=== PATIENT | female | born 1965 | race Caucasian/White ===

== ENCOUNTER → 2016-02-26 | Outpatient (CLI) | payer MEDICARE, BC ==
[2016-02-26 16:19] LABS: Blood Urea Nitrogen 7 mg/dL (7-17); Non-African American GFR(MDRD) >60 (>60 ml/min/1.73 sqM)
== END | disposition home or self-care (01) ==
LOC: LABWHC1 15:20
PROVIDERS: ATTEND Physical Medicine & Rehabilitation
DX: Z01.812 Encounter for preprocedural laboratory examination (principal); N28.9 Disorder of kidney and ureter, unspecified
CPT/HCPCS: 36415; 82565; 84520

== ENCOUNTER → 2017-06-30 | Outpatient (CLI) | payer MEDICARE ==
[2017-06-30 07:49] LABS: Basophils % (A) 0 %; Eosinophils # (A) 0.2 k/uL (0-0.7); Eosinophils % (A) 4 %; HCT 45.7 % (34.0-46.0); HGB 14.4 gm/dL (11.4-16.0); Lymphocytes # (A) 1.8 k/uL (1.0-4.8); Lymphocytes % (A) 39 %; MCH 32.2 pg (25.0-35.0); MCHC 31.6 g/dL (31.0-37.0); MCV 102.1 fL (80.0-100.0); Mean Platelet Volume 7.9; Monocytes # (A) 0.3 k/uL (0-1.0); Monocytes % (A) 6 %; Neutrophils # (A) 2.2 k/uL (1.3-7.7); Neutrophils % (A) 49 %; Platelet Count 249 k/uL (150-450); RBC 4.48 m/uL (3.80-5.40); RDW 12.6 % (11.5-15.5); WBC 4.6 k/uL (3.8-10.6)
[2017-06-30 07:50] LABS: Appearance,Urine Clear (Clear); Bilirubin,Urine Negative (Negative); Blood,Urine Negative (Negative); Color,Urine Light Yellow; Glucose,Urine (UA) Negative (Negative); Ketones,Urine Negative (Negative); Leukocyte Esterase,Urine Negative (Negative); Nitrite,Urine Negative (Negative); Protein,Urine Negative (Negative); Specific Gravity,Urine 1.003 (1.001-1.035); Urobilinogen,Urine <2.0 mg/dL (<2.0)
[2017-06-30 09:13] LABS: ALT 33 U/L (9-52); AST 28 U/L (14-36); Albumin 3.6 g/dL (3.5-5.0); Alkaline Phosphatase 70 U/L (38-126); Anion Gap 10 mmol/L; Blood Urea Nitrogen 7 mg/dL (7-17); C Reactive Protein <5.0 mg/L (<10.0); Calcium 9.5 mg/dL (8.4-10.2); Carbon Dioxide 31 mmol/L (22-30); Chloride 104 mmol/L (98-107); Creatine Kinase 48 U/L (30-135); Glucose 90 mg/dL (74-99); LDH 418 U/L (313-618); Phosphorus 4.3 mg/dL (2.5-4.5); Potassium 4.2 mmol/L (3.5-5.1); Sodium 145 mmol/L (137-145); Total Bilirubin 0.2 mg/dL (0.2-1.3); Uric Acid 4.1 mg/dL (3.7-7.4)
[2017-06-30 10:11] LABS: Erythrocyte Sedimentation Rate 2 mm/hr (0-20)
[2017-06-30 12:07] LABS: Vitamin D 25 Hydroxy 28.5 ng/mL (30.0-100.0)
[2017-06-30 12:15] LABS: Parathyroid Hormone Intact 21.7 pg/mL (14.0-72.0)
[2017-06-30 12:37] LABS: Cyclic Citrullinated Pep IgG NEGATIVE (NEGATIVE)
[2017-06-30 13:13] LABS: Protein, Total 6.1 g/dL (6.2-8.2); Rheumatoid Factor 4 IU/mL (0-15); Streptolysin O Ab(ASO) 638 IU/mL (0-200)
[2017-07-01 04:40] LABS: Angiotensin-1 Converting Enz. 28 U/L (8-52)
[2017-07-01 11:21] LABS: HLA B27 NEGATIVE
[2017-07-01 15:12] LABS: Hepatits C Virus RNA Not detected (Not detected); Hepatits C Virus RNA, Quant <12 IU/mL (<12); LOG HCV IU/mL <1.08 (<1.08)
[2017-07-01 17:50] LABS: Vitamin D, 1, 25-Dihydroxy 29 pg/mL (20 - 79)
[2017-07-01 23:19] LABS: Hemoglobin A1C 5.5 % (4.0-6.0)
[2017-07-02 11:06] LABS: Albumin 3.92 g/dL (3.80-4.90)
[2017-07-03 10:11] LABS: Vitamin B1 42 ug/L (38-122)
== END | disposition home or self-care (01) ==
LOC: LABWHC1 06:33
PROVIDERS: ATTEND Physical Medicine & Rehabilitation
DX: M54.5 Low back pain (principal); G89.4 Chronic pain syndrome; M54.2 Cervicalgia; G57.70 Causalgia of unspecified lower limb; M51.17 Intervertebral disc disorders with radiculopathy, lumbosacral region; G89.29 Other chronic pain; G89.3 Neoplasm related pain (acute) (chronic); M79.7 Fibromyalgia; M79.1 Myalgia; F06.4 Anxiety disorder due to known physiological condition; K59.03 Drug induced constipation; F45.42 Pain disorder with related psychological factors; M70.22 Olecranon bursitis, left elbow; G56.40 Causalgia of unspecified upper limb; M19.042 Primary osteoarthritis, left hand; M50.122 Cervical disc disorder at C5-C6 level with radiculopathy; M47.812 Spondylosis without myelopathy or radiculopathy, cervical region; R07.81 Pleurodynia; M70.62 Trochanteric bursitis, left hip; M70.61 Trochanteric bursitis, right hip; M77.12 Lateral epicondylitis, left elbow; M18.0 Bilateral primary osteoarthritis of first carpometacarpal joints
CPT/HCPCS: 36415; 80053; 81003; 82164; 82306; 82310; 82550; 82553; 82607; 82652; 83036; 83516; 83520; 83615; 83970; 84100; 84165; 84207; 84425; 84439; 84443; 84550; 85025; 85652; 86038; 86060; 86140; 86200; 86235; 86431; 86618; 86812; 87522

== ENCOUNTER → 2018-01-02 | Outpatient (CLI) | payer MEDICARE | END | disposition home or self-care (01) | LOC: LABWHC1 14:00 | PROVIDERS: ATTEND Orthopaedic Surgery Orthopaedic Surgery of the Spine | DX: Z01.812 Encounter for preprocedural laboratory examination (principal); M48.02 Spinal stenosis, cervical region | CPT/HCPCS: 36415; 86850; 86900; 86901 ==

== ENCOUNTER 2018-01-06 07:30 | Inpatient (IN) | payer MEDICARE ==
[~2018-01-06 07:30] MED LIST: BACITRACIN 50,000 UNIT, POLYMYXIN B 500,000 UNIT in SODIUM CHLORIDE 0.9% IRRIGATIO 1,00... IRRIGATION ONE; DEXAMETHASONE SOD PHOSPHATE 10 MG/ML 1 ML VIAL IV ONE; LIDOCAINE 1% 20 ML VIAL (10MG/ML) FOR IV START INTRADERMA PRN; MIDAZOLAM 2 MG/2 ML VIAL IV PRN; ONDANSETRON 4 MG/2 ML VIAL IVP ONE; SCOPOLAMINE 1.5MG/72HR PATCH TRANSDERM ONE; ceFAZolin IN SWFI 2 GM/20 ML SYRINGE IVP ONE
[2018-01-06] MEDS: LACTATED RINGERS 1,000 ML IV SCH (09:27)
[2018-01-06] MEDS ORDERED: PHENYLEPHRINE-0.9% NACL SYG 1 MG/10 ML SYRINGE ONE (10:43)
[2018-01-06] MEDS ORDERED: ePHEDrine SULFATE/0.9% NACL/PF 50 MG/5 ML SYRINGE IV ONE (10:43)
[2018-01-06] MEDS ORDERED: MIDAZOLAM 2 MG/2 ML VIAL ONE (10:43)
[2018-01-06] MEDS ORDERED: KETAMINE 10 MG/ML 20 ML VIAL ONE (10:43)
[2018-01-06] MEDS ORDERED: PROPOFOL 10 MG/ML 20 ML VIAL IV ONE (10:43)
[2018-01-06] MEDS ORDERED: ROCURONIUM BROMIDE 10 MG/ML 10 ML VIAL IV ONE (10:43)
[2018-01-06] MEDS ORDERED: LIDOCAINE 1% INJ 10MG/ML (20 ML MDV) ONE (10:43)
[2018-01-06] MEDS ORDERED: SUCCINYLCHOLINE CHLORIDE 100 MG/5 ML SYR IV ONE (10:43)
[2018-01-06] MEDS ORDERED: fentaNYL (PF) 50 MCG/ML 2 ML AMP ONE (10:43)
[2018-01-06] MEDS ORDERED: THROMBIN (BOVINE) 5,000 UNIT VIAL TOPICAL ONE (10:45)
[2018-01-06] MEDS ORDERED: LIDOCAINE 0.5%-EPI 1:200,000 50 ML VIAL SQ ONE (10:45)
[2018-01-06] MEDS ORDERED: GELATIN SPONGE,ABSORB (LARGE) 1 EACH SPONGE TOPICAL ONE (10:45)
--- NOTE | 2018-01-06 11:42 | XR ---
EXAMINATION TYPE: XR cervical spine 1V DATE OF EXAM: 01/06/2018 COMPARISON: NONE HISTORY: Neck pain, surgical planning. TECHNIQUE: Single crosstable lateral view of cervical spine is obtained intraoperatively. FINDINGS: Exam is for surgical planning and upper diagnostic purposes. There is reversal of cervical curvature centered at C5 level with moderate to severe spurring and disc space narrowing C5-C6 and C6 -C7 levels. Metallic pointer for surgical planning is noted at anterior C6-C7 disc space. IMPRESSION: As above.
[2018-01-06] MEDS ORDERED: HYDROcodone/APAP 5-325MG 1 EACH TAB PO PRN ×2 (12:26)
[2018-01-06] MEDS ORDERED: ONDANSETRON 4 MG/2 ML VIAL IVP ONE (12:26)
[2018-01-06] MEDS ORDERED: HYDROmorphone 1 MG/ML 1 ML SYRINGE IVP PRN ×2 (12:26)
[2018-01-06] MEDS ORDERED: BENZOCAINE/MENTHOL LOZENG 1 EACH LOZENGE MUCOUS MEM PRN (12:26)
--- NOTE | 2018-01-06 12:26 | P.OP ---
Date of Procedure: 01/06/18 Preoperative Diagnosis: Cervical myelopathy, Severe cervical stenosis, cervical kyphosis, degenerative disc disease, upper extremity radiculopathy, neck pain Postoperative Diagnosis: Cervical myelopathy, Severe cervical stenosis, cervical kyphosis, degenerative disc disease, upper extremity radiculopathy, neck pain Anesthesia: GETA Pathology: none sent Condition: stable Disposition: PACU Description of Procedure: BRIEF OPERATIVE NOTE Preoperative Diagnosis:Cervical myelopathy, Severe cervical stenosis, cervical kyphosis, degenerative disc disease, upper extremity radiculopathy, neck pain Postoperative Diagnosis: Same Procedure: Anterior cervical decompression and fusion C56 C6 7 with removal anterior cervical osteophytes Placement of interbody graft C5 6 C6 7 Application of anterior cervical plate C5 6 7 Surgeon: Dr. Murcia Systems Designer: Kamaljit Moreno is present throughout the entire the case persistence during positioning, dissection, exposure, visualization, and all crucial elements of the case as well as closure. Anesthesia: General anesthesia Estimated blood loss: Approximately 50 mL Complications: None apparent Components implanted: K2M Fluker anterior cervical plate system Disposition: To recovery room in good stable condition. OPERATIVE INDICATIONS The patient has had long-standing issues in their neck and upper extremities. She is not has severe stenosis and was demonstrating evidence of early cervical myelopathy. He should cervical kyphosis with severe disc degeneration and disc protrusion with herniation at C5 6 and C6 7 which correlated well with her neck and upper extremity symptoms. At C6 The patient has been through conservative treatment. We discussed various treatment options including surgery, and the patient wishes to proceed with surgery We discussed the risk, patient's alternatives and benefits of surgery including but not limited to, risk of bleeding risk of infection, risk of need for further surgery, risk of decreased , loss of motion, muscle function, malunion nonunion, hardware failure, nerve damage, paralysis, heart attack, and . OPERATIVE SUMMARY After discussing all the risks, patient alternatives and benefits at length, the patient elected to proceed with surgical intervention, signed informed consent, and presented for their procedure. The patient was seen and examined in the preoperative holding area and the surgical site was marked. The patient was given antibiotics and brought to the operating room. The patient was positioned on the operating room table in a supine position being careful to pad any bony prominences and pressure points. The patient was sedated and intubated by anesthesia in standard fashion. Once the airway and C- spine were stabilized the patient's arms were padded and tucked at her side, with her shoulders gently taped. The head was placed in a donut pad with the neck in good neutral alignment and position. We were careful to maintain the patient's cervical spine and good neutral alignment and position throughout. The patient was prepped and draped in a normal standard fashion. An appropriate timeout and keystone protocol performed. We were able to proceed with the surgery. The local wound area was infiltrated with local anesthetic. An incision was made transversely approximately 2-1/2 cm over the appropriate levels. Dissection was taken down subcutaneously to the level of the platysma which was split in line with its fibers. Dissection was taken with a carotid approach, with the trachea and esophagus medial and the carotid sheath laterally. We dissected down to the anterior surface of the vertebral bodies. Intraoperative x-ray was taken which showed a marker at the appropriate level. With the appropriate level positively confirmed, we were able to proceed with discectomy at the appropriate levels first at C67 and then C5 6. All of the operative levels were exposed appropriately. The patient had all their twitches back, and there was no evidence of recurrent laryngeal issue. The wound was copiously irrigated and suctioned dry as had been done periodically throughout the case. At the appropriate level/levels, I established an annulotomy with an 11 blade scalpel. A discectomy was performed with a combination of pituitary rongeurs, curettes, a high-speed bur, and Kerrison rongeurs. The posterior longitudinal ligament was taken down as were any posterior osteophytes. This gave good central and bilateral foraminal decompression. There is no evidence of any dural tear or leak. The endplates were prepared with a high-speed bur. Note was made of severe disc degeneration as well as large osteophytes anteriorly posteriorly which were removed. This gave excellent decompression with removal of posterior osteophytes. With the endplates in good parallel position, I was able to size for the appropriate size interbody graft. The wound was irrigated and suctioned dry the graft was prepared and malleted into position. It had good alignment and position with the anterior surface flush with the anterior surface of the vertebral bodies. This was done similarly the appropriate levels first at C6 7 than at C5 6. With the grafts intact, I was able to measure and contour and appropriate sized plate at C5 6 and 7. The plate was positioned at the midline over the appropriate levels. Screw holes were established with a hand drill and drill guide. Screws were placed in good alignment and position with excellent bony purchase. They were seated under the locking device. The construct was checked and found to be stable. Intraoperative x-ray was taken which showed good alignment and position of the implants at the appropriate levels. There was no evidence of any dural tear or leak. Good hemostasis was maintained. The wound was copiously irrigated and suctioned dry as had been done periodically throughout the case. The platysma was closed with absorbable suture. The subcutaneous tissue was closed. The subcuticular tissue was closed with absorbable suture. The wound was cleaned and dried and dressed appropriately. A soft cervical collar was placed appropriately. The patient was woken up by anesthesia, extubated, transferred back gently to their hospital bed and brought to the recovery room in good stable condition. The patient will be admitted to the hospital for appropriate postoperative care , medical management and monitoring. We will continue to follow them closely about the postoperative course.
[2018-01-06] MEDS ORDERED: ACETAMINOPHEN TAB 500 MG TAB PO PRN (12:28)
[2018-01-06] MEDS ORDERED: ASPIRIN-ACET-CAFF 250-250-65MG 1 EACH TAB PO PRN (12:28)
[2018-01-06] MEDS ORDERED: MEPERIDINE 50 MG/ML SYRINGE IVP ONE ×2 (12:46→12:53)
--- NOTE | 2018-01-06 13:00 | XR ---
EXAMINATION TYPE: XR cervical spine 1V DATE OF EXAM: 01/06/2018 COMPARISON: Cervical spine x-ray earlier today. HISTORY: Cervical fusion surgery. TECHNIQUE: Crosstable lateral view of cervical spine is obtained intraoperatively. FINDINGS: There is interval placement of anterior fusion plate and rectangular dense disc spacer C5-C 7 level. Satisfactory alignment is seen at surgical site. Reversal of curvature centered at C4-C5 lev el is stable. Partial visualization of endotracheal tube is noted. IMPRESSION: As above
[2018-01-06] MEDS: HYDROmorphone 0.5 MG/0.5 ML SYRINGE IVP PRN ×2 (13:02→13:15)
[2018-01-06 13:46] VITALS: BMI 19.8
[2018-01-06] MEDS: SODIUM CHLORIDE 0.9% 1,000 ML IV SCH (14:48)
[2018-01-06] MEDS: clonazePAM 0.5 MG TAB PO SCH ×2 (16:03→21:13)
[2018-01-06] MEDS: METHADONE 5 MG TAB PO SCH ×2 (16:03→23:13)
[2018-01-06] MEDS: cloNIDine HCL 0.1 MG TAB PO SCH ×2 (16:05→21:08)
[2018-01-06] MEDS: tiZANidine 4 MG TAB PO SCH ×2 (17:04→23:13)
[2018-01-06] MEDS: ceFAZolin IN SWFI 2 GM/20 ML SYRINGE IVP SCH ×2 (18:14→23:14)
[2018-01-06] MEDS ORDERED: traZODone HCL 50 MG TAB PO SCH (21:00)
[2018-01-07] MEDS: SODIUM CHLORIDE 0.9% 1,000 ML IV SCH (04:19)
[2018-01-07] MEDS: LACTATED RINGERS 1,000 ML IV SCH (05:59)
[2018-01-07 07:47] VITALS: BP 102/52; PULSE 74; RESP 22; TEMP 98.3
[2018-01-07] MEDS: METHADONE 5 MG TAB PO SCH (08:46)
[2018-01-07] MEDS: tiZANidine 4 MG TAB PO SCH (08:47)
[2018-01-07] MEDS: clonazePAM 0.5 MG TAB PO SCH (08:47)
--- NOTE | 2018-01-07 08:48 | CONS ---
CONSULTATION DATE OF CONSULTATION: 01/06/2018 REASON FOR CONSULTATION: Medical management requested by Dr. Hopkins. CONSULTATION: This is a pleasant 52-year-old patient of Dr. Jalloh. Chronic stable medical conditions include complex regional pain syndrome, carpal tunnel in both the hands, anxiety, depression. Patient has had longstanding cervical spine stenosis and associated arthritis with radiculopathy, especially of both the arms with some wasting of the muscles and tremors. Patient underwent surgical repair of the same. Patient has got a cervical collar right now, was having some dysphagia earlier liquids, but now started tolerating some liquids. Pain is reasonably controlled. No nausea, vomiting. Lying in bed. REVIEW OF SYSTEMS: CONSTITUTIONAL: None. HEENT None. NECK: Pain at the operative site. RESPIRATORY: None. CARDIOVASCULAR: None. GASTROINTESTINAL: Denies. GENITOURINARY: None. MUSCULOSKELETAL: Chronic pain in multiple joints, especially the neck. DERMATOLOGICAL: None. HEMATOLOGICAL: None. LYMPHATIC: None. PSYCHIATRY: Anxiety, depression, controlled. NEUROLOGICAL: Some weakness and tremors in the hands from prior surgery. PAST MEDICAL HISTORY: Osteoarthritis, TIA, complex regional pain syndrome, non-Hodgkin's lymphoma treated with chemo in 2014, carpal tunnel syndrome, anxiety, depression. PAST SURGICAL HISTORY: Hysterectomy, melanoma surgery, extraction from left thigh, pain procedures, right carpal tunnel release, right thumb point joint replacement. PSYCH HISTORY: Anxiety, depression. SOCIAL HISTORY: Lives with her . Smokes a pack a day for 36 years, no alcohol. FAMILY HISTORY: Reviewed, noncontributory to presentation. HOME MEDICATIONS: Prozac 60 mg a day, trazodone 150 mg q.h.s., Zanaflex 4 mg p.o. q.8, Klonopin 0.5 mg p.o. t.i.d., Clonidine 0.3 mg p.o. t.i.d., methadone 5 mg p.o. q.8, biotin 1 tablet a day, Excedrin p.r.n. Tylenol Extra Strength 1000 mg b.i.d. p.r.n. ALLERGIES: None. PHYSICAL EXAMINATION: Temperature 98.5, pulse 71, respiration 16, blood pressure 98/55, pulse ox 92% on room air. GENERAL APPEARANCE: Thin build, lying in bed, awake. EYES: Pupils equal, conjunctivae are normal. HEENT: External appearance of nose and ears normal, oral cavity normal. NECK: Collar in place. Unable to assess further. RESPIRATORY EFFORT: Normal. LUNGS: Decreased breath sounds. CARDIOVASCULAR: First and second sounds are normal, no edema. ABDOMEN: Soft, nontender. Liver and spleen not palpable. LYMPHATIC: No lymph node palpable in the axilla. PSYCHIATRY: Alert and oriented x3. Mood and affect slightly anxious-appearing. NEUROLOGICAL: Pupils equal, cranial nerves grossly intact. Slight tremor in the upper extremities. INVESTIGATIONS: Blood work from 07/01/2027 shows a white count of 4.6, hemoglobin 14.4, potassium 4.2, BUN 7, creatinine 0.70, vitamin D 25, hydroxy low at 28.5, TSH normal. ASSESSMENT: Status post cervical spine surgery for cervical stenosis and radiculopathy in his upper extremities with neck collar in place. Next, complex regional pain syndrome next carpal tunnel in both the hands next anxiety depression not otherwise specified. Postoperative dysphagia as expected from surgery. PLAN: Patient is getting IV fluids. Pain control is in place. The patient also got Dilaudid. The patient did tolerate some liquids. Diet will be advanced as tolerated. The patient to ambulate as tolerated. Care was discussed with the patient. Questions were answered Thank you, Dr. Murcia. MMLADARIUS / SHAQN: [id number] /
[2018-01-07] MEDS: cloNIDine HCL 0.1 MG TAB PO SCH (08:49)
[2018-01-07] MEDS ORDERED: BIOTIN PO SCH (09:00)
[2018-01-07] MEDS ORDERED: FLUoxetine HCL 20 MG CAP PO SCH ×2 (09:00)
--- NOTE | 2018-01-07 09:29 | P.DS ---
Providers Date of admission: 01/06/18 08:12 Attending physician: Hemalatha Murcia Consults: 01/06/18 17:46 Consult Physician Routine Consulting Provider: Jim Robertson Consult Reason/Comments: medical management Do you want consulting provider notified?: Yes [facility] care [facility]: The patient presented on the day of admission as per her operative note. She underwent anterior cervical decompression with discectomy and fusion at C56 and C6 7 for her severe cervical stenosis with cervical myelopathy upper extremity radiculopathy and weakness. She feels she is making progress thus far. Her neck is comfortable. She's been mobile around her room. She is tolerating a soft diet. Physical Exam The incision site is clean dry and intact. There is no erythema no drainage. There is no purulence no evidence of infection. There is no active drainage. Her neck is soft and supple without any swelling. Abdomen soft and nontender. Chest has good excursion with deep inspiration and expiration. The patient has active and passive range of motion intact at the upper and lower extremities. There is no acute change in neurologic status. She is able to use her upper extremity she does have some continued weakness on the left. This was present prior to her surgery. Hospital Course Postoperative day #1 status post anterior cervical discectomy with decompression and fusion C5 6 C6 7 for her cervical myelopathy with severe cervical stenosis upper extremity radiculopathy and neck pain. She had some pain control issues last night but is much more stable today. I think she is making some improvement in her upper extremities with her surgery. I think she'll be okay with her continued home pain medications that she has already been on. She is on a pain contract and will continue her regular medications without new prescriptions at this point. The patient has been making good progress postoperatively. They have completed the prophylactic antibiotics without any signs or symptoms of infection. The patient has been able to advance their diet, and is tolerating diet adequately. The pain was initially controlled with IV medications and is now controlled appropriately with oral medications. The patient has been able to increase their mobilization. The patient has progressed appropriately. I think they are in good stable condition for discharge today. They will be sent home with appropriate prescriptions. I answered their questions to the best of my ability in a language that they can understand and they are agreeable with the plan. They will follow up as directed in approximately 2 weeks or sooner severe problems. Patient Condition at Discharge: Good Plan - Discharge Summary Discharge Rx Participant: Yes New Discharge Prescriptions: No Action tiZANidine [Zanaflex] 4 mg PO Q8HR Methadone [Dolophine] 5 mg PO Q8H clonazePAM [KlonoPIN] 0.5 mg PO TID traZODone HCL 150 mg PO HS cloNIDine HCL 0.3 mg PO TID Biotin 1 tab PO DAILY Aspirin/Acetaminophen/Caffeine [Excedrin Migraine Caplet] 1 each PO DIRECTED PRN PRN Reason: Headache Acetaminophen [Tylenol Extra Strength] 1,000 mg PO BID PRN PRN Reason: Pain FLUoxetine HCL [PROzac] 60 mg PO DAILY Discharge Medication List Acetaminophen [Tylenol Extra Strength] 1,000 mg PO BID PRN 12/30/17 [History] Aspirin/Acetaminophen/Caffeine [Excedrin Migraine Caplet] 1 each PO DIRECTED PRN 12/30/17 [History] Biotin 1 tab PO DAILY 12/30/17 [History] Methadone [Dolophine] 5 mg PO Q8H 12/30/17 [History] cloNIDine HCL 0.3 mg PO TID 12/30/17 [History] clonazePAM [KlonoPIN] 0.5 mg PO TID 12/30/17 [History] tiZANidine [Zanaflex] 4 mg PO Q8HR 12/30/17 [History] traZODone HCL 150 mg PO HS 12/30/17 [History] FLUoxetine HCL [PROzac] 60 mg PO DAILY 01/06/18 [History] Follow up Appointment(s)/Referral(s): Hemalatha Murcia DO [Doctor of Osteopathic Medicine] - 1 Week Activity/Diet/Wound Care/Special Instructions: Keep site clean. May shower with waterproof Tegaderm intact. Do not soak in a tub. On Thursday, the patient may shower with area uncovered. Leave Steri-Strips intact and allow them to fray off on their own. Do not soak in a tub. Avoid heavy or rigorous activity. May endplate to tolerance. No overhead work. No repetitive bending twisting or lifting. No heavy lifting. Discharge Disposition: HOME SELF-CARE
--- NOTE | 2018-01-11 08:32 | CDI ---
Documentation Clarification Form Date: 01/11/18 From: JESSICA Moreno Phone: If you have question, contact Kathleen Jeff at [phone] M-F 8:30 am to 6pm Admit Date: 01/06/2018 8:12:00 AM Patient Name: Tere White Visit Number: [id number] Discharge Date: 01/07/18 ATTENTION: The Clinical Documentation Specialists (CDI) and [facility] Coding Staff appreciate your assistance in clarifying documentation. Please respond to the clarification below the line at the bottom and electronically sign. The CDI & [facility] Coding staff will review the response and follow-up if needed. Please note: Queries are made part of the Legal Health Record. If you have any questions, please contact the author of this message via ITS. Hemalatha Hart, DO Per the Operative Report A discectomy was performed with a combination of pituitary rongeurs, curettes, a high-speed bur and Kerrison ronguers. Further clarification of the extent of the discectomy performed is needed for proper reporting purposes. In your professional opinion, can you please clarify if the disc was removed in total or if only a portion of the disc was removed.: Total discectomy Partial removal of disc Other, please specify Unable to determine Thank you for your time. Please note that we performed a complete discectomy at C56 and C6 7 for her disc herniation with severe cervical stenosis and upper extremity radiculopathy MTDD
== END 2018-01-07 11:48 | disposition home or self-care (01) | DRG 472 ==
LOC: 2ORMAIN 08:12 → 4SSUR 12:59
PROVIDERS: ADMIT Orthopaedic Surgery Orthopaedic Surgery of the Spine; ATTEND Orthopaedic Surgery Orthopaedic Surgery of the Spine
PROC: 0RG20A0 Fusion of 2 or more Cervical Vertebral Joints with Interbody Fusion Device, Anterior Approach, Anterior Column, Open Approach (ICD-10-PCS; principal; 2018-01-06 10:15)
PROC: 0RT30ZZ Resection of Cervical Vertebral Disc, Open Approach (ICD-10-PCS; principal; 2018-01-06 10:15)
DX: M48.02 Spinal stenosis, cervical region (principal); M50.022 Cervical disc disorder at C5-C6 level with myelopathy; G90.50 Complex regional pain syndrome I, unspecified; M50.122 Cervical disc disorder at C5-C6 level with radiculopathy; F17.210 Nicotine dependence, cigarettes, uncomplicated; F32.9 Major depressive disorder, single episode, unspecified; M79.7 Fibromyalgia; M40.202 Unspecified kyphosis, cervical region; M19.90 Unspecified osteoarthritis, unspecified site; M25.78 Osteophyte, vertebrae; F41.9 Anxiety disorder, unspecified; R13.10 Dysphagia, unspecified; Z90.710 Acquired absence of both cervix and uterus; Z79.899 Other long term (current) drug therapy; Z85.72 Personal history of non-Hodgkin lymphomas; Z92.21 Personal history of antineoplastic chemotherapy; Z85.820 Personal history of malignant melanoma of skin; Z86.73 Personal history of transient ischemic attack (TIA), and cerebral infarction without residual deficits
CPT/HCPCS: 36415; 72020; 86850; 86900; 86901

== ENCOUNTER 2018-06-09 04:29 | Observation (INO) | payer MEDICARE ==
[2018-06-09] MEDS ORDERED: PROMETHAZINE INJ 25 MG/ML 1 ML VIAL IM STA (04:42)
[2018-06-09] MEDS ORDERED: HYDROmorphone 1 MG/ML 1 ML SYRINGE IVP STA ×2 (04:43→06:10)
--- NOTE | 2018-06-09 04:48 | ED ---
General Adult HPI - General Chief complaint: Back Pain/Injury Stated complaint: pain all over Time Seen by Provider: 06/09/18 04:33 Source: patient, family, EMS Mode of arrival: EMS Limitations: altered mental status - History of Present Illness Initial comments: This patient's 53-year-old woman reportedly with history of chronic pain who presents by ambulance to be evaluate for exacerbation of pain and also vomiting. Patient reportedly takes methadone for the chronic pain and has not been able to keep this down 3 days now. The symptoms became much worse approximately 2 AM. Patient is not able to give much history she is rolling on the floor and yelling. When asked details of her history she states "I can't do this." -: hour(s) Consistency: constant Improves with: none Worsens with: none Associated Symptoms: nausea/vomiting - Related Data Home Medications Medication Instructions Recorded Confirmed Acetaminophen [Tylenol Extra 1,000 mg PO BID PRN 12/30/17 01/06/18 Strength] Aspirin/Acetaminophen/Caffeine 1 each PO DIRECTED PRN 12/30/17 01/06/18 [Excedrin Migraine Caplet] Biotin 1 tab PO DAILY 12/30/17 01/06/18 Methadone [Dolophine] 5 mg PO Q8H 12/30/17 01/06/18 cloNIDine HCL 0.3 mg PO TID 12/30/17 01/06/18 clonazePAM [KlonoPIN] 0.5 mg PO TID 12/30/17 01/06/18 tiZANidine [Zanaflex] 4 mg PO Q8HR 12/30/17 01/06/18 traZODone HCL 150 mg PO HS 12/30/17 01/06/18 FLUoxetine HCL [PROzac] 60 mg PO DAILY 01/06/18 01/06/18 Allergies Allergy/AdvReac Type Severity Reaction Status Date / Time No Known Allergies Allergy Verified 12/30/17 11:30 Review of Systems ROS Statement: Those systems with pertinent positive or pertinent negative responses have been documented in the HPI. ROS Other: All systems not noted in ROS Statement are negative. 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 History of Any Multi-Drug Resistant Organisms: None Reported Past Surgical History: Hysterectomy, Orthopedic Surgery Additional Past Surgical History / Comment(s): MELANOMA SURGERY WITH "WIDE EXTRACTION " AND LYMPH NODES REMOVED LEFT THIGH (2011), CYST ON BACK., PAIN PROCEDURES., RIGHT CARPAL TUNNEL RELEASE, RIGHT THUMB JOINT REPLACEMENT. Past Anesthesia/Blood Transfusion Reactions: No Reported Reaction, Family History of Problems w/ Anesthesia Additional Past Anesthesia/Blood Transfusion Reaction / Comment(s): MOTHER AND SON = PONV Past Psychological History: Anxiety, Depression Smoking Status: Heavy tobacco smoker Past Alcohol Use History: None Reported Past Drug Use History: None Reported - Past Family History Mother Family Medical History: No Reported History General Exam Limitations: physical limitation (Patient is poorly cooperative with the exam.) General appearance: alert Head exam: Present: atraumatic, normocephalic Eye exam: Present: normal appearance. Absent: scleral icterus, conjunctival injection Respiratory exam: Present: normal lung sounds bilaterally. Absent: respiratory distress, wheezes, rales, rhonchi, stridor Cardiovascular Exam: Present: regular rate, normal rhythm, normal heart sounds. Absent: systolic murmur, diastolic murmur, rubs, gallop GI/Abdominal exam: Present: soft. Absent: tenderness, guarding, rebound, mass Extremities exam: Present: normal inspection. Absent: pedal edema Back exam: Present: normal inspection Neurological exam: Present: alert. Absent: CN II-XII intact, motor sensory deficit Skin exam: Present: warm, dry, intact Course Vital Signs 06/09/18 06/09/18 06/09/18 04:32 05:39 06:55 Temperature 97.7 F Pulse Rate 85 47 L 47 L Respiratory 18 22 20 Rate Blood Pressure 135/74 143/130 130/0 O2 Sat by Pulse 100 100 100 Oximetry 06/09/18 07:26 Temperature Pulse Rate 51 L Respiratory 22 Rate Blood Pressure 96/37 O2 Sat by Pulse 100 Oximetry Medical Decision Making - Lab Data Result diagrams: 06/09/18 06:00 06/09/18 06:00 Lab Results 04/17/19 04/17/19 Range/Units 06:00 06:00 WBC 12.4 H (3.8-10.6) k/uL RBC 4.36 (3.80-5.40) m/uL Hgb 13.9 (11.4-16.0) gm/dL Hct 42.7 (34.0-46.0) % MCV 97.8 (80.0-100.0) fL MCH 32.0 (25.0-35.0) pg MCHC 32.7 (31.0-37.0) g/dL RDW 13.0 (11.5-15.5) % Plt Count 172 (150-450) k/uL Neutrophils % 82 % Lymphocytes % 12 % Monocytes % 5 % Eosinophils % 1 % Basophils % 0 % Neutrophils # 10.1 H (1.3-7.7) k/uL Lymphocytes # 1.4 (1.0-4.8) k/uL Monocytes # 0.6 (0-1.0) k/uL Eosinophils # 0.1 (0-0.7) k/uL Basophils # 0.0 (0-0.2) k/uL Sodium 142 (137-145) mmol/L Potassium 3.1 L (3.5-5.1) mmol/L Chloride 106 (98-107) mmol/L Carbon Dioxide 27 (22-30) mmol/L Anion Gap 9 mmol/L BUN 10 (7-17) mg/dL Creatinine 0.77 (0.52-1.04) mg/dL Est GFR (CKD-EPI)AfAm >90 (>60 ml/min/1.73 sqM) Est GFR (CKD-EPI)NonAf 88 (>60 ml/min/1.73 sqM) Glucose 93 (74-99) mg/dL Calcium 9.5 (8.4-10.2) mg/dL Total Bilirubin 1.1 (0.2-1.3) mg/dL AST 32 (14-36) U/L ALT 27 (9-52) U/L Alkaline Phosphatase 80 (38-126) U/L Total Protein 6.4 (6.3-8.2) g/dL Albumin 4.3 (3.5-5.0) g/dL Disposition Clinical Impression: Intractable pain Disposition: ADMITTED IP TO THIS HOSP Condition: Fair Is patient prescribed a controlled substance at d/c from ED?: No Referrals: Joe Jalloh MD [Primary Care Provider] - 1-2 days
[2018-06-09] MEDS ORDERED: METHADONE 5 MG TAB PO ONE (05:00)
[2018-06-09] MEDS ORDERED: MORPHINE SULFATE 4 MG/ML SYRINGE IM STA (05:26)
[2018-06-09 06:12] LABS: Basophils % (A) 0 %; Eosinophils # (A) 0.1 k/uL (0-0.7); Eosinophils % (A) 1 %; HCT 42.7 % (34.0-46.0); HGB 13.9 gm/dL (11.4-16.0); Lymphocytes # (A) 1.4 k/uL (1.0-4.8); Lymphocytes % (A) 12 %; MCHC 32.7 g/dL (31.0-37.0); MCV 97.8 fL (80.0-100.0); Mean Platelet Volume 7.9; Monocytes # (A) 0.6 k/uL (0-1.0); Monocytes % (A) 5 %; Neutrophils # (A) 10.1 k/uL (1.3-7.7); Neutrophils % (A) 82 %; Platelet Count 172 k/uL (150-450); RBC 4.36 m/uL (3.80-5.40); WBC 12.4 k/uL (3.8-10.6)
[2018-06-09 06:31] LABS: ALT 27 U/L (9-52); AST 32 U/L (14-36); Albumin 4.3 g/dL (3.5-5.0); Alkaline Phosphatase 80 U/L (38-126); Anion Gap 9 mmol/L; Blood Urea Nitrogen 10 mg/dL (7-17); Calcium 9.5 mg/dL (8.4-10.2); Carbon Dioxide 27 mmol/L (22-30); Chloride 106 mmol/L (98-107); Glucose 93 mg/dL (74-99); Potassium 3.1 mmol/L (3.5-5.1); Sodium 142 mmol/L (137-145); Total Bilirubin 1.1 mg/dL (0.2-1.3); Total Protein 6.4 g/dL (6.3-8.2)
--- NOTE | 2018-06-09 07:15 | CT ---
EXAM: CT Abdomen and Pelvis Without Intravenous Contrast CLINICAL HISTORY: Complaining about back pain and pain all over pt is on methadone but has not had it for 24 hrs no bruising has had SX Melanoma of the spine neck TECHNIQUE: Axial computed tomography images of the abdomen and pelvis without intravenous contrast. DLP is 373.5 mGy-cm. This CT exam was performed using one or more of the following dose reduction techniques: automated exposure control, adjustment of the mA and/or kV according to patient size, and/or use of iterative reconstruction technique. Coronal and sagittal reconstructions are performed COMPARISON: Knee FINDINGS: Lung bases: Unremarkable. No mass. No consolidation. ABDOMEN: Liver: Unremarkable. Gallbladder and bile ducts: Unremarkable. No calcified stones. No ductal dilation. Pancreas: Unremarkable. No ductal dilation. Spleen: Unremarkable. No splenomegaly. Adrenals: Unremarkable. No mass. Kidneys and ureters: 1 - 3mm nonobstructing upper pole bilateral renal stones. Stomach and bowel: Mild colonic diverticulosis. No obstruction. No mucosal thickening. PELVIS: Appendix: Normal appendix. Bladder: Unremarkable. No stones. Reproductive: Uterus is absent. ABDOMEN and PELVIS: Intraperitoneal space: Unremarkable. No free air. No significant fluid collection. Bones/joints: No acute fracture. No dislocation. Soft tissues: Unremarkable. Vasculature: Minimal atherosclerotic calcifications. No abdominal aortic aneurysm. Lymph nodes: Unremarkable. No enlarged lymph nodes. IMPRESSION: No acute findings 1 - 3mm nonobstructing upper pole bilateral renal stones.
[2018-06-09] MEDS ORDERED: SODIUM CHLORIDE 0.9% 1,000 ML IV ONE (07:29)
[2018-06-09] MEDS ORDERED: MORPHINE SULFATE 4 MG/ML SYRINGE IV PRN (08:08)
[2018-06-09] MEDS ORDERED: ONDANSETRON 4 MG/2 ML VIAL IVP PRN (08:08)
[2018-06-09] MEDS ORDERED: PROCHLORPERAZINE SUPPOSITORY 25 MG SUPP RECTAL PRN (08:08)
[2018-06-09] MEDS ORDERED: NALOXONE 0.4 MG/ML 1 ML VIAL IV PRN (08:08)
[2018-06-09] MEDS ORDERED: PROMETHAZINE 25 MG TAB PO PRN (08:08)
[2018-06-09] MEDS: FLUoxetine HCL 20 MG CAP PO SCH (10:34)
[2018-06-09] MEDS: SODIUM CHLORIDE 0.9% 1,000 ML IV SCH ×2 (10:34→19:52)
[2018-06-09] MEDS: clonazePAM 0.5 MG TAB PO SCH ×3 (10:34→19:53)
[2018-06-09] MEDS: METHADONE 5 MG TAB PO SCH ×2 (14:43→23:30)
[2018-06-09 15:21] VITALS: BMI 22.2
[2018-06-09] MEDS ORDERED: MAGNESIUM HYDROXIDE 2,400 MG/10 ML CUP PO PRN (15:37)
[2018-06-09] MEDS ORDERED: POTASSIUM CHLORIDE ER 20 MEQ TAB.ER PO STA (15:41)
[2018-06-09] MEDS ORDERED: FAMOTIDINE 20 MG TAB PO SCH (16:00)
[2018-06-09] MEDS: tiZANidine 4 MG TAB PO SCH (16:35)
[2018-06-09] MEDS: CALCIUM CARBONATE LIQUID 500 MG/5 ML CUP PO SCH (16:35)
[2018-06-09] MEDS: traZODone HCL 50 MG TAB PO SCH (19:54)
[2018-06-09 20:34] LABS: Amylase 44 U/L (30-110); Lipase 38 U/L (23-300)
--- NOTE | 2018-06-09 20:51 | XR ---
EXAMINATION TYPE: XR abdomen 3V DATE OF EXAM: 06/09/2018 COMPARISON: None HISTORY: Abdominal pain TECHNIQUE: One upright and 2 supine films FINDINGS: Visualized lung bases and pleural spaces are negative. No pneumoperitoneum or pneumatosis. Bowel gas pattern is normal. However, excessive descending and si gmoid colonic stool volume noted. No acute radiographic or soft tissue findings. However, there is bilateral medial displacement of the femoral head, seen medial to the ilioischial l ine. IMPRESSION: 1. No definite acute process. 2. Incidental: bilateral protrusio acetabuli.
--- NOTE | 2018-06-09 20:58 | HP ---
HISTORY AND PHYSICAL DATE OF ADMISSION: 06/09/2018 DATE OF SERVICE: 06/09/2018. PRESENTING COMPLAINT: Epigastric pain. HISTORY OF PRESENTING COMPLAINT: This is a 53-year-old patient who follows with Dr. Jalloh out of [place]. Chronic stable medical conditions include osteoarthritis, complex regional pain syndrome, chronic generalized pain, several TIAs and chronic constipation. The patient does follow with Dr. Oscar Kelly for her pain symptoms. At baseline is sometimes unsteady on feet. Takes pain medications chronically. The patient presented after she developed pain what is described in the chest below the sternum in the epigastric area, rather sharp and has been going on for about 2 weeks, became more pronounced yesterday. There was nausea, vomiting. There was no fever and chills. The patient has no bowel pattern. In fact, has not had a bowel movement for 2 weeks. Just felt tired and run down admitted for the same and the patient has chronic regional pain syndrome with pain practically everywhere from head to toe as she described. The patient continues to smoke cigarettes. There was no precordial pain. There was no perspiration or shortness of breath. Did not radiate. Did go slightly to the back. has been present for about 2 weeks. The patient's mother presented with her. REVIEW OF SYSTEMS: CONSTITUTIONAL: Tired. HEENT: None. RESPIRATORY: Occasional wheezing. CARDIOVASCULAR: No precordial pain. GASTROINTESTINAL: As above. GENITOURINARY: None. MUSCULOSKELETAL: Aches and pains in different joints. DERMATOLOGICAL, HEMATOLOGIC, LYMPHATIC: None. PSYCHIATRY: Anxious. NEUROLOGICAL: Chronically unstable on feet. PAST MEDICAL HISTORY: Of cancers, TIAs, multiple osteoarthritis, complex regional pain syndrome, chronic generalized pain, difficulty walking far, bilateral carpal tunnel syndrome, migraines, constipation. PAST SURGICAL HISTORY: Hysterectomy, surgery, tubal ligation, melanoma surgery, section and left node removed on left thigh, cyst on the back, pain procedures, right carpal tunnel release, right thumb joint replacement, anterior cervical decompression, right salpingectomy. PSYCH HISTORY: History of anxiety and depression. SOCIAL HISTORY: , does have a cane, walker, but not really using it. Does smoke about a pack a day close to 40 years. No alcohol. FAMILY HISTORY: Reviewed, noncontributory to presentation. HOME MEDICATIONS: 1. Zanaflex 48 mg q.6. 2. Catapres 0.3 mg p.o. t.i.d. 3. Methadone 5 mg q.8h. 4. Klonopin 0.5 mg p.o. daily. 5. Clonazepam 1 mg q.h.s. 6. Prozac 60 mg p.o. daily. ALLERGIES: None. PHYSICAL EXAMINATION: VITAL SIGNS: Temperature 97.7, pulse 85, respirations 18, blood pressure 135/74, pulse ox 100 percent on room air. GENERAL APPEARANCE: Thin build, lying in bed, somewhat anxious-appearing. EYES: Pupils equal. Conjunctivae normal. HEENT: External appearance of nose and ears normal. Oral cavity normal. NECK: JVD not raised. Mass not palpable. RESPIRATORY: Effort normal. LUNGS: Slightly decreased breath sounds. CARDIOVASCULAR: First and second sounds normal. No edema. ABDOMEN: Soft, nontender. Liver and spleen not palpable. LYMPHATICS: No lymph nodes palpable in neck or axillae. PSYCHIATRY: Alert and oriented x3. Mood and affect normal. NEUROLOGICAL: Pupils equal. Cranial nerves grossly intact. Power and sensation grossly intact. The patient is anxious. INVESTIGATIONS: White count 12.4, hemoglobin 13.9. Potassium 3.1. BUN and creatinine is normal. CT scan abdomen and pelvis shows 3 mm nonobstructing upper pole bilateral kidney stones. Otherwise, nil acute. ASSESSMENT: 1. This is a patient who has got regional complex pain syndrome with pain all over, presents with 2 weeks of pain worsening in the epigastric area with some nausea, vomiting yesterday with no fever and chills. The patient is chronically constipated. Would like to rule out gallbladder disease. Patient also could have localized peptic ulcer. 2. Chronic severe constipation. 3. Complex regional pain syndrome. 4. Chronic nicotine dependence, patient is a smoker. PLAN: We will check the patient's chest x-ray and a plain abdominal x-ray. Enema is being ordered. We will also order a gallbladder ultrasound. The patient's abdomen does not appear to be surgical. The patient may need endoscopy down the road. Care was discussed with the patient. Questions were answered. Also send off amylase and lipase. Copy to Dr. Jalloh in [place]. MMODL / IJN: [id number] /
[2018-06-10] MEDS: tiZANidine 4 MG TAB PO SCH ×4 (01:20→23:24)
[2018-06-10] MEDS: SODIUM CHLORIDE 0.9% 1,000 ML IV SCH ×3 (01:21→17:43)
[2018-06-10] MEDS: METHADONE 5 MG TAB PO SCH ×3 (05:09→20:58)
--- NOTE | 2018-06-10 07:54 | US ---
EXAMINATION TYPE: US abdomen limited DATE OF EXAM: 06/10/2018 COMPARISON: CT 2019 CLINICAL HISTORY: epigastric pain...assess GB disease. Abdomen pain N/V x 3 days EXAM MEASUREMENTS: Liver Length: 13.0 cm Gallbladder Wall: 0.2 cm CBD: 0.4 cm Right Kidney: 9.3 x 4.2 x 5.0 cm Pancreas: wnl Liver: wnl Gallbladder: wnl Evidence for sonographic Rodriguez's sign: no CBD: wnl Right Kidney: 0.4cm echogenic focus superior pole IMPRESSION: 1. Nonobstructing right-sided nephrolithiasis. Otherwise unremarkable study.
[2018-06-10] MEDS: clonazePAM 0.5 MG TAB PO SCH ×2 (08:32→16:32)
[2018-06-10] MEDS: FLUoxetine HCL 20 MG CAP PO SCH (08:33)
[2018-06-10] MEDS: CALCIUM CARBONATE LIQUID 500 MG/5 ML CUP PO SCH ×3 (08:33→16:29)
[2018-06-10] MEDS ORDERED: ACETAMINOPHEN TAB 500 MG TAB PO STA (11:56)
--- NOTE | 2018-06-10 15:19 | P.GSCN ---
<Shawna Beebe - Last Filed: 06/10/18 15:19> History of Present Illness Consult date: 06/10/18 Reason for Consult: abdominal pain Requesting physician: Jim Robertson History of present illness: CHIEF COMPLAINT: Abdominal pain HISTORY OF PRESENT ILLNESS: 53-year-old female who presented to the emergency room with a chief complaint of epigastric pain. Patient states the pain started suddenly Thursday evening while she was at home. She reports the pain radiates to her mid back. Reports nausea and vomiting since Thursday. She is tolerating small amounts of liquids but otherwise is unable to keep anything down. Reports chronic constipation and usually has a bowel movement once a week. She reports she has not had a bowel movement in over 2 weeks prior to coming to the hospital. She was given enema x 3 overnight. Patient reports small amount of stool after enema but does not feel like she is "emptied out". She denies history of GERD. Denies intolerable to greasy foods, fatty foods, or acidic foods. Denies use of NSAIDS. Reports occasional tylenol use for a headache. Denies alcohol use. Smokes cigarettes- 1 PPD. Reports history of EGD/colonoscopy almost 15 years ago. To her knowledge, they were unremarkable. PAST MEDICAL HISTORY: See list. PAST SURGICAL HISTORY: See list. SOCIAL HISTORY: No illicit drug use. REVIEW OF SYSTEMS: CONSTITUTIONAL: Denies fever or chills. HEENT: Denies blurred vision, vision changes, or eye pain. Denies hemoptysis CARDIOVASCULAR: Denies chest pain or pressure. RESPIRATORY: No shortness of breath. GASTROINTESTINAL: Refer to HPI for pertinent findings HEMATOLOGIC: Denies bleeding disorders. GENITOURINARY: Denies any blood in urine. SKIN: Denies pruitis. Denies rash. PHYSICAL EXAM: VITAL SIGNS: Reviewed. GENERAL: Well-developed in no acute distress. HEENT: No sclera icterus. Extraocular movements grossly intact. Moist buccal mucosa. Head is atraumatic, normocephalic. ABDOMEN: Soft. Nondistended. Positive bowel sounds. Nontender upon palpation of all 4 quadrants. Tenderness upon palpation of epigastric region. NEUROLOGIC: Alert and oriented. Cranial nerves II through XII grossly intact. IMAGIN. US abdomen-negative for gallstones. No GB wall thickening. No dilated ducts. 2. CT abdomen/pelvis-negative for acute process 3. Abdominal xray-excessive descending and sigmoid colonic stool volume noted ASSESSMENT: 1. Epigastric pain with nausea and vomiting x 4 days 2. Constipation PLAN: 1. Patient received enemas overnight but reports only a small amount of stool output. Will continue with soap justice enemas. Lactulose x 3 doses. 2. Repeat abdominal xray in AM 3. Pepcid 20mg IV Q12 hours 4. Will re-assess patient tomorrow to see if pain has improved. If pain persists, may consider HIDA scan or EGD Nurse practitioner note has been reviewed by physician. Signing provider agrees with the documented findings, assessment, and plan of care. Past Medical History Past Medical History: Cancer, CVA/TIA, Osteoarthritis (OA), Syncope Additional Past Medical History / Comment(s): Complex regional pain syndrome, chronic generalized pain, difficulty walking far, L/R carpal tunnel syndrome, migraines, several TIAs, falls, syncopal episodes, pt states she has been constipated and has not had a BM in over 2 weeks. History of Any Multi-Drug Resistant Organisms: None Reported Past Surgical History: Hysterectomy, Orthopedic Surgery, Tubal Ligation Additional Past Surgical History / Comment(s): MELANOMA SURGERY WITH WIDE RESECTION AND LYMPH NODES REMOVED LEFT THIGH (2011), CYST ON BACK., PAIN PROCEDURES., RIGHT CARPAL TUNNEL RELEASE, RIGHT THUMB JOINT REPLACEMENT, ANTERIOR CERVICAL DECOMPRESSION/FUSION, R SALPINGECTOMY, D&C, COLONOSCOPY. Past Anesthesia/Blood Transfusion Reactions: No Reported Reaction, Family History of Problems w/ Anesthesia Additional Past Anesthesia/Blood Transfusion Reaction / Comm: PT STATES SHE TOLERATES ANESTHESIA WELL BUT MOTHER AND SON = SEVERE PONV Smoking Status: Current every day smoker - Past Family History Mother Family Medical History: No Reported History Additional Family Medical History / Comment(s): Mother is healthy Father Family Medical History: AFIB, Hyperlipidemia, Hypertension, Sleep Apnea/CP AP/BIPAP Additional Family Medical History / Comment(s): Gout Medications and Allergies Home Medications Medication Instructions Recorded Confirmed Type Methadone [Dolophine] 5 mg PO Q8H 12/30/17 06/09/18 History cloNIDine HCL 0.3 mg PO TID 12/30/17 06/09/18 History clonazePAM [KlonoPIN] 0.5 mg PO QAM 12/30/17 06/09/18 History tiZANidine [Zanaflex] 4 - 8 mg PO Q6H 12/30/17 06/09/18 History FLUoxetine HCL [PROzac] 60 mg PO DAILY 01/06/18 06/09/18 History clonazePAM 1 mg PO HS 06/09/18 06/09/18 History Allergies Allergy/AdvReac Type Severity Reaction Status Date / Time No Known Allergies Allergy Verified 06/09/18 09:00 Surgical - Exam Vital Signs Temp Pulse Resp BP Pulse Ox 97.7 F 85 18 135/74 100 06/09/18 04:32 06/09/18 04:32 06/09/18 04:32 06/09/18 04:32 06/09/18 04:32 Results - Labs 06/09/18 06:00 06/10/18 07:40 Diabetes panel 06/10/18 Range/Units 07:40 Potassium 3.6 (3.5-5.1) mmol/L Pituitary panel 06/10/18 Range/Units 07:40 Potassium 3.6 (3.5-5.1) mmol/L Adrenal panel 06/10/18 Range/Units 07:40 Potassium 3.6 (3.5-5.1) mmol/L <Porter Barclay - Last Filed: 06/10/18 18:42> History of Present Illness History of present illness: As above. Patient with epigastric pain that radiates to the back. When asked the patient states it does radiate to the right shoulder as well. She says she had tenderness during her ultrasound evaluation at the site of the gallbladder. CAT scan shows a gallbladder that appears slightly distended. We'll check HIDA scan with CCK at this time. Degree of stool within the colon relatively small. We'll reevaluate in a.m. Surgical - Exam Vital Signs Temp Pulse Resp BP Pulse Ox 97.7 F 85 18 135/74 100 06/09/18 04:32 06/09/18 04:32 06/09/18 04:32 06/09/18 04:32 06/09/18 04:32 Results - Labs 06/09/18 06:00 06/10/18 07:40 Diabetes panel 06/10/18 Range/Units 07:40 Potassium 3.6 (3.5-5.1) mmol/L Pituitary panel 06/10/18 Range/Units 07:40 Potassium 3.6 (3.5-5.1) mmol/L Adrenal panel 06/10/18 Range/Units 07:40 Potassium 3.6 (3.5-5.1) mmol/L
[2018-06-10] MEDS: LACTULOSE 20 GM/30 ML CUP PO SCH ×3 (16:28→20:59)
[2018-06-10] MEDS: FAMOTIDINE 20 MG/2 ML VIAL IV SCH (20:58)
[2018-06-10] MEDS: traZODone HCL 50 MG TAB PO SCH (20:59)
--- NOTE | 2018-06-11 00:22 | PN ---
PROGRESS NOTE DATE OF ADMISSION: 06/09/2018. PRESENTING COMPLAINT: Abdominal pain. INTERVAL HISTORY: This patient with complex regional pain syndrome and multiple other problems as follows Dr. Kelly presents with epigastric pain did get an enema with some bowel movement. Still having epigastric pain, intermittent. Getting some nausea. Earlier today surgery was consulted. REVIEW OF SYSTEMS: Done for constitutional, cardiovascular, GI, pulmonary relevant and findings as above. CURRENT MEDICATIONS: Reviewed. Patient did get an enema x2, getting IV fluids. PHYSICAL EXAMINATION: VITAL SIGNS: Temperature 98.1, pulse 50, respirations 16, blood pressure 112/69, pulse ox 95% on room air. ABDOMEN: Soft. Epigastric some tenderness. No guarding or rigidity. CARDIOVASCULAR: First and second sounds normal. No edema. NECK: JVD not raised. Mass not palpable respiratory. LUNGS: Respiratory effort normal. Lungs slightly decreased breath sounds. PSYCH: AO x3. Mood and affect anxious-appearing. INVESTIGATIONS: 1. Plain abdominal x-ray did not show anything acute from yesterday. Abdominal ultrasound showed nonobstructive right-sided nephrolithiasis. 2. Gastric pain, intermittent. Does not appear to be surgical abdomen but the patient has severe constipation. 3. Chronic severe constipation from pain medications. 4. Complex regional pain syndrome. 5. Chronic nicotine dependence, patient is a smoker. PLAN: Care was discussed with patient's at the bedside. Did explain that the constipation is rather chronic and sometimes not often difficult to treat. Surgeries ordering a HIDA scan. Follow. MMODL / IJN: [id number] /
[2018-06-11] MEDS: SODIUM CHLORIDE 0.9% 1,000 ML IV SCH ×2 (01:26→14:20)
[2018-06-11] MEDS: METHADONE 5 MG TAB PO SCH ×2 (04:49→14:19)
--- NOTE | 2018-06-11 07:21 | XR ---
EXAMINATION TYPE: XR abdomen 2V DATE OF EXAM: 06/11/2018 COMPARISON: 06/09/2018 HISTORY: Constipation no bowel movements for 2 weeks TECHNIQUE: Abdomen is examined in the upright and supine views FINDINGS: Normal colonic bowel gas is present. No significant fecal debris is evident. Psoas margins are normal. No suspicious air-fluid levels or differential air-fluid levels are evident . No free air is evident. IMPRESSION: 1. Unremarkable 2 view abdomen
[2018-06-11 08:22] VITALS: BP 114/71; PULSE 94; RESP 18
[2018-06-11 08:36] LABS: Basophils % (A) 0 %; Eosinophils % (A) 1 %; HCT 41.5 % (34.0-46.0); HGB 13.3 gm/dL (11.4-16.0); Lymphocytes # (A) 0.9 k/uL (1.0-4.8); Lymphocytes % (A) 16 %; MCH 32.3 pg (25.0-35.0); MCV 100.7 fL (80.0-100.0); Mean Platelet Volume 7.7; Monocytes # (A) 0.3 k/uL (0-1.0); Monocytes % (A) 5 %; Neutrophils # (A) 4.6 k/uL (1.3-7.7); Neutrophils % (A) 78 %; Platelet Count 154 k/uL (150-450); RBC 4.12 m/uL (3.80-5.40); RDW 12.8 % (11.5-15.5); WBC 5.9 k/uL (3.8-10.6)
[2018-06-11 08:53] LABS: ALT 31 U/L (9-52); AST 22 U/L (14-36); Albumin 3.3 g/dL (3.5-5.0); Alkaline Phosphatase 57 U/L (38-126); Anion Gap 7 mmol/L; Blood Urea Nitrogen 4 mg/dL (7-17); Calcium 8.3 mg/dL (8.4-10.2); Carbon Dioxide 28 mmol/L (22-30); Chloride 106 mmol/L (98-107); Glucose 62 mg/dL (74-99); Potassium 3.1 mmol/L (3.5-5.1); Sodium 141 mmol/L (137-145); Total Bilirubin 0.7 mg/dL (0.2-1.3); Total Protein 5.3 g/dL (6.3-8.2)
--- NOTE | 2018-06-11 09:55 | P.PN ---
<Shawna Beebe Pierre - Last Filed: 06/11/18 09:53> Subjective Progress Note Date: 06/11/18 CHIEF COMPLAINT: Abdominal pain HISTORY OF PRESENT ILLNESS: Patient continues to report epigastric pain this morning. Reports BM overnight. Denies nausea or vomiting. WBC 5.9. PHYSICAL EXAM: VITAL SIGNS: Reviewed. GENERAL: Well-developed in no acute distress. HEENT: No sclera icterus. Extraocular movements grossly intact. Moist buccal mucosa. Head is atraumatic, normocephalic. ABDOMEN: Soft. Nondistended. Positive bowel sounds. Nontender upon palpation of all 4 quadrants. Tenderness upon palpation of epigastric region. NEUROLOGIC: Alert and oriented. Cranial nerves II through XII grossly intact. ASSESSMENT: 1. Epigastric pain with nausea and vomiting x 4 days 2. Constipation, resolved PLAN: HIDA scan ordered. Await results. Nurse practitioner note has been reviewed by physician. Signing provider agrees with the documented findings, assessment, and plan of care. Objective - Vital Signs Vital signs: Vital Signs Temp 100.2 F H 06/11/18 08:00 Pulse 94 06/11/18 08:00 Resp 18 06/11/18 08:00 BP 114/71 06/11/18 08:00 Pulse Ox 92 L 06/11/18 08:00 Intake & Output 06/10/18 06/11/18 06/11/18 18:59 06:59 18:59 Intake Total 100 Balance 100 Intake: Other 100 Other: Voiding Method Toilet Toilet # Voids 1 - Labs CBC & Chem 7: 06/11/18 07:56 06/11/18 07:56 Labs: Abnormal Lab Results - Last 24 Hours (Table) 06/11/18 06/11/18 Range/Units 07:56 07:56 MCV 100.7 H (80.0-100.0) fL Lymphocytes # 0.9 L (1.0-4.8) k/uL Potassium 3.1 L (3.5-5.1) mmol/L BUN 4 L (7-17) mg/dL Glucose 62 L (74-99) mg/dL Calcium 8.3 L (8.4-10.2) mg/dL Total Protein 5.3 L (6.3-8.2) g/dL Albumin 3.3 L (3.5-5.0) g/dL <Porter Barclay - Last Filed: 06/11/18 14:57> Subjective As above. Patient doing better today. Tolerating diet. HIDA scan was normal. Will plan discharge. Prescription for antiacids provided. Outpatient follow-up advised. EGD if symptoms persist. Objective - Vital Signs Vital signs: Vital Signs Temp 98.8 F 06/11/18 12:58 Pulse 94 06/11/18 08:00 Resp 18 06/11/18 08:00 BP 114/71 06/11/18 08:00 Pulse Ox 92 L 06/11/18 08:00 Intake & Output 06/10/18 06/11/18 06/11/18 18:59 06:59 18:59 Intake Total 100 Balance 100 Intake: Other 100 Other: Voiding Method Toilet Toilet Toilet # Voids 1 # Bowel Movements 1 - Labs CBC & Chem 7: 06/11/18 07:56 06/11/18 07:56 Labs: Abnormal Lab Results - Last 24 Hours (Table) 06/11/18 06/11/18 Range/Units 07:56 07:56 MCV 100.7 H (80.0-100.0) fL Lymphocytes # 0.9 L (1.0-4.8) k/uL Potassium 3.1 L (3.5-5.1) mmol/L BUN 4 L (7-17) mg/dL Glucose 62 L (74-99) mg/dL Calcium 8.3 L (8.4-10.2) mg/dL Total Protein 5.3 L (6.3-8.2) g/dL Albumin 3.3 L (3.5-5.0) g/dL
--- NOTE | 2018-06-11 11:03 | NM ---
EXAMINATION TYPE: NM hepatobiliary w CCK DATE OF EXAM: 06/11/2018 COMPARISON: NONE INDICATION: Epigastric pain TECHNIQUE: After the intravenous administration of 4.93 mCi Tc 99m Mebrofenin hepatobiliary scintigra phy is performed. Images were obtained immediately post injection. FINDINGS: There is prompt uptake and excretion of radiotracer by the liver. Extrahepatic ducts are identified at 16 minutes. The gallbladder is visualized within 18 minutes. Small bowel activity is noted within 37 minutes. At one hour CCK was administered, patient was injected with 1.4 mcg of Kinevac, and gallbladder eject ion fraction is calculated at 44 %, which is in the normal range.. (Normal >35% and <80%.). IMPRESSION: 1. Normal hepatobiliary scan.
[2018-06-11] MEDS: clonazePAM 0.5 MG TAB PO SCH (11:36)
[2018-06-11] MEDS: FAMOTIDINE 20 MG/2 ML VIAL IV SCH (11:36)
[2018-06-11] MEDS: FLUoxetine HCL 20 MG CAP PO SCH (11:36)
[2018-06-11] MEDS: CALCIUM CARBONATE LIQUID 500 MG/5 ML CUP PO SCH ×2 (11:36→12:30)
[2018-06-11] MEDS: tiZANidine 4 MG TAB PO SCH (11:37)
[2018-06-11 12:59] VITALS: TEMP 98.8
--- NOTE | 2018-06-12 07:18 | DS ---
DISCHARGE SUMMARY DATE OF ADMISSION: June 09, 2018. DATE OF DISCHARGE: June 11, 2018. FINAL DIAGNOSES: 1. Abdominal pain from severe obstipation secondary to side effect of pain medications and decreased activity. 2. Nonobstructive right-sided nephrolithiasis. 3. Complex regional pain syndrome, generalized. 4. Chronic nicotine dependence, patient is a smoker. HOSPITAL COURSE: This patient who has a complex regional pain syndrome, followed by Dr. Kelly for his pain all over; presented with epigastric pain. CT scan of the abdomen and pelvis was unremarkable. Abdominal ultrasound nonspecific. HIDA scan was nonspecific. Seen by Dr. Barclay from general surgery. Okay to discharge. Abdominal examination otherwise was benign. The patient was doing much better at time of discharge. For severe constipation, the patient was given laxatives and finally an enema to which she did respond well. The patient is to follow with Dr. Kelly for chronic pain syndrome. Also patient is going to follow up with GI with a view to endoscopy for any gastritis and/or peptic ulcer disease that she may have. On examination, abdomen soft, nontender. LABS: White count 5.9, potassium 3.1. CONSULTATION: Dr. Barclay from General surgery. DISCHARGE MEDICATIONS: 1. Methadone 5 mg q.8 hours. 2. Clonidine 0.3 mg p.o. t.i.d. 3. Klonopin 0.5 mg in the morning. 4. Zanaflex 40 mg q.6h. 5. Prozac 60 mg daily. 6. Klonopin 1 mg q.h.s. 7. Pepcid 20 mg b.i.d. FOLLOW UP: Follow up with Dr. Barclay on June 30, 2018. Follow up with Dr. Shailesh Jalloh in [place] in 2 days. Follow up with Dr. Anton Curry in [address] Jalloh. MMODL / IJN: [id number] /
== END 2018-06-11 15:29 | disposition home or self-care (01) ==
LOC: EC 04:29 → 1SOBS 08:08
PROVIDERS: ADMIT Hospitalist; ATTEND Hospitalist
DX: K59.09 Other constipation (principal); M54.9 Dorsalgia, unspecified; F17.210 Nicotine dependence, cigarettes, uncomplicated; G89.4 Chronic pain syndrome; R10.13 Epigastric pain; R11.2 Nausea with vomiting, unspecified; N20.0 Calculus of kidney; G90.50 Complex regional pain syndrome I, unspecified; M19.90 Unspecified osteoarthritis, unspecified site; R29.6 Repeated falls; Z79.899 Other long term (current) drug therapy; Z85.72 Personal history of non-Hodgkin lymphomas; Z85.820 Personal history of malignant melanoma of skin; Z86.73 Personal history of transient ischemic attack (TIA), and cerebral infarction without residual deficits; Z90.710 Acquired absence of both cervix and uterus; Z98.51 Tubal ligation status; Z82.49 Family history of ischemic heart disease and other diseases of the circulatory system; Z98.1 Arthrodesis status
CPT/HCPCS: 96361 ×2; 96375 ×2; 96376 ×2; 96374; 99285; 36415; 80053 ×2; 82150; 83690; 84132; 85025 ×2; 74019 ×2; 76705; 74176; 78227; G0378 ×3; A9537; J2270; J2550; J2405; J2805; J1170; S0109 ×3

== ENCOUNTER → 2018-07-22 | Outpatient (CLI) | payer MEDICARE ==
[2018-07-22 17:26] LABS: Basophils % (A) 0 %; Eosinophils # (A) 0.2 k/uL (0-0.7); Eosinophils % (A) 2 %; HCT 42.5 % (34.0-46.0); HGB 13.7 gm/dL (11.4-16.0); Lymphocytes # (A) 2.6 k/uL (1.0-4.8); Lymphocytes % (A) 30 %; MCH 31.5 pg (25.0-35.0); MCHC 32.3 g/dL (31.0-37.0); MCV 97.5 fL (80.0-100.0); Mean Platelet Volume 8.8; Monocytes # (A) 0.3 k/uL (0-1.0); Monocytes % (A) 4 %; Neutrophils # (A) 5.3 k/uL (1.3-7.7); Neutrophils % (A) 63 %; Platelet Count 192 k/uL (150-450); RBC 4.36 m/uL (3.80-5.40); RDW 13.6 % (11.5-15.5); WBC 8.4 k/uL (3.8-10.6)
[2018-07-22 18:50] LABS: Erythrocyte Sedimentation Rate 4 mm/hr (0-20)
[2018-07-22 23:15] LABS: Vitamin D 25 Hydroxy 15.7 ng/mL (30.0-100.0)
[2018-07-22 23:17] LABS: Rheumatoid Factor 6 IU/mL (0-15)
[2018-07-22 23:19] LABS: ALT 10 U/L (8-44); AST 19 U/L (13-35); Albumin/Globulin Ratio 2.86 (1.60-3.17); Alkaline Phosphatase 80 U/L (41-126); C Reactive Protein <0.4 mg/dL (0.0-0.8); Calcium 8.8 mg/dL (8.7-10.3); Carbon Dioxide 28.6 mmol/L (21.6-31.8); Chloride 107 mmol/L (96-109); GGT <15 U/L (0-38); Globulin 1.4 g/dL (1.6-3.3); Glucose 99 mg/dL (70-110); Magnesium 1.8 mg/dL (1.5-2.4); Potassium 4.5 mmol/L (3.5-5.5); Sodium 141 mmol/L (135-145); Total Bilirubin 0.2 mg/dL (0.3-1.2); Total Protein 5.4 g/dL (6.2-8.2)
[2018-07-22 23:20] LABS: EBV-VCA (IgG) >8.0 AI
[2018-07-22 23:23] LABS: Creatine Kinase 172 U/L (26-186); LDH 154 U/L (120-246)
[2018-07-23 00:11] LABS: HIV 1 AB Non-Reactive (Non-Reactive); HIV AB P24 Non-Reactive (Non-Reactive); HIV P24 AG Non-Reactive (Non-Reactive)
[2018-07-23 00:14] LABS: Hepatitis A Antibody IgM Non-Reactive (Non-Reactive); Hepatitis B Core IgM Non-Reactive (Non-Reactive)
[2018-07-23 10:47] LABS: Lyme IgG/IgM 0.04 Index
== END | disposition home or self-care (01) ==
LOC: LABWHC1 16:32
PROVIDERS: ATTEND Family Medicine
DX: E03.9 Hypothyroidism, unspecified (principal); R53.82 Chronic fatigue, unspecified; M79.10 Myalgia, unspecified site; R41.82 Altered mental status, unspecified; Z11.59 Encounter for screening for other viral diseases
CPT/HCPCS: 36415; 80053; 80074; 82140; 82306; 82550; 82607; 82728; 82977; 83615; 83735; 84439; 84443; 84481; 85025; 85652; 86038; 86140; 86431; 86618; 86663; 86664; 86665; 87390

== ENCOUNTER → 2018-08-12 | Outpatient (CLI) | payer MEDICARE ==
--- NOTE | 2018-08-12 14:57 | MR ---
EXAMINATION TYPE: MR brain wo/w con DATE OF EXAM: 08/12/2018 COMPARISON: NONE HISTORY: 53-year-old female Repeated falls, Black outs, headaches, memory loss TECHNIQUE: Multiplanar, multisequence images of the brain and brainstem were acquired before and aft er administration of 7 mL IV Gadavist. Diffusion weighted imaging is performed. FINDINGS: No evidence for acute infarction, hemorrhage, mass, mass effect, midline shift, herniation, effacemen t of basal cisterns, or extra-axial fluid collection. The ventricles and sulci are age-appropriate. Major intracranial flow voids are intact. T2/FLAIR weighted sequences show mild scattered burden of punctate bright white matter changes both c erebral hemispheres located within the subcortical and deep white matter regions. Approximately 15-20 on the right and 5-10 on the left. Midline structures demonstrate normal morphology. The craniocervical junction is normal. Post contrast images demonstrate no evidence of pathologic enhancement. Dural venous sinuses are pat ent. Leftward nasal septal deviation. Multiple thickening ethmoid air cells. Globes are intact. Patient's gaze slightly divergent suggesting underlying strabismus. Clinically correlate. IMPRESSION: 1. Mild scattered burden of bright white matter change, nonspecific, likely relating to early changes of chronic small vessel ischemic disease. 2. No acute intracranial abnormality seen. No enhancing intracranial lesions.
== END | disposition home or self-care (01) ==
LOC: RADMRIMAIN 11:32
PROVIDERS: ATTEND Physical Medicine & Rehabilitation
DX: R90.89 Other abnormal findings on diagnostic imaging of central nervous system (principal); R29.6 Repeated falls; G89.4 Chronic pain syndrome; M79.7 Fibromyalgia; M25.551 Pain in right hip; M54.12 Radiculopathy, cervical region; M54.17 Radiculopathy, lumbosacral region; M19.041 Primary osteoarthritis, right hand; M19.042 Primary osteoarthritis, left hand; G89.3 Neoplasm related pain (acute) (chronic)
CPT/HCPCS: 70553; A9585

== ENCOUNTER 2018-11-21 12:49 | Observation (INO) | payer MEDICARE ==
[2018-11-21] MEDS ORDERED: SODIUM CHLORIDE 0.9% 1,000 ML IV ONE ×2 (13:05→15:19)
[2018-11-21] MEDS ORDERED: HYDROmorphone 1 MG/ML 1 ML SYRINGE IVP STA ×3 (13:13→15:17)
[2018-11-21] MEDS ORDERED: LORazepam 2 MG/ML INJ IV STA (13:14)
[2018-11-21] MEDS ORDERED: ONDANSETRON 4 MG/2 ML VIAL IVP STA (13:14)
--- NOTE | 2018-11-21 13:22 | ED ---
General Adult HPI - General Chief complaint: Altered Mental Status Stated complaint: ROSE Time Seen by Provider: 11/21/18 12:53 Source: patient, EMS Mode of arrival: EMS Limitations: altered mental status - History of Present Illness Initial comments: Patient presents to the ED by ambulance for evaluation. Per EMS, they were called to the patient's residence for reported difficulty breathing. Per EMS, upon their arrival, the patient was noted to be combative and have altered mental status, which is how she presents to the ED today. On arrival to the ED, the patient is complaining of having difficulty breathing and is also complaining of having pain. Patient is not answering any questions appropriately at this time, and she is flailing around. Patient is unable to tell me the location of her pain. No other history is available at this time. Patient vomited once on arrival to the ED. - Related Data Home Medications Medication Instructions Recorded Confirmed Methadone [Dolophine] 5 mg PO TID 12/30/17 11/21/18 cloNIDine HCL 0.3 mg PO TID 12/30/17 11/21/18 clonazePAM [KlonoPIN] 0.5 mg PO QAM 12/30/17 11/21/18 tiZANidine [Zanaflex] 4 - 8 mg PO Q6H 12/30/17 11/21/18 clonazePAM 1 mg PO HS 06/09/18 11/21/18 Sertraline [Zoloft] 100 mg PO DAILY 11/21/18 11/21/18 Allergies Allergy/AdvReac Type Severity Reaction Status Date / Time No Known Allergies Allergy Verified 11/21/18 13:59 Review of Systems ROS Statement: Those systems with pertinent positive or pertinent negative responses have been documented in the HPI. ROS Other: All systems not noted in ROS Statement are negative. 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 History of Any Multi-Drug Resistant Organisms: None Reported Past Surgical History: Hysterectomy, Orthopedic Surgery Additional Past Surgical History / Comment(s): MELANOMA SURGERY WITH "WIDE EXTRACTION " AND LYMPH NODES REMOVED LEFT THIGH (2012), CYST ON BACK., PAIN PROCEDURES., RIGHT CARPAL TUNNEL RELEASE, RIGHT THUMB JOINT REPLACEMENT. Past Anesthesia/Blood Transfusion Reactions: No Reported Reaction, Family History of Problems w/ Anesthesia Additional Past Anesthesia/Blood Transfusion Reaction / Comment(s): MOTHER AND SON = PONV Past Psychological History: Anxiety, Depression Smoking Status: Heavy tobacco smoker Past Alcohol Use History: None Reported Past Drug Use History: None Reported - Past Family History Mother Family Medical History: No Reported History Father Family Medical History: AFIB, Hyperlipidemia, Hypertension, Sleep Apnea/ CPAP/BIPAP Additional Family Medical History / Comment(s): Gout General Exam Limitations: altered mental status General appearance: alert, other (Patient is very agitated and is flailing around) Head exam: Present: atraumatic, normocephalic Eye exam: Present: normal appearance, PERRL ENT exam: Present: mucous membranes moist Neck exam: Present: other (Trachea is in midline) Respiratory exam: Present: normal lung sounds bilaterally. Absent: respiratory distress, wheezes, rales, rhonchi Cardiovascular Exam: Present: regular rate, normal rhythm, normal heart sounds, other (Normal radial pulses bilaterally) GI/Abdominal exam: Present: soft. Absent: distended, tenderness, guarding Extremities exam: Present: full ROM. Absent: tenderness, pedal edema Back exam: Absent: tenderness Neurological exam: Present: alert, other (Patient is moving all 4 extremities spontaneously; patient localizes to pain in all 4 extremities) Psychiatric exam: Present: agitated Skin exam: Present: warm, dry, intact, normal color Course Vital Signs 11/21/18 11/21/18 11/21/18 13:19 13:45 15:31 Temperature 98.1 F Pulse Rate 69 Respiratory 24 Rate Blood Pressure 98/75 143/76 O2 Sat by Pulse 98 Oximetry - Reevaluation(s) Reevaluation #1: 11/21/18 13:35 Patient was given IV Dilaudid and IV Ativan on her arrival to the ED to treat her agitation and pain. Patient is now much calmer. Patient is now able to answer my questions. Patient states that she has not felt well since this morning. She states that she is having generalized pain. She also admits to feeling dyspneic today, and she admits to having nausea and vomiting today as well. Patient denies any known trauma or injury. Patient denies medication abuse or overdose. Patient denies illicit drug use. She denies missed medication doses. Patient states that her pain and symptoms have improved with ED management thus far. 11/21/18 17:03 Patient is now alert and oriented 4, and much more comfortable in appearance. Patient is breathing comfortably. Patient states that her pain has improved with ED treatment, and she denies development of any new symptoms while in the ED. Patient and are aware of the patient's test results, and they both agree with hospital admission at this time. 11/21/18 17:08 Case, H&P, test results and ED management thus far were discussed with Dr. Robertson who accepts hospital floor admission. He recommends placing an order for cardiology consultation. He has no further recommendations at this time. EKG Findings - EKG Comments: EKG Findings:: 12:56 EKG #1: EKG is limited secondary to motion, sinus bradycardia with first-degree AV block, ventricular rate is 57 bpm, TN interval is 222 ms, prolonged QTc interval of 506 ms, QRS interval is within normal limits, unable to assess for ST or T-wave abnormality secondary to motion artifact. 15:44 EKG #2: EKG shows second-degree Mobitz type I heart block, nonspecific ST and T-wave abnormality, normal QRS and QTc intervals, normal axis Medical Decision Making - Medical Decision Making Patient's transient altered mental status has resolved. Patient has a nonfocal neurological exam. Patient's head CT is negative. Patient's initial lactate level was elevated, and a repeat lactate level is pending. I do not suspect s epsis or infectious etiology. Patient's symptoms improved significantly with administration of IV Dilaudid, I suspect that opiate withdrawal have been contributing to the patient's symptoms. Patient has been hydrated with 2 L of IV normal saline. Dr. Robertson has accepted hospital admission. - Lab Data Result diagrams: 11/21/18 13:18 11/21/18 13:18 Lab Results 11/21/18 11/21/18 11/21/18 Range/Units 13:18 13:18 13:18 WBC 12.1 H (3.8-10.6) k/uL RBC 3.82 (3.80-5.40) m/uL Hgb 12.5 (11.4-16.0) gm/dL Hct 38.0 (34.0-46.0) % MCV 99.3 (80.0-100.0) fL MCH 32.7 (25.0-35.0) pg MCHC 32.9 (31.0-37.0) g/dL RDW 13.3 (11.5-15.5) % Plt Count 146 L (150-450) k/uL Neutrophils % 87 % Lymphocytes % 8 % Monocytes % 3 % Eosinophils % 0 % Basophils % 0 % Neutrophils # 10.5 H (1.3-7.7) k/uL Lymphocytes # 1.0 (1.0-4.8) k/uL Monocytes # 0.4 (0-1.0) k/uL Eosinophils # 0.1 (0-0.7) k/uL Basophils # 0.1 (0-0.2) k/uL PT (9.0-12.0) sec INR (<1.2) APTT (22.0-30.0) sec VBG pH (7.31-7.41) VBG pCO2 (37-51) mmHg VBG HCO3 (24-28) mmol/L Sodium 140 (137-145) mmol/L Potassium 3.9 (3.5-5.1) mmol/L Chloride 108 H (98-107) mmol/L Carbon Dioxide 18 L (22-30) mmol/L Anion Gap 14 mmol/L BUN 7 (7-17) mg/dL Creatinine 0.67 (0.52-1.04) mg/dL Est GFR (CKD-EPI)AfAm >90 (>60 ml/min/1.73 sqM) Est GFR (CKD-EPI)NonAf >90 (>60 ml/min/1.73 sqM) Glucose 142 H (74-99) mg/dL Lactic Ac Sepsis Rflx Plasma Lactic Acid Boy 6.0 H* (0.7-2.0) mmol/L Calcium 8.5 (8.4-10.2) mg/dL Phosphorus 2.1 L (2.5-4.5) mg/dL Magnesium 1.4 L (1.6-2.3) mg/dL Total Bilirubin 0.9 (0.2-1.3) mg/dL AST 29 (14-36) U/L ALT 10 (9-52) U/L Alkaline Phosphatase 67 (38-126) U/L Ammonia 12 (<30) umol/L Creatine Kinase 57 (30-135) U/L Troponin I (0.000-0.034) ng/mL Total Protein 6.1 L (6.3-8.2) g/dL Albumin 3.8 (3.5-5.0) g/dL Urine Color Urine Appearance (Clear) Urine pH (5.0-8.0) Ur Specific [place] (1.001-1.035) Urine Protein (Negative) Urine Glucose (UA) (Negative) Urine Ketones (Negative) Urine Blood (Negative) Urine Nitrite (Negative) Urine Bilirubin (Negative) Urine Urobilinogen (<2.0) mg/dL Ur Leukocyte Esterase (Negative) Salicylates <1.0 mg/dL Urine Opiates Screen (NotDetected) Ur Oxycodone Screen (NotDetected) Urine Methadone Screen (NotDetected) Ur Propoxyphene Screen (NotDetected) Acetaminophen <10.0 ug/mL Ur Barbiturates Screen (NotDetected) U Tricyclic Antidepress (NotDetected) Ur Phencyclidine Scrn (NotDetected) Ur Amphetamines Screen (NotDetected) U Methamphetamines Scrn (NotDetected) U Benzodiazepines Scrn (NotDetected) Urine Cocaine Screen (NotDetected) U Marijuana (THC) Screen (NotDetected) Serum Alcohol <10 mg/dL 11/21/18 11/21/18 11/21/18 Range/Units 13:18 13:18 13:48 WBC (3.8-10.6) k/uL RBC (3.80-5.40) m/uL Hgb (11.4-16.0) gm/dL Hct (34.0-46.0) % MCV (80.0-100.0) fL MCH (25.0-35.0) pg MCHC (31.0-37.0) g/dL RDW (11.5-15.5) % Plt Count (150-450) k/uL Neutrophils % % Lymphocytes % % Monocytes % % Eosinophils % % Basophils % % Neutrophils # (1.3-7.7) k/uL Lymphocytes # (1.0-4.8) k/uL Monocytes # (0-1.0) k/uL Eosinophils # (0-0.7) k/uL Basophils # (0-0.2) k/uL PT 11.8 (9.0-12.0) sec INR 1.1 (<1.2) APTT 23.3 (22.0-30.0) sec VBG pH (7.31-7.41) VBG pCO2 (37-51) mmHg VBG HCO3 (24-28) mmol/L Sodium (137-145) mmol/L Potassium (3.5-5.1) mmol/L Chloride (98-107) mmol/L Carbon Dioxide (22-30) mmol/L Anion Gap mmol/L BUN (7-17) mg/dL Creatinine (0.52-1.04) mg/dL Est GFR (CKD-EPI)AfAm (>60 ml/min/1.73 sqM) Est GFR (CKD-EPI)NonAf (>60 ml/min/1.73 sqM) Glucose (74-99) mg/dL Lactic Ac Sepsis Rflx Y Plasma Lactic Acid Boy (0.7-2.0) mmol/L Calcium (8.4-10.2) mg/dL Phosphorus (2.5-4.5) mg/dL Magnesium (1.6-2.3) mg/dL Total Bilirubin (0.2-1.3) mg/dL AST (14-36) U/L ALT (9-52) U/L Alkaline Phosphatase (38-126) U/L Ammonia (<30) umol/L Creatine Kinase (30-135) U/L Troponin I <0.012 (0.000-0.034) ng/mL Total Protein (6.3-8.2) g/dL Albumin (3.5-5.0) g/dL Urine Color Urine Appearance (Clear) Urine pH (5.0-8.0) Ur Specific [place] (1.001-1.035) Urine Protein (Negative) Urine Glucose (UA) (Negative) Urine Ketones (Negative) Urine Blood (Negative) Urine Nitrite (Negative) Urine Bilirubin (Negative) Urine Urobilinogen (<2.0) mg/dL Ur Leukocyte Esterase (Negative) Salicylates mg/dL Urine Opiates Screen (NotDetected) Ur Oxycodone Screen (NotDetected) Urine Methadone Screen (NotDetected) Ur Propoxyphene Screen (NotDetected) Acetaminophen ug/mL Ur Barbiturates Screen (NotDetected) U Tricyclic Antidepress (NotDetected) Ur Phencyclidine Scrn (NotDetected) Ur Amphetamines Screen (NotDetected) U Methamphetamines Scrn (NotDetected) U Benzodiazepines Scrn (NotDetected) Urine Cocaine Screen (NotDetected) U Marijuana (THC) Screen (NotDetected) Serum Alcohol mg/dL 11/21/18 11/21/18 Range/Units 15:24 15:24 WBC (3.8-10.6) k/uL RBC (3.80-5.40) m/uL Hgb (11.4-16.0) gm/dL Hct (34.0-46.0) % MCV (80.0-100.0) fL MCH (25.0-35.0) pg MCHC (31.0-37.0) g/dL RDW (11.5-15.5) % Plt Count (150-450) k/uL Neutrophils % % Lymphocytes % % Monocytes % % Eosinophils % % Basophils % % Neutrophils # (1.3-7.7) k/uL Lymphocytes # (1.0-4.8) k/uL Monocytes # (0-1.0) k/uL Eosinophils # (0-0.7) k/uL Basophils # (0-0.2) k/uL PT (9.0-12.0) sec INR (<1.2) APTT (22.0-30.0) sec VBG pH 7.42 H (7.31-7.41) VBG pCO2 36 L (37-51) mmHg VBG HCO3 23 L (24-28) mmol/L Sodium (137-145) mmol/L Potassium (3.5-5.1) mmol/L Chloride (98-107) mmol/L Carbon Dioxide (22-30) mmol/L Anion Gap mmol/L BUN (7-17) mg/dL Creatinine (0.52-1.04) mg/dL Est GFR (CKD-EPI)AfAm (>60 ml/min/1.73 sqM) Est GFR (CKD-EPI)NonAf (>60 ml/min/1.73 sqM) Glucose (74-99) mg/dL Lactic Ac Sepsis Rflx Plasma Lactic Acid Boy (0.7-2.0) mmol/L Calcium (8.4-10.2) mg/dL Phosphorus (2.5-4.5) mg/dL Magnesium (1.6-2.3) mg/dL Total Bilirubin (0.2-1.3) mg/dL AST (14-36) U/L ALT (9-52) U/L Alkaline Phosphatase (38-126) U/L Ammonia (<30) umol/L Creatine Kinase (30-135) U/L Troponin I (0.000-0.034) ng/mL Total Protein (6.3-8.2) g/dL Albumin (3.5-5.0) g/dL Urine Color Light Yellow Urine Appearance Clear (Clear) Urine pH 8.0 (5.0-8.0) Ur Specific [place] 1.011 (1.001-1.035) Urine Protein Negative (Negative) Urine Glucose (UA) Negative (Negative) Urine Ketones 1+ H (Negative) Urine Blood Negative (Negative) Urine Nitrite Negative (Negative) Urine Bilirubin Negative (Negative) Urine Urobilinogen <2.0 (<2.0) mg/dL Ur Leukocyte Esterase Negative (Negative) Salicylates mg/dL Urine Opiates Screen Detected H (NotDetected) Ur Oxycodone Screen Not Detected (NotDetected) Urine Methadone Screen Detected H (NotDetected) Ur Propoxyphene Screen Not Detected (NotDetected) Acetaminophen ug/mL Ur Barbiturates Screen Not Detected (NotDetected) U Tricyclic Antidepress Not Detected (NotDetected) Ur Phencyclidine Scrn Not Detected (NotDetected) Ur Amphetamines Screen Not Detected (NotDetected) U Methamphetamines Scrn Not Detected (NotDetected) U Benzodiazepines Scrn Not Detected (NotDetected) Urine Cocaine Screen Not Detected (NotDetected) U Marijuana (THC) Screen Detected H (NotDetected) Serum Alcohol mg/dL - Radiology Data Radiology results: report reviewed (Noncontrast head CT is negative), image reviewed (Chest x-ray shows no acute cardiopulmonary process) Disposition Clinical Impression: Generalized pain, Vomiting, Dyspnea, Altered mental status, Second degree heart block by electrocardiogram (ECG) Disposition: ADMITTED IP TO THIS HOSP Condition: Stable Is patient prescribed a controlled substance at d/c from ED?: No Referrals: Joe Jalloh MD [Primary Care Provider] - 1-2 days Time of Disposition: 17:08 Decision Date: 11/21/18 Decision Time: 17:04
[2018-11-21 13:35] LABS: Basophils # (A) 0.1 k/uL (0-0.2); Basophils % (A) 0 %; Eosinophils # (A) 0.1 k/uL (0-0.7); Eosinophils % (A) 0 %; HGB 12.5 gm/dL (11.4-16.0); Lymphocytes % (A) 8 %; MCH 32.7 pg (25.0-35.0); MCHC 32.9 g/dL (31.0-37.0); MCV 99.3 fL (80.0-100.0); Monocytes # (A) 0.4 k/uL (0-1.0); Monocytes % (A) 3 %; Neutrophils # (A) 10.5 k/uL (1.3-7.7); Neutrophils % (A) 87 %; Platelet Count 146 k/uL (150-450); RBC 3.82 m/uL (3.80-5.40); RDW 13.3 % (11.5-15.5); WBC 12.1 k/uL (3.8-10.6)
[2018-11-21 13:51] LABS: ALT 10 U/L (9-52); AST 29 U/L (14-36); Acetaminophen <10.0 ug/mL; African American GFR (CKD) >90 (>60 ml/min/1.73 sqM); Albumin 3.8 g/dL (3.5-5.0); Alcohol <10 mg/dL; Alkaline Phosphatase 67 U/L (38-126); Anion Gap 14 mmol/L; Blood Urea Nitrogen 7 mg/dL (7-17); Calcium 8.5 mg/dL (8.4-10.2); Carbon Dioxide 18 mmol/L (22-30); Chloride 108 mmol/L (98-107); Creatine Kinase 57 U/L (30-135); Glucose 142 mg/dL (74-99); Magnesium 1.4 mg/dL (1.6-2.3); Phosphorus 2.1 mg/dL (2.5-4.5); Potassium 3.9 mmol/L (3.5-5.1); Salicylate <1.0 mg/dL; Sodium 140 mmol/L (137-145); Total Bilirubin 0.9 mg/dL (0.2-1.3); Total Protein 6.1 g/dL (6.3-8.2)
[2018-11-21 13:53] LABS: INR 1.1 (<1.2); Partial Thromboplastin Time 23.3 sec (22.0-30.0); Prothrombin Time 11.8 sec (9.0-12.0)
--- NOTE | 2018-11-21 14:12 | XR ---
EXAMINATION TYPE: XR chest 1V portable DATE OF EXAM: 11/21/2018 COMPARISON: 03/11/2012 HISTORY: Altered mental status TECHNIQUE: Single frontal view of the chest is obtained. FINDINGS: Heart and mediastinum are normal. Lungs are clear. Diaphragm is normal. Bony thorax appear s normal. IMPRESSION: Normal chest. No change.
--- NOTE | 2018-11-21 14:32 | CT ---
EXAMINATION TYPE: CT brain wo con DATE OF EXAM: 11/21/2018 COMPARISON: None HISTORY: Decreased mental status with right sided numbness. CT DLP: 1173.4 mGycm Automated exposure control for dose reduction was used. FINDINGS: Ventricles have normal size. There is no mass effect nor midline shift. There is no sign of intracran ial hemorrhage. The calvarium is intact. IMPRESSION: NEGATIVE HEAD CT SCAN.
[2018-11-21 15:53] LABS: VBG PH 7.42 (7.31-7.41)
[2018-11-21 15:59] LABS: Appearance,Urine Clear (Clear); Bilirubin,Urine Negative (Negative); Blood,Urine Negative (Negative); Color,Urine Light Yellow; Glucose,Urine (UA) Negative (Negative); Ketones,Urine 1+ (Negative); Leukocyte Esterase,Urine Negative (Negative); Nitrite,Urine Negative (Negative); Protein,Urine Negative (Negative); Specific Gravity,Urine 1.011 (1.001-1.035); Urobilinogen,Urine <2.0 mg/dL (<2.0)
[2018-11-21 16:10] LABS: Amphetamine Screen,Urine Not Detected (NotDetected); Barbiturate Screen,Urine Not Detected (NotDetected); Benzodiazepines Screen,Urine Not Detected (NotDetected); Cocaine Screen,Urine Not Detected (NotDetected); Methadone Screen, Urine Detected (NotDetected); Opiate Screen,Urine Detected (NotDetected); Oxycodone Screen, Urine Not Detected (NotDetected); Phencyclidine Screen,Urine Not Detected (NotDetected); Tricyclic Antidepressant,Urine Not Detected (NotDetected); Urn Cannabinoid Scrn Detected (NotDetected)
[2018-11-21] MEDS ORDERED: NALOXONE 0.4 MG/ML 1 ML VIAL IV PRN (17:20)
[2018-11-21] MEDS: SODIUM CHLORIDE 0.9% 1,000 ML IV SCH (18:44)
[2018-11-21] MEDS: MORPHINE SULFATE 4 MG/ML SYRINGE IV PRN ×2 (19:03→23:41)
[2018-11-21] MEDS ORDERED: tiZANidine 4 MG TAB PO SCH (22:45)
[2018-11-21] MEDS: clonazePAM 1 MG TAB PO SCH (23:41)
[2018-11-22] MEDS: MORPHINE SULFATE 4 MG/ML SYRINGE IV PRN (05:46)
[2018-11-22] MEDS: SODIUM CHLORIDE 0.9% 1,000 ML IV SCH ×2 (05:49→12:03)
[2018-11-22 06:22] LABS: Basophils % (A) 0 %; Eosinophils % (A) 0 %; HCT 39.1 % (34.0-46.0); HGB 12.9 gm/dL (11.4-16.0); Lymphocytes # (A) 2.7 k/uL (1.0-4.8); Lymphocytes % (A) 23 %; MCH 32.2 pg (25.0-35.0); MCHC 32.9 g/dL (31.0-37.0); MCV 97.9 fL (80.0-100.0); Mean Platelet Volume 7.5; Monocytes # (A) 0.6 k/uL (0-1.0); Monocytes % (A) 5 %; Neutrophils # (A) 7.9 k/uL (1.3-7.7); Neutrophils % (A) 70 %; Platelet Count 163 k/uL (150-450); RDW 13.1 % (11.5-15.5); WBC 11.3 k/uL (3.8-10.6)
[2018-11-22 06:37] LABS: ALT 22 U/L (9-52); AST 20 U/L (14-36); African American GFR (CKD) >90 (>60 ml/min/1.73 sqM); Albumin 3.5 g/dL (3.5-5.0); Alkaline Phosphatase 66 U/L (38-126); Anion Gap 7 mmol/L; Blood Urea Nitrogen 7 mg/dL (7-17); Calcium 8.3 mg/dL (8.4-10.2); Carbon Dioxide 25 mmol/L (22-30); Chloride 109 mmol/L (98-107); Glucose 88 mg/dL (74-99); Magnesium 1.8 mg/dL (1.6-2.3); Potassium 3.6 mmol/L (3.5-5.1); Sodium 141 mmol/L (137-145); Total Bilirubin 0.4 mg/dL (0.2-1.3); Total Protein 5.7 g/dL (6.3-8.2)
[2018-11-22] MEDS: cloNIDine HCL 0.1 MG TAB PO SCH ×2 (08:23→17:45)
[2018-11-22] MEDS: clonazePAM 0.5 MG TAB PO SCH (08:23)
[2018-11-22] MEDS: METHADONE 5 MG TAB PO SCH ×2 (08:23→17:20)
[2018-11-22] MEDS: SERTRALINE 100 MG TAB PO SCH (08:23)
[2018-11-22] MEDS: tiZANidine 4 MG TAB PO SCH ×3 (08:23→17:20)
[2018-11-22] MEDS ORDERED: CLONIDINE HCL 0.3 MG PO SCH (11:00)
[2018-11-22] MEDS ORDERED: SERTRALINE 100 MG TAB PO SCH (11:00)
[2018-11-22] MEDS ORDERED: METHADONE 5 MG TAB PO SCH (11:00)
[2018-11-22] MEDS ORDERED: ASPIRIN-ACET-CAFF 250-250-65MG 1 EACH TAB PO PRN (17:44)
[2018-11-22] MEDS ORDERED: ONDANSETRON 4 MG/2 ML VIAL IVP PRN (17:44)
--- NOTE | 2018-11-22 20:18 | CONS ---
CONSULTATION This is a 53-year-old lady who has history of chronic pain syndrome. She came into the hospital with complaints of having some difficulty breathing, had altered mentation, and after arrival she had an EKG performed which revealed a prolonged MT interval and I was asked to see her in this regard. Patient is not on any rate-lowering agents. She is, however, on clonidine 0.3 mg t.i.d. in addition to methadone for her pain syndrome, Klonopin, Zanaflex and Zoloft. At the time of my evaluation she complains of some headache, and this is being addressed by her PCP. Her blood pressure is actually normal. Her heart rate is about 70 per minute, sinus, and on the rhythm strip the MT interval appears to be normal. I reviewed the EKGs, which revealed evidence of Wenckebach phenomena. Blood pressure is 118/70. Pulse rate was about 70 per minute when I evaluated her. I had her ambulate, and this happened after my visit with her. When she ambulated, heart rate remained in the 70s with a normal MT interval. She denies any chest pain, palpitations, syncope or near-syncope. She is resting comfortably at the time of my evaluation. PAST MEDICAL HISTORY: Past medical history is remarkable for: 1. History of some TIA; unclear on the details. 2. Osteoarthritis. 3. Pain syndrome. 4. There is a question of some melanoma surgery. 5. Non-Hodgkin's lymphoma. 6. She has difficulty walking. She is not very ambulatory. EKG initially revealed sinus mechanism. Repeat EKG revealed sinus mechanism with nonspecific ST abnormality with evidence of a Wenckebach type phenomenon with prolonging of MT interval, but this has resolved since then. MEDICATIONS: Medications at home include: 1. Clonidine. 2. Methadone. 3. Klonopin. 4. Zanaflex. 5. Zoloft. ALLERGIES: She has NO ALLERGIES. PHYSICAL EXAMINATION: Blood pressure is 118/70, pulse rate 70, regular. HEENT: Unremarkable. Fundus was not examined by me. Neck is supple. There is no JVD. I do not hear a carotid bruit. Heart exam reveals S1, S2 heard normally. No significant murmur. Lungs revealed decent air entry. Abdomen is soft. Lower extremities reveal diminished pulses. Central nervous system is grossly within normal limits, but there is generalized weakness. IMPRESSION: 1. Patient may have some underlying sick sinus syndrome, but her EKG suggests Wenckebach, and this has resolved. 2. Chronic pain syndrome. 3. Hypertension. 4. Multiple other medical problems. RECOMMENDATIONS: I am recommending that we discontinue clonidine and use Norvasc 5 mg b.i.d. for her blood pressure control. Additionally I will also recommend that we obtain a free T4 and TSH level. I will increase activity and see how she does. We will also obtain an echocardiogram to assess LV function. Patient can be moved to the medical floor if there is a need for the bed. I discussed my thoughts in detail with the patient. Thank you very much for the consult. OLIVIA / SHAQN: [id number] /
--- NOTE | 2018-11-22 20:41 | P.HPIM ---
History of Present Illness H&P Date: 11/22/18 Chief Complaint: feeling unwell history of presenting complaint: this is a [address] saleem out of [facility]. Patient's pain management doctors Dr. Kelly [facility]. Chronic stable medical conditions include osteoarthritis, complex regional pain syndrome, generalized pain, several TIAs, constipation. Patient presented multitudinous s ymptoms. She was brought to the ER as she was bit confused. Somewhat delirious. Complaint of pain all over. Slightly breathing heavy. Dilaudid was held and she was given IV morphine. Initial impression the ER was she was possibly having withdrawals. When I saw this patient this morning, she is awake. A bit anxious. Slightly wheezing. She complains of pain all over the body shoulders chest back legs hepatized knees and feet. She has continued to smoke. Also been wheezing. Surgery short of breath. No fever no chills. Very slight cough. Because of limited chest pain ,cardiology was also consulted. she did not feel like eating this morning. Did go to the bathroom. Bit anxious. No fever no chills. Review of systems: GEN.: [anxious, hurting all over] EYES: [None] HEENT: [None] NECK: [None] RESPIRATORY: [some wheezing and shortness of breath CARDIOVASCULAR: [None] GASTROINTESTINAL: [None] GENITOURINARY: [None] MUSCULOSKELETAL: [pain all over] LYMPHATICS: [None] HEMATOLOGICAL: [None] PSYCHIATRY: [anxious] NEUROLOGICAL: [None] Past medical history: TIA, multiple osteoarthritis, complex regional pain syndrome, chronic generalized pain, bilateral carpal tunnel syndrome, migraines, constipation Social history: Patient be smoking for about 40 years average about a pack a day the daughter about half pack a day. No alcohol Family history: Reviewed, noncontributory to presentation Physical examination: VITAL SIGNS: [99, 72, 18, 98/58, 95% room air] GENERAL: [24.7, laying in bed slightly fidgety]. EYES: [Pupils equal. Conjunctiva skylar]l. HEENT: [External appearance of nose and ears normal, oral cavity grossly normal]. NECK: [JVD not raised; masses not palpable]. HEART: [First and second heart sounds are normal; no edema]. LUNGS:[ Respiratory rate increased, diminished breath sounds on expiration and wheezing]. ABDOMEN: [Soft, nontender, liver spleen not palpable, no masses palpable]. PSYCH: [Alert and oriented x3; mood and affect anxious]l. NEUROLOGICAL: [Cranial nerves grossly intact; no facial asymmetry, power and sensation grossly intact]. LYMPHATICS: [No lymph nodes palpable in the axilla and neck] INVESTIGATIONS, reviewed in the clinical context: white count 12.1 hemoglobin 12.5 platelets 146 potassium 3.9 creatinine 0.67 Lactic acid 6 repeat 1.1 -UA showing 1+ ketones urine drug screen-positive for opiates, methadone, marijuana Assessment: -Acute delirium that appears to be multifactorial including possible some drug withdrawal. Patient does take multiple pain medications. Also did marijuana. He symptoms ceased to be a mixture of both may be drug withdrawal and may be addition to delirium. -Acute COPD exacerbation in a current smoker -Complex regional pain syndrome -Chronic nicotine dependence patient cigarette smoker -Marijuana use -Type II lactic acidosis. No evidence of infection Plan: Patient be started on bronchodilators. IV steroids. Patient advised second smoking. Home medications resumed. Consultation Mr. Dr. Kelly to review her pain medications. Care was discussed with the patient. Questions were answered.continue with IV fluids for at least 24 hours. Lovenox for DVT prophylaxis. 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 History of Any Multi-Drug Resistant Organisms: None Reported Past Surgical History: Hysterectomy, Orthopedic Surgery Additional Past Surgical History / Comment(s): MELANOMA SURGERY WITH "WIDE EXTRACTION " AND LYMPH NODES REMOVED LEFT THIGH (2011), CYST ON BACK., PAIN PROCEDURES., RIGHT CARPAL TUNNEL RELEASE, RIGHT THUMB JOINT REPLACEMENT. Past Anesthesia/Blood Transfusion Reactions: No Reported Reaction, Family History of Problems w/ Anesthesia Additional Past Anesthesia/Blood Transfusion Reaction / Comment(s): MOTHER AND SON = PONV Smoking Status: Current every day smoker - Past Family History Mother Family Medical History: No Reported History Father Family Medical History: AFIB, Hyperlipidemia, Hypertension, Sleep Apnea/CPAP/BIPAP Additional Family Medical History / Comment(s): Gout Medications and Allergies Home Medications Medication Instructions Recorded Confirmed Type Methadone [Dolophine] 5 mg PO TID 12/30/17 11/21/18 History cloNIDine HCL 0.3 mg PO TID 12/30/17 11/21/18 History clonazePAM [KlonoPIN] 0.5 mg PO QAM 12/30/17 11/21/18 History tiZANidine [Zanaflex] 4 - 8 mg PO Q6H 12/30/17 11/21/18 History clonazePAM 1 mg PO HS 06/09/18 11/21/18 History Sertraline [Zoloft] 100 mg PO DAILY 11/21/18 11/21/18 History Allergies Allergy/AdvReac Type Severity Reaction Status Date / Time No Known Allergies Allergy Verified 11/21/18 13:59 Physical Exam Vitals: Vital Signs Temp Pulse Pulse Resp BP BP Pulse Ox 11/22/18 12:13 98.3 F 61 16 113/66 96 11/22/18 08:27 98.2 F 77 16 111/68 98 11/22/18 07:38 97 11/22/18 04:00 98.7 F 77 12 117/65 98 11/21/18 23:30 98.1 F 78 16 103/65 97 11/21/18 20:00 99.0 F 72 18 98/58 95 11/21/18 18:30 74 18 106/64 95 11/21/18 15:31 143/76 11/21/18 13:45 98.1 F Intake and Output 11/21/18 11/22/18 11/22/18 22:59 06:59 14:59 Other: Voiding Method Toilet Toilet Toilet # Voids 1 1 Weight 67.2 kg Results CBC & Chem 7: 11/22/18 05:43 11/22/18 05:43 Labs: Abnormal Lab Results - Last 24 Hours (Table) 11/21/18 11/21/18 11/21/18 Range/Units 13:18 13:18 15:24 WBC (3.8-10.6) k/uL Neutrophils # (1.3-7.7) k/uL VBG pH 7.42 H (7.31-7.41) VBG pCO2 36 L (37-51) mmHg VBG HCO3 23 L (24-28) mmol/L Chloride 108 H (98-107) mmol/L Carbon Dioxide 18 L (22-30) mmol/L Glucose 142 H (74-99) mg/dL Plasma Lactic Acid Boy 6.0 H* (0.7-2.0) mmol/L Calcium (8.4-10.2) mg/dL Phosphorus 2.1 L (2.5-4.5) mg/dL Magnesium 1.4 L (1.6-2.3) mg/dL Total Protein 6.1 L (6.3-8.2) g/dL Urine Ketones (Negative) Urine Opiates Screen (NotDetected) Urine Methadone Screen (NotDetected) U Marijuana (THC) Screen (NotDetected) 11/21/18 11/22/18 11/22/18 Range/Units 15:24 05:43 05:43 WBC 11.3 H (3.8-10.6) k/uL Neutrophils # 7.9 H (1.3-7.7) k/uL VBG pH (7.31-7.41) VBG pCO2 (37-51) mmHg VBG HCO3 (24-28) mmol/L Chloride 109 H (98-107) mmol/L Carbon Dioxide (22-30) mmol/L Glucose (74-99) mg/dL Plasma Lactic Acid Boy (0.7-2.0) mmol/L Calcium 8.3 L (8.4-10.2) mg/dL Phosphorus (2.5-4.5) mg/dL Magnesium (1.6-2.3) mg/dL Total Protein 5.7 L (6.3-8.2) g/dL Urine Ketones 1+ H (Negative) Urine Opiates Screen Detected H (NotDetected) Urine Methadone Screen Detected H (NotDetected) U Marijuana (THC) Screen Detected H (NotDetected) Thrombosis Risk Factor Assmnt - Choose All That Apply Each Factor Represents 1 point: Age 41-60 years, Medical pt on bed rest Thrombosis Risk Factor Assessment Total Risk Factor Score: 2 Thrombosis Risk Factor Assessment Level: Low Risk
[2018-11-22] MEDS ORDERED: clonazePAM 0.5 MG TAB PO SCH (21:00)
[2018-11-22] MEDS: IPRATROPIUM-ALBUTEROL 3 ML NEB INHALATION SCH ×2 (21:01→21:11)
[2018-11-22] MEDS: BUDESONIDE 1 MG/2 ML NEBU INHALATION SCH (21:11)
[2018-11-22] MEDS: methylPREDNISolone SOD SUCCI 40 MG/ML 1 ML VIAL IV SCH (21:48)
[2018-11-22] MEDS: amLODIPine 5 MG TAB PO SCH (21:48)
[2018-11-22] MEDS: clonazePAM 1 MG TAB PO SCH (21:48)
[2018-11-23] MEDS: METHADONE 5 MG TAB PO SCH ×2 (00:16→08:03)
[2018-11-23] MEDS: tiZANidine 4 MG TAB PO SCH ×2 (00:16→08:03)
[2018-11-23 06:26] VITALS: RESP 16
[2018-11-23] MEDS: SODIUM CHLORIDE 0.9% 1,000 ML IV SCH (07:58)
[2018-11-23] MEDS: amLODIPine 5 MG TAB PO SCH (08:02)
[2018-11-23] MEDS: SERTRALINE 100 MG TAB PO SCH (08:02)
[2018-11-23] MEDS: methylPREDNISolone SOD SUCCI 40 MG/ML 1 ML VIAL IV SCH (08:03)
[2018-11-23] MEDS: clonazePAM 0.5 MG TAB PO SCH (08:03)
[2018-11-23] MEDS: IPRATROPIUM-ALBUTEROL 3 ML NEB INHALATION SCH ×2 (09:31→11:41)
[2018-11-23] MEDS: BUDESONIDE 1 MG/2 ML NEBU INHALATION SCH (09:31)
[2018-11-23 11:32] VITALS: BP 123/73; PULSE 74; TEMP 98.3
[2018-11-23] MEDS ORDERED: PNEUMOCOCCAL VACC-PNEUMOVAX 23 25 MCG/0.5 ML VIAL IM ONE (13:12)
--- NOTE | 2018-11-23 13:52 | ECHOF ---
Referral Reason:lv function MEASUREMENTS -------- HEIGHT: 165.1 cm WEIGHT: 67.1 kg BP: RVIDd: 3.0 cm (< 3.3) IVSd: 0.9 cm (0.6 - 1.1) LVIDd: 4.5 cm (3.9 - 5.3) LVPWd: 1.0 cm (0.6 - 1.1) IVSs: 1.3 cm LVIDs: 3.1 cm LVPWs: 1.5 cm LAESV Index (A-L): 18.38 ml/m Ao Diam: 3.0 cm (2.0 - 3.7) AV Cusp: 2.5 cm (1.5 - 2.6) LA Diam: 3.7 cm (2.7 - 3.8) MV EXCURSION: 25.683 mm (> 18.000) MV EF SLOPE: 202 mm/s (70 - 150) EPSS: 0.6 cm MV E Christopher: 0.73 m/s MV DecT: 239 ms MV A Christopher: 0.43 m/s MV E/A Ratio: 1.70 AR PHT: 479 ms RAP: 15.00 mmHg RVSP: 20.82 mmHg TAPSE: 30.61 mm FINDINGS -------- Resting bradycardia (HR<60bpm). This was a technically good study. The left ventricular size is normal. Left ventricular wall thickness is normal. Overall left vent ricular systolic function is normal with, an EF between 55 - 60 %. The diastolic filling pattern is normal for the age of the patient 5.85. The right ventricle is normal in size. The left atrial size is normal. Normal LA size by volume 22+/-6 ml/m2. The right atrial size is normal. The aortic valve is trileaflet and appears structurally normal. Trace amount of aortic regurgitatio n. Normal appearing mitral valve. The mitral valve is normal. There is trace mitral regurgitation. The tricuspid valve appears structurally normal. Trace tricuspid regurgitation present. Right tiffanie tricular systolic pressure is normal at < 35 mmHg. There is no pulmonic regurgitation present. The aortic root size is normal. The inferior vena cava is mildly dilated. There is no pericardial effusion. CONCLUSIONS -------- 1. Resting bradycardia (HR<60bpm). 2. This was a technically good study. 3. The left ventricular size is normal. 4. Left ventricular wall thickness is normal. 5. Overall left ventricular systolic function is normal with, an EF between 55 - 60 %. 6. The diastolic filling pattern is normal for the age of the patient 5.85 7. The right ventricle is normal in size. 8. The left atrial size is normal. 9. Normal LA size by volume 22+/-6 ml/m2. 10. The right atrial size is normal. 11. The aortic valve is trileaflet and appears structurally normal. 12. Trace amount of aortic regurgitation. 13. Normal appearing mitral valve. 14. The mitral valve is normal. 15. There is trace mitral regurgitation. 16. The tricuspid valve appears structurally normal. 17. Trace tricuspid regurgitation present. 18. Right ventricular systolic pressure is normal at < 35 mmHg. 19. There is no pulmonic regurgitation present. 20. The aortic root size is normal. 21. The inferior vena cava is mildly dilated. 22. There is no pericardial effusion. BUCKLE SEWER: Lilliana Herrera RDCS
--- NOTE | 2018-11-23 16:01 | P.PN ---
Subjective Progress Note Date: 11/23/18 This is a 53-year-old female seen in consultation yesterday by Dr. Marcela Gutierrez, admitted to the hospital with symptoms of difficulty in breathing and altered mental status changes. After arrival here the patient had an EKG performed which revealed a prolonged DC interval for which a cardiology con sultation had been requested. She was seen and examined today, continues to feel well. Her clonidine had been discontinued and at this point in time we'll recommend that she continue to be off of that. Echocardiogram with Doppler study was performed which revealed an ejection fraction of 55-60%. Blood pressure 122/70 with a heart rate in the 70s, 98% on room air. Objective - Vital Signs Vital signs: Vital Signs Temp 98.3 F 11/23/18 11:28 Pulse 74 11/23/18 11:28 Resp 16 11/23/18 11:28 BP 123/73 11/23/18 11:28 Pulse Ox 98 11/23/18 11:28 Intake & Output 11/22/18 11/23/18 11/23/18 18:59 06:59 18:59 Intake Total 462 240 Output Total 400 Balance 462 -160 Weight 59.2 kg Intake: Oral 462 240 Output: Urine 400 Other: Voiding Method Toilet Toilet Toilet # Voids 2 1 - Exam PHYSICAL EXAMINATION: GENERAL: 53-year-old female in no acute distress at the time of my examination HEENT: Head is atraumatic, normocephalic. Pupils equal, round. Sclera anicteric. Conjunctiva are clear. Mucous membranes of the mouth are moist. Neck is supple. There is no elevated jugular venous pressure.] bruit is heard. HEART EXAMINATION: Heart S1, S2 normal. No murmur or gallop heard. CHEST EXAMINATION: Lungs are clear to auscultation and precussion. No chest wall tenderness is noted on palpation or with deep breathing. ABDOMEN: Soft, nontender. Bowel sounds are heard. No organomegaly noted. EXTREMITIES: 2+ peripheral pulses with no evidence of peripheral edema and no calf tenderness noted. NEUROLOGIC patient is awake, alert and oriented 3 . . - Labs CBC & Chem 7: 11/22/18 05:43 11/22/18 05:43 Labs: Microbiology - Last 24 Hours (Table) 09/29/19 15:24 Blood Culture - Preliminary Blood No Growth after 24 hours Assessment and Plan Plan: Assessment and plan #1 episode of second-degree type I rhythm, resolved, we will continue to hold clonidine #2 chronic pain syndrome #3 hypertension Plan From cardiology's perspective, patient may be able to be discharged home today. We will continue to hold her clonidine. DNP note has been reviewed, I agree with a documented findings and plan of care. Patient was seen and examined.
--- NOTE | 2018-11-23 23:39 | P.DS ---
Providers Date of admission: 11/21/18 17:20 Expected date of discharge: 11/23/18 Attending physician: Jim Robertson Consults: 11/21/18 17:31 Consult Physician Urgent Consulting Provider: Marc Morel Consult Reason/Comments: Mobitz type 1 heart block Do you want consulting provider notified?: Yes 11/22/18 10:59 Consult Physician Routine Consulting Provider: Oscar Kelly Consult Reason/Comments: poss side effects of pain meds Do you want consulting provider notified?: Yes Primary care physician: Joe Jalloh [facility] Course: Chief Complaint: feeling unwell history of presenting complaint: this is a [address] ajlloh out of [facility]. Patient's pain management doctors Dr. Kelly out of [facility]. Chronic stable medical conditions include osteoarthritis, complex regional pain syndrome, generalized pain, several TIAs, constipation. Patient presented multitudinous symptoms. She was brought to the ER as she was bit confused. Somewhat delirious. Complaint of pain all over. Slightly breathing heavy. Dilaudid was held and she was given IV morphine. Initial impression the ER was she was poss ibly having withdrawals. When I saw this patient this morning, she is awake. A bit anxious. Slightly wheezing. She complains of pain all over the body shoulders chest back legs knees and feet. She has continued to smoke. Also been wheezing. some short of breath. No fever no chills. Very slight cough. Because of limited chest pain ,cardiology was also consulted. also a temporary second-degree type I rhythm.. admitted with COPD exacerbation. Responded well to bronchodilators and steroids.clonidine was discontinued. Started on Norvasc. Patient is counseled against smoking.Dr. Kelly office was also contacted for consultation. Patient told to follow-up. Consultation: Dr. NEDYA Gutierrez from cardiology Physical examination: VITAL SIGNS: 98.3, 74, 16, 123.73, 98% room air GENERAL: sitting up comfortable. EYES: [Pupils equal. Conjunctiva skylar]l. HEENT: [External appearance of nose and ears normal, oral cavity grossly normal]. NECK: [JVD not raised; masses not palpable]. HEART: [First and second heart sounds are normal; no edema]. LUNGS:[ Respiratory rate normal, decreased breath sounds improved air entry]. ABDOMEN: [Soft, nontender, liver spleen not palpable, no masses palpable]. PSYCH: [Alert and oriented x3; mood and affect anxious]l. INVESTIGATIONS, reviewed in the clinical context: white count 12.1 hemoglobin 12.5 platelets 146 potassium 3.9 creatinine 0.67 Lactic acid 6 repeat 1.1 -UA showing 1+ ketones urine drug screen-positive for opiates, methadone, marijuana Assessment: -Acute delirium that appears to be multifactorial including possible some drug withdrawal. Patient does take multiple pain medications. Also did marijuana. He symptoms ceased to be a mixture of both may be drug withdrawal and element of t delirium. -Acute COPD exacerbation in a current smoker -Complex regional pain syndrome -Chronic nicotine dependence patient cigarette smoker -Marijuana use -Type II lactic acidosis. No evidence of infection -possible Wenckebach. disposition: Home Patient Condition at Discharge: Stable Plan - Discharge Summary Discharge Rx Participant: Yes New Discharge Prescriptions: New Ipratropium [place] [Atrovent Hfa] 2 puff INHALATION TID #1 inhaler predniSONE 10 mg PO DAILY #30 tab Albuterol Inhaler [Ventolin Hfa Inhaler] 1 - 2 puff INHALATION RT-Q6H PRN #1 inhaler PRN Reason: Wheezing amLODIPine [Norvasc] 5 mg PO BID #60 tab Continue tiZANidine [Zanaflex] 4 - 8 mg PO Q6H Methadone [Dolophine] 5 mg PO TID clonazePAM [KlonoPIN] 0.5 mg PO QAM clonazePAM 1 mg PO HS Sertraline [Zoloft] 100 mg PO DAILY Discontinued cloNIDine HCL 0.3 mg PO TID Discharge Medication List Methadone [Dolophine] 5 mg PO TID 12/30/17 [History] clonazePAM [KlonoPIN] 0.5 mg PO QAM 12/30/17 [History] tiZANidine [Zanaflex] 4 - 8 mg PO Q6H 12/30/17 [History] clonazePAM 1 mg PO HS 06/09/18 [History] Sertraline [Zoloft] 100 mg PO DAILY 11/21/18 [History] Albuterol Inhaler [Ventolin Hfa Inhaler] 1 - 2 puff INHALATION RT-Q6H PRN #1 inhaler 11/23/18 [Rx] Ipratropium [place] [Atrovent Hfa] 2 puff INHALATION TID #1 inhaler 11/23/18 [Rx] amLODIPine [Norvasc] 5 mg PO BID #60 tab 11/23/18 [Rx] predniSONE 10 mg PO DAILY #30 tab 11/23/18 [Rx] Follow up Appointment(s)/Referral(s): Yoel Gutierrez MD [STAFF PHYSICIAN] - 1 Week (Health Services Coordinator - please call for a follow up appointment with qc chemist for bradycardia. ) Joe Jalloh MD [Primary Care Provider] - 3 Days Oscar Kelly DO [Doctor of Osteopathic Medicine] - 12/02/18 1:00 pm (Please keep previous appointment. ) Patient Instructions/Handouts: COPD (Chronic Obstructive Pulmonary Disease) (DC), Bradycardia (DC) Discharge Disposition: HOME SELF-CARE
== END 2018-11-23 13:30 | disposition home or self-care (01) ==
LOC: EC 12:49 → 3SCARD 17:20
PROVIDERS: ADMIT Hospitalist; ATTEND Hospitalist
DX: R41.0 Disorientation, unspecified (principal); J44.1 Chronic obstructive pulmonary disease with (acute) exacerbation; G90.50 Complex regional pain syndrome I, unspecified; Z86.73 Personal history of transient ischemic attack (TIA), and cerebral infarction without residual deficits; M19.90 Unspecified osteoarthritis, unspecified site; K59.00 Constipation, unspecified; F17.210 Nicotine dependence, cigarettes, uncomplicated; F12.90 Cannabis use, unspecified, uncomplicated; R26.2 Difficulty in walking, not elsewhere classified; F41.9 Anxiety disorder, unspecified; F32.9 Major depressive disorder, single episode, unspecified; E87.2 Acidosis; G89.4 Chronic pain syndrome; I10 Essential (primary) hypertension; I45.81 Long QT syndrome; R00.1 Bradycardia, unspecified; G43.909 Migraine, unspecified, not intractable, without status migrainosus; Z85.820 Personal history of malignant melanoma of skin; Z85.72 Personal history of non-Hodgkin lymphomas; Z92.21 Personal history of antineoplastic chemotherapy; Z79.899 Other long term (current) drug therapy; Z79.891 Long term (current) use of opiate analgesic; Z82.49 Family history of ischemic heart disease and other diseases of the circulatory system; Z82.61 Family history of arthritis; Z84.89 Family history of other specified conditions
CPT/HCPCS: 96376 ×4; 96375 ×3; 96361; 96374; 99285; 36415; 94640; 94760; 93005; 93306; 80053 ×2; 84443; 82140; 82550; 82803; 83605; 83735 ×2; 84100; 84484; 85025 ×2; 85610; 85730; 81003; 87040; 80306; 83520; 71045; 70450; G0378 ×3; G0480 ×2; J2060; J2270 ×2; J2920 ×2; J2405 ×2; J1170; S0109 ×2; 80320; 80329

== ENCOUNTER 2018-11-25 06:16 | Inpatient (IN) | payer MEDICARE ==
[2018-11-25] MEDS ORDERED: SODIUM CHLORIDE 0.9% 1,000 ML IV ONE ×2 (06:25→08:15)
[2018-11-25] MEDS ORDERED: LORazepam 2 MG/ML INJ IV STA ×2 (06:27→06:50)
--- NOTE | 2018-11-25 06:34 | ED ---
Altered Mental Status HPI - General Stated Complaint: Arm Pain Time Seen by Provider: 11/25/18 06:18 Source: EMS, RN notes reviewed Mode of arrival: EMS Limitations: altered mental status - History of Present Illness Initial Comments: This is a 53-year-old female brought to emergency department via EMS for complaints of mental status. Patient was recently discharged from the hospital for similar episode in which they felt this was acute delirium related to drug withdrawal. Information is very limited given the patient's condition at this time. Patient is screaming that her arms hurt. Patient has not willing to provide any information at this time. Daughters denies knowing that her mother uses any drugs. There is no witness vomiting no diarrhea no fever noted. This reportedly has been going on for the last 2 hours. - Related Data Home Medications Medication Instructions Recorded Confirmed Methadone [Dolophine] 5 mg PO TID 12/30/17 11/25/18 clonazePAM [KlonoPIN] 0.5 mg PO QAM 12/30/17 11/25/18 tiZANidine [Zanaflex] 4 - 8 mg PO Q6H 12/30/17 11/25/18 clonazePAM 1 mg PO HS 06/09/18 11/25/18 Sertraline [Zoloft] 100 mg PO DAILY 11/21/18 11/25/18 Previous Rx's Medication Instructions Recorded Albuterol Inhaler [Ventolin Hfa 1 - 2 puff INHALATION RT-Q6H PRN 11/23/18 Inhaler] #1 inhaler Ipratropium [place] [Atrovent Hfa] 2 puff INHALATION TID #1 inhaler 11/23/18 amLODIPine [Norvasc] 5 mg PO BID #60 tab 11/23/18 predniSONE 10 mg PO DAILY #30 tab 11/23/18 Allergies Allergy/AdvReac Type Severity Reaction Status Date / Time No Known Allergies Allergy Verified 11/25/18 08:08 Review of Systems ROS Statement: Those systems with pertinent positive or pertinent negative responses have been documented in the HPI. ROS Other: All systems not noted in ROS Statement are negative. 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 History of Any Multi-Drug Resistant Organisms: None Reported Past Surgical History: Hysterectomy, Orthopedic Surgery Additional Past Surgical History / Comment(s): MELANOMA SURGERY WITH "WIDE EXTRACTION " AND LYMPH NODES REMOVED LEFT THIGH (2011), CYST ON BACK., PAIN PROCEDURES., RIGHT CARPAL TUNNEL RELEASE, RIGHT THUMB JOINT REPLACEMENT. Past Anesthesia/Blood Transfusion Reactions: No Reported Reaction, Family History of Problems w/ Anesthesia Additional Past Anesthesia/Blood Transfusion Reaction / Comment(s): MOTHER AND SON = PONV Smoking Status: Current every day smoker - Past Family History Mother Family Medical History: No Reported History Father Family Medical History: AFIB, Hyperlipidemia, Hypertension, Sleep Apnea/CPAP/BIPAP Additional Family Medical History / Comment(s): Gout General Exam Limitations: altered mental status General appearance: alert Head exam: Present: atraumatic, normocephalic, normal inspection Eye exam: Present: normal appearance, PERRL, EOMI. Absent: scleral icterus, conjunctival injection, periorbital swelling ENT exam: Present: normal exam, normal oropharynx, mucous membranes moist Neck exam: Present: normal inspection, full ROM. Absent: tenderness, meningismus, lymphadenopathy Respiratory exam: Present: normal lung sounds bilaterally. Absent: respiratory distress, wheezes, rales, rhonchi, stridor Cardiovascular Exam: Present: regular rate, normal rhythm, normal heart sounds. Absent: systolic murmur, diastolic murmur, rubs, gallop, clicks GI/Abdominal exam: Present: soft, normal bowel sounds. Absent: distended, tenderness, guarding, rebound, rigid Neurological exam: Present: alert. Absent: oriented X3 Skin exam: Present: warm, dry, intact, normal color. Absent: rash Course Vital Signs 11/25/18 11/25/18 06:50 08:48 Temperature 96.7 F L Pulse Rate 90 54 L Respiratory 18 26 H Rate Blood Pressure 147/83 144/86 O2 Sat by Pulse 94 L 100 Oximetry - Reevaluation(s) Reevaluation #1: 11/25/18 08:16 did arrive to the ER and provided further information stating that patient reportedly started getting sick throughout the weekend which included nausea vomiting complaining worsening pain, chest pain. At this time patient was admitted. He does state that she's had extensive history including multiple cancers, pain syndrome in which she sees Dr. Kelly. Patient has been taking her medications as prescribed. He did state that she told him he she did not feel well last night stated that she went to bed at that time around 8 PM but woke up and they'll night vomiting, diarrhea and increasing pain. Medical Decision Making - Medical Decision Making 53-year-old female presented for intractable pain, delirium, altered mental status. Workup at this time including labs urinalysis EKG and CT. Patient is improved after some medication though this is been a recurrent issue, second ER visit for similar complaints. Family states that she didn't have recurrent nausea vomiting and which is causing increasing pain. Patient CT shows possibility of pancreatitis on CT. Emesis and lipase were added patient will be admitted for neuro, pain management consultation. - Lab Data Result diagrams: 11/25/18 06:34 11/25/18 06:34 Lab Results 11/25/18 11/25/18 11/25/18 Range/Units 06:32 06:34 06:34 WBC 12.4 H (3.8-10.6) k/uL RBC 4.09 (3.80-5.40) m/uL Hgb 13.0 (11.4-16.0) gm/dL Hct 41.1 (34.0-46.0) % MCV 100.3 H (80.0-100.0) fL MCH 31.6 (25.0-35.0) pg MCHC 31.6 (31.0-37.0) g/dL RDW 13.3 (11.5-15.5) % Plt Count 167 (150-450) k/uL Neutrophils % 79 % Lymphocytes % 15 % Monocytes % 4 % Eosinophils % 1 % Basophils % 0 % Neutrophils # 9.8 H (1.3-7.7) k/uL Lymphocytes # 1.9 (1.0-4.8) k/uL Monocytes # 0.5 (0-1.0) k/uL Eosinophils # 0.1 (0-0.7) k/uL Basophils # 0.0 (0-0.2) k/uL ESR (0-20) mm/hr PT (9.0-12.0) sec INR (<1.2) APTT (22.0-30.0) sec Sodium 143 (137-145) mmol/L Potassium 3.7 (3.5-5.1) mmol/L Chloride 107 (98-107) mmol/L Carbon Dioxide 24 (22-30) mmol/L Anion Gap 12 mmol/L BUN 11 (7-17) mg/dL Creatinine 0.68 (0.52-1.04) mg/dL Est GFR (CKD-EPI)AfAm >90 (>60 ml/min/1.73 sqM) Est GFR (CKD-EPI)NonAf >90 (>60 ml/min/1.73 sqM) Glucose 110 H (74-99) mg/dL POC Glucose (mg/dL) (75-99) mg/dL POC Glu Biochemistry Specialist ID Lactic Ac Sepsis Rflx Plasma Lactic Acid Boy (0.7-2.0) mmol/L Calcium 9.1 (8.4-10.2) mg/dL Total Bilirubin 0.6 (0.2-1.3) mg/dL AST 22 (14-36) U/L ALT 15 (9-52) U/L Alkaline Phosphatase 75 (38-126) U/L Ammonia (<30) umol/L Creatine Kinase 103 (30-135) U/L Troponin I (0.000-0.034) ng/mL C-Reactive Protein (<10.0) mg/L Total Protein 6.4 (6.3-8.2) g/dL Albumin 4.1 (3.5-5.0) g/dL Amylase 49 (30-110) U/L Lipase 58 (23-300) U/L Urine Color Urine Appearance (Clear) Urine pH (5.0-8.0) Ur Specific Gordon (1.001-1.035) Urine Protein (Negative) Urine Glucose (UA) (Negative) Urine Ketones (Negative) Urine Blood (Negative) Urine Nitrite (Negative) Urine Bilirubin (Negative) Urine Urobilinogen (<2.0) mg/dL Ur Leukocyte Esterase (Negative) Urine Opiates Screen (NotDetected) Ur Oxycodone Screen (NotDetected) Urine Methadone Screen (NotDetected) Ur Propoxyphene Screen (NotDetected) Ur Barbiturates Screen (NotDetected) U Tricyclic Antidepress (NotDetected) Ur Phencyclidine Scrn (NotDetected) Ur Amphetamines Screen (NotDetected) U Methamphetamines Scrn (NotDetected) U Benzodiazepines Scrn (NotDetected) Urine Cocaine Screen (NotDetected) U Marijuana (THC) Screen (NotDetected) 11/25/18 11/25/18 11/25/18 Range/Units 06:34 06:34 06:34 WBC (3.8-10.6) k/uL RBC (3.80-5.40) m/uL Hgb (11.4-16.0) gm/dL Hct (34.0-46.0) % MCV (80.0-100.0) fL MCH (25.0-35.0) pg MCHC (31.0-37.0) g/dL RDW (11.5-15.5) % Plt Count (150-450) k/uL Neutrophils % % Lymphocytes % % Monocytes % % Eosinophils % % Basophils % % Neutrophils # (1.3-7.7) k/uL Lymphocytes # (1.0-4.8) k/uL Monocytes # (0-1.0) k/uL Eosinophils # (0-0.7) k/uL Basophils # (0-0.2) k/uL ESR (0-20) mm/hr PT 11.3 (9.0-12.0) sec INR 1.1 (<1.2) APTT 22.3 (22.0-30.0) sec Sodium (137-145) mmol/L Potassium (3.5-5.1) mmol/L Chloride (98-107) mmol/L Carbon Dioxide (22-30) mmol/L Anion Gap mmol/L BUN (7-17) mg/dL Creatinine (0.52-1.04) mg/dL Est GFR (CKD-EPI)AfAm (>60 ml/min/1.73 sqM) Est GFR (CKD-EPI)NonAf (>60 ml/min/1.73 sqM) Glucose (74-99) mg/dL POC Glucose (mg/dL) (75-99) mg/dL POC Glu Biochemistry Specialist ID Lactic Ac Sepsis Rflx Plasma Lactic Acid Boy 3.5 H* (0.7-2.0) mmol/L Calcium (8.4-10.2) mg/dL Total Bilirubin (0.2-1.3) mg/dL AST (14-36) U/L ALT (9-52) U/L Alkaline Phosphatase (38-126) U/L Ammonia <9 (<30) umol/L Creatine Kinase (30-135) U/L Troponin I <0.012 (0.000-0.034) ng/mL C-Reactive Protein (<10.0) mg/L Total Protein (6.3-8.2) g/dL Albumin (3.5-5.0) g/dL Amylase (30-110) U/L Lipase (23-300) U/L Urine Color Urine Appearance (Clear) Urine pH (5.0-8.0) Ur Specific [place] (1.001-1.035) Urine Protein (Negative) Urine Glucose (UA) (Negative) Urine Ketones (Negative) Urine Blood (Negative) Urine Nitrite (Negative) Urine Bilirubin (Negative) Urine Urobilinogen (<2.0) mg/dL Ur Leukocyte Esterase (Negative) Urine Opiates Screen (NotDetected) Ur Oxycodone Screen (NotDetected) Urine Methadone Screen (NotDetected) Ur Propoxyphene Screen (NotDetected) Ur Barbiturates Screen (NotDetected) U Tricyclic Antidepress (NotDetected) Ur Phencyclidine Scrn (NotDetected) Ur Amphetamines Screen (NotDetected) U Methamphetamines Scrn (NotDetected) U Benzodiazepines Scrn (NotDetected) Urine Cocaine Screen (NotDetected) U Marijuana (THC) Screen (NotDetected) 11/25/18 11/25/18 11/25/18 Range/Units 06:34 06:34 06:49 WBC (3.8-10.6) k/uL RBC (3.80-5.40) m/uL Hgb (11.4-16.0) gm/dL Hct (34.0-46.0) % MCV (80.0-100.0) fL MCH (25.0-35.0) pg MCHC (31.0-37.0) g/dL RDW (11.5-15.5) % Plt Count (150-450) k/uL Neutrophils % % Lymphocytes % % Monocytes % % Eosinophils % % Basophils % % Neutrophils # (1.3-7.7) k/uL Lymphocytes # (1.0-4.8) k/uL Monocytes # (0-1.0) k/uL Eosinophils # (0-0.7) k/uL Basophils # (0-0.2) k/uL ESR 2 (0-20) mm/hr PT (9.0-12.0) sec INR (<1.2) APTT (22.0-30.0) sec Sodium (137-145) mmol/L Potassium (3.5-5.1) mmol/L Chloride (98-107) mmol/L Carbon Dioxide (22-30) mmol/L Anion Gap mmol/L BUN (7-17) mg/dL Creatinine (0.52-1.04) mg/dL Est GFR (CKD-EPI)AfAm (>60 ml/min/1.73 sqM) Est GFR (CKD-EPI)NonAf (>60 ml/min/1.73 sqM) Glucose (74-99) mg/dL POC Glucose (mg/dL) (75-99) mg/dL POC Glu Biochemistry Specialist ID Lactic Ac Sepsis Rflx Plasma Lactic Acid Boy (0.7-2.0) mmol/L Calcium (8.4-10.2) mg/dL Total Bilirubin (0.2-1.3) mg/dL AST (14-36) U/L ALT (9-52) U/L Alkaline Phosphatase (38-126) U/L Ammonia (<30) umol/L Creatine Kinase (30-135) U/L Troponin I (0.000-0.034) ng/mL C-Reactive Protein <5.0 (<10.0) mg/L Total Protein (6.3-8.2) g/dL Albumin (3.5-5.0) g/dL Amylase (30-110) U/L Lipase (23-300) U/L Urine Color Yellow Urine Appearance Clear (Clear) Urine pH 8.0 (5.0-8.0) Ur Specific [place] 1.013 (1.001-1.035) Urine Protein Negative (Negative) Urine Glucose (UA) Negative (Negative) Urine Ketones 1+ H (Negative) Urine Blood Negative (Negative) Urine Nitrite Negative (Negative) Urine Bilirubin Negative (Negative) Urine Urobilinogen <2.0 (<2.0) mg/dL Ur Leukocyte Esterase Negative (Negative) Urine Opiates Screen Detected H (NotDetected) Ur Oxycodone Screen Not Detected (NotDetected) Urine Methadone Screen Detected H (NotDetected) Ur Propoxyphene Screen Not Detected (NotDetected) Ur Barbiturates Screen Not Detected (NotDetected) U Tricyclic Antidepress Not Detected (NotDetected) Ur Phencyclidine Scrn Not Detected (NotDetected) Ur Amphetamines Screen Not Detected (NotDetected) U Methamphetamines Scrn Not Detected (NotDetected) U Benzodiazepines Scrn Not Detected (NotDetected) Urine Cocaine Screen Not Detected (NotDetected) U Marijuana (THC) Screen Detected H (NotDetected) 11/25/18 11/25/18 Range/Units 07:06 07:08 WBC (3.8-10.6) k/uL RBC (3.80-5.40) m/uL Hgb (11.4-16.0) gm/dL Hct (34.0-46.0) % MCV (80.0-100.0) fL MCH (25.0-35.0) pg MCHC (31.0-37.0) g/dL RDW (11.5-15.5) % Plt Count (150-450) k/uL Neutrophils % % Lymphocytes % % Monocytes % % Eosinophils % % Basophils % % Neutrophils # (1.3-7.7) k/uL Lymphocytes # (1.0-4.8) k/uL Monocytes # (0-1.0) k/uL Eosinophils # (0-0.7) k/uL Basophils # (0-0.2) k/uL ESR (0-20) mm/hr PT (9.0-12.0) sec INR (<1.2) APTT (22.0-30.0) sec Sodium (137-145) mmol/L Potassium (3.5-5.1) mmol/L Chloride (98-107) mmol/L Carbon Dioxide (22-30) mmol/L Anion Gap mmol/L BUN (7-17) mg/dL Creatinine (0.52-1.04) mg/dL Est GFR (CKD-EPI)AfAm (>60 ml/min/1.73 sqM) Est GFR (CKD-EPI)NonAf (>60 ml/min/1.73 sqM) Glucose (74-99) mg/dL POC Glucose (mg/dL) 119 H (75-99) mg/dL POC Glu Biochemistry Specialist ID Meggan Marks Lactic Ac Sepsis Rflx Y Plasma Lactic Acid Boy (0.7-2.0) mmol/L Calcium (8.4-10.2) mg/dL Total Bilirubin (0.2-1.3) mg/dL AST (14-36) U/L ALT (9-52) U/L Alkaline Phosphatase (38-126) U/L Ammonia (<30) umol/L Creatine Kinase (30-135) U/L Troponin I (0.000-0.034) ng/mL C-Reactive Protein (<10.0) mg/L Total Protein (6.3-8.2) g/dL Albumin (3.5-5.0) g/dL Amylase (30-110) U/L Lipase (23-300) U/L Urine Color Urine Appearance (Clear) Urine pH (5.0-8.0) Ur Specific [place] (1.001-1.035) Urine Protein (Negative) Urine Glucose (UA) (Negative) Urine Ketones (Negative) Urine Blood (Negative) Urine Nitrite (Negative) Urine Bilirubin (Negative) Urine Urobilinogen (<2.0) mg/dL Ur Leukocyte Esterase (Negative) Urine Opiates Screen (NotDetected) Ur Oxycodone Screen (NotDetected) Urine Methadone Screen (NotDetected) Ur Propoxyphene Screen (NotDetected) Ur Barbiturates Screen (NotDetected) U Tricyclic Antidepress (NotDetected) Ur Phencyclidine Scrn (NotDetected) Ur Amphetamines Screen (NotDetected) U Methamphetamines Scrn (NotDetected) U Benzodiazepines Scrn (NotDetected) Urine Cocaine Screen (NotDetected) U Marijuana (THC) Screen (NotDetected) - EKG Data EKG Comments: EKG performed at 10:23 seconds. He, full and QT rate 64. CT 220 qrs 78 QT/QTC 480/503 Disposition Clinical Impression: Intractable pain, Nausea & vomiting, Lactic acidosis, Altered mental status Disposition: ADMITTED IP TO THIS HOSP Condition: Fair Referrals: Joe Jalloh MD [Primary Care Provider] - 1-2 days
[2018-11-25 06:48] LABS: Basophils % (A) 0 %; Eosinophils # (A) 0.1 k/uL (0-0.7); Eosinophils % (A) 1 %; HCT 41.1 % (34.0-46.0); Lymphocytes # (A) 1.9 k/uL (1.0-4.8); Lymphocytes % (A) 15 %; MCH 31.6 pg (25.0-35.0); MCHC 31.6 g/dL (31.0-37.0); MCV 100.3 fL (80.0-100.0); Mean Platelet Volume 8.4; Monocytes # (A) 0.5 k/uL (0-1.0); Monocytes % (A) 4 %; Neutrophils # (A) 9.8 k/uL (1.3-7.7); Neutrophils % (A) 79 %; Platelet Count 167 k/uL (150-450); RBC 4.09 m/uL (3.80-5.40); RDW 13.3 % (11.5-15.5); WBC 12.4 k/uL (3.8-10.6)
[2018-11-25 06:59] LABS: Ammonia <9 umol/L (<30)
[2018-11-25 06:59] LABS: Appearance,Urine Clear (Clear); Bilirubin,Urine Negative (Negative); Blood,Urine Negative (Negative); Color,Urine Yellow; Glucose,Urine (UA) Negative (Negative); Ketones,Urine 1+ (Negative); Leukocyte Esterase,Urine Negative (Negative); Nitrite,Urine Negative (Negative); Protein,Urine Negative (Negative); Specific Gravity,Urine 1.013 (1.001-1.035); Urobilinogen,Urine <2.0 mg/dL (<2.0)
[2018-11-25 07:00] LABS: African American GFR (CKD) >90 (>60 ml/min/1.73 sqM); Albumin 4.1 g/dL (3.5-5.0); Anion Gap 12 mmol/L; Blood Urea Nitrogen 11 mg/dL (7-17); Calcium 9.1 mg/dL (8.4-10.2); Carbon Dioxide 24 mmol/L (22-30); Chloride 107 mmol/L (98-107); Creatine Kinase 103 U/L (30-135); Glucose 110 mg/dL (74-99); Sodium 143 mmol/L (137-145); Total Bilirubin 0.6 mg/dL (0.2-1.3); Total Protein 6.4 g/dL (6.3-8.2)
[2018-11-25 07:04] LABS: ALT 15 U/L (9-52); AST 22 U/L (14-36); Alkaline Phosphatase 75 U/L (38-126); Potassium 3.7 mmol/L (3.5-5.1)
[2018-11-25 07:05] LABS: INR 1.1 (<1.2); Lactic Acid, Venous 3.5 mmol/L (0.7-2.0); Partial Thromboplastin Time 22.3 sec (22.0-30.0); Prothrombin Time 11.3 sec (9.0-12.0)
[2018-11-25 07:10] LABS: Amphetamine Screen,Urine Not Detected (NotDetected); Barbiturate Screen,Urine Not Detected (NotDetected); Benzodiazepines Screen,Urine Not Detected (NotDetected); Cocaine Screen,Urine Not Detected (NotDetected); Methadone Screen, Urine Detected (NotDetected); Opiate Screen,Urine Detected (NotDetected); Oxycodone Screen, Urine Not Detected (NotDetected); Phencyclidine Screen,Urine Not Detected (NotDetected); Tricyclic Antidepressant,Urine Not Detected (NotDetected); Urn Cannabinoid Scrn Detected (NotDetected)
[2018-11-25 07:10] LABS: Glucose,Whole Blood 119 mg/dL (75-99)
[2018-11-25] MEDS ORDERED: MORPHINE SULFATE 4 MG/ML SYRINGE IVP STA (07:19)
[2018-11-25] MEDS ORDERED: ONDANSETRON 4 MG/2 ML VIAL IVP STA (07:19)
[2018-11-25] MEDS ORDERED: HYDROmorphone 1 MG/ML 1 ML SYRINGE IVP STA (08:33)
--- NOTE | 2018-11-25 08:38 | CT ---
EXAMINATION TYPE: CT brain wo con DATE OF EXAM: 11/25/2018 COMPARISON: 11/21/2018 HISTORY: 53-year-old female confusion, altered mental status TECHNIQUE: Examination was done in axial plane without intravenous contrast. Coronal and sagittal r econstructions performed. CT DLP: 1109.4 mGycm Automated exposure control for dose reduction was used. FINDINGS: There is no evidence of acute intracranial hemorrhage, acute ischemic changes, mass, mass-effect, or extra-axial fluid collection. There is no effacement of cerebral sulci or basal subarachnoid cister ns. There is no hydrocephalus. There is no midline shift. Roca-white matter distinction is preserv ed. Slight leftward nasal septal deviation. Orbits and globes are intact. Paranasal sinuses and mastoid a ir cells well pneumatized. IMPRESSION: No acute intracranial abnormality seen.
--- NOTE | 2018-11-25 08:39 | XR ---
EXAMINATION TYPE: XR chest 2V DATE OF EXAM: 11/25/2018 COMPARISON: 11/21/2018 HISTORY: 53-year-old female confusion, altered mental status TECHNIQUE: AP and lateral views FINDINGS: The visualized ACDF hardware. Heart normal size. Aorta and pulmonary vasculature within normal limits . Suspect subtle nipple shadow peripheral right base. No consolidation or pleural effusion. IMPRESSION: No acute cardiopulmonary process.
--- NOTE | 2018-11-25 09:52 | CT ---
EXAMINATION TYPE: CT ChestAbdPelvis w con DATE OF EXAM: 11/25/2018 COMPARISON: Abdomen and pelvis 06/09/2018 HISTORY: 53-year-old female Chest, Back, and abd pain TECHNIQUE: Contiguous axial scanning of the wrist, abdomen, and pelvis performed with IV Contrast, pa tient injected with 100 mL of Isovue 300. Delayed images through the kidneys were obtained. Coronal/s agittal reconstructions performed. CT DLP: 654.3 mGycm Automated exposure control for dose reduction was used. FINDINGS: CHEST: Heart normal size without pericardial effusion. Aorta normal caliber with conventional arch vessel branching anatomy. No aortic dissection. No thoracic lymphadenopathy by CT size criteria. Some scattered 3 to 4 mm nodularity in the right upper lobe and dependent atelectasis along the poste rior lung bases. No consolidation or pleural effusion. ABDOMEN: There appears to be mild circumferential wall thickening of the distal esophagus and fundal gastric f old thickening. A peripheral vascular blush at the right hepatic dome probably vascular shunting. Sim ilar finding anterior left liver lobe. Portal venous system is patent. No biliary ductal dilatation. Gallbladder, adrenal glands, right kidney, spleen, and pancreas show no gross abnormality. However, there is some haziness along the retroperitoneum adjacent to the pancreatic body and some po ssible borderline size lymph nodes measuring 6 mm versus varices in this region, refer to axial image 70. There are 2 mm nonobstructive left upper pole renal calculus. No dilated small bowel, free fluid, or free air. Numerous prominent mesenteric lymph nodes with additional haziness of the mesentery. Mesenteric lymph nodes measure up to 1 cm in the mid abdomen, refer to coronal image 50. Circumferential wall thickening extending from the mid ascending colon into the transverse colon. Pelvis: Moderate stool distending the rectum 4.2 cm wide. Uterus surgically absent. No abnormal fluid collect ion in the pelvis or pelvic lymphadenopathy. Multiple pelvic phleboliths. Bladder urine distended. Bones: Mild degenerative changes of the hips. Hypertrophic facet arthropathy lower lumbar spine. IMPRESSION: 1. SIX-MONTH FOLLOW-UP CT CHEST RECOMMENDED FOR SCATTERED 4 MM PULMONARY NODULES IN THE RIGHT UPPER L OBE. 2. PARTIAL VOLUME AVERAGING VERSUS MILD FAT STRANDING ALONG THE POSTERIOR PANCREATIC BODY. CORRELATE WITH AMYLASE AND LIPASE VALUES TO EXCLUDE MILD ACUTE PANCREATITIS. 3. BORDERLINE TO MILDLY ENLARGED MESENTERIC LYMPH NODES WITH MESENTERIC HAZINESS. FINDINGS MAY BE SEE N WITH MESENTERIC PANNICULITIS OR EARLY LYMPHOMA. 3-6 MONTH FOLLOW-UP RECOMMENDED TO REASSESS. 4. MUCOSAL FOLD THICKENING ALONG THE GASTRIC FUNDUS AND ADDITIONAL CIRCUMFERENTIAL WALL THICKENING OF THE RIGHT HEMICOLON. CORRELATE FOR GASTRITIS AND NONSPECIFIC COLITIS.
[2018-11-25] MEDS ORDERED: HYDROmorphone 0.5 MG/0.5 ML SYRINGE IVP PRN (10:20)
[2018-11-25] MEDS ORDERED: NALOXONE 0.4 MG/ML 1 ML VIAL IV PRN (10:20)
[2018-11-25 10:21] LABS: Amylase 49 U/L (30-110)
[2018-11-25] MEDS ORDERED: SODIUM CHLORIDE 0.9% 1,000 ML IV SCH (10:30)
[2018-11-25] MEDS: HYDROmorphone 1 MG/ML 1 ML SYRINGE IVP PRN ×3 (13:36→21:18)
--- NOTE | 2018-11-25 16:48 | P.CNNES ---
History of Present Illness Consult date: 11/25/18 Reason for Consult: AMS Chief complaint: Pain all over History of Present Illness: HISTORY OF PRESENT ILLNESS: Thank you for allowing me to evaluate Ms. Tere White. Ms. White is a 53 year-old woman with PMHx of TIA (speech difficulties, multiple times), osteoarthritis, complex regional pain syndrome, melanoma, Non- hodgkins lymphoma, bilateral hand carpal tunnel syndrome presenting with pain attack that got worse last night, consulting Neurology for altered mental status. Patient is able to provide good history along with her who is at bedside. They state that patient came to ED last Thursday for the same reason, extreme pain with changes in mental status, which they say was attributed to drug withdrawal. Patient is on methadone along with several other pain meds. Patient states that she has been suffering from complex regional pain syndrome since 2011. She has episodes of extreme pain, last episode was in May and this episode has been persistent since last Thursday. has a video of the patient writhing in pain, but the video does not show any rhythmic movement. Denies urinary/bowel incontinence or tongue biting during this time. PAST MEDICAL HISTORY: TIA (speech difficulties, multiple times), migraine, osteoarthritis, complex regional pain syndrome, melanoma, Non-hodgkins lymphoma, bilateral hand carpal tunnel syndrome PAST SURGICAL HISTORY: Hysterectomy, melanoma surgery, R carpal tunnel release, R thumb joing repl acement, c-spine surgery in late 2017 HOME MEDICATIONS: Tizanidine, methadone, clonaepam, sertraline, atrovent, prednisone, amlodipine, albuterol ALLERGIES: NKDA SOCIAL HISTORY: Current everyday smoker FAMILY HISTORY: Father with a.fib, HLD, HTN, sleep apnea. REVIEW OF SYSTEMS: The 14 systems are reviewed and no additional points are identified compared to the review of systems documented history and physical PHYSICAL EXAMINATION: VITAL SIGNS: T 99.3 HR 54 RR 26 BP 144/86 O2 sat 100% on RA GEN.: in distress from back pain, with intermittent dystonic movements of her bilateral hands particularly HEENT: NCAT, sclera without icterus NECK: Supple SKIN AND EXTREMITIES: Warm to touch, no edema NEURO: MENTAL STATUS: Patient alert and oriented to self, place, time. Able to name the current president. Speech fluent, able to name and repeat, following all commands readily. No right and left disorientation, extinction to double simultaneous stimulation, finger agnosia, neglect. CRANIAL NERVES II THROUGH XII: II: Very sensitive to light, pupils equal and round bilaterally III, IV, : No ptosis. Extraocular movements full. No nyst agmus. V: Facial sensation intact from V1-3. VII. No clear facial asymmetry. VIII: Hearing intact to finger rub bilaterally. IX, X: Symmetric palate elevation. XI: Shoulder shrug intact. XII: Tongue midline without fasciculation or atrophy. MOTOR: Normal bulk/tone. No pronator drift or tremor. Strength is 4+/5 throughout all 4 extremities. SENSORY: Decreased sensation light touch in all 4 extremities (present since she started having issues with pain) REFLEXES: Brisk throughout. Toes are downgoing. No clonus. Shahnaz's is absent COORDINATION: Finger to nose intact. No dysmetria. GAIT: deferred DIAGNOSTIC TESTING: LABORATORY: WBC 12.4 Hgb 13.0 Plt 167 PT 11.3 INR 1.1 Na 143 K 3.7 Cl 107 Bicarb 24 BUN 11 Cr 0.68 Glucose 110 AST 22 ALT 15 AlkPhos 75 Ammonia <9 Urinalysis 1+ ketone UTOx positive for opiate, methadone and THC IMAGING: CT Head w/o contrast 11/25/2018: NO acute intracranial abnormality seen MRI brain w/ and w/o contrast 08/12/18: Mild scattered burden of bright white matter change, nonspecific, likely relating to early changes of chronic small vessel ischemic disease. No acute intracranial abnormality. No enhancing intracranial lesions. ASSESSMENT: Ms. White is a 53 year-old woman with PMHx of TIA (speech difficulties, multiple times), osteoarthritis, complex regional pain syndrome, melanoma, Non- hodgkins lymphoma, bilateral hand carpal tunnel syndrome presenting with pain attack that got worse last night, consulting Neurology for altered mental status. Patient has returned to her baseline mental status. Her intermittent changes in mental status along with extreme pain difficult to assess. Unusual that her HR was on the lower side when patient is writhing in pain. Unlikely a seizure event, but cannot rule it out. Patient also reporting significant photophobia along with 5-6/10 headache, patient with history of migraine. Depakote can help with migraine along with possible seizure episodes. RECOMMENDATIONS: 1. will start Depakote ER 500mg qday 2. will obtain routine EEG 3. can try TCA to help with her complex pain syndrome if not already tried 4. Neurology will continue to follow Past Medical History Past Medical History: Cancer, CVA/TIA, Osteoarthritis (OA) Additional Past Medical History / Comment(s): Pt recently admitted to [facility] on 11/21/18 with exacerbation of COPD (spouse states he and pt unaware she had this), possible drug withdrawal, possible wenchebach. OTHER HX: TIA'S (LAST ONE OVER A YEAR AGO), GENERALIZED PAIN- "COMPLEX REGIONAL PAIN SYNDROME", DIFFICULTY WALKING FAR, MELANOMA SURGERY, NON-HODGKINS LYMPHOMA (2014 WITH CHEMO)., LEFT HAND CARPAL TUNNEL SYNDROME., SHE WEARS BRACES ON BOTH HANDS. History of Any Multi-Drug Resistant Organisms: None Reported Past Surgical History: Section, Hysterectomy, Orthopedic Surgery, Tubal Ligation Additional Past Surgical History / Comment(s): MELANOMA SURGERY WITH WIDE EXCISION AND LYMPH NODES REMOVED LEFT THIGH (2011), CYST ON BACK., PAIN PROCEDURES., RIGHT CARPAL TUNNEL RELEASE, RIGHT THUMB JOINT REPLACEMENT, COLONOSCOPY, D&C. Past Anesthesia/Blood Transfusion Reactions: No Reported Reaction, Family History of Problems w/ Anesthesia Additional Past Anesthesia/Blood Transfusion Reaction / Comment(s): MOTHER AND SON = PONV Smoking Status: Current every day smoker - Past Family History Mother Family Medical History: No Reported History Father Family Medical History: AFIB, Hyperlipidemia, Hypertension, Sleep Apnea/CPAP/BIPAP Additional Family Medical History / Comment(s): Gout Medications and Allergies Home Medications Medication Instructions Recorded Confirmed Type Methadone [Dolophine] 5 mg PO TID 12/30/17 11/25/18 History clonazePAM [KlonoPIN] 0.5 mg PO QAM 12/30/17 11/25/18 History tiZANidine [Zanaflex] 4 - 8 mg PO Q6H 12/30/17 11/25/18 History clonazePAM 1 mg PO HS 06/09/18 11/25/18 History Sertraline [Zoloft] 100 mg PO DAILY 11/21/18 11/25/18 History Albuterol Inhaler [Ventolin Hfa 1 - 2 puff INHALATION RT-Q6H PRN 11/23/1805/11 Rx Inhaler] #1 inhaler Ipratropium [place] [Atrovent Hfa] 2 puff INHALATION TID #1 inhaler 11/23/18 11/25/18 Rx amLODIPine [Norvasc] 5 mg PO BID #60 tab 11/23/18 11/25/18 Rx predniSONE 10 mg PO DAILY #30 tab 11/23/18 11/25/18 Rx Allergies Allergy/AdvReac Type Severity Reaction Status Date / Time No Known Allergies Allergy Verified 11/25/18 08:08 Physical Examination - Vital Signs Vital Signs: Vital Signs Temp Pulse Resp BP Pulse Ox 11/25/18 10:45 61 26 H 135/81 99 11/25/18 08:48 54 L 26 H 144/86 100 11/25/18 06:50 96.7 F L 90 18 147/83 94 L Intake and Output 11/24/18 11/25/18 11/25/18 22:59 06:59 14:59 Other: Weight 58.967 kg Results - Laboratory Findings CBC and BMP: 11/25/18 06:34 11/25/18 06:34 Abnormal Lab Findings: Abnormal Labs 11/25/18 11/25/18 11/25/18 06:34 06:34 06:34 WBC 12.4 H MCV 100.3 H Neutrophils # 9.8 H Glucose 110 H POC Glucose (mg/dL) Plasma Lactic Acid Boy 3.5 H* Urine Ketones Urine Opiates Screen Urine Methadone Screen U Marijuana (THC) Screen 11/25/18 11/25/18 06:49 07:08 WBC MCV Neutrophils # Glucose POC Glucose (mg/dL) 119 H Plasma Lactic Acid Boy Urine Ketones 1+ H Urine Opiates Screen Detected H Urine Methadone Screen Detected H U Marijuana (THC) Screen Detected H
[2018-11-25] MEDS: DIVALPROEX ER 500 MG TAB.ER.24H PO SCH (17:57)
[2018-11-25] MEDS ORDERED: ALBUTEROL NEBULIZED 2.5 MG/3 ML INHALATION PRN (18:27)
[2018-11-25] MEDS: ONDANSETRON 4 MG/2 ML VIAL IVP PRN (19:10)
[2018-11-25] MEDS ORDERED: SCOPOLAMINE 1.5MG/72HR PATCH TRANSDERM SCH (20:00)
[2018-11-25] MEDS: IPRATROPIUM 0.5 MG/2.5 ML NEBU INHALATION SCH (20:46)
[2018-11-25] MEDS ORDERED: clonazePAM 1 MG TAB PO SCH (21:00)
--- NOTE | 2018-11-25 21:03 | P.HPIM ---
History of Present Illness H&P Date: 11/25/18 Chief Complaint: Vomiting history of presenting complaint: this is a [address] saleem out of [place]. Patient's pain management doctors Dr[facility] Kelly [facility]. Chronic stable medical conditions include osteoarthritis, complex regional pain syndrome, generalized pain, several TIAs, constipation. Patient was just discharged from the hospital 3 days ago. Patient is felt of both have a combination of side effects of pain medications and some withdrawal symptoms. Patient's treated IV fluids and Dilaudid. Patient also was admitted with COPD exacerbation. Responded well to bronchodilators and steroids. Patient started off at home w ith some saliva in the mouth become more dry. Progress to have more nausea than vomiting. Was unable to keep her pills down. Subsequently she started having muscle spasm and writing of the limbs. Was unable to keep any medicines down. Presented to the ER. Patient started on IV fluids IV Dilaudid. Admitted for the same. I did speak to the ER physician to contact Dr. Kelly with whom the patient follows. Patient been complaining of hurting all over the body. . Review of systems: GEN.: anxious, hurting all over EYES: None HEENT: None NECK: None RESPIRATORY: [Mild shortness of breath CARDIOVASCULAR: None GASTROINTESTINAL: None GENITOURINARY: None MUSCULOSKELETAL: pain all over LYMPHATICS: None HEMATOLOGICAL: None PSYCHIATRY: Very anxious NEUROLOGICAL: None Past medical history: TIA, multiple osteoarthritis, complex regional pain syndrome, chronic generalized pain, bilateral carpal tunnel syndrome, migraines, constipation Social history: smoking for about 40 years average about a pack a day now, about half pack a day. No alcohol Family history: Reviewed, noncontributory to presentation Physical examination: VITAL SIGNS: 96.7, 90, 18, and 47/83, 94% room air GENERAL: BMI 19.5, laying in bed somewhat anxious slightly restless EYES: Pupils equal. Conjunctiva normal. HEENT: External appearance of nose and ears normal, oral cavity dry. NECK: JVD not raised; masses not palpable. HEART: First and second heart sounds are normal; no edema. LUNGS: Respiratory rate increased, diminished breath sounds. ABDOMEN: Soft, nontender, liver spleen not palpable, no masses palpable. PSYCH: Alert and oriented x3; mood and affect anxiousl. NEUROLOGICAL: Cranial nerves grossly intact; no facial asymmetry, power and sensation grossly intact., Restless LYMPHATICS: No lymph nodes palpable in the axilla and neck INVESTIGATIONS, reviewed in the clinical context: White count 12.4 hemoglobin 13 potassium 3.7-11 creatinine 0.68 Lactic acid 3.5, urine ketone positive Urine drug screen positive for opiates, oxycodone, marijuana Assessment: -Acute withdrawal symptoms from narcotics, pain medications that and patient unable to keep down because of vomiting. -Initial nausea possibly possibly side effect of pain medications were started the abdomen and affect -COPD in a current smoker -Complex regional pain syndrome -Chronic nicotine dependence patient cigarette smoker -Marijuana use -Type II lactic acidosis. No evidence of infection Plan: Patient be put on IV fluids 1 25 mL an hour. Also getting IV Dilaudid. No nausea vomiting. Scopolamine Patch As Ordered. Patient Put on Liquid Diet. Lovenox for DVT Prophylaxis. Dr. Kelly Is Being Consulted. Prognosis Guarded. Past Medical History Past Medical History: Cancer, CVA/TIA, Osteoarthritis (OA) Additional Past Medical History / Comment(s): Pt recently admitted to [facility] on 11/21/18 with exacerbation of COPD (spouse states he and pt unaware she had this), possible drug withdrawal, possible wenchebach. OTHER HX: TIA'S (LAST ONE OVER A YEAR AGO), GENERALIZED PAIN- "COMPLEX REGIONAL PAIN SYNDROME", DIFFICULTY WALKING FAR, MELANOMA SURGERY, NON-HODGKINS LYMPHOMA (2014 WITH CHEMO)., LEFT HAND CARPAL TUNNEL SYNDROME., SHE WEARS BRACES ON BOTH HANDS. History of Any Multi-Drug Resistant Organisms: None Reported Past Surgical History: Section, Hysterectomy, Orthopedic Surgery, Tubal Ligation Additional Past Surgical History / Comment(s): MELANOMA SURGERY WITH WIDE EXCISION AND LYMPH NODES REMOVED LEFT THIGH (2011), CYST ON BACK., PAIN PROCED URES., RIGHT CARPAL TUNNEL RELEASE, RIGHT THUMB JOINT REPLACEMENT, COLONOSCOPY, D&C. Past Anesthesia/Blood Transfusion Reactions: No Reported Reaction, Family History of Problems w/ Anesthesia Additional Past Anesthesia/Blood Transfusion Reaction / Comment(s): MOTHER AND SON = PONV Smoking Status: Current every day smoker - Past Family History Mother Family Medical History: No Reported History Father Family Medical History: AFIB, Hyperlipidemia, Hypertension, Sleep Apnea/CPAP/BIPAP Additional Family Medical History / Comment(s): Gout Medications and Allergies Home Medications Medication Instructions Recorded Confirmed Type Methadone [Dolophine] 5 mg PO TID 12/30/17 11/25/18 History clonazePAM [KlonoPIN] 0.5 mg PO QAM 12/30/17 11/25/18 History tiZANidine [Zanaflex] 4 - 8 mg PO Q6H 12/30/17 11/25/18 History clonazePAM 1 mg PO HS 06/09/18 11/25/18 History Sertraline [Zoloft] 100 mg PO DAILY 11/21/18 11/25/18 History Albuterol Inhaler [Ventolin Hfa 1 - 2 puff INHALATION RT-Q6H PRN 11/23/18 11/25/18 Rx Inhaler] #1 inhaler Ipratropium [place] [Atrovent Hfa] 2 puff INHALATION TID #1 inhaler 11/23/18 11/25/18 Rx amLODIPine [Norvasc] 5 mg PO BID #60 tab 11/23/18 11/25/18 Rx predniSONE 10 mg PO DAILY #30 tab 11/23/18 11/25/18 Rx Allergies Allergy/AdvReac Type Severity Reaction Status Date / Time No Known Allergies Allergy Verified 11/25/18 08:08 Physical Exam Vitals: Vital Signs Temp Pulse Pulse Resp BP BP Pulse Ox 11/25/18 16:00 72 16 11/25/18 15:37 99.3 F 86 16 113/74 96 11/25/18 15:36 99.3 F 72 16 116/62 96 11/25/18 14:31 86 16 113/74 100 11/25/18 10:45 61 26 H 135/81 99 11/25/18 08:48 54 L 26 H 144/86 100 11/25/18 06:50 96.7 F L 90 18 147/83 94 L Intake and Output 11/25/18 11/25/18 11/25/18 06:59 14:59 22:59 Intake Total 2760 Balance 2760 Intake: IV 300 Sodium Chloride 0.9% 1, 300 000 ml @ 75 mls/hr IV . [id number] [facility] Rx#:[id number] Amount of Fluid Infused ( 2200 ml) Oral 260 Other: Weight 58.967 kg 58.3 kg Results CBC & Chem 7: 11/25/18 06:34 11/25/18 06:34 Labs: Abnormal Lab Results - Last 24 Hours (Table) 11/25/18 11/25/18 11/25/18 Range/Units 06:34 06:34 06:34 WBC 12.4 H (3.8-10.6) k/uL MCV 100.3 H (80.0-100.0) fL Neutrophils # 9.8 H (1.3-7.7) k/uL Glucose 110 H (74-99) mg/dL POC Glucose (mg/dL) (75-99) mg/dL Plasma Lactic Acid Boy 3.5 H* (0.7-2.0) mmol/L Urine Ketones (Negative) Urine Opiates Screen (NotDetected) Urine Methadone Screen (NotDetected) U Marijuana (THC) Screen (NotDetected) 11/25/18 11/25/18 Range/Units 06:49 07:08 WBC (3.8-10.6) k/uL MCV (80.0-100.0) fL Neutrophils # (1.3-7.7) k/uL Glucose (74-99) mg/dL POC Glucose (mg/dL) 119 H (75-99) mg/dL Plasma Lactic Acid Boy (0.7-2.0) mmol/L Urine Ketones 1+ H (Negative) Urine Opiates Screen Detected H (NotDetected) Urine Methadone Screen Detected H (NotDetected) U Marijuana (THC) Screen Detected H (NotDetected) Thrombosis Risk Factor Assmnt - Choose All That Apply Any of the Below Risk Factors Present?: Yes Each Factor Represents 1 point: Age 41-60 years Other Risk Factors: Yes Each Risk Factor Represents 2 Points: Malignancy Other congenital or acquired thrombophilia - If yes, enter type in comment: No Thrombosis Risk Factor Assessment Total Risk Factor Score: 3 Thrombosis Risk Factor Assessment Level: Moderate Risk
[2018-11-25] MEDS: amLODIPine 5 MG TAB PO SCH (21:17)
[2018-11-25] MEDS: METOPROLOL TARTRATE 12.5 MG TAB PO SCH (21:19)
[2018-11-25] MEDS: LACTATED RINGERS 1,000 ML IV SCH (21:20)
[2018-11-25] MEDS: ENOXAPARIN 40 MG/0.4 ML SYRINGE SQ SCH (21:20)
[2018-11-25] MEDS: METHADONE 5 MG TAB PO SCH (21:31)
--- NOTE | 2018-11-25 21:34 | P.CONS ---
History of Present Illness - Reason for Consult Consult date: 11/25/18 Requesting physician: Jim Robertson - Chief Complaint intractable nausea and pain - History of Present Illness Thank you Dr Robertson for allowing me to participate in the care of Ms. White. Ms. White is a 53-year-old female with a complicated medical and chronic pain history well known to me. She states that earlier in the week she came to the hospital with nausea and vomiting and cramping of her upper extremities. She states that the nausea and vomiting significantly aggravates her back pain which feels like she is being stabbed with a knife in the back. She states when this happens her pain as 10 out of 10. She was discharged and then returned to the hospital and admitted again for similar symptoms. She states she recently had follow-up at the [facility] for her lymphoma and they stated that her scans and labs were within normal limits for her and didn't show any active disease. Currently she states that her spit tastes weird and she gets nauseous and that aggravates her pain. She denies any other changes at home. Review of Systems 10 point review of systems was performed and is significant for nausea, vomi ting, back pain remainder was within normal limits. Past Medical History Past Medical History: Cancer, CVA/TIA, Osteoarthritis (OA) Additional Past Medical History / Comment(s): Pt recently admitted to [facility] on 11/21/18 with exacerbation of COPD (spouse states he and pt unaware she had this), possible drug withdrawal, possible wenchebach. OTHER HX: TIA'S (LAST ONE OVER A YEAR AGO), GENERALIZED PAIN- "COMPLEX REGIONAL PAIN SYNDROME", DIFFICULTY WALKING FAR, MELANOMA SURGERY, NON-HODGKINS LYMPHOMA (2014 WITH CHEMO)., LEFT HAND CARPAL TUNNEL SYNDROME., SHE WEARS BRACES ON BOTH HANDS. History of Any Multi-Drug Resistant Organisms: None Reported Past Surgical History: Section, Hysterectomy, Orthopedic Surgery, Tubal Ligation Additional Past Surgical History / Comment(s): MELANOMA SURGERY WITH WIDE EXCISION AND LYMPH NODES REMOVED LEFT THIGH (2011), CYST ON BACK., PAIN PROCEDURES., RIGHT CARPAL TUNNEL RELEASE, RIGHT THUMB JOINT REPLACEMENT, COLONOSCOPY, D&C. Past Anesthesia/Blood Transfusion Reactions: No Reported Reaction, Family History of Problems w/ Anesthesia Additional Past Anesthesia/Blood Transfusion Reaction / Comm: MOTHER AND SON = PONV Smoking Status: Current every day smoker - Past Family History Mother Family Medical History: No Reported History Father Family Medical History: AFIB, Hyperlipidemia, Hypertension, Sleep Apnea/CPAP/BIPAP Additional Family Medical History / Comment(s): Gout Medications and Allergies Home Medications Medication Instructions Recorded Confirmed Type Methadone [Dolophine] 5 mg PO TID 12/30/17 11/25/18 History clonazePAM [KlonoPIN] 0.5 mg PO QAM 12/30/17 11/25/18 History tiZANidine [Zanaflex] 4 - 8 mg PO Q6H 12/30/17 11/25/18 History clonazePAM 1 mg PO HS 06/09/18 11/25/18 History Sertraline [Zoloft] 100 mg PO DAILY 11/21/18 11/25/18 History Albuterol Inhaler [Ventolin Hfa 1 - 2 puff INHALATION RT-Q6H PRN 11/23/18 11/25/18 Rx Inhaler] #1 inhaler Ipratropium [place] [Atrovent Hfa] 2 puff INHALATION TID #1 inhaler 11/23/18 11/25/18 Rx amLODIPine [Norvasc] 5 mg PO BID #60 tab 11/23/18 11/25/18 Rx predniSONE 10 mg PO DAILY #30 tab 11/23/18 11/25/18 Rx Allergies Allergy/AdvReac Type Severity Reaction Status Date / Time No Known Allergies Allergy Verified 11/25/18 08:08 Physical Exam Osteopathic Statement: *. No significant issues noted on an osteopathic structural exam other than those noted in the History and Physical/Consult. Vitals: Vital Signs Temp Pulse Pulse Resp BP BP Pulse Ox 11/25/18 20:00 98.9 F 83 18 117/70 94 L 11/25/18 16:00 72 16 11/25/18 15:37 99.3 F 86 16 113/74 96 11/25/18 15:36 99.3 F 72 16 116/62 96 11/25/18 14:31 86 16 113/74 100 11/25/18 10:45 61 26 H 135/81 99 11/25/18 08:48 54 L 26 H 144/86 100 11/25/18 06:50 96.7 F L 90 18 147/83 94 L Intake and Output 11/25/18 11/25/18 11/25/18 06:59 14:59 22:59 Intake Total 2760 Balance 2760 Intake: IV 300 Sodium Chloride 0.9% 1, 300 000 ml @ 75 mls/hr IV . [id number] [facility] Rx#:[id number] Amount of Fluid Infused ( 2200 ml) Oral 260 Other: Weight 58.967 kg 58.3 kg Gen.: Patient alert and oriented not in acute distress, anxious which is normal for her HEENT: Normocephalic atraumatic extraocular muscles intact Cardiovascular: Regular rate and rhythm no peripheral edema noted Respiratory: No accessory muscle use noted breathing was nonlabored Abdomen: soft, tender to palpation, no distention Musculoskeletal: Shoulder abduction 4/5 bilaterally elbow flexion, elbow extension, wrist extension, finger extension, finger abduction and production consultant strength 4/5 bilaterally, hip flexion 3+/5 bilaterally, knee extension, dorsiflexion, inversion, eversion 4+/5 bilaterally Neurologic: Sensation light touch intact of the bilateral upper and lower extremities, no ankle clonus, Shahnaz sign negative Results CBC & Chem 7: 11/25/18 06:34 11/25/18 06:34 Labs: Abnormal Lab Results - Last 24 Hours (Table) 11/25/18 11/25/18 11/25/18 Range/Units 06:34 06:34 06:34 WBC 12.4 H (3.8-10.6) k/uL MCV 100.3 H (80.0-100.0) fL Neutrophils # 9.8 H (1.3-7.7) k/uL Glucose 110 H (74-99) mg/dL POC Glucose (mg/dL) (75-99) mg/dL Plasma Lactic Acid Boy 3.5 H* (0.7-2.0) mmol/L Urine Ketones (Negative) Urine Opiates Screen (NotDetected) Urine Methadone Screen (NotDetected) U Marijuana (THC) Screen (NotDetected) 11/25/18 11/25/18 Range/Units 06:49 07:08 WBC (3.8-10.6) k/uL MCV (80.0-100.0) fL Neutrophils # (1.3-7.7) k/uL Glucose (74-99) mg/dL POC Glucose (mg/dL) 119 H (75-99) mg/dL Plasma Lactic Acid Boy (0.7-2.0) mmol/L Urine Ketones 1+ H (Negative) Urine Opiates Screen Detected H (NotDetected) Urine Methadone Screen Detected H (NotDetected) U Marijuana (THC) Screen Detected H (NotDetected) CT scan - abdomen: report reviewed CT scan - pelvis: report reviewed Assessment and Plan Assessment: 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 Discussed with patient this cannot be increased due to her QTc interval on her EKG. Could consider Marinol to decrease nausea and vomiting, increase appetite and treat pain. Discontinue IV pain medicine as soon as nausea and vomiting controlled. Discussed with patient that it is the vomiting that is aggravating her back pain and that there is no need to get new MRI imaging of her spine while she is inpatient. Discussed with patient that her cramping in her extremities is related to vomiting which in turn with decreased fluid intake can cause some slight dehydration and cramping of muscles despite that her labs not show any electrolyte abnormalities or significant dehydration/azotemia. Suggest that Dr. Vazquez see the patient as she has extremely significant depression and anxiety comorbidities and perhaps he could change her Zoloft to pristiq or fetzima which would increase norepinephrine and in turn help with pain. Time with Patient: Greater than 30
[2018-11-25] MEDS: tiZANidine 4 MG TAB PO SCH (23:36)
[2018-11-26] MEDS: tiZANidine 4 MG TAB PO SCH ×2 (05:26→11:41)
[2018-11-26] MEDS: LACTATED RINGERS 1,000 ML IV SCH ×2 (05:27→14:21)
[2018-11-26] MEDS: HYDROmorphone 1 MG/ML 1 ML SYRINGE IVP PRN ×4 (05:28→15:10)
[2018-11-26 07:04] LABS: Basophils % (A) 0 %; Eosinophils # (A) 0.1 k/uL (0-0.7); Eosinophils % (A) 1 %; HCT 39.4 % (34.0-46.0); HGB 12.7 gm/dL (11.4-16.0); Lymphocytes % (A) 25 %; MCH 33.1 pg (25.0-35.0); MCHC 32.2 g/dL (31.0-37.0); MCV 102.7 fL (80.0-100.0); Macrocytosis Slight; Mean Platelet Volume 7.9; Monocytes # (A) 0.4 k/uL (0-1.0); Monocytes % (A) 5 %; Neutrophils # (A) 5.4 k/uL (1.3-7.7); Neutrophils % (A) 68 %; Platelet Count 167 k/uL (150-450); RBC 3.84 m/uL (3.80-5.40); RDW 13.3 % (11.5-15.5); WBC 7.9 k/uL (3.8-10.6)
[2018-11-26 07:35] LABS: African American GFR (CKD) >90 (>60 ml/min/1.73 sqM); Anion Gap 6 mmol/L; Blood Urea Nitrogen 6 mg/dL (7-17); Calcium 8.3 mg/dL (8.4-10.2); Carbon Dioxide 31 mmol/L (22-30); Chloride 105 mmol/L (98-107); Glucose 95 mg/dL (74-99); Potassium 3.2 mmol/L (3.5-5.1); Sodium 142 mmol/L (137-145)
[2018-11-26] MEDS: IPRATROPIUM 0.5 MG/2.5 ML NEBU INHALATION SCH ×2 (08:05→11:32)
[2018-11-26 08:37] VITALS: RESP 16
[2018-11-26] MEDS: ENOXAPARIN 40 MG/0.4 ML SYRINGE SQ SCH (08:38)
[2018-11-26] MEDS: DIVALPROEX ER 500 MG TAB.ER.24H PO SCH (08:39)
[2018-11-26] MEDS: amLODIPine 5 MG TAB PO SCH (08:39)
[2018-11-26] MEDS: METOPROLOL TARTRATE 12.5 MG TAB PO SCH ×2 (08:39→15:10)
[2018-11-26] MEDS ORDERED: SERTRALINE 100 MG TAB PO SCH (09:00)
[2018-11-26] MEDS ORDERED: predniSONE 10 MG TAB PO SCH (09:00)
[2018-11-26] MEDS ORDERED: clonazePAM 0.5 MG TAB PO SCH (09:00)
[2018-11-26] MEDS ORDERED: PANTOPRAZOLE 40 MG/10 ML VIAL IV SCH (09:00)
[2018-11-26] MEDS: METHADONE 5 MG TAB PO SCH ×2 (11:41→15:11)
[2018-11-26] MEDS: ONDANSETRON 4 MG/2 ML VIAL IVP PRN (11:41)
[2018-11-26 14:17] VITALS: BP 121/77; PULSE 61; TEMP 98.2
[2018-11-26] MEDS ORDERED: PNEUMOCOCCAL VACC-PNEUMOVAX 23 25 MCG/0.5 ML VIAL IM ONE (15:05)
--- NOTE | 2018-11-26 15:23 | P.PN ---
Progress Note - Text Progress Note Date: 11/26/18 SUBJECTIVE/INTERVAL EVENTS: No acute overnight events. Patient actually appears much better than she did yesterday in the ED. She still has pain in multiple joints and her back, but they are slightly more manageable than they were yesterday. She is able to tolerate light and her headache has improved. She still has about 8 out of 10 pain, but she is able to laugh and smile during our evaluation today PHYSICAL EXAMINATION: VITAL SIGNS: T 97.7 HR 78 RR 16 BP 119/73 O2 sat 96% on RA GEN.: in distress from back pain, with intermittent dystonic movements of her bilateral hands particularly HEENT: NCAT, sclera without icterus NECK: Supple SKIN AND EXTREMITIES: Warm to touch, no edema NEURO: MENTAL STATUS: Patient alert and oriented to self, place, time. Able to name the current president. Speech fluent, able to name and repeat, following all commands readily. No right and left disorientation, extinction to double simultaneous stimulation, finger agnosia, neglect. CRANIAL NERVES II THROUGH XII: II: Very sensitive to light, pupils equal and round bilaterally III, IV, : No ptosis. Extraocular movements full. No nystagmus. V: Facial sensation intact from V1-3. VII. No clear facial asymmetry. VIII: Hearing intact to finger rub bilaterally. IX, X: Symmetric palate elevation. XI: Shoulder shrug intact. XII: Tongue midline without fasciculation or atrophy. MOTOR: Normal bulk/tone. No pronator drift or tremor. Strength is 4+/5 throughout all 4 extremities. SENSORY: Decreased sensation light touch in all 4 extremities (present since she started having issues with pain) REFLEXES: Brisk throughout. Toes are downgoing. No clonus. Shahnaz's is absent COORDINATION: Finger to nose intact. No dysmetria. GAIT: deferred DIAGNOSTIC TESTING: LABORATORY: WBC 12.4 Hgb 13.0 Plt 167 PT 11.3 INR 1.1 Na 143 K 3.7 Cl 107 Bicarb 24 BUN 11 Cr 0.68 Glucose 110 AST 22 ALT 15 AlkPhos 75 Ammonia <9 Urinalysis 1+ ketone UTOx positive for opiate, methadone and THC IMAGING: CT Head w/o contrast 11/25/2018: NO acute intracranial abnormality seen MRI brain w/ and w/o contrast 6/20/19: Mild scattered burden of bright white matter change, nonspecific, likely relating to early changes of chronic small vessel ischemic disease. No acute intracranial abnormality. No enhancing intracranial lesions. ASSESSMENT: Ms. White is a 53 year-old woman with PMHx of TIA (speech difficulties, multiple times), osteoarthritis, complex regional pain syndrome, melanoma, Non- hodgkins lymphoma, bilateral hand carpal tunnel syndrome presenting with pain attack that got worse last night, consulting Neurology for altered mental status. Patient has returned to her baseline mental status. Her intermittent changes in mental status along with extreme pain difficult to assess. Unusual that her HR was on the lower side when patient is writhing in pain. Unlikely a seizure event, but cannot rule it out. Patient also reporting significant ph otophobia along with 5-6/10 headache, patient with history of migraine. Depakote can help with migraine along with possible seizure episodes. Patient looks so much better today after being given Depakote. There is plan to decrease her pain medications as medication over usage can worsen her headache and also pain. RECOMMENDATIONS: 1. Depakote ER 500mg qday 2. Routine EEG; pending final results 3. Can try tricyclic antidepressant to help with her complex pain syndrome if not already tried 4. Magnesium oxide 400 mg twice a day and riboflavin (vitamin B2) 400 mg daily will also help with migraine prophylaxis 5 . Neurology will sign off at this time. Neurology is not available over the weekend. However, feel free to [employer] message me over the weekend if you have any questions or concerns
--- NOTE | 2018-11-27 01:35 | EEG ---
ELECTROENCEPHALOGRAM REPORT PROCEDURE DATE: 11/26/2018. ELECTROENCEPHALOGRAM (EEG) REPORT: TECHNIQUE: A routine 18 channel EEG was performed with video using the 10/20 international electrode placement system. HISTORY: Delirium, pain. CURRENT MEDICATIONS: Protonix, Depakote, hydromorphone. STUDY DURATION: 25 minutes. FINDINGS: BACKGROUND: The background activity consisted of 8-9 hertz rhythmic waveforms symmetrically distributed over both posterior quadrants. ACTIVATION: Hyperventilation: Not performed. Photic Stimulation: Symmetric driving seen. Sleep: Occasional stage 2 sleep noted. ABNORMALITIES: None. IMPRESSION: Normal EEG. No epileptiform activity was present. No seizures were recorded. MMODL / IJN: [id number] / [facility]
--- NOTE | 2018-11-27 20:46 | P.DS ---
Providers Date of admission: 11/25/18 10:34 Expected date of discharge: 11/26/18 Attending physician: Jim Robertson Consults: 11/25/18 10:22 Consult Physician Stat Consulting Provider: Hamida Melgar Consult Reason/Comments: Altered mental status Do you want consulting provider notified?: Yes 11/25/18 10:23 Consult Physician Urgent Consulting Provider: Oscar Kelly Reason/Comments: Intractable pain Do you want consulting provider notified?: Yes Primary care physician: Joe Jalloh Hospital Course: Chief Complaint: Vomiting Hospital course: this is a [address] jalloh out of [place]. Patient's pain management doctors Dr. Kelly [facility]. Chronic stable medical conditions include osteoarthritis, complex regional pain syndrome, generalized pain, several TIAs, constipation. Patient was just discharged from the hospital 3 days ago. Patient is felt of both have a combination of side effects of pain medications and some withdrawal symptoms. Patient's treated IV fluids and Dilaudid. Patient also was admitted with COPD exacerbation. Responded well to bronchodilators and steroids. Patient started off at home with some saliva in the mouth become more dry. Progress to have more nausea than vomiting. Was unable to keep her pills down. Subsequently she started having muscle spasm and writing of the limbs. Was unable to keep any medicines down. Presented to the ER. Patient started on IV fluids IV Dilaudid. Admitted for the same. I did speak to the ER physician to contact Dr. Kelly with whom the patient follows. Patient been complaining of hurting all over the body. . Patient responded well to IV fluids. IV Dilaudid. Doing better at to discharge. Today-had a very lengthy talk with the patient and . Did explain to them that I felt the pain medicines and the and anxiety medications a possibly too much causing the side effect of nausea vomiting. This in turn leads to patient withdrawing because she cannot take her medicines down. Told him about different options including varun chi, mindfulness acupuncture, aerobics other modalities and try to cut back and a pain medications in conjunction with her pain specialist. Did explain to them the signs of pain receptors in detail. Home medications were resumed. She is to follow-up with psychiatry as an outpatient. Patient is tolerating a light diet before discharge. Discussion and discharge planning more than 35 minutes Consultation: Dr. Kelly from pain management Physical examination: VITAL SIGNS: 98.2, 61, 16, 121/77, 96% room air GENERAL: Laying in bed, more awake more comfortable EYES: Pupils equal. Conjunctiva normal. HEENT: External appearance of nose and ears normal, oral cavity dry. NECK: JVD not raised; masses not palpable. HEART: First and second heart sounds are normal; no edema. LUNGS: Respiratory rate increased, diminished breath sounds. ABDOMEN: Soft, nontender, liver spleen not palpable, no masses palpable. PSYCH: Alert and oriented x3; mood and affect anxious. NEUROLOGICAL: Cranial nerves grossly intact; no facial asymmetry, power and sensation grossly intact., Restless INVESTIGATIONS, reviewed in the clinical context: White count 7.9 hemoglobin 12.7 creatinine 0.63 lactic acid 1.5 Admission testing: White count 12.4 hemoglobin 13 potassium 3.7-11 creatinine 0.68 Lactic acid 3.5, urine ketone positive Urine drug screen positive for opiates, oxycodone, marijuana Discharge diagnosis: -Acute withdrawal symptoms from narcotics, pain medications that and patient unable to keep down because of vomiting. -Initial nausea possibly possibly side effect of pain medications -COPD in a current smoker -Complex regional pain syndrome -Chronic nicotine dependence patient cigarette smoker -Marijuana use -Type II lactic acidosis. No evidence of infection Disposition: Home Patient Condition at Discharge: Stable Plan - Discharge Summary Discharge Rx Participant: No New Discharge Prescriptions: New Divalproex ER [Depakote ER] 500 mg PO DAILY #21 tab.er.24h Continue tiZANidine [Zanaflex] 4 - 8 mg PO Q6H Methadone [Dolophine] 5 mg PO TID clonazePAM [KlonoPIN] 0.5 mg PO QAM clonazePAM 1 mg PO HS Sertraline [Zoloft] 100 mg PO DAILY predniSONE 10 mg PO DAILY #30 tab Albuterol Inhaler [Ventolin Hfa Inhaler] 1 - 2 puff INHALATION RT-Q6H PRN #1 inhaler PRN Reason: Wheezing amLODIPine [Norvasc] 5 mg PO BID #60 tab No Action Ipratropium [place] [Atrovent Hfa] 2 puff INHALATION RT-TID Discharge Medication List Methadone [Dolophine] 5 mg PO TID 12/30/17 [History] clonazePAM [KlonoPIN] 0.5 mg PO QAM 12/30/17 [History] tiZANidine [Zanaflex] 4 - 8 mg PO Q6H 12/30/17 [History] clonazePAM 1 mg PO HS 06/09/18 [History] Sertraline [Zoloft] 100 mg PO DAILY 11/21/18 [History] Albuterol Inhaler [Ventolin Hfa Inhaler] 1 - 2 puff INHALATION RT-Q6H PRN #1 inhaler 11/23/18 [Rx] amLODIPine [Norvasc] 5 mg PO BID #60 tab 11/23/18 [Rx] predniSONE 10 mg PO DAILY #30 tab 11/23/18 [Rx] Divalproex ER [Depakote ER] 500 mg PO DAILY #21 tab.er.24h 11/26/18 [Rx] Ipratropium [place] [Atrovent Hfa] 2 puff INHALATION RT-TID 11/27/18 [History] Follow up Appointment(s)/Referral(s): dr pierre [Other] - 1 Week Joe Jalloh MD [Primary Care Provider] - 11/30/18 12:45 pm Oscar Kelly DO [Doctor of Osteopathic Medicine] - 12/02/18 1:00 pm Patient Instructions/Handouts: Migraine Headache (ED), Chronic Pain (DC) Discharge Disposition: HOME SELF-CARE
--- NOTE | 2018-12-01 05:26 | CDI ---
Documentation Clarification Form Date: 12/01/2018 5:10:07 AM From: Joceline Clayton Phone: If you have a question about this query, please contact Kathleen Jeff, [employer] Analyst at [phone] between 8am and 5pm. Admit Date: 11/25/2018 10:34:00 AM Patient Name: Tere White Visit Number: [id number] Discharge Date: 11/26/2018 5:39:00 PM ATTENTION: The Clinical Documentation Specialists (CDI) and [facility] Coding Staff appreciate your assistance in clarifying documentation. Please respond to the clarification below the line at the bottom and electronically sign. The CDI & [facility] Coding staff will review the response and follow-up if needed. Please note: Queries are made part of the Legal Health Record. If you have any questions, please contact the author of this message via ITS. Dr. Jim Robertson Complex Regional Pain Syndrome is documented throughout the chart. Please clarify if its complex regional pain syndrom I or Complex Regional Pain syndrome II. Patient history/risk factors: altered mental status, withdrawal from pain meds and unable to keep down pain meds. Hx NH Lymphoma, TIA multiple times, melanomma Vital Signs: 96.7 F, 90 bpm down to 54 bpm, resp. 18 - 26, 147/83, 94% RA Medication: Methadone 5mg TID Consults: Neuro consult In your professional opinion, can you please clarify the following in your progress notes and discharge summary, if known? Complex Regional Pain Syndrome I Complex Regional Pain Syndrome II Other, please specify Unable to determine This clearly should be addressed to Dr. Oscar Kelly-was managing this patient for this condition. MTDD
--- NOTE | 2018-12-03 08:52 | CDI ---
CRPS II Documentation Clarification Form Date: 12/01/2018 5:10:00 AM From: Joceline Clayton Phone: If you have a question about this query, please contact Kathleen Jeff Box Car Loader at [phone] between 8am and 5pm. Admit Date: 11/25/2018 10:34:00 AM Patient Name: Tere White Visit Number: [id number] Discharge Date: 11/26/2018 5:39:00 PM ATTENTION: The Clinical Documentation Specialists (CDI) and [facility] Coding Staff appreciate your assistance in clarifying documentation. Please respond to the clarification below the line at the bottom and electronically sign. The CDI & [facility] Coding staff will review the response and follow-up if needed. Please note: Queries are made part of the Legal Health Record. If you have any questions, please contact the author of this message via ITS. Dr. Oscar Kelly Complex Regional Pain Syndrome is documented throughout the chart. Please clarify if its complex regional pain syndrom I or Complex Regional Pain syndrome II. Patient history/risk factors: altered mental status, withdrawal from pain meds and unable to keep down pain meds. Hx NH Lymphoma, TIA multiple times, melanomma Vital Signs: 96.7 F, 90 bpm down to 54 bpm, resp. 18 - 26, 147/83, 94% RA Medication: Methadone 5mg TID Consults: Neuro consult In your professional opinion, can you please clarify the following in your progress notes and discharge summary, if known? Complex Regional Pain Syndrome I Complex Regional Pain Syndrome II Other, please specify Unable to determine MTDD
--- NOTE | 2018-12-22 11:27 | CDI ---
Documentation Clarification Form Date: 12/01/2018 5:10:00 AM From: Joceline Clayton Phone: If you have a question about this query, please contact Kathleen Jeff Parts Delivery Driver at [phone] between 8am and 5pm. Admit Date: 11/25/2018 10:34:00 AM Patient Name: Tere White Visit Number: [id number] Discharge Date: 11/26/2018 5:39:00 PM ATTENTION: The Clinical Documentation Specialists (CDI) and [facility] Coding Staff appreciate your assistance in clarifying documentation. Please respond to the clarification below the line at the bottom and electronically sign. The CDI & [facility] Coding staff will review the response and follow-up if needed. Please note: Queries are made part of the Legal Health Record. If you have any questions, please contact the author of this message via ITS. Dr. Oscar Kelly Complex Regional Pain Syndrome is documented throughout the chart. Please clarify if its complex regional pain syndrom I or Complex Regional Pain syndrome II. Patient history/risk factors: altered mental status, withdrawal from pain meds and unable to keep down pain meds. Hx NH Lymphoma, TIA multiple times, melanomma Vital Signs: 96.7 F, 90 bpm down to 54 bpm, resp. 18 - 26, 147/83, 94% RA Medication: Methadone 5mg TID Consults: Neuro consult In your professional opinion, can you please clarify the following in your progress notes and discharge summary, if known? There are only two coding choices and they are below: Complex Regional Pain Syndrome I Complex Regional Pain Syndrome II Other, please specify Unable to determine MTDD
== END 2018-11-26 17:39 | disposition home or self-care (01) | DRG 897 ==
LOC: EC 06:16 → 3SCARD 10:34
PROVIDERS: ADMIT Hospitalist; ATTEND Hospitalist
DX: F11.23 Opioid dependence with withdrawal (principal); E87.2 Acidosis; J44.1 Chronic obstructive pulmonary disease with (acute) exacerbation; R11.2 Nausea with vomiting, unspecified; T40.0X5A Adverse effect of opium, initial encounter; F17.210 Nicotine dependence, cigarettes, uncomplicated; F32.9 Major depressive disorder, single episode, unspecified; F41.9 Anxiety disorder, unspecified; G43.909 Migraine, unspecified, not intractable, without status migrainosus; K59.00 Constipation, unspecified; Z79.899 Other long term (current) drug therapy; M19.90 Unspecified osteoarthritis, unspecified site; Z82.49 Family history of ischemic heart disease and other diseases of the circulatory system; Z85.72 Personal history of non-Hodgkin lymphomas; Z85.820 Personal history of malignant melanoma of skin; Z86.73 Personal history of transient ischemic attack (TIA), and cerebral infarction without residual deficits; Z90.710 Acquired absence of both cervix and uterus; Z92.21 Personal history of antineoplastic chemotherapy; I44.1 Atrioventricular block, second degree; G56.02 Carpal tunnel syndrome, left upper limb; G56.43 Causalgia of bilateral upper limbs
CPT/HCPCS: 36415; 70450; 71046; 71260; 74177; 80048; 80053; 80306; 81003; 82140; 82150; 82550; 83605; 83690; 84484; 85025; 85610; 85652; 85730; 86140; 90732; 93005; 94640; 95819; 96361; 96374; 96375; 96376; 99285

== ENCOUNTER 2018-11-27 08:08 | Inpatient (IN) | payer MEDICARE ==
[2018-11-27] MEDS ORDERED: LORazepam 2 MG/ML INJ IV STA (08:33)
[2018-11-27] MEDS ORDERED: HYDROmorphone 1 MG/ML 1 ML SYRINGE IVP STA ×2 (08:33→10:17)
[2018-11-27] MEDS ORDERED: SODIUM CHLORIDE 0.9% 500 ML 500 ML IV ONE (08:34)
[2018-11-27] MEDS ORDERED: SODIUM CHLORIDE 0.9% 1,000 ML IV ONE ×2 (08:34→10:44)
[2018-11-27] MEDS ORDERED: METOCLOPRAMIDE 5 MG/ML 2 ML VIAL IVP STA (08:37)
[2018-11-27] MEDS ORDERED: DIAZEPAM 5 MG/ML 2 ML INJ IVP STA (08:38)
--- NOTE | 2018-11-27 08:44 | ED ---
General Adult HPI - General Chief complaint: Nausea/Vomiting/Diarrhea Stated complaint: Pain, Nausea, Vomiting Time Seen by Provider: 11/27/18 08:08 Source: EMS, RN notes reviewed Mode of arrival: EMS Limitations: no limitations - History of Present Illness Initial comments: This is a 53-year-old female who has a past medical history significant for chr onic pain syndrome as well as lymphoma which I am told is in remission and has had a history of melanoma 7 years ago. Patient comes in today for the third time this week for intractable vomiting and intractable pain. Patient states the pain is all over her body. Patient is yelling and screaming about the pain. Patient has no specific area of tenderness patient states that nothing she does makes the pain better. states the patient is not taking too many methadone pills because he is keeping track and she last took a methadone last evening and was unable to give it to her this morning because the patient was vomiting. There's been no indication of any trauma. There's been no problems with breathing. The patient did denies any headache. There's been no weakness of any part of her body. Patient is not complaining of any spinal tenderness. Patient is not complaining of any neck stiffness. - Related Data Home Medications Medication Instructions Recorded Confirmed Methadone [Dolophine] 5 mg PO TID 12/30/17 11/27/18 clonazePAM [KlonoPIN] 0.5 mg PO QAM 12/30/17 11/27/18 tiZANidine [Zanaflex] 4 - 8 mg PO Q6H 12/30/17 11/27/18 clonazePAM 1 mg PO HS 06/09/18 11/27/18 Sertraline [Zoloft] 100 mg PO DAILY 11/21/18 11/27/18 Ipratropium [place] [Atrovent Hfa] 2 puff INHALATION RT-TID 11/27/18 11/27/18 Previous Rx's Medication Instructions Recorded Albuterol Inhaler [Ventolin Hfa 1 - 2 puff INHALATION RT-Q6H PRN 11/23/18 Inhaler] #1 inhaler amLODIPine [Norvasc] 5 mg PO BID #60 tab 11/23/18 predniSONE 10 mg PO DAILY #30 tab 11/23/18 Divalproex ER [Depakote ER] 500 mg PO DAILY #21 tab.er.24h 11/26/18 Allergies Allergy/AdvReac Type Severity Reaction Status Date / Time No Known Allergies Allergy Verified 11/27/18 08:17 Review of Systems ROS Statement: Those systems with pertinent positive or pertinent negative responses have been documented in the HPI. ROS Other: All systems not noted in ROS Statement are negative. Past Medical History Past Medical History: Cancer, CVA/TIA, Osteoarthritis (OA) Additional Past Medical History / Comment(s): Pt recently admitted to [facility] on 11/21/18 with exacerbation of COPD (spouse states he and pt unaware she had this), possible drug withdrawal, possible wenchebach. OTHER HX: TIA'S (LAST ONE OVER A YEAR AGO), GENERALIZED PAIN- "COMPLEX REGIONAL PAIN SYNDROME", DIFFI CULTY WALKING FAR, MELANOMA SURGERY, NON-HODGKINS LYMPHOMA (2014 WITH CHEMO)., LEFT HAND CARPAL TUNNEL SYNDROME., SHE WEARS BRACES ON BOTH HANDS. History of Any Multi-Drug Resistant Organisms: None Reported Past Surgical History: Section, Hysterectomy, Orthopedic Surgery, Tubal Ligation Additional Past Surgical History / Comment(s): MELANOMA SURGERY WITH WIDE EXCISION AND LYMPH NODES REMOVED LEFT THIGH (2011), CYST ON BACK., PAIN PROCEDURES., RIGHT CARPAL TUNNEL RELEASE, RIGHT THUMB JOINT REPLACEMENT, COLONOSCOPY, D&C. Past Anesthesia/Blood Transfusion Reactions: No Reported Reaction, Family History of Problems w/ Anesthesia Additional Past Anesthesia/Blood Transfusion Reaction / Comment(s): MOTHER AND SON = PONV Past Psychological History: Anxiety, Depression Smoking Status: Current every day smoker - Past Family History Mother Family Medical History: No Reported History Father Family Medical History: AFIB, Hyperlipidemia, Hypertension, Sleep Apnea/CPAP/BIPAP Additional Family Medical History / Comment(s): Gout General Exam - General Exam Comments Initial Comments: GENERAL: Patient is well-developed and well-nourished. Patient is nontoxic and well- hydrated and is in moderate distress. ENT: Neck is soft and supple. No significant lymphadenopathy is noted. Oropharynx is clear. Moist mucous membranes. Neck has full range of motion without eliciting any pain. EYES: The sclera were anicteric and conjunctiva were pink and moist. Extraocular movements were intact and pupils were equal round and reactive to light. Eyelids were unremarkable. PULMONARY: Unlabored respirations. Good breath sounds bilaterally. No audible rales rhonchi or wheezing was noted. CARDIOVASCULAR: There is a regular rate and rhythm without any murmurs gallops or rubs. ABDOMEN: Soft and nontender with normal bowel sounds. No palpable organomegaly was noted. There is no palpable pulsatile mass. SKIN: Skin is clear with no lesions or rashes and otherwise unremarkable. NEUROLOGIC: Patient is alert and oriented x3. Cranial nerves II through XII are grossly intact. Motor and sensory are also intact. Normal speech, volume and content. Symmetrical smile. MUSCULOSKELETAL: Normal extremities with adequate strength and full range of motion. No lower extremity swelling or edema. No calf tenderness. LYMPHATICS: No significant lymphadenopathy is noted PSYCHIATRIC: Unable to assess since patient is not answering all my questions because of the pain Limitations: no limitations Course Vital Signs 11/27/18 11/27/18 11/27/18 08:19 09:50 09:57 Temperature 98.0 F Pulse Rate 73 73 Respiratory 16 19 Rate Blood Pressure 118/84 153/93 O2 Sat by Pulse 98 98 Oximetry 11/27/18 10:27 Temperature Pulse Rate Respiratory Rate Blood Pressure 132/101 O2 Sat by Pulse Oximetry Medical Decision Making - Medical Decision Making EKG shows normal sinus rhythm at 70 bpm CA interval is 196 QRS is 70 QT interval is 436 QTC is 470. Patient's EKG shows no significant ST segment elevation. I compared to an old EKG no changes were noted. Patient received 2 mg of Dilaudid which did help a little but did not completely resolve her symptoms. Patient also received 5 of Valium. After all the labs were back I consulted Dr. Robertson he agreed I should admit the patient admitted the patient I wrote admitting orders I consult Dr. Kelly Family after I admitted the patient requested not to be admitted Dr. Robertson so I switched his sounds physicians. - Lab Data Result diagrams: 11/27/18 09:40 11/27/18 08:35 Lab Results 11/27/18 11/27/18 11/27/18 Range/Units 08:35 08:35 08:35 WBC (3.8-10.6) k/uL RBC (3.80-5.40) m/uL Hgb (11.4-16.0) gm/dL Hct (34.0-46.0) % MCV (80.0-100.0) fL MCH (25.0-35.0) pg MCHC (31.0-37.0) g/dL RDW (11.5-15.5) % Plt Count (150-450) k/uL Neutrophils % % Lymphocytes % % Monocytes % % Eosinophils % % Basophils % % Neutrophils # (1.3-7.7) k/uL Lymphocytes # (1.0-4.8) k/uL Monocytes # (0-1.0) k/uL Eosinophils # (0-0.7) k/uL Basophils # (0-0.2) k/uL Hypochromasia Macrocytosis Sodium 145 (137-145) mmol/L Potassium 3.1 L (3.5-5.1) mmol/L Chloride 106 (98-107) mmol/L Carbon Dioxide 28 (22-30) mmol/L Anion Gap 11 mmol/L BUN 7 (7-17) mg/dL Creatinine 0.71 (0.52-1.04) mg/dL Est GFR (CKD-EPI)AfAm >90 (>60 ml/min/1.73 sqM) Est GFR (CKD-EPI)NonAf >90 (>60 ml/min/1.73 sqM) Glucose 108 H (74-99) mg/dL Plasma Lactic Acid Boy 2.6 H* (0.7-2.0) mmol/L Calcium 9.2 (8.4-10.2) mg/dL Total Bilirubin 0.9 (0.2-1.3) mg/dL AST 19 (14-36) U/L ALT 19 (9-52) U/L Alkaline Phosphatase 65 (38-126) U/L Total Protein 6.5 (6.3-8.2) g/dL Albumin 4.1 (3.5-5.0) g/dL Amylase 46 (30-110) U/L Lipase 67 (23-300) U/L Urine Color Light Yellow Urine Appearance Clear (Clear) Urine pH 8.0 (5.0-8.0) Ur Specific [place] 1.007 (1.001-1.035) Urine Protein Negative (Negative) Urine Glucose (UA) Negative (Negative) Urine Ketones Negative (Negative) Urine Blood Negative (Negative) Urine Nitrite Negative (Negative) Urine Bilirubin Negative (Negative) Urine Urobilinogen <2.0 (<2.0) mg/dL Ur Leukocyte Esterase Negative (Negative) Urine Opiates Screen Detected H (NotDetected) Ur Oxycodone Screen Not Detected (NotDetected) Urine Methadone Screen Not Detected (NotDetected) Ur Propoxyphene Screen Not Detected (NotDetected) Ur Barbiturates Screen Not Detected (NotDetected) U Tricyclic Antidepress Not Detected (NotDetected) Ur Phencyclidine Scrn Not Detected (NotDetected) Ur Amphetamines Screen Not Detected (NotDetected) U Methamphetamines Scrn Not Detected (NotDetected) U Benzodiazepines Scrn Not Detected (NotDetected) Urine Cocaine Screen Not Detected (NotDetected) U Marijuana (THC) Screen Detected H (NotDetected) 11/27/18 Range/Units 09:40 WBC 12.8 H (3.8-10.6) k/uL RBC 4.01 (3.80-5.40) m/uL Hgb 12.7 (11.4-16.0) gm/dL Hct 42.3 (34.0-46.0) % MCV 105.4 H (80.0-100.0) fL MCH 31.5 (25.0-35.0) pg MCHC 29.9 L (31.0-37.0) g/dL RDW 13.2 (11.5-15.5) % Plt Count 155 (150-450) k/uL Neutrophils % 84 % Lymphocytes % 11 % Monocytes % 4 % Eosinophils % 0 % Basophils % 0 % Neutrophils # 10.7 H (1.3-7.7) k/uL Lymphocytes # 1.4 (1.0-4.8) k/uL Monocytes # 0.5 (0-1.0) k/uL Eosinophils # 0.0 (0-0.7) k/uL Basophils # 0.0 (0-0.2) k/uL Hypochromasia Slight Macrocytosis Slight Sodium (137-145) mmol/L Potassium (3.5-5.1) mmol/L Chloride (98-107) mmol/L Carbon Dioxide (22-30) mmol/L Anion Gap mmol/L BUN (7-17) mg/dL Creatinine (0.52-1.04) mg/dL Est GFR (CKD-EPI)AfAm (>60 ml/min/1.73 sqM) Est GFR (CKD-EPI)NonAf (>60 ml/min/1.73 sqM) Glucose (74-99) mg/dL Plasma Lactic Acid Boy (0.7-2.0) mmol/L Calcium (8.4-10.2) mg/dL Total Bilirubin (0.2-1.3) mg/dL AST (14-36) U/L ALT (9-52) U/L Alkaline Phosphatase (38-126) U/L Total Protein (6.3-8.2) g/dL Albumin (3.5-5.0) g/dL Amylase (30-110) U/L Lipase (23-300) U/L Urine Color Urine Appearance (Clear) Urine pH (5.0-8.0) Ur Specific [place] (1.001-1.035) Urine Protein (Negative) Urine Glucose (UA) (Negative) Urine Ketones (Negative) Urine Blood (Negative) Urine Nitrite (Negative) Urine Bilirubin (Negative) Urine Urobilinogen (<2.0) mg/dL Ur Leukocyte Esterase (Negative) Urine Opiates Screen (NotDetected) Ur Oxycodone Screen (NotDetected) Urine Methadone Screen (NotDetected) Ur Propoxyphene Screen (NotDetected) Ur Barbiturates Screen (NotDetected) U Tricyclic Antidepress (NotDetected) Ur Phencyclidine Scrn (NotDetected) Ur Amphetamines Screen (NotDetected) U Methamphetamines Scrn (NotDetected) U Benzodiazepines Scrn (NotDetected) Urine Cocaine Screen (NotDetected) U Marijuana (THC) Screen (NotDetected) Disposition Clinical Impression: Chronic pain syndrome Disposition: ADMITTED IP TO THIS [facility] Time of Disposition: 10:42
[2018-11-27 09:03] LABS: ALT 19 U/L (9-52); AST 19 U/L (14-36); African American GFR (CKD) >90 (>60 ml/min/1.73 sqM); Albumin 4.1 g/dL (3.5-5.0); Alkaline Phosphatase 65 U/L (38-126); Amylase 46 U/L (30-110); Anion Gap 11 mmol/L; Blood Urea Nitrogen 7 mg/dL (7-17); Calcium 9.2 mg/dL (8.4-10.2); Carbon Dioxide 28 mmol/L (22-30); Chloride 106 mmol/L (98-107); Glucose 108 mg/dL (74-99); Potassium 3.1 mmol/L (3.5-5.1); Sodium 145 mmol/L (137-145); Total Bilirubin 0.9 mg/dL (0.2-1.3); Total Protein 6.5 g/dL (6.3-8.2)
[2018-11-27 09:58] LABS: Appearance,Urine Clear (Clear); Bilirubin,Urine Negative (Negative); Blood,Urine Negative (Negative); Color,Urine Light Yellow; Glucose,Urine (UA) Negative (Negative); Ketones,Urine Negative (Negative); Leukocyte Esterase,Urine Negative (Negative); Nitrite,Urine Negative (Negative); Protein,Urine Negative (Negative); Specific Gravity,Urine 1.007 (1.001-1.035); Urobilinogen,Urine <2.0 mg/dL (<2.0)
[2018-11-27 09:58] LABS: Basophils % (A) 0 %; Eosinophils % (A) 0 %; HCT 42.3 % (34.0-46.0); HGB 12.7 gm/dL (11.4-16.0); Hypochromasia Slight; Lymphocytes # (A) 1.4 k/uL (1.0-4.8); Lymphocytes % (A) 11 %; MCH 31.5 pg (25.0-35.0); MCHC 29.9 g/dL (31.0-37.0); MCV 105.4 fL (80.0-100.0); Macrocytosis Slight; Mean Platelet Volume 8.2; Monocytes # (A) 0.5 k/uL (0-1.0); Monocytes % (A) 4 %; Neutrophils # (A) 10.7 k/uL (1.3-7.7); Neutrophils % (A) 84 %; Platelet Count 155 k/uL (150-450); RBC 4.01 m/uL (3.80-5.40); RDW 13.2 % (11.5-15.5); WBC 12.8 k/uL (3.8-10.6)
[2018-11-27 10:10] LABS: Amphetamine Screen,Urine Not Detected (NotDetected); Barbiturate Screen,Urine Not Detected (NotDetected); Benzodiazepines Screen,Urine Not Detected (NotDetected); Cocaine Screen,Urine Not Detected (NotDetected); Methadone Screen, Urine Not Detected (NotDetected); Opiate Screen,Urine Detected (NotDetected); Oxycodone Screen, Urine Not Detected (NotDetected); Phencyclidine Screen,Urine Not Detected (NotDetected); Tricyclic Antidepressant,Urine Not Detected (NotDetected); Urn Cannabinoid Scrn Detected (NotDetected)
[2018-11-27] MEDS ORDERED: POTASSIUM CHLORIDE ER 20 MEQ TAB.ER PO STA ×2 (10:43→14:44)
[2018-11-27] MEDS ORDERED: ONDANSETRON 4 MG/2 ML VIAL IVP STA (11:12)
[2018-11-27] MEDS ORDERED: METOCLOPRAMIDE 5 MG/ML 2 ML VIAL IVP SCH (12:00)
[2018-11-27] MEDS ORDERED: ALBUTEROL NEBULIZED 2.5 MG/3 ML INHALATION PRN (13:43)
[2018-11-27] MEDS ORDERED: tiZANidine 4 MG TAB PO PRN (13:44)
[2018-11-27] MEDS ORDERED: POTASSIUM CHLORIDE 10 MEQ in WATER FOR INJECTION 1 100ML.BAG IVPB SCH (14:00)
[2018-11-27] MEDS: METHADONE 5 MG TAB PO SCH ×2 (14:12→20:19)
[2018-11-27] MEDS: HYDROmorphone 1 MG/ML 1 ML SYRINGE IVP PRN ×2 (14:13→23:07)
[2018-11-27] MEDS: amLODIPine 5 MG TAB PO SCH ×2 (15:24→20:19)
[2018-11-27] MEDS ORDERED: NALOXONE 0.4 MG/ML 1 ML VIAL IV PRN (16:24)
[2018-11-27] MEDS ORDERED: ACETAMINOPHEN TAB 325 MG TAB PO PRN (16:24)
--- NOTE | 2018-11-27 16:27 | P.HPIM ---
History of Present Illness H&P Date: 11/27/18 Chief Complaint: pain and nausea Patient is a 53 yo CF with a past medical history of chronic pain syndrome, non-Hodgkin's lymphoma (2 different types to 3 [facility], not on active therapy but continues to follow with surveillance monitoring), prior melanoma status post excision, prior TIA, prior syncopal events, and depression and anxiety who presented to the emergency department with complaints of nausea, vomiting, and intractable pain. She was recently admitted from through 11 23 for altered mentation and intractable pain. She then every presented and was admitted from 11 25-11 26 due to intractable nausea, vomiting, and pain. During those admissions he was seen by neurology who felt that she likely had migraine- type or on suggested 500 mg of Depakote, CT brain was showing no acute process, EEG was normal. She was also seen by her outpatient pain management physician who felt that the nausea and vomiting was exacerbating her complex regional pain syndrome. They suggest transitioning back to orals for her methadone when able, continuing of IV fluids to help with hydration, and possible addition of Marinol for her nausea, vomiting, and to increase appetite. She was discharged home with prescriptions for Depakote, prednisone to help with the nausea and vomiting, albuterol, and Norvasc for blood pressure control. In the emergency department today she was noted to have an elevated white blood cell count at 12.8, potassium 3.1, lactic acid 2.6, and she was positive for THC and opiates. Patient seen and examined at bedside with her present. She is feeling quite improved after receiving fluids, antiemetics, and IV pain control. On arrival to the floor per nursing she had been in significant amount of pain, writhing in the bed, and moaning secondary to discomfort. She reports that over the last several days she has had significant nausea with intermittent production of phlegm from the back of her throat, and some vomiting. When she gets seasick feeling that exacerbates the pain in her back and becomes unbearable. She then starts writhing in pain in her pain becomes generalized all over her body. She does not have any specific abdominal pain. She is not having any diarrhea. She has had some poor appetite and pain all over. She continues to have a mild headache but is not that bad and much improved since starting the Depakote. She reports that it is worsened by the light. We discussed the findings of her CT scan during her prior admission including a right upper lobe 4 mm pulmonary nodule, mildly enlarged nodes, mesenteric haziness, and mucosal thickening in the fundus with some fat stranding on the r ight hemicolon. She recently had follow-up scans done at [facility] and we will attempt to obtain records for comparison. Review of Systems Pertinent positives and negatives as discussed in HPI, a complete review of systems was performed and all other systems are negative. Past Medical History Past Medical History: Cancer, CVA/TIA, Osteoarthritis (OA) Additional Past Medical History / Comment(s): Pt recently admitted to [facility] on 11/21/18 with exacerbation of COPD (spouse states he and pt unaware she had this), Mobitz second-degree type I. 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 History of Any Multi-Drug Resistant Organisms: None Reported Past Surgical History: Section, Hysterectomy, Orthopedic Surgery, Tubal Ligation Additional Past Surgical History / Comment(s): MELANOMA SURGERY WITH WIDE EXCISION AND LYMPH NODES REMOVED LEFT THIGH (2011), CYST ON BACK., PAIN PROCEDURES., RIGHT CARPAL TUNNEL RELEASE, RIGHT THUMB JOINT REPLACEMENT, COLONOSCOPY, D&C. Past Anesthesia/Blood Transfusion Reactions: No Reported Reaction, Family History of Problems w/ Anesthesia Additional Past Anesthesia/Blood Transfusion Reaction / Comment(s): MOTHER AND SON = PONV Past Psychological History: Anxiety, Depression Additional Psychological History / Comment(s): PT resides with her spouse. They own a cane and walker but pt is not using any device. She no longer drives, her spouse drives. They have 2 pets. Smoking Status: Current every day smoker Past Alcohol Use History: None Reported Additional Past Alcohol Use History / Comment(s): SMOKES 1 PPD. SMOKING SINCE 16 YRS OLD. Past Drug Use History: None Reported - Past Family History Mother Family Medical History: No Reported History Father Family Medical History: AFIB, Hyperlipidemia, Hypertension, Sleep Apnea/CPAP/BIPAP Additional Family Medical History / Comment(s): Gout Medications and Allergies Home Medications Medication Instructions Recorded Confirmed Type Methadone [Dolophine] 5 mg PO TID 12/30/17 11/27/18 History clonazePAM [KlonoPIN] 0.5 mg PO QAM 12/30/17 11/27/18 History tiZANidine [Zanaflex] 4 - 8 mg PO Q6H 12/30/17 11/27/18 History clonazePAM 1 mg PO HS 06/09/18 11/27/18 History Sertraline [Zoloft] 100 mg PO DAILY 11/21/18 11/27/18 History Albuterol Inhaler [Ventolin Hfa 1 - 2 puff INHALATION RT-Q6H PRN 11/23/18 11/27/18 Rx Inhaler] #1 inhaler amLODIPine [Norvasc] 5 mg PO BID #60 tab 11/23/18 11/27/18 Rx predniSONE 10 mg PO DAILY #30 tab 11/23/18 11/27/18 Rx Divalproex ER [Depakote ER] 500 mg PO DAILY #21 tab.er.24h 11/26/18 11/27/18 Rx Ipratropium [place] [Atrovent Hfa] 2 puff INHALATION RT-TID 11/27/18 11/27/18 History Allergies Allergy/AdvReac Type Severity Reaction Status Date / Time No Known Allergies Allergy Verified 11/27/18 08:17 Physical Exam Osteopathic Statement: *. No significant issues noted on an osteopathic structural exam other than those noted in the History and Physical/Consult. Vitals: Vital Signs Temp Pulse Pulse Resp BP BP Pulse Ox 11/27/18 12:19 98.2 F 65 16 104/68 100 11/27/18 11:29 71 18 121/73 98 11/27/18 10:27 132/101 11/27/18 09:57 153/93 11/27/18 09:50 73 19 98 11/27/18 08:19 98.0 F 73 16 118/84 98 Intake and Output 11/27/18 11/27/18 11/27/18 06:59 14:59 22:59 Other: # Voids 0 Weight 58.967 kg General: ill appearing, mild distress, appears at stated age, gaunt Derm: no unusual rashes/lesions no unusual ecchymoses, warm, dry Head: atraumatic, normocephalic, symmetric Eyes: EOMI, no lid lag, anicteric sclera, pupils equal round reactive to light ENT: Nose and ears atraumatic, no thrush, + pharyngeal erythema Neck: No thyromegaly, no cervical lymphadenopathy, trachea midline, supple Mouth: no lip lesion, mucus membranes moist Cardiovascular: S1S2 reg, no murmur, positive posterior tibial pulse bilateral, no edema, capillary refill less than 2 seconds Lungs: CTA bilateral, no rhonchi, no rales , no accessory muscle use Abdominal: soft, nontender to palpation, no guarding, no appreciable organomegaly, normal bowel sounds Ext: no gross muscle atrophy, muscle strength 5 out of 5 in all 4 extremities grossly, no contractures, Neuro: CN II-XI grossly intact, light touch intact all 4 extremities, finger to nose within normal limits, Psych: Alert, oriented, appropriate affect Results CBC & Chem 7: 11/27/18 09:40 11/27/18 08:35 Labs: Abnormal Lab Results - Last 24 Hours (Table) 11/27/18 11/27/18 11/27/18 Range/Units 08:35 08:35 08:35 WBC (3.8-10.6) k/uL MCV (80.0-100.0) fL MCHC (31.0-37.0) g/dL Neutrophils # (1.3-7.7) k/uL Potassium 3.1 L (3.5-5.1) mmol/L Glucose 108 H (74-99) mg/dL Plasma Lactic Acid Boy 2.6 H* (0.7-2.0) mmol/L Urine Opiates Screen Detected H (NotDetected) U Marijuana (THC) Screen Detected H (NotDetected) 11/27/18 Range/Units 09:40 WBC 12.8 H (3.8-10.6) k/uL MCV 105.4 H (80.0-100.0) fL MCHC 29.9 L (31.0-37.0) g/dL Neutrophils # 10.7 H (1.3-7.7) k/uL Potassium (3.5-5.1) mmol/L Glucose (74-99) mg/dL Plasma Lactic Acid Boy (0.7-2.0) mmol/L Urine Opiates Screen (NotDetected) U Marijuana (THC) Screen (NotDetected) Thrombosis Risk Factor Assmnt - DVT/VTE Prophylaxis DVT/VTE Prophylaxis: Low risk, early ambulation encouraged - Choose All That Apply Other Risk Factors: No Assessment and Plan Assessment: Intractable nausea and vomiting with intractable pain in associated with complex regional pain syndrome - suspect gastroenteritis exacerbation chronic pain. -IV PPI -IV fluids -Antiemetics -GI consultation -IV Dilaudid today and then resume oral methadone tomorrow -Attempt pain management consultation, and unsure if this provider rounds on the weekends and patient and family are aware. -Clear liquid diet, advance as tolerated History of lymphoma with enlarged lymph nodes noted on CT abdomen and pelvis from 11/23/18 -Attempt to obtain records from [facility] -Patient and spouse are aware of results of prior CAT scan -I asked him to ensure they received adequate follow-up to compare the results were unable to do so here Hypokalemia -Replace and recheck in a.m. -Repeat magnesium levels in a.m. Anxiety/depression - Continue with home klonopin and zoloft. The patient is placed in observation with an anticipated less than 2 midnight stay for evaluation of intractable vomiting and pain. DVT prophylaxis: early ambulation Discussed with: patient, spouse Anticipated discharge date: 1-[address]: home A total of 35 minutes was spent on the care of this complex patient more than 50% of the time was spent in counseling and care coordination.
[2018-11-27] MEDS: NICOTINE 21MG/24HR PATCH TRANSDERM SCH (17:26)
[2018-11-27] MEDS: ONDANSETRON 4 MG/2 ML VIAL IVP PRN ×2 (17:26→23:07)
[2018-11-27] MEDS ORDERED: TRIMETHOBENZAMIDE 300 MG CAP PO SCH (18:00)
[2018-11-27] MEDS ORDERED: IPRATROPIUM 0.5 MG/2.5 ML NEBU INHALATION SCH (20:00)
[2018-11-27] MEDS: clonazePAM 1 MG TAB PO SCH (20:19)
[2018-11-27] MEDS: PANTOPRAZOLE 40 MG/10 ML VIAL IVP SCH (20:19)
--- NOTE | 2018-11-27 22:25 | P.CONS ---
History of Present Illness - Reason for Consult Consult date: 11/27/18 Nausea and vomiting Requesting physician: Blanca Ch - Chief Complaint Nausea and vomiting - History of Present Illness 53-year-old female with multiple medical comorbidities including anxiety and depression, chronic pain syndrome, non-Hodgkin's lymphoma and prior TIA who presented to the hospital with complaints of nausea, vomiting and intractable pain. The patient has recent admissions to the hospital with similar complaints. The patient reports intractable nausea, dry heaving and vomiting prior to presentation. She reports generalized body pain which she feels is exacerbated by the vomiting. She denies any history of gastroesophageal reflux disease, dysphagia or odynophagia. No history of peptic ulcer disease. She reports prior endoscopic evaluation at the [facility] endoscopy [place] with Dr. Barclay in May of this year with normal EGD and colonoscopy at that time. Laboratory evaluation on presentation significant for a WBC 12.8, hemoglobin 12. 7, platelet count 155,000, normal liver enzymes, amylase and lipase. Review of Systems REVIEW OF SYSTEMS: CONSTITUTIONAL: Denies any fevers, chills, weight change or fatigue. CARDIOVASCULAR: Denies any chest pain, palpitations high or low blood pressures RESPIRATORY: Denies any shortness of breath, hemoptysis or cough. GENITOURINARY: No dysuria or hematuria. MUSCULOSKELETAL: No weakness reported. SKIN: Denies any new rashes or lesions, jaundice or pallor. PSYCHIATRIC: History of depression and anxiety. NEUROLOGY: Denies headache, denies any new focal deficits. EARS/NOSE/THROAT: No recent hearing change, congestion, nasal discharge or sore throat. EYES: No pain in eyes, discharge or change in vision. GASTROINTESTINAL: As per HPI. Past Medical History Past Medical History: Cancer, CVA/TIA, Osteoarthritis (OA) Additional Past Medical History / Comment(s): Pt recently admitted to [facility] on 11/21/18 with exacerbation of COPD (spouse states he and pt unaware she had this), Mobitz second-degree type I. 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 History of Any Multi-Drug Resistant Organisms: None Reported Past Surgical History: Section, Hysterectomy, Orthopedic Surgery, Tubal Ligation Additional Past Surgical History / Comment(s): MELANOMA SURGERY WITH WIDE EXCISION AND LYMPH NODES REMOVED LEFT THIGH (2011), CYST ON BACK., PAIN PROCEDURES., RIGHT CARPAL TUNNEL RELEASE, RIGHT THUMB JOINT REPLACEMENT, COLONOSCOPY, D&C. Past Anesthesia/Blood Transfusion Reactions: No Reported Reaction, Family History of Problems w/ Anesthesia Additional Past Anesthesia/Blood Transfusion Reaction / Comm: MOTHER AND SON = PONV Past Psychological History: Anxiety, Depression Additional Psychological History / Comment(s): PT resides with her spouse. They own a cane and walker but pt is not using any device. She no longer drives, her spouse drives. They have 2 pets. Smoking Status: Current every day smoker Past Alcohol Use History: None Reported Additional Past Alcohol Use History / Comment(s): SMOKES 1 PPD. SMOKING SINCE 16 YRS OLD. Past Drug Use History: None Reported - Past Family History Mother Family Medical History: No Reported History Father Family Medical History: AFIB, Hyperlipidemia, Hypertension, Sleep Apnea/CPAP/BIPAP Additional Family Medical History / Comment(s): Gout Medications and Allergies Home Medications Medication Instructions Recorded Confirmed Type Methadone [Dolophine] 5 mg PO TID 12/30/17 11/27/18 History clonazePAM [KlonoPIN] 0.5 mg PO QAM 12/30/17 11/27/18 History tiZANidine [Zanaflex] 4 - 8 mg PO Q6H 12/30/17 11/27/18 History clonazePAM 1 mg PO HS 06/09/18 11/27/18 History Sertraline [Zoloft] 100 mg PO DAILY 11/21/18 11/27/18 History Albuterol Inhaler [Ventolin Hfa 1 - 2 puff INHALATION RT-Q6H PRN 11/23/18 11/27/18 Rx Inhaler] #1 inhaler amLODIPine [Norvasc] 5 mg PO BID #60 tab 11/23/18 11/27/18 Rx predniSONE 10 mg PO DAILY #30 tab 11/23/18 11/27/18 Rx Divalproex ER [Depakote ER] 500 mg PO DAILY #21 tab.er.24h 11/26/18 11/27/18 Rx Ipratropium [place] [Atrovent Hfa] 2 puff INHALATION RT-TID 11/27/18 11/27/18 History Allergies Allergy/AdvReac Type Severity Reaction Status Date / Time No Known Allergies Allergy Verified 11/27/18 08:17 Physical Exam Vitals: Vital Signs Temp Pulse Pulse Resp BP BP Pulse Ox 11/27/18 21:00 98.4 F 73 18 133/75 97 11/27/18 12:19 98.2 F 65 16 104/68 100 11/27/18 11:29 71 18 121/73 98 11/27/18 10:27 132/101 11/27/18 09:57 153/93 11/27/18 09:50 73 19 98 11/27/18 08:19 98.0 F 73 16 118/84 98 Intake and Output 11/27/18 11/27/18 11/27/18 06:59 14:59 22:59 Intake Total 550 Balance 550 Intake: Oral 550 Other: # Voids 0 1 Weight 58.967 kg On physical examination, patient appears comfortable in no apparent distress. HEAD: Normocephalic, atraumatic. EYES: No scleral icterus. No conjunctival injection. MOUTH: No lesions, tongue midline. NECK: Trachea midline, no gross abnormalities. CHEST: Clear to auscultation with no wheezing or rhonchi appreciated. HEART: Regular rate and rhythm. ABDOMEN: Soft, tender to palpation. Bowel sounds are positive. No organomegaly. No guarding or rigidity. EXTREMITIES: No pedal edema. SKIN: No rashes, no jaundice. NEUROLOGIC: Alert and oriented x3. No focal deficits. Results CBC & Chem 7: 11/27/18 09:40 11/27/18 08:35 Labs: Abnormal Lab Results - Last 24 Hours (Table) 11/27/18 11/27/18 11/27/18 Range/Units 08:35 08:35 08:35 WBC (3.8-10.6) k/uL MCV (80.0-100.0) fL MCHC (31.0-37.0) g/dL Neutrophils # (1.3-7.7) k/uL Potassium 3.1 L (3.5-5.1) mmol/L Glucose 108 H (74-99) mg/dL Plasma Lactic Acid Boy 2.6 H* (0.7-2.0) mmol/L Urine Opiates Screen Detected H (NotDetected) U Marijuana (THC) Screen Detected H (NotDetected) 10/05/19 Range/Units 09:40 WBC 12.8 H (3.8-10.6) k/uL MCV 105.4 H (80.0-100.0) fL MCHC 29.9 L (31.0-37.0) g/dL Neutrophils # 10.7 H (1.3-7.7) k/uL Potassium (3.5-5.1) mmol/L Glucose (74-99) mg/dL Plasma Lactic Acid Boy (0.7-2.0) mmol/L Urine Opiates Screen (NotDetected) U Marijuana (THC) Screen (NotDetected) CT scan - abdomen: report reviewed Assessment and Plan (1) Nausea & vomiting Narrative/Plan: 53-year-old female with multiple medical comorbidities who presents to the hospital with complaints of nausea, vomiting and dry heaving with associated abdominal pain. The patient reports that symptoms have been present for months and that she underwent evaluation with EGD and colonoscopy in May which were normal. She has a history of chronic pain syndrome and reports that the pain is exacerbated by the nausea and vomiting. Unclear etiology, with differential including functional pain, with gastritis, esophagitis, peptic ulcer disease less likely given patient's endoscopic evaluation in the past. Current Visit: No Status: Acute Code(s): R11.2 - NAUSEA WITH VOMITING, UNSPECIFIED SNOMED Code(s): 28856964 (2) Chronic pain syndrome Current Visit: Yes Status: Acute Code(s): G89.4 - CHRONIC PAIN SYNDROME SNOMED Code(s): 156576689 (3) Anxiety and depression Current Visit: No Status: Acute Code(s): F41.9 - ANXIETY DISORDER, UNSPECIFIED; F32.9 - MAJOR DEPRESSIVE DISORDER, SINGLE EPISODE, UNSPECIFIED SNOMED Code(s): 215269735 Plan: Supportive care Okay for diet as tolerated Continue antiemetics, Zofran added [id number] Protonix 40 mg twice daily IV Continue pain management Continue to monitor symptoms Thank you for allowing us to participate in the care of this patient, we will continue to follow
[2018-11-28] MEDS: HYDROmorphone 1 MG/ML 1 ML SYRINGE IVP PRN ×2 (06:12→12:45)
[2018-11-28] MEDS: ONDANSETRON 4 MG/2 ML VIAL IVP PRN ×2 (06:12→12:45)
[2018-11-28] MEDS: SERTRALINE 100 MG TAB PO SCH (07:06)
[2018-11-28] MEDS: NICOTINE 21MG/24HR PATCH TRANSDERM SCH (07:06)
[2018-11-28] MEDS: predniSONE 10 MG TAB PO SCH (07:06)
[2018-11-28] MEDS: clonazePAM 0.5 MG TAB PO SCH (07:07)
[2018-11-28] MEDS: PANTOPRAZOLE 40 MG/10 ML VIAL IVP SCH ×2 (07:07→21:21)
[2018-11-28] MEDS: amLODIPine 5 MG TAB PO SCH ×2 (07:07→21:22)
[2018-11-28] MEDS: DIVALPROEX ER 500 MG TAB.ER.24H PO SCH (07:07)
[2018-11-28] MEDS: METHADONE 5 MG TAB PO SCH ×3 (07:07→21:22)
[2018-11-28 07:32] LABS: HCT 39.8 % (34.0-46.0); MCH 33.2 pg (25.0-35.0); MCHC 32.6 g/dL (31.0-37.0); Macrocytosis Slight; Mean Platelet Volume 7.2; Platelet Count 193 k/uL (150-450); RDW 12.9 % (11.5-15.5); WBC 7.5 k/uL (3.8-10.6)
[2018-11-28 07:36] LABS: African American GFR (CKD) >90 (>60 ml/min/1.73 sqM); Anion Gap 5 mmol/L; Blood Urea Nitrogen 3 mg/dL (7-17); Calcium 8.5 mg/dL (8.4-10.2); Carbon Dioxide 29 mmol/L (22-30); Chloride 108 mmol/L (98-107); Glucose 96 mg/dL (74-99); Magnesium 1.6 mg/dL (1.6-2.3); Potassium 3.2 mmol/L (3.5-5.1); Sodium 142 mmol/L (137-145)
[2018-11-28] MEDS ORDERED: POTASSIUM CHLORIDE ER 20 MEQ TAB.ER PO STA (08:49)
[2018-11-28] MEDS ORDERED: PROCHLORPERAZINE 5 MG TAB PO PRN (13:59)
[2018-11-28] MEDS ORDERED: HYDROmorphone 1 MG/ML 1 ML SYRINGE IVP PRN (14:00)
--- NOTE | 2018-11-28 14:14 | P.PN ---
Subjective Progress Note Date: 11/28/18 Principal diagnosis: vomiting and intractable pain Patient is a 53 yo CF with a past medical history of Complex regional pain syndrome, non-Hodgkin's lymphoma ([address] 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 She was recently admitted from 11/21 through 11/23 for altered mentation and intractable pain. She then every presented and was admitted from 11/25-11/26 due to intractable nausea, vomiting, and pain. During those admissions he was seen by neurology who felt that she likely had migraine-type headache and suggested 500 mg of Depakote, CT brain was showing no acute process, EEG was normal. She was also seen by her outpatient pain management physician who felt that the nausea and vomiting was exacerbating her complex regional pain syndrome. They suggest transitioning back to orals for her methadone when able, continuing of IV fluids to help with hydration, and possible addition of Marinol for her nausea, vomiting, and to increase appetite. She was discharged home with prescriptions for Depakote, prednisone to help with the nausea and vomiting, albuterol, and Norvasc for blood pressure control- has filled but not taken due to repeat hospital stay. In the emergency department she was noted to have an elevated white blood cell count at 12.8, potassium 3.1, lactic acid 2.6, and urine was positive for THC and opiates. She was started on IVF, IV dilaudid, and antiemetics. GI was consulted who added IV PPI. She had some improvement in her symptoms. She woke up the morning of 11/28 again with an excruciating headache and nausea. Her pain then sent off and she was moaning requiring Zofran and Dilaudid. She again received Dilaudid in the afternoon. She currently is having severe headache and does not want to eat and she is agreeable set off her nausea and vomiting. We discussed trialing scheduled Zofran to keep the nausea at bay and she is in agreement. We also discussed decreasing IV pain medications and that her worsening headache may be due to the Dilaudid. Objective - Vital Signs Vital signs: Vital Signs Temp 98.1 F 11/28/18 13:42 Pulse 72 10/06/19 13:42 Resp 16 11/28/18 13:42 BP 101/67 11/28/18 13:42 Pulse Ox 97 11/28/18 13:42 Intake & Output 11/27/18 11/28/18 11/28/18 18:59 06:59 18:59 Intake Total 300 550 Balance 300 550 Weight 58.967 kg Intake: Oral 300 550 Other: # Voids 0 2 - Exam General: Ill appearing, mild distress, appears at stated age Derm: warm, dry Head: atraumatic, normocephalic, symmetric Eyes: EOMI, no lid lag, anicteric sclera Mouth: no lip lesion, mucus membranes moist Cardiovascular: S1S2 reg, no murmur, positive posterior tibial pulse bilateral, Lungs: Decreased breath sounds bilateral, no rhonchi, no rales , no accessory muscle use Abdominal: soft, nontender to palpation, no guarding, no appreciable organomegaly Ext: no gross muscle atrophy, no edema, no contractures Neuro: CN II-XI grossly intact, no focal neuro deficits Psych: Alert, oriented, appropriate affect - Labs CBC & Chem 7: 11/28/18 06:34 11/28/18 06:34 Labs: Abnormal Lab Results - Last 24 Hours (Table) 11/28/18 11/28/18 Range/Units 06:34 06:34 MCV 102.0 H (80.0-100.0) fL Potassium 3.2 L (3.5-5.1) mmol/L Chloride 108 H (98-107) mmol/L BUN 3 L (7-17) mg/dL Assessment and Plan Assessment: Intractable nausea and vomiting with intractable pain in associated with complex regional pain syndrome - suspect gastroenteritis exacerbation chronic pain. -IV PPI -IV fluids -Antiemetics changes and Zofran to scheduled -GI recs appreciated -IV Dilaudid decreased today -Pain management consult in a.m. -Clear liquid diet, advance as tolerated Intractable headache -A.m. headache associated with nausea and vomiting -Consult neurology to consider normal pressure hydrocephalus. Not seen on CT head, consideration for LP and seems appropriate by neuro. History of lymphoma with enlarged lymph nodes noted on CT abdomen and pelvis from 11/23/18 -Attempt to obtain records from [facility] -Patient and spouse are aware of results of prior CT scan -I asked them to ensure they received adequate follow-up to compare the results if we are unable to do so here Hypokalemia -Replace and recheck in a.m. Hypomagnesemia - replace -Repeat magnesium levels in a.m. Anxiety/depression - Continue with home klonopin and zoloft. DVT prophylaxis: early ambulation Discussed with: patient, nursing, Dr. Curry Anticipated discharge date: 1-[address]: home A total of 35 minutes was spent on the care of this complex patient more than 50% of the time was spent in counseling and care coordination.
[2018-11-28] MEDS: MAGNESIUM SULFATE-D5W PMX 1 GM in DEXTROSE/WATER 1 100ML.BAG IVPB SCH ×3 (14:44→17:14)
[2018-11-28] MEDS: ONDANSETRON 4 MG TAB PO SCH (15:31)
--- NOTE | 2018-11-28 19:26 | P.PN ---
Subjective Progress Note Date: 11/28/18 Principal diagnosis: Nausea and vomiting, abdominal pain, chronic pain syndrome Patient seen lying in bed. She reports that she woke up nauseated and subsequently had worsened abdominal pain. Has tolerated a liquid diet. Objective - Vital Signs Vital signs: Vital Signs Temp 98.4 F 11/28/18 05:00 Pulse 94 11/28/18 05:00 Resp 18 11/28/18 08:00 BP 122/80 11/28/18 06:06 Pulse Ox 94 L 11/28/18 05:00 Intake & Output 11/27/18 11/28/18 11/28/18 18:59 06:59 18:59 Intake Total 300 550 Balance 300 550 Weight 58.967 kg Intake: Oral 300 550 Other: # Voids 0 2 - Exam On physical examination, patient appears comfortable in no apparent distress. HEAD: Normocephalic, atraumatic. EYES: No scleral icterus. No conjunctival injection. MOUTH: No lesions, tongue midline. NECK: Trachea midline, no gross abnormalities. CHEST: Clear to auscultation with no wheezing or rhonchi appreciated. HEART: Regular rate and rhythm. ABDOMEN: Soft, diffusely tender to palpation. Bowel sounds are positive. No organomegaly. No guarding or rigidity. EXTREMITIES: No pedal edema. SKIN: No rashes, no jaundice. NEUROLOGIC: Alert and oriented x3. No focal deficits. - Labs CBC & Chem 7: 11/28/18 06:34 11/28/18 06:34 Labs: Abnormal Lab Results - Last 24 Hours (Table) 11/27/18 11/27/18 11/28/18 Range/Units 08:35 09:40 06:34 WBC 12.8 H (3.8-10.6) k/uL MCV 105.4 H 102.0 H (80.0-100.0) fL MCHC 29.9 L (31.0-37.0) g/dL Neutrophils # 10.7 H (1.3-7.7) k/uL Potassium (3.5-5.1) mmol/L Chloride (98-107) mmol/L BUN (7-17) mg/dL Urine Opiates Screen Detected H (NotDetected) U Marijuana (THC) Screen Detected H (NotDetected) 11/28/18 Range/Units 06:34 WBC (3.8-10.6) k/uL MCV (80.0-100.0) fL MCHC (31.0-37.0) g/dL Neutrophils # (1.3-7.7) k/uL Potassium 3.2 L (3.5-5.1) mmol/L Chloride 108 H (98-107) mmol/L BUN 3 L (7-17) mg/dL Urine Opiates Screen (NotDetected) U Marijuana (THC) Screen (NotDetected) Assessment and Plan (1) Nausea & vomiting Narrative/Plan: 53-year-old female with multiple medical comorbidities who presents to the hospital with complaints of nausea, vomiting and dry heaving with associated abdominal pain. The patient reports that symptoms have been present for months and that she underwent evaluation with EGD and colonoscopy in May which were normal. She has a history of chronic pain syndrome and reports that the pain is exacerbated by the nausea and vomiting. Unclear etiology, with differential including functional pain, with gastritis, esophagitis, peptic ulcer disease less likely given patient's endoscopic evaluation in the past. Given the eze obrien's narcotic use, narcotic-induced gastroparesis is also a distinct possibility as a contributor to her continued symptoms. Current Visit: No Status: Acute Code(s): R11.2 - NAUSEA WITH VOMITING, UNSPECIFIED SNOMED Code(s): 86189848 (2) Chronic pain syndrome Current Visit: Yes Status: Acute Code(s): G89.4 - CHRONIC PAIN SYNDROME SNOMED Code(s): 590767639 (3) Anxiety and depression Current Visit: No Status: Acute Code(s): F41.9 - ANXIETY DISORDER, UNSPECIFIED; F32.9 - MAJOR DEPRESSIVE DISORDER, SINGLE EPISODE, UNSPECIFIED SNOMED Code(s): 010814362 Plan: Supportive care Okay for diet as tolerated Continue antiemetics, Zofran added [id number] Protonix 40 mg twice daily IV Continue pain management Continue to monitor symptoms Thank you for allowing us to participate in the care of this patient, we will continue to follow patient's chronic use of narcotics has resulted in some degree of gastroparesis worsening her symptoms
[2018-11-28] MEDS: tiZANidine 4 MG TAB PO PRN (20:08)
[2018-11-28] MEDS: IPRATROPIUM 0.5 MG/2.5 ML NEBU INHALATION SCH (20:25)
[2018-11-28] MEDS: clonazePAM 1 MG TAB PO SCH (21:22)
[2018-11-29] MEDS: ONDANSETRON 4 MG TAB PO SCH ×3 (00:18→16:44)
[2018-11-29] MEDS: IPRATROPIUM 0.5 MG/2.5 ML NEBU INHALATION SCH (07:26)
[2018-11-29] MEDS: clonazePAM 0.5 MG TAB PO SCH (07:51)
[2018-11-29] MEDS: METHADONE 5 MG TAB PO SCH ×3 (07:51→21:27)
[2018-11-29] MEDS: NICOTINE 21MG/24HR PATCH TRANSDERM SCH (07:53)
[2018-11-29] MEDS: predniSONE 10 MG TAB PO SCH (07:53)
[2018-11-29] MEDS: SERTRALINE 100 MG TAB PO SCH (07:53)
[2018-11-29] MEDS: DIVALPROEX ER 500 MG TAB.ER.24H PO SCH (07:53)
[2018-11-29] MEDS: PANTOPRAZOLE 40 MG/10 ML VIAL IVP SCH ×2 (07:53→21:29)
[2018-11-29] MEDS: amLODIPine 5 MG TAB PO SCH ×2 (07:53→21:29)
[2018-11-29 08:11] LABS: African American GFR (CKD) >90 (>60 ml/min/1.73 sqM); Anion Gap 4 mmol/L; Blood Urea Nitrogen 4 mg/dL (7-17); Calcium 8.4 mg/dL (8.4-10.2); Carbon Dioxide 29 mmol/L (22-30); Chloride 109 mmol/L (98-107); Glucose 82 mg/dL (74-99); Potassium 3.4 mmol/L (3.5-5.1); Sodium 142 mmol/L (137-145)
[2018-11-29] MEDS ORDERED: POTASSIUM CHLORIDE ER 20 MEQ TAB.ER PO STA (08:25)
[2018-11-29] MEDS ORDERED: DEXAMETHASONE SOD PHOSPHATE 10 MG/ML 1 ML VIAL IV STA (10:08)
[2018-11-29] MEDS ORDERED: DIVALPROEX ER 250 MG TAB.ER.24H PO STA (10:10)
--- NOTE | 2018-11-29 10:18 | P.CNNES ---
History of Present Illness Consult date: 11/29/18 Reason for Consult: Intractable vomiting, headache Chief complaint: Intractable vomiting, headache History of Present Illness: History of Present Illness: Thank you for allowing me to evaluate Ms. Tere White. Ms. White is a 53 year-old woman with PMHx of TIA (speech difficulties, multiple times), osteoarthritis, complex regional pain syndrome, melanoma, Non- hodgkins lymphoma, bilateral hand carpal tunnel syndrome presenting with pain attack that got worse last night, consulting Neurology for intractable headache. Patient was discharged with more manageable pain, but patient returned due to intractable headache along with vomiting. Patient states that her headache is more in the occipital region, but after getting a breathing treatment, she started having worsening headache (MAR shows that she got Atrovent, which is on standing dose. Albuterol is on as needed dosing, and she has not gotten it). Patient reports significant photophobia along with loss of appetite and some nausea. From previous note: Patient is able to provide good history along with her who is at bedside. They state that patient came to ED last Thursday for the same reason, extreme pain with changes in mental status, which they say was attributed to drug withdrawal. Patient is on methadone along with several other pain meds. Patient states that she has been suffering from complex regional pain syndrome since 2011. She has episodes of extreme pain, last episode was in May and this episode has been persistent since last Thursday. has a video of the patient writhing in pain, but the video does not show any rhythmic movement. Denies urinary/bowel incontinence or tongue biting during this time. PAST MEDICAL HISTORY: TIA (speech difficulties, multiple times), migraine, osteoarthritis, complex regional pain syndrome, melanoma, Non-hodgkins lymphoma, bilateral hand carpal tunnel syndrome PAST SURGICAL HISTORY: Hysterectomy, melanoma surgery, R carpal tunnel release, R thumb joing replacement, c-spine surgery in late 2018 HOME MEDICATIONS: Tizanidine, methadone, clonaepam, sertraline, atrovent, prednisone, amlodipine, albuterol ALLERGIES: NKDA SOCIAL HISTORY: Current everyday smoker FAMILY HISTORY: Father with a.fib, HLD, HTN, sleep apnea. REVIEW OF SYSTEMS: The 14 systems are reviewed and no additional points are identified compared to the review of systems documented history and physical PHYSICAL EXAMINATION: VITAL SIGNS: T 98.2 HR 93 RR 18 BP 107/64 O2 sat 93% on RA GEN.: in distress from back pain, with intermittent dystonic movements of her bilateral hands particularly HEENT: NCAT, sclera without icterus NECK: Supple SKIN AND EXTREMITIES: Warm to touch, no edema NEURO: MENTAL STATUS: Patient alert and oriented to self, place, time. Able to name the current president. Speech fluent, able to name and repeat, following all commands readily. No right and left disorientation, extinction to double simultaneous stimulation, finger agnosia, neglect. CRANIAL NERVES II THROUGH XII: II: Very sensitive to light, pupils equal and round bilaterally III, IV, : No ptosis. Extraocular movements full. No nystagmus. V: Facial sensation intact from V1-3. VII. No clear facial asymmetry. VIII: Hearing intact to finger rub bilaterally. IX, X: Symmetric palate elevation. XI: Shoulder shrug intact. XII: Tongue midline without fasciculation or atrophy. MOTOR: Normal bulk/tone. No pronator drift or tremor. Strength is 4+/5 throughout all 4 extremities. SENSORY: Decreased sensation light touch in all 4 extremities (present since she started having issues with pain) REFLEXES: Brisk throughout. Toes are downgoing. No clonus. Shahnaz's is absent COORDINATION: Finger to nose intact. No dysmetria. GAIT: deferred DIAGNOSTIC TESTING: LABORATORY: 11/28/18: WBC 7.5 Hgb 13.0 Plt 193 Na 142 K 3.2 Cl 108 Bicarb 29 BUN 3 Cr 0.64 Glucose 96 11/27/18: AST 22 ALT 15 AlkPhos 75 Ammonia <9 Urinalysis 1+ ketone UTOx positive for opiate, methadone and THC IMAGING: EEG 11/26/2018: Normal EEG. No epileptiform activity was present. No seizures were recorded. EKG 11/27/2018: Normal sinus rhythm. CT Head w/o contrast 11/25/2018: No acute intracranial abnormality seen MRI brain w/ and w/o contrast 08/12/18: Mild scattered burden of bright white matter change, nonspecific, likely relating to early changes of chronic small vessel ischemic disease. No acute intracranial abnormality. No enhancing intracranial lesions. ASSESSMENT: Ms. White is a 53 year-old woman with PMHx of TIA (speech difficulties, multiple times), osteoarthritis, complex regional pain syndrome, melanoma, Non- hodgkins lymphoma, bilateral hand carpal tunnel syndrome presenting with pain attack that got worse last night, consulting Neurology for altered mental status. Patient has returned to her baseline mental status. Her intermittent changes in mental status along with extreme pain difficult to assess. Unusual that her HR was on the lower side when patient is writhing in pain. Patient also reporting significant photophobia along with 5-6/10 headache, patient with history of migraine. It appears that patient is having more of a status migrainosus. Depakote has helped her with her headache during her last admission. RECOMMENDATIONS: 1. Will increase dose of Depakote ER to 750mg qday 2. Dexamethasone 10mg IV x1. Patient is on prednisone 40mg qday dosing right now; can continue for now 3. will start MgOx 400mg BID for migraine prophylaxis 4. Limit breathing treatment as it seems to worsen her headache (theoretically, albuterol causing headaches is understandable, but unsure of ipratropium causing headache) 5. Neurology will continue to follow Past Medical History Past Medical History: Cancer, CVA/TIA, Osteoarthritis (OA) Additional Past Medical History / Comment(s): Pt recently admitted to [facility] on 11/21/18 with exacerbation of COPD (spouse states he and pt unaware she had this), Mobitz second-degree type I. 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 History of Any Multi-Drug Resistant Organisms: None Reported Past Surgical History: Section, Hysterectomy, Orthopedic Surgery, Tubal Ligation Additional Past Surgical History / Comment(s): MELANOMA SURGERY WITH WIDE EXCISION AND LYMPH NODES REMOVED LEFT THIGH (2011), CYST ON BACK., PAIN P ROCEDURES., RIGHT CARPAL TUNNEL RELEASE, RIGHT THUMB JOINT REPLACEMENT, COLONOSCOPY, D&C. Past Anesthesia/Blood Transfusion Reactions: No Reported Reaction, Family History of Problems w/ Anesthesia Additional Past Anesthesia/Blood Transfusion Reaction / Comment(s): MOTHER AND SON = PONV Past Psychological History: Anxiety, Depression Additional Psychological History / Comment(s): PT resides with her spouse. They own a cane and walker but pt is not using any device. She no longer drives, her spouse drives. They have 2 pets. Smoking Status: Current every day smoker Past Alcohol Use History: None Reported Additional Past Alcohol Use History / Comment(s): SMOKES 1 PPD. SMOKING SINCE 16 YRS OLD. Past Drug Use History: None Reported - Past Family History Mother Family Medical History: No Reported History Father Family Medical History: AFIB, Hyperlipidemia, Hypertension, Sleep Apnea/CPAP/BIPAP Additional Family Medical History / Comment(s): Gout Medications and Allergies Home Medications Medication Instructions Recorded Confirmed Type Methadone [Dolophine] 5 mg PO TID 12/30/17 11/27/18 History clonazePAM [KlonoPIN] 0.5 mg PO QAM 12/30/17 11/27/18 History tiZANidine [Zanaflex] 4 - 8 mg PO Q6H 12/30/17 11/27/18 History clonazePAM 1 mg PO HS 06/09/18 11/27/18 History Sertraline [Zoloft] 100 mg PO DAILY 11/21/18 11/27/18 History Albuterol Inhaler [Ventolin Hfa 1 - 2 puff INHALATION RT-Q6H PRN 11/23/18 11/27/18 Rx Inhaler] #1 inhaler amLODIPine [Norvasc] 5 mg PO BID #60 tab 11/23/18 11/27/18 Rx predniSONE 10 mg PO DAILY #30 tab 11/23/18 11/27/18 Rx Divalproex ER [Depakote ER] 500 mg PO DAILY #21 tab.er.24h 11/26/18 11/27/18 Rx Ipratropium [place] [Atrovent Hfa] 2 puff INHALATION RT-TID 11/27/18 11/27/18 History Allergies Allergy/AdvReac Type Severity Reaction Status Date / Time No Known Allergies Allergy Verified 11/27/18 08:17 Physical Examination - Vital Signs Vital Signs: Vital Signs Temp Pulse Pulse Pulse Resp BP Pulse Ox 11/29/18 04:55 98.2 F 93 18 107/64 93 L 11/28/18 21:40 98.0 F 69 16 115/79 98 11/28/18 20:35 84 11/28/18 20:26 80 11/28/18 13:42 98.1 F 72 16 101/67 97 11/28/18 08:00 18 Intake and Output 11/28/18 11/29/18 11/29/18 22:59 06:59 14:59 Intake Total 300 Balance 300 Intake: Oral 300 Other: # Voids 0 3 # Bowel Movements 0 Results - Laboratory Findings CBC and BMP: 11/28/18 06:34 11/29/18 06:57 Abnormal Lab Findings: Abnormal Labs 11/27/18 11/27/18 11/27/18 08:35 08:35 08:35 WBC MCV MCHC Neutrophils # Potassium 3.1 L Chloride BUN Glucose 108 H Plasma Lactic Acid Boy 2.6 H* Urine Opiates Screen Detected H U Marijuana (THC) Screen Detected H 11/27/18 11/28/18 11/28/18 09:40 06:34 06:34 WBC 12.8 H MCV 105.4 H 102.0 H MCHC 29.9 L Neutrophils # 10.7 H Potassium 3.2 L Chloride 108 H BUN 3 L Glucose Plasma Lactic Acid Boy Urine Opiates Screen U Marijuana (THC) Screen
[2018-11-29] MEDS: MAGNESIUM OXIDE 400 MG TAB PO SCH ×2 (11:05→21:27)
[2018-11-29] MEDS: tiZANidine 4 MG TAB PO PRN (16:43)
--- NOTE | 2018-11-29 18:40 | P.PN ---
Subjective Progress Note Date: 11/29/18 (Delayed charting seen at 1400) Principal diagnosis: vomiting and intractable pain Patient is a 53 yo CF with a past medical history of Complex regional pain syndrome, non-Hodgkin's lymphoma (2 different types followed at [facility], not on active therapy but continues to follow with surveillance monitoring), prior melanoma status post excision, prior TIA, prior syncopal events, and depression and anxiety who presented to the emergency department with complaints of nausea, vomiting, and intractable pain. She was recently admitted from 11/21 through 11/23 for altered mentation and intractable pain. She then every presented and was admitted from 11/25-11/26 due to intractable nausea, vomiting, and pain. During those admissions he was seen by neurology who felt that she likely had migraine-type headache and suggested 500 mg of Depakote, CT brain was showing no acute process, EEG was normal. She was also seen by her outpatient pain management physician who felt that the nausea and vomiting was exacerbating her complex regional pain syndrome. They suggest tra nsitioning back to orals for her methadone when able, continuing of IV fluids to help with hydration, and possible addition of Marinol for her nausea, vomiting, and to increase appetite. She was discharged home with prescriptions for Depakote, prednisone to help with the nausea and vomiting, albuterol, and Norvasc for blood pressure control- has filled but not taken due to repeat hospital stay. In the emergency department she was noted to have an elevated white blood cell count at 12.8, potassium 3.1, lactic acid 2.6, and urine was positive for THC and opiates. She was started on IVF, IV dilaudid, and antiemetics. GI was consulted who added IV PPI. She had some improvement in her symptoms. She was seen by neurology for probable normal pressure hydrocephalus. They added increased Depakote and one dose of Decadron. They recommended continuing on prednisone therapy. She was able to tolerate a diet and stopped vomiting this morning of 11/29. Patient seen and examined at bedside. She again states she does not feel well and is unable to go home. She states her headache is too severe for discharge. She continues to have some photophobia. Her nausea is somewhat better but she still has not sick feeling. Her abdominal pain is somewhat better and she has not required Dilaudid today. She has tolerated some liquids. That she will be discharged tomorrow. Objective - Vital Signs Vital signs: Vital Signs Temp 97.9 F 11/29/18 13:20 Pulse 74 11/29/18 13:20 Resp 16 11/29/18 15:11 BP 117/76 11/29/18 13:20 Pulse Ox 96 11/29/18 13:20 Intake & Output 11/28/18 11/29/18 11/29/18 18:59 06:59 18:59 Intake Total 300 540 Balance 300 540 Intake: Oral 300 540 Other: Voiding Method Toilet # Voids 2 3 3 # Bowel Movements 0 - Exam General: Ill appearing, no distress, appears at stated age Derm: warm, dry Head: atraumatic, normocephalic, symmetric Eyes: EOMI, no lid lag, anicteric sclera Mouth: no lip lesion, mucus membranes moist Cardiovascular: S1S2 reg, no murmur, positive posterior tibial pulse bilateral, Lungs: Decreased breath sounds bilateral, no rhonchi, no rales , no accessory muscle use Abdominal: soft, nontender to palpation, no guarding, no appreciable organomegaly Ext: no gross muscle atrophy, no edema, no contractures Neuro: CN II-XI grossly intact, no focal neuro deficits Psych: Alert, oriented, appropriate affect - Labs CBC & Chem 7: 11/28/18 06:34 11/29/18 06:57 Labs: Abnormal Lab Results - Last 24 Hours (Table) 11/29/18 Range/Units 06:57 Potassium 3.4 L (3.5-5.1) mmol/L Chloride 109 H (98-107) mmol/L BUN 4 L (7-17) mg/dL Assessment and Plan Assessment: Intractable nausea and vomiting with intractable pain in associated with complex regional pain syndrome - suspect gastroenteritis exacerbation chronic pain. Discussed with GI possible component of gastroparesis due to chronic pain med use. -Transition PPI to oral -IV fluids completed -Antiemetics: Zofran scheduled -GI recs appreciated -Dilaudid discontinued -Pain management will follow up in outpatient clinic -Clear liquid diet, advance as tolerated Intractable headache -Neurology recommendations appreciated. Decadron 1 given. Depakote increased to 750 mg. History of lymphoma with enlarged lymph nodes noted on CT abdomen and pelvis from 11/23/18 -Attempt to obtain records from [facility] -Patient and spouse are aware of results of prior CT scan -I asked them to ensure they received adequate follow-up to compare the results if we are unable to do so here Hypokalemia -Replaced. Now eating and no need for further recheck. Anxiety/depression - Continue with home klonopin and zoloft. Hypomagnesemia, resolved DVT prophylaxis: early ambulation Discussed with: patient, nursing, Dr. Curry Anticipated discharge date: in AM Anticipated discharge place: home A total of 25 minutes was spent on the care of this complex patient more than 50% of the time was spent in counseling and care coordination.
--- NOTE | 2018-11-29 20:51 | P.CONS ---
History of Present Illness - Reason for Consult Consult date: 11/29/18 Requesting physician: Anton Curry - Chief Complaint nausea, pain - History of Present Illness Thank you Dr. Curry for allowing me to participate in the care of Ms. Roberta gregory. Ms. White is a 53-year-old female who presented again to the hospital for the third time for intractable nausea and vomiting with increased thoracic pain. Patient states that her whole problem started with her feeling ill resulting in her feeling nauseous and having vomiting which aggravates her thoracic pain to a point where the thoracic pain is intolerable. She states that when she is not vomiting, nauseous or dry heaving her pain is normal for her. She states that her symptoms are similar to what happened in May which just dissipated. This is her third admission for the same problem that she states has started with sickness nausea and vomiting and secondarily back pain. She has been on her methadone for 2 years without any issues. At this time she states that the thoracic pain is her greatest pain complaint 10 out of 10 in intensity but only when she is vomiting or dry heaving. Review of Systems 10 point review of system was performed and was significant for nausea, vomiting, decreased appetite, thoracic pain Past Medical History Past Medical History: Cancer, CVA/TIA, Fibromyalgia, Osteoarthritis (OA) Additional Past Medical History / Comment(s): Pt recently admitted to [facility] on 11/21/18 with exacerbation of COPD (spouse states he and pt unaware she had this), Mobitz second-degree type I. 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 History of Any Multi-Drug Resistant Organisms: None Reported Past Surgical History: Section, Hysterectomy, Orthopedic Surgery, Tubal Ligation Additional Past Surgical History / Comment(s): MELANOMA SURGERY WITH WIDE EXCISION AND LYMPH NODES REMOVED LEFT THIGH (2011), CYST ON BACK., PAIN PROCEDURES., RIGHT CARPAL TUNNEL RELEASE, RIGHT THUMB JOINT REPLACEMENT, COLONOSCOPY, D&C. Past Anesthesia/Blood Transfusion Reactions: No Reported Reaction, Family History of Problems w/ Anesthesia Additional Past Anesthesia/Blood Transfusion Reaction / Comm: MOTHER AND SON = PONV Past Psychological History: Anxiety, Depression Additional Psychological History / Comment(s): PT resides with her spouse. They own a cane and walker but pt is not using any device. She no longer drives, her spouse drives. They have 2 pets. Smoking Status: Current every day smoker Past Alcohol Use History: None Reported Additional Past Alcohol Use History / Comment(s): SMOKES 1 PPD. SMOKING SINCE 16 YRS OLD. Past Drug Use History: None Reported - Past Family History Mother Family Medical History: No Reported History Father Family Medical History: AFIB, Hyperlipidemia, Hypertension, Sleep Apnea/CPAP/BIPAP Additional Family Medical History / Comment(s): Gout Medications and Allergies Home Medications Medication Instructions Recorded Confirmed Type Methadone [Dolophine] 5 mg PO TID 12/30/17 11/27/18 History clonazePAM [KlonoPIN] 0.5 mg PO QAM 12/30/17 11/27/18 History tiZANidine [Zanaflex] 4 - 8 mg PO Q6H 12/30/17 11/27/18 History clonazePAM 1 mg PO HS 06/09/18 11/27/18 History Sertraline [Zoloft] 100 mg PO DAILY 11/21/18 11/27/18 History Albuterol Inhaler [Ventolin Hfa 1 - 2 puff INHALATION RT-Q6H PRN 11/23/18 11/27/18 Rx Inhaler] #1 inhaler amLODIPine [Norvasc] 5 mg PO BID #60 tab 11/23/18 11/27/18 Rx predniSONE 10 mg PO DAILY #30 tab 11/23/18 11/27/18 Rx Divalproex ER [Depakote ER] 500 mg PO DAILY #21 tab.er.24h 11/26/18 11/27/18 Rx Ipratropium [place] [Atrovent Hfa] 2 puff INHALATION RT-TID 11/27/18 11/27/18 History Allergies Allergy/AdvReac Type Severity Reaction Status Date / Time No Known Allergies Allergy Verified 11/27/18 08:17 Physical Exam Osteopathic Statement: *. No significant issues noted on an osteopathic structural exam other than those noted in the History and Physical/Consult. Vitals: Vital Signs Temp Pulse Resp BP Pulse Ox 11/29/18 15:11 16 11/29/18 13:20 97.9 F 74 16 117/76 96 11/29/18 08:00 18 11/29/18 04:55 98.2 F 93 18 107/64 93 L 11/28/18 21:40 98.0 F 69 16 115/79 98 Intake and Output 11/29/18 11/29/18 11/29/18 06:59 14:59 22:59 Intake Total 540 Balance 540 Intake: Oral 540 Other: Voiding Method Toilet Toilet # Voids 3 3 # Bowel Movements 0 Gen.: Patient alert and oriented not in acute distress HEENT: Normocephalic atraumatic extraocular muscles intact Respiratory: No accessory muscle use was noted breathing was nonlabored Cardiovascular: No peripheral edema was noted heart regular rate and rhythm Abdomen: Soft and minimally tender, nondistended Neurologic: No ankle clonus is noted, Shahnaz sign is negative sensation to light touch is normal of the bilateral upper and lower extremities Musculoskeletal: Hip flexion 3+/5 bilaterally, knee extension 4+/5 bilaterally, dorsiflexion, ankle inversion and eversion 4+/[address] Results CBC & Chem 7: 11/28/18 06:34 11/29/18 06:57 Labs: Abnormal Lab Results - Last 24 Hours (Table) 11/29/18 Range/Units 06:57 Potassium 3.4 L (3.5-5.1) mmol/L Chloride 109 H (98-107) mmol/L BUN 4 L (7-17) mg/dL Assessment and Plan Plan: With patient's history of lymphoma, recent onset of feeling ill with nausea and vomiting with worsening thoracic pain we'll obtain MRI of the thoracic spine to assess for possible occult epidural abscess. If imaging is negative with the exception of degenerative changes patient should be discharged to home and can follow-up in the office for further evaluation and management of pain complaints. Will start her on Marinol for nausea vomiting and pain. Can continue to use sublingual Zofran to help manage nausea. Continue methadone 5 mg 3 times daily. Time with Patient: Greater than 30
[2018-11-29] MEDS: DRONABINOL 2.5 MG CAP PO SCH (21:27)
[2018-11-29] MEDS: clonazePAM 1 MG TAB PO SCH (21:29)
--- NOTE | 2018-11-29 23:09 | P.PN ---
Subjective Progress Note Date: 11/29/18 Principal diagnosis: Nausea and vomiting, abdominal pain, chronic pain syndrome Patient seen lying in bed. She has tolerated her liquid diet and is asking for advancement. Objective - Vital Signs Vital signs: Vital Signs Temp 98.1 F 11/29/18 20:50 Pulse 74 11/29/18 20:50 Resp 16 11/29/18 20:50 BP 124/80 11/29/18 20:50 Pulse Ox 94 L 11/29/18 20:50 Intake & Output 11/29/18 11/29/18 11/30/18 06:59 18:59 06:59 Intake Total 540 Balance 540 Intake: Oral 540 Other: Voiding Method Toilet # Voids 3 3 1 # Bowel Movements 0 - Exam On physical examination, patient appears comfortable in no apparent distress. HEAD: Normocephalic, atraumatic. EYES: No scleral icterus. No conjunctival injection. MOUTH: No lesions, tongue midline. NECK: Trachea midline, no gross abnormalities. CHEST: Clear to auscultation with no wheezing or rhonchi appreciated. HEART: Regular rate and rhythm. ABDOMEN: Soft, diffusely tender to palpation. Bowel sounds are positive. No organomegaly. No guarding or rigidity. EXTREMITIES: No pedal edema. SKIN: No rashes, no jaundice. NEUROLOGIC: Alert and oriented x3. No focal deficits. - Labs CBC & Chem 7: 11/28/18 06:34 11/29/18 06:57 Labs: Abnormal Lab Results - Last 24 Hours (Table) 11/29/18 Range/Units 06:57 Potassium 3.4 L (3.5-5.1) mmol/L Chloride 109 H (98-107) mmol/L BUN 4 L (7-17) mg/dL Assessment and Plan (1) Nausea & vomiting Narrative/Plan: 53-year-old female with multiple medical comorbidities who presents to the hospital with complaints of nausea, vomiting and dry heaving with associated abdominal pain. The patient reports that symptoms have been present for months and that she underwent evaluation with EGD and colonoscopy in May which were normal. She has a history of chronic pain syndrome and reports that the pain is exacerbated by the nausea and vomiting. Unclear etiology, with differential including functional pain, with gastritis, esophagitis, peptic ulcer disease less likely given patient's endoscopic evaluation in the past. Given the patient's narcotic use, narcotic-induced gastroparesis is also a distinct possibility as a contributor to her continued symptoms. Current Visit: No Status: Acute Code(s): R11.2 - NAUSEA WITH VOMITING, UNSPECIFIED SNOMED Code(s): 83626469 (2) Chronic pain syndrome Current Visit: Yes Status: Acute Code(s): G89.4 - CHRONIC PAIN SYNDROME SNOMED Code(s): 089933418 (3) Anxiety and depression Current Visit: No Status: Acute Code(s): F41.9 - ANXIETY DISORDER, UNSPECIFIED; F32.9 - MAJOR DEPRESSIVE DISORDER, SINGLE EPISODE, UNSPECIFIED SNOMED Code(s): 074897852 Plan: Supportive care Okay for diet as tolerated Continue antiemetics, Zofran added [id number] Protonix 40 mg twice daily IV Continue pain management Continue to monitor symptoms Low fiber, low-fat diet for improved gastric emptying discussed with the patient today Okay for discharge from gastroenterology standpoint Thank you for allowing us to participate in the care of the patient, the GI service will stand by, please call us back with any questions or concerns
[2018-11-30] MEDS: ONDANSETRON 4 MG TAB PO SCH ×2 (00:07→07:40)
[2018-11-30 05:43] VITALS: BP 117/71; PULSE 91; RESP 14; TEMP 98.7
[2018-11-30] MEDS: NICOTINE 21MG/24HR PATCH TRANSDERM SCH (07:40)
[2018-11-30] MEDS: predniSONE 10 MG TAB PO SCH (07:40)
[2018-11-30] MEDS: MAGNESIUM OXIDE 400 MG TAB PO SCH (07:40)
[2018-11-30] MEDS: amLODIPine 5 MG TAB PO SCH (07:40)
[2018-11-30] MEDS: SERTRALINE 100 MG TAB PO SCH (07:41)
[2018-11-30] MEDS: DRONABINOL 2.5 MG CAP PO SCH (07:41)
[2018-11-30] MEDS: METHADONE 5 MG TAB PO SCH (07:41)
[2018-11-30] MEDS: clonazePAM 0.5 MG TAB PO SCH (07:42)
[2018-11-30] MEDS: PANTOPRAZOLE 40 MG/10 ML VIAL IVP SCH (07:42)
[2018-11-30] MEDS ORDERED: DIVALPROEX ER 250 MG TAB.ER.24H PO SCH (09:00)
--- NOTE | 2018-11-30 09:17 | MR ---
MR thoracic spine with and without contrast HISTORY: Assess for epidural abscess, back pain multiplanar multisequence and postcontrast images obtained through the thoracic spine following 6 cc Gadavist IV. Correlation CT chest 11/25/2018, plain film cervical spine 01/06/2018 There is a spinal curvature present. Multilevel spondylosis is present. Loss of disc height and signa l present at the intervertebral levels compatible disc desiccation and degenerative disc disease, the re is endplate discogenic marrow signal change present at multiple levels. No significant foraminal e ncroachment noted. No abnormal enhancement following contrast administration. Thoracic cord signal is normal. T2-3 shows a left posterior paracentral disc herniation causing anterolateral mass effect on the thec al sac. There is posterior lateral extension of endplate disc complex towards the left. T3-4 shows a central posterior disc herniation, there is mass effect on the anterior thoracic cord. N o significant spectral stenosis however. No foraminal encroachment. T4-5: There is a posterior central disc herniation causing deformity of the anterior thoracic cord bu t no significant central stenosis. No definite foraminal encroachment. T5-6 shows a small posterior central disc herniation also contacting the anterior thoracic cord with some deformity. No central stenosis or foraminal encroachment. T6-7 shows a right posterior paracentral extension of endplate disc complex causing minimal anterior mass effect on the thecal sac. No significant foraminal encroachment or central stenosis. T7-8 shows a small posterior central disc herniation causing minimal anterior mass effect on the thec al sac, possibly contacting the anterior thoracic cord. Suspect there may be some mild left-sided for aminal encroachment. T8-9 shows a small disc bulge, no significant central stenosis. T9-T10 shows a small posterior central disc bulge, no significant central stenosis or foraminal encro achment T10-11 shows a right posterior paracentral disc bulge causing slight anterior lateral mass effect on the thecal sac. No significant central stenosis. There is some facet arthropathy change. T11-12 shows facet arthropathy change. No central stenosis. Minimal left pleural effusion, basilar atelectasis is noted bilaterally. Thoracic vertebral bodies sh ow preserved height. Small T2 bright foci noted within the liver on axial image 4 are subcentimeter i n size and may represent small hemangiomas. IMPRESSION: Multilevel degenerative disc disease with mass effect on the upper thoracic cord as descr ibed.. No evident epidural abscess.
[2018-11-30] MEDS ORDERED: methylPREDNISolone 4 MG TAB TAPER PO SCH (11:00)
--- NOTE | 2018-11-30 11:01 | P.PN ---
Progress Note - Text Progress Note Date: 11/30/18 SUBJECTIVE/INTERVAL EVENTS: No acute overnight events. patient states that her headache improved to a 3/10 pain last night, today, when she woke up, it was about 8/10 pain again but improved to a 6/10 during eval. PHYSICAL EXAMINATION: VITAL SIGNS: T 98.7 HR 91 RR 14 BP 117/71 O2 sat 95% on RA GEN.: in distress from back pain, with intermittent dystonic movements of her bilateral hands particularly HEENT: NCAT, sclera without icterus NECK: Supple SKIN AND EXTREMITIES: Warm to touch, no edema NEURO: MENTAL STATUS: Patient alert and oriented to self, place, time. Able to name the current president. Speech fluent, able to name and repeat, following all commands readily. No right and left disorientation, extinction to double simultaneous stimulation, finger agnosia, neglect. CRANIAL NERVES II THROUGH XII: II: Very sensitive to light, pupils equal and round bilaterally III, IV, : No ptosis. Extraocular movements full. No nystagmus. V: Facial sensation intact from V1-3. VII. No clear facial asymmetry. VIII: Hearing intact to finger rub bilaterally. IX, X: Symmetric palate elevation. XI: Shoulder shrug intact. XII: Tongue midline without fasciculation or atrophy. MOTOR: Normal bulk/tone. No pronator drift or tremor. Strength is 4+/5 throughout all 4 extremities. SENSORY: Decreased sensation light touch in all 4 extremities (present since she started having issues with pain) REFLEXES: Brisk throughout. Toes are downgoing. No clonus. Shahnaz's is absent COORDINATION: Finger to nose intact. No dysmetria. GAIT: deferred DIAGNOSTIC TESTING: LABORATORY: 11/28/18: WBC 7.5 Hgb 13.0 Plt 193 Na 142 K 3.2 Cl 108 Bicarb 29 BUN 3 Cr 0.64 Glucose 96 11/27/18: AST 22 ALT 15 AlkPhos 75 Ammonia <9 Urinalysis 1+ ketone UTOx positive for opiate, methadone and THC IMAGING: EEG 11/26/2018: Normal EEG. No epileptiform activity was present. No seizures were recorded. EKG 11/27/2018: Normal sinus rhythm. CT Head w/o contrast 11/25/2018: No acute intracranial abnormality seen MRI brain w/ and w/o contrast 08/12/18: Mild scattered burden of bright white matter change, nonspecific, likely relating to early changes of chronic small vessel ischemic disease. No acute intracranial abnormality. No enhancing intracranial lesions. ASSESSMENT: Ms. White is a 53 year-old woman with PMHx of TIA (speech difficulties, multiple times), osteoarthritis, complex regional pain syndrome, melanoma, Non- hodgkins lymphoma, bilateral hand carpal tunnel syndrome presenting with pain attack that got worse last night, consulting Neurology for altered mental status. Patient has returned to her baseline mental status. Her intermittent changes in mental status along with extreme pain difficult to assess. Unusual that her HR was on the lower side when patient is writhing in pain. Patient also reporting significant photophobia along with 5-6/10 headache, patient with history of migraine. It appears that patient is having more of a status migrainosus. Depakote has helped her with her headache during her last admission. RECOMMENDATIONS: 1. c/w Depakote ER 750mg qday 2. s/p Dexamethasone 10mg IV x1. discontinue prednisone 40mg qday; will give medrol-dose pack. Discussed with patient about long-term effects of chronic steroid use 3. MgOx 400mg BID for migraine prophylaxis 4. Will start amitryptiline 10mg qhs. Patient is on sertraline at this time for depression. Discussed side effects such as heart palpitations, urinary retention, constipation, dry mouth. Patient lay discontinue the medication if she has any of these symptoms. Can increase to 20mg after 5 days of 10mg if no side effects (20mg is still a very low dose but starting slow as patient on many meds, including SSRi) 5. Limit breathing treatment as it seems to worsen her headache (theoretically, albuterol causing headaches is understandable, but unsure of ipratropium causing headache) 6. Limit opioid/NSAID use as it can cause rebound headaches 7. Neurology will sign off at this time. Please feel free to contact Neurology again if with additional questions or concerns.
--- NOTE | 2018-11-30 11:41 | P.DS ---
Providers Date of admission: 11/29/18 16:48 Expected date of discharge: 11/30/18 Attending physician: Leslie Vieira MD Consults: 11/27/18 10:44 Consult Physician Urgent Consulting Provider: Oscar Kelly Consult Reason/Comments: Chronic pain syndrome Do you want consulting provider notified?: Yes 11/28/18 14:01 Consult Physician Routine Consulting Provider: Hamida Melgar Consult Reason/Comments: NPH? AM headache and vomiting Do you want consulting provider notified?: Yes, Notify in am Primary care physician: Joe Jalloh [facility] Course: Discharge Diagnosis: Intractable nausea and vomiting probable gastroenteritis Intractable pain associated with complex regional pain syndrome Intractable headache History of lymphoma Hypokalemia Anxiety/Depression Hypomagnesemia Hospital Course: Patient is a 53 yo CF with a past medical history of Complex regional pain syndrome, non-Hodgkin's lymphoma (2 different types followed at [facility], not on active therapy but continues to follow with surveillance monitoring), prior melanoma status post excision, prior TIA, prior syncopal events, and depression and anxiety who presented to the emergency department with complaints of nausea, vomiting, and intractable pain. She was recently admitted from 11/21 through 11/23 for altered mentation and intractable pain. She then represented and was admitted from 11/25-11/26 due to intractable nausea, vomiting, and pain. During those admissions he was seen by neurology who felt that she likely had migraine-type headache and suggested 500 mg of Depakote, CT brain was showing no acute process, EEG was normal. She was also seen by her outpatient pain management physician who felt that the nausea and vomiting was exacerbating her complex regional pain syndrome. They suggest transitioning back to orals for her methadone when able, continuing of IV fluids to help with hydration, and possible addition of Marinol for her nausea, vomiting, and to increase appetite. She was discharged home with prescriptions for Depakote, prednisone to help with the nausea and vomiting, albuterol, and Norvasc for blo od pressure control- has filled but not taken due to repeat hospital stay. In the emergency department she was noted to have an elevated white blood cell count at 12.8, potassium 3.1, lactic acid 2.6, and urine was positive for THC and opiates. She was started on IVF, IV dilaudid, and antiemetics. GI was consulted who added IV PPI. She had some improvement in her symptoms. She was seen by neurology for probable normal pressure hydrocephalus. They felt more consistent with intractable headace and increased Depakote and one dose of Decadron. They recommended continuing steroid therapy therapy. She was able to tolerate a diet and stopped vomiting this morning of 11/29. She had a MRI thorasic spine which showed multilevel degenerative changes with some mass effect on the upper thoracic cord as described. Patient seen and examined at bedside. Vomiting resolved, abd pain better, headache better. Will follow-up with PCP and Pain management. Vital signs reviewed and stable. General: non toxic, no distress, appears at stated age Derm: warm, dry Head: atraumatic, normocephalic, symmetric Eyes: EOMI, no lid lag, anicteric sclera Mouth: no lip lesion, mucus membranes moist Cardiovascular: S1S2 reg, no murmur, positive posterior tibial pulse bilateral, Lungs: CTA bilateral, no rhonchi, no rales , no accessory muscle use Abdominal: soft, nontender to palpation, no guarding, no appreciable organomegaly Ext: no gross muscle atrophy, no edema, no contractures Neuro: CN II-XI grossly intact, no focal neuro deficits Psych: Alert, oriented, appropriate affect A total of 35 minutes of time were spent preparing this complex discharge summary . Patient Condition at Discharge: Stable Plan - Discharge Summary Discharge Rx Participant: No New Discharge Prescriptions: New Divalproex ER [Depakote ER] 750 mg PO DAILY #30 tab.er.24h Magnesium Oxide [Mag-Ox] 400 mg PO BID #60 tab Dronabinol [Marinol] 2.5 mg PO AC-BID #10 cap Pantoprazole [Protonix] 40 mg PO DAILY #30 tablet.dr Continue tiZANidine [Zanaflex] 4 - 8 mg PO Q6H Methadone [Dolophine] 5 mg PO TID clonazePAM [KlonoPIN] 0.5 mg PO QAM clonazePAM 1 mg PO HS Sertraline [Zoloft] 100 mg PO DAILY predniSONE 10 mg PO DAILY #30 tab Albuterol Inhaler [Ventolin Hfa Inhaler] 1 - 2 puff INHALATION RT-Q6H PRN #1 inhaler PRN Reason: Wheezing amLODIPine [Norvasc] 5 mg PO BID #60 tab Ipratropium [place] [Atrovent Hfa] 2 puff INHALATION RT-TID Discontinued Divalproex ER [Depakote ER] 500 mg PO DAILY #21 tab.er.24h Discharge Medication List Methadone [Dolophine] 5 mg PO TID 12/30/17 [History] clonazePAM [KlonoPIN] 0.5 mg PO QAM 12/30/17 [History] tiZANidine [Zanaflex] 4 - 8 mg PO Q6H 12/30/17 [History] clonazePAM 1 mg PO HS 06/09/18 [History] Sertraline [Zoloft] 100 mg PO DAILY 11/21/18 [History] Albuterol Inhaler [Ventolin Hfa Inhaler] 1 - 2 puff INHALATION RT-Q6H PRN #1 inhaler 11/23/18 [Rx] amLODIPine [Norvasc] 5 mg PO BID #60 tab 11/23/18 [Rx] predniSONE 10 mg PO DAILY #30 tab 11/23/18 [Rx] Ipratropium [place] [Atrovent Hfa] 2 puff INHALATION RT-TID 11/27/18 [History] Divalproex ER [Depakote ER] 750 mg PO DAILY #30 tab.er.24h 11/30/18 [Rx] Dronabinol [Marinol] 2.5 mg PO AC-BID #10 cap 11/30/18 [Rx] Magnesium Oxide [Mag-Ox] 400 mg PO BID #60 tab 11/30/18 [Rx] Pantoprazole [Protonix] 40 mg PO DAILY #30 tablet. 11/30/18 [Rx] Follow up Appointment(s)/Referral(s): Joe Jalloh MD [Primary Care Provider] - 1-2 days sOcar Kelly DO [Doctor of Osteopathic Medicine] - 1-2 Days Activity/Diet/Wound Care/Special Instructions: Activity: as tolerated Diet: regular Special Instructions: take medications as prescribed
[2018-11-30] MEDS ORDERED: AMITRIPTYLINE HCL 10 MG TAB PO SCH (21:00)
--- NOTE | 2018-12-06 15:36 | CDI ---
Documentation Clarification Form Date: 12/06/18 From: Frida Dugan Phone: If you have a question regarding this query, please contact Kathleen Jeff at [phone] between 8am and 5pm. Admit Date: 11/29/2018 4:48:00 PM Patient Name: Tere White Visit Number: [id number] Discharge Date: 11/30/2018 12:40:00 PM ATTENTION: The Clinical Documentation Specialists (CDI) and [facility] Coding Staff appreciate your assistance in clarifying documentation. Please respond to the clarification below the line at the bottom and electronically sign. The CDI & [facility] Coding staff will review the response and follow-up if needed. Please note: Queries are made part of the Legal Health Record. If you have any questions, please contact the author of this message via ITS. Dr. Blanca Ch The patient presented with pain and nausea. Documentation in the discharge summary stated intractable pain associated with complex regional pain syndrome. History/Risk Factors: Complex regional pain syndrome Clinical Indicators: Intractable pain Radiology findings: Thoracic spine: multilevel degenerative disc disease with mass effect on the upper thoracic cord. No evident epidural abscess. Vital Signs: T. 98.0, P. 73, R. 16, BP 118/84 Treatment: IV Dilaudid, IV Decadron In your professional opinion, can you please clarify the type of complex regional pain syndrome? Type I Type II Other, please specify Unable to determine Unable to determine, diagnosed prior to admission MTDD
== END 2018-11-30 12:40 | disposition home or self-care (01) | DRG 392 ==
LOC: EC 08:08 → 4MS4W 10:44 → OBSVTOIN 11-29 16:48
PROVIDERS: ADMIT Family Medicine; ATTEND Family Medicine
DX: K52.9 Noninfective gastroenteritis and colitis, unspecified (principal); E83.42 Hypomagnesemia; K31.84 Gastroparesis; G89.4 Chronic pain syndrome; E87.6 Hypokalemia; R41.82 Altered mental status, unspecified; F17.210 Nicotine dependence, cigarettes, uncomplicated; F32.9 Major depressive disorder, single episode, unspecified; F41.9 Anxiety disorder, unspecified; G43.901 Migraine, unspecified, not intractable, with status migrainosus; T40.2X5A Adverse effect of other opioids, initial encounter; M79.7 Fibromyalgia; G56.02 Carpal tunnel syndrome, left upper limb; M19.90 Unspecified osteoarthritis, unspecified site; R91.1 Solitary pulmonary nodule; J44.9 Chronic obstructive pulmonary disease, unspecified; Z85.72 Personal history of non-Hodgkin lymphomas; Z79.899 Other long term (current) drug therapy; Z79.52 Long term (current) use of systemic steroids; Z85.820 Personal history of malignant melanoma of skin; Z86.73 Personal history of transient ischemic attack (TIA), and cerebral infarction without residual deficits; Z90.710 Acquired absence of both cervix and uterus; Z98.51 Tubal ligation status; Z92.21 Personal history of antineoplastic chemotherapy; Z96.692 Finger-joint replacement of left hand
CPT/HCPCS: 36415; 72157; 80048; 80053; 80306; 81003; 82150; 83605; 83690; 83735; 85025; 85027; 93005; 94640; 96361; 96374; 96375; 96376; 99285

== ENCOUNTER → 2020-06-19 | Outpatient (CLI) | payer MEDICARE ==
--- NOTE | 2020-06-19 21:36 | CT ---
EXAMINATION TYPE: CT brain wo con DATE OF EXAM: 06/19/2020 HISTORY: headaches, dizziness, memory loss, confusion, abnormal weight loss. History of lymphoma. CT DLP: 1047.1 mGycm. Automated Exposure Control for Dose Reduction was Utilized. TECHNIQUE: CT scan of the head is performed without contrast. COMPARISON: CT brain November 17, 2019. FINDINGS: There is no acute intracranial hemorrhage or midline shift identified. There is mild diff use ventricular and sulcal prominence consistent with diffuse age-related cerebral atrophy. Roca-whit e matter differentiation is maintained. The globes are intact and the visualized sinuses are clear. IMPRESSION: No acute intracranial hemorrhage or midline shift. There is mild diffuse age-related ce rebral atrophy redemonstrated. No significant change from prior.
--- NOTE | 2020-06-20 07:48 | CT ---
EXAMINATION TYPE: CT soft tissue neck wo con DATE OF EXAM: 06/19/2020 HISTORY: c/o swollen lymph nodes, hx of lymphoma, abnormal weight loss. COMPARISON: NONE CT DLP: 236.4 mGycm. Automated Exposure Control for Dose Reduction was Utilized. TECHNIQUE: CT scan of the neck is performed without IV contrast, axial images are obtained, coronal and sagittal reformatted images are reviewed. FINDINGS: Lack of IV contrast is noted to lower sensitivity for evaluating for mucosal masses and nec k adenopathy. Airway: No gross abnormality seen. Parotid/submandibular glands: No gross abnormality seen. Carotid/Vascular Structures: No significant focal calcified plaque. Osseous Structures: Reversal of normal cervical curvature centered at C4-C5 level. There is anterior fusion plate and artificial disc material C5-C7 levels . There is dextroconvex scoliosis centered in the lower cervical spine. Anterior spurring effaces the anterior thecal sac C5-C7 levels as site of p rior surgery. Multilevel uncovertebral facet degenerative changes in cervical spine noted on axial im ages. Other: No abnormal greater than 1 cm neck lymph nodes. IMPRESSION: 1. Suboptimal study, no obvious suspicious mass or greater than 1 cm neck adenopathy.
--- NOTE | 2020-06-20 08:00 | CT ---
EXAMINATION TYPE: CT ChestAbdPelvis w con DATE OF EXAM: 06/19/2020 COMPARISON: CT CAP dated 11/25/2018. HISTORY: c/o body aches, weight loss, hx of lymphoma CT DLP: 457.1 mGycm. Automated Exposure Control for Dose Reduction was Utilized. CONTRAST: CT scan of the thorax, abdomen and pelvis is performed with oral and with IV Contrast, patient inject ed with 100 mL of Isovue 300. FINDINGS: LUNGS: Dependent atelectasis in bilateral lower lungs otherwise lungs remain clear. No suspicious ne w or enlarging greater than 5 mm nodules or masses. There is no pleural effusion or pneumothorax seen . The tracheobronchial tree is patent. MEDIASTINUM: There are no greater than 1 cm hilar or mediastinal lymph nodes. No cardiomegaly is se en. Tiny pericardial effusion is stable. OTHER: Extremely dense fibroglandular tissue with occasional punctate calcification in bilateral bari sts is present. LIVER/GB: No significant abnormality is appreciated. PANCREAS: Mild prominence distal body and tail redemonstrated. No surrounding fat stranding noted. SPLEEN: No significant abnormality is seen. ADRENALS: No significant abnormality is seen. KIDNEYS: No significant abnormality is seen. BOWEL: Slightly prominent jejunal loops in the left abdomen with poor contrast opacification, moderat e concentric wall thickening flow present. No suspicious small or large bowel dilatation noted. Patie nt has little intra-abdominal fat. Improved distention of stomach on current study. GENITAL ORGANS: Uterus is surgically absent. Occasional scattered bilateral pelvic phleboliths. LYMPH NODES: No new greater than 1cm abdominal or pelvic lymph nodes are appreciated. Few prominent b ut subcentimeter lymph nodes throughout the left-sided retroperitoneum mid abdominal level OSSEOUS STRUCTURES: Facet arthropathy lower lumbar levels. Slight scoliotic curvature. OTHER: Mild atherosclerotic change of aorta extends into branch vessels. IMPRESSION: Poor distention of jejunal loops in the left abdomen with prominence of these loops conta ining suspected moderate concentric wall thickening. Consider underlying enteritis, infiltrative patt plasm such as lymphoma are not entirely excluded though findings over a fairly long segment making th is unlikely. No obvious greater than 1 cm adenopathy or additional new suspicious mass on this study seen.
== END | disposition home or self-care (01) ==
LOC: RADCTMAIN 17:11
PROVIDERS: ATTEND Family Medicine
DX: G31.9 Degenerative disease of nervous system, unspecified (principal); Z85.72 Personal history of non-Hodgkin lymphomas
CPT/HCPCS: 70490; 70450; 71260; 74177; Q9967

== ENCOUNTER 2020-07-21 19:10 | Inpatient (IN) | payer MEDICARE ==
--- NOTE | 2020-07-21 19:45 | ED ---
General Adult HPI - General Chief complaint: Chest Pain Stated complaint: Bradycardia Time Seen by Provider: 07/21/20 19:12 Source: patient, family, RN notes reviewed Mode of arrival: wheelchair Limitations: no limitations - History of Present Illness Initial comments: Patient is a pleasant 55-year-old female presenting to the emergency department with concern for cardiac pause. Patient has Holter monitor on and was called by her doctor stating that there was a 14 second pause. Patient states she was actually told there is more than an episode. Patient does feel that she has had episodes of slowing of her heart rate. Patient has been very fatigued over the past week or more. Patient has mild pressure in her chest. No dyspnea. No isolated area of weakness. - Related Data Home Medications Medication Instructions Recorded Confirmed Methadone [Dolophine] 5 mg PO TID PRN 12/30/17 07/21/20 clonazePAM [KlonoPIN] 0.5 mg PO TID PRN 12/30/17 07/21/20 tiZANidine [Zanaflex] 4 - 8 mg PO TID PRN 12/30/17 07/21/20 Sertraline [Zoloft] 100 mg PO DAILY 11/21/18 07/21/20 Ibuprofen [Motrin Ib] 400 mg PO Q8H PRN 07/21/20 07/21/20 traZODone HCL 150 mg PO HS 07/21/20 07/21/20 Allergies Allergy/AdvReac Type Severity Reaction Status Date / Time No Known Allergies Allergy Verified 07/21/20 20:17 Review of Systems ROS Statement: Those systems with pertinent positive or pertinent negative responses have been documented in the HPI. ROS Other: All systems not noted in ROS Statement are negative. Constitutional: Denies: fever Eyes: Denies: eye pain ENT: Denies: ear pain Respiratory: Denies: cough Cardiovascular: Reports: as per HPI, chest pain, palpitations Endocrine: Reports: fatigue Gastrointestinal: Denies: abdominal pain Genitourinary: Denies: dysuria Musculoskeletal: Denies: back pain Skin: Denies: rash Neurological: Denies: weakness Past Medical History Past Medical History: Cancer, CVA/TIA, Fibromyalgia, Osteoarthritis (OA) Additional Past Medical History / Comment(s): Pt recently admitted to [facility] on 11/21/18 with exacerbation of COPD (spouse states he and pt unaware she had this), Mobitz second-degree type I. 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 History of Any Multi-Drug Resistant Organisms: None Reported Past Surgical History: Section, Hysterectomy, Orthopedic Surgery, Tubal Ligation Additional Past Surgical History / Comment(s): MELANOMA SURGERY WITH WIDE EXCISION AND LYMPH NODES REMOVED LEFT THIGH (2011), CYST ON BACK., PAIN PROCEDURES., RIGHT CARPAL TUNNEL RELEASE, RIGHT THUMB JOINT REPLACEMENT, COLONOSCOPY, D&C. Past Anesthesia/Blood Transfusion Reactions: No Reported Reaction, Family Hist ory of Problems w/ Anesthesia Additional Past Anesthesia/Blood Transfusion Reaction / Comment(s): MOTHER AND SON = PONV Past Psychological History: Anxiety, Depression Smoking Status: Former smoker Past Alcohol Use History: None Reported Past Drug Use History: Marijuana - Past Family History Mother Family Medical History: No Reported History Father Family Medical History: AFIB, Hyperlipidemia, Hypertension, Sleep Apnea/CPAP/BIPAP Additional Family Medical History / Comment(s): Gout General Exam Limitations: no limitations General appearance: alert, in no apparent distress Head exam: Present: normocephalic Eye exam: Present: normal appearance Neck exam: Present: normal inspection Respiratory exam: Present: normal lung sounds bilaterally Cardiovascular Exam: Present: regular rate, normal rhythm Expanded Peripheral pulses: 2+: Radial (R), Radial (L), Dorsalis Pedis (R), Dorsalis Pedis (L) GI/Abdominal exam: Present: soft. Absent: tenderness Extremities exam: Present: normal inspection. Absent: pedal edema, calf tenderness Neurological exam: Present: alert Psychiatric exam: Present: normal affect, normal mood Skin exam: Present: normal color Course Vital Signs 07/21/20 19:14 Temperature 97.9 F Pulse Rate 77 Respiratory 20 Rate Blood Pressure 107/67 O2 Sat by Pulse 95 Oximetry EKG Findings - EKG Comments: EKG Findings:: Sinus rhythm with a rate of 65. For screening AV block MS of 242. Normal axis. No acute ST change. Septal Q waves. QT 388. QTC 403. Medical Decision Making - Medical Decision Making Patient reevaluated. Patient and family updated Case was discussed with - Lab Data Result diagrams: 07/21/20 19:40 07/21/20 19:40 Lab Results 07/21/20 07/21/20 07/21/20 Range/Units 19:40 19:40 19:40 WBC 6.9 (3.8-10.6) k/uL RBC 4.08 (3.80-5.40) m/uL Hgb 13.5 (11.4-16.0) gm/dL Hct 40.2 (34.0-46.0) % MCV 98.5 (80.0-100.0) fL MCH 33.1 (25.0-35.0) pg MCHC 33.6 (31.0-37.0) g/dL RDW 12.7 (11.5-15.5) % Plt Count 141 L (150-450) k/uL MPV 8.9 Neutrophils % 59 % Lymphocytes % 35 % Monocytes % 5 % Eosinophils % 1 % Basophils % 0 % Neutrophils # 4.0 (1.3-7.7) k/uL Lymphocytes # 2.4 (1.0-4.8) k/uL Monocytes # 0.3 (0-1.0) k/uL Eosinophils # 0.1 (0-0.7) k/uL Basophils # 0.0 (0-0.2) k/uL PT 11.2 (9.0-12.0) sec INR 1.1 (<1.2) APTT 27.1 (22.0-30.0) sec Sodium 140 (137-145) mmol/L Potassium 3.8 (3.5-5.1) mmol/L Chloride 105 (98-107) mmol/L Carbon Dioxide 29 (22-30) mmol/L Anion Gap 6 mmol/L BUN 13 (7-17) mg/dL Creatinine 0.92 (0.52-1.04) mg/dL Est GFR (CKD-EPI)AfAm 81 (>60 ml/min/1.73 sqM) Est GFR (CKD-EPI)NonAf 70 (>60 ml/min/1.73 sqM) Glucose 100 H (74-99) mg/dL Calcium 9.3 (8.4-10.2) mg/dL Magnesium 1.8 (1.6-2.3) mg/dL Total Bilirubin 0.2 (0.2-1.3) mg/dL AST 24 (14-36) U/L ALT 16 (4-34) U/L Alkaline Phosphatase 58 (38-126) U/L Troponin I (0.000-0.034) ng/mL Total Protein 6.2 L (6.3-8.2) g/dL Albumin 4.1 (3.5-5.0) g/dL TSH 0.980 (0.465-4.680) mIU/L Free T4 1.25 (0.78-2.19) ng/dL Free T3 pg/mL 4.4 (2.8-5.3) pg/ml 07/21/20 Range/Units 19:40 WBC (3.8-10.6) k/uL RBC (3.80-5.40) m/uL Hgb (11.4-16.0) gm/dL Hct (34.0-46.0) % MCV (80.0-100.0) fL MCH (25.0-35.0) pg MCHC (31.0-37.0) g/dL RDW (11.5-15.5) % Plt Count (150-450) k/uL MPV Neutrophils % % Lymphocytes % % Monocytes % % Eosinophils % % Basophils % % Neutrophils # (1.3-7.7) k/uL Lymphocytes # (1.0-4.8) k/uL Monocytes # (0-1.0) k/uL Eosinophils # (0-0.7) k/uL Basophils # (0-0.2) k/uL PT (9.0-12.0) sec INR (<1.2) APTT (22.0-30.0) sec Sodium (137-145) mmol/L Potassium (3.5-5.1) mmol/L Chloride (98-107) mmol/L Carbon Dioxide (22-30) mmol/L Anion Gap mmol/L BUN (7-17) mg/dL Creatinine (0.52-1.04) mg/dL Est GFR (CKD-EPI)AfAm (>60 ml/min/1.73 sqM) Est GFR (CKD-EPI)NonAf (>60 ml/min/1.73 sqM) Glucose (74-99) mg/dL Calcium (8.4-10.2) mg/dL Magnesium (1.6-2.3) mg/dL Total Bilirubin (0.2-1.3) mg/dL AST (14-36) U/L ALT (4-34) U/L Alkaline Phosphatase (38-126) U/L Troponin I <0.012 (0.000-0.034) ng/mL Total Protein (6.3-8.2) g/dL Albumin (3.5-5.0) g/dL TSH (0.465-4.680) mIU/L Free T4 (0.78-2.19) ng/dL Free T3 pg/mL (2.8-5.3) pg/ml - Radiology Data Radiology results: image reviewed ( x-ray shows no acute process.) Disposition Clinical Impression: Bradycardia Disposition: ADMITTED IP TO THIS [facility] Condition: Serious Is patient prescribed a controlled substance at d/c from ED?: No Referrals: Joe Jalloh MD [Primary Care Provider] - 1-2 days Decision Time: 20:21
[2020-07-21 19:49] LABS: Basophils % (A) 0 %; Eosinophils # (A) 0.1 k/uL (0-0.7); Eosinophils % (A) 1 %; HCT 40.2 % (34.0-46.0); HGB 13.5 gm/dL (11.4-16.0); Lymphocytes # (A) 2.4 k/uL (1.0-4.8); Lymphocytes % (A) 35 %; MCH 33.1 pg (25.0-35.0); MCHC 33.6 g/dL (31.0-37.0); MCV 98.5 fL (80.0-100.0); Mean Platelet Volume 8.9; Monocytes # (A) 0.3 k/uL (0-1.0); Monocytes % (A) 5 %; Neutrophils % (A) 59 %; Platelet Count 141 k/uL (150-450); RBC 4.08 m/uL (3.80-5.40); RDW 12.7 % (11.5-15.5); WBC 6.9 k/uL (3.8-10.6)
[2020-07-21 19:59] LABS: Albumin 4.1 g/dL (3.5-5.0); Calcium 9.3 mg/dL (8.4-10.2); Magnesium 1.8 mg/dL (1.6-2.3); Potassium 3.8 mmol/L (3.5-5.1); Total Bilirubin 0.2 mg/dL (0.2-1.3); Total Protein 6.2 g/dL (6.3-8.2)
[2020-07-21 20:02] LABS: INR 1.1 (<1.2); Partial Thromboplastin Time 27.1 sec (22.0-30.0); Prothrombin Time 11.2 sec (9.0-12.0)
--- NOTE | 2020-07-21 20:11 | XR ---
EXAMINATION TYPE: XR chest 1V portable DATE OF EXAM: 07/21/2020 COMPARISON: 11/17/2019 HISTORY: Altered mental status TECHNIQUE: Single view FINDINGS: Heart and mediastinum are normal. Lungs are clear. There is mild flattening of the diaphrag m. Bony thorax is intact. There are chest leads. IMPRESSION: No active cardiopulmonary disease. There is probably some COPD. No change.
[2020-07-21 20:16] LABS: T4, Free (Free Thyroxine) 1.25 ng/dL (0.78-2.19)
[2020-07-21] MEDS ORDERED: NALOXONE 0.4 MG/ML 1 ML VIAL IV PRN (20:21)
[2020-07-21] MEDS ORDERED: SODIUM CHLORIDE 0.9% 1,000 ML IV SCH (20:30)
[2020-07-21] MEDS ORDERED: ACETAMINOPHEN TAB 325 MG TAB PO PRN (22:38)
[2020-07-21] MEDS: tiZANidine 4 MG TAB PO PRN (23:22)
[2020-07-21] MEDS: METHADONE 5 MG TAB PO PRN (23:22)
[2020-07-21] MEDS: clonazePAM 0.5 MG TAB PO PRN (23:23)
[2020-07-21] MEDS: traZODone HCL 50 MG TAB PO SCH (23:23)
[2020-07-22] MEDS: METHADONE 5 MG TAB PO PRN ×3 (08:18→22:09)
[2020-07-22] MEDS: SERTRALINE 100 MG TAB PO SCH (08:19)
[2020-07-22] MEDS: tiZANidine 4 MG TAB PO PRN ×3 (08:19→22:09)
[2020-07-22] MEDS: clonazePAM 0.5 MG TAB PO PRN ×3 (08:19→22:09)
--- NOTE | 2020-07-22 13:56 | P.HPCAR ---
History of Present Illness This is Dr. Davis dictating an H/P on this patient The patient was interviewed and examined IMPRESSION / ASSESSMENT: Recurrent paroxysmal AV block with significant pauses and associated dizziness and presyncope Not on any beta blockers/AV node blockers, normal potassium No triggering factors Documented on event monitor PLAN: Proceed with biventricular pacemaker implantation for management of paroxysmal AV block Anticipated RV pacing percentage is high and greater than 50% I will use and ICD lead for the RV Workup for sarcoidosis as an outpatient ESR, CRP, katie level HPI Patient presented to the hospital with recurrent dizzy spells and presyncope ROS: No fever chills or rigors, no cough, phlegm or expectoration, no nausea, vomiting or diarrhea, no hematuria, dysuria, no musculoskeletal complaints, no strokes or seizures, no skin lesions. EXAMINATION: Afebrile 98.4, pulse rate as low as 46 beats a minute Blood pressure 118/75 and 80-45 mmHg Heart sounds S1 and S2 normal no murmurs or gallop or rub Breath sounds are clear no rhonchi or crackles REVIEW OF LABS, ECG & MEDICAL DATA twelve-lead EKG shows prolonged DE interval of 242 ms Event monitor as an outpatient showed paroxysmal AV block with pauses up to 13- 14 seconds Physical Exam Vitals: Vital Signs Temp Pulse Pulse Resp BP BP Pulse Ox 07/22/20 12:18 55 L 109/60 07/22/20 12:00 98.4 F 46 L 16 88/45 96 07/22/20 08:00 98.2 F 70 16 118/75 94 L 07/22/20 04:00 60 18 101/55 95 07/22/20 01:48 58 L 18 07/21/20 23:43 58 L 18 91/44 93 L 07/21/20 21:39 97.7 F 60 18 109/55 97 07/21/20 21:07 58 L 18 104/62 97 07/21/20 19:14 97.9 F 77 20 107/67 95 Intake and Output 07/21/20 07/22/20 07/22/20 22:59 06:59 14:59 Intake Total 275 720 Balance 275 720 Intake: Intake, IV Titration 75 Amount Sodium Chloride 0.9% 1, 75 000 ml @ 20 mls/hr IV . Q24H [facility] Rx#:[id number] Oral 200 720 Other: Voiding Method Toilet # Voids 1 Weight 49.895 kg 52.8 kg Past Medical History Past Medical History: Cancer, CVA/TIA, Fibromyalgia, Osteoarthritis (OA) Additional Past Medical History / Comment(s): Pt recently admitted to [facility] on 11/21/18 with exacerbation of COPD (spouse states he and pt unaware she had this), Mobitz second-degree type I. 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 History of Any Multi-Drug Resistant Organisms: None Reported Past Surgical History: Section, Hysterectomy, Orthopedic Surgery, Tubal Ligation Additional Past Surgical History / Comment(s): MELANOMA SURGERY WITH WIDE EXCISION AND LYMPH NODES REMOVED LEFT THIGH (2011), CYST ON BACK., PAIN PROCEDURES., RIGHT CARPAL TUNNEL RELEASE, RIGHT THUMB JOINT REPLACEMENT, COLONOSCOPY, D&C. Past Anesthesia/Blood Transfusion Reactions: No Reported Reaction, Family History of Problems w/ Anesthesia Additional Past Anesthesia/Blood Transfusion Reaction / Comment(s): MOTHER AND SON = PONV Past Psychological History: Anxiety, Depression Additional Psychological History / Comment(s): PT resides with her spouse. They own a cane and walker but pt is not using any device. She no longer drives, her spouse drives. Smoking Status: Current every day smoker Past Alcohol Use History: None Reported Additional Past Alcohol Use History / Comment(s): SMOKES 1 PPD. SMOKING SINCE 16 YRS OLD. Past Drug Use History: Marijuana - Past Family History Mother Family Medical History: No Reported History Father Family Medical History: AFIB, Hyperlipidemia, Hypertension, Sleep Apnea/CPAP/BI PAP Additional Family Medical History / Comment(s): Gout Physical Examination Vital Signs Temp Pulse Pulse Resp BP BP Pulse Ox 07/22/20 12:18 55 L 109/60 07/22/20 12:00 98.4 F 46 L 16 88/45 96 07/22/20 08:00 98.2 F 70 16 118/75 94 L 07/22/20 04:00 60 18 101/55 95 07/22/20 01:48 58 L 18 07/21/20 23:43 58 L 18 91/44 93 L 07/21/20 21:39 97.7 F 60 18 109/55 97 07/21/20 21:07 58 L 18 104/62 97 07/21/20 19:14 97.9 F 77 20 107/67 95 Intake and Output 07/21/20 07/22/20 07/22/20 22:59 06:59 14:59 Intake Total 275 720 Balance 275 720 Intake: Intake, IV Titration 75 Amount Sodium Chloride 0.9% 1, 75 000 ml @ 20 mls/hr IV . Q24H [facility] Rx#:[id number] Oral 200 720 Other: Voiding Method Toilet # Voids 1 Weight 49.895 kg 52.8 kg Results 07/21/20 19:40 07/21/20 19:40 Cardiac Enzymes 07/21/20 07/21/20 Range/Units 19:40 19:40 AST 24 (14-36) U/L Troponin I <0.012 (0.000-0.034) ng/mL Coagulation 07/21/20 Range/Units 19:40 PT 11.2 (9.0-12.0) sec APTT 27.1 (22.0-30.0) sec CBC 07/21/20 Range/Units 19:40 WBC 6.9 (3.8-10.6) k/uL RBC 4.08 (3.80-5.40) m/uL Hgb 13.5 (11.4-16.0) gm/dL Hct 40.2 (34.0-46.0) % Plt Count 141 L (150-450) k/uL Comprehensive Metabolic Panel 07/21/20 Range/Units 19:40 Sodium 140 (137-145) mmol/L Potassium 3.8 (3.5-5.1) mmol/L Chloride 105 (98-107) mmol/L Carbon Dioxide 29 (22-30) mmol/L BUN 13 (7-17) mg/dL Creatinine 0.92 (0.52-1.04) mg/dL Glucose 100 H (74-99) mg/dL Calcium 9.3 (8.4-10.2) mg/dL AST 24 (14-36) U/L ALT 16 (4-34) U/L Alkaline Phosphatase 58 (38-126) U/L Total Protein 6.2 L (6.3-8.2) g/dL Albumin 4.1 (3.5-5.0) g/dL Current Medications Generic Name Dose Route Start Last Admin Trade Name Freq PRN Reason Stop Dose Admin Acetaminophen 650 mg 07/21/20 22:38 07/21/20 23:22 Acetaminophen Tab 325 Mg Tab PO 650 mg Q6HR PRN Administration Fever and/ or Pain Clonazepam 0.5 mg 07/21/20 22:35 07/22/20 08:19 Clonazepam 0.5 Mg Tab PO 0.5 mg TID PRN Administration Analgesia Sodium Chloride 1,000 mls @ 50 mls/hr 07/23/20 06:00 Saline 0.9% IV .Q20H [facility] Sodium Chloride 1,000 mls @ 50 mls/hr 07/23/20 06:00 Saline 0.9% IV .Q20H [facility] Cefazolin Sodium 2 gm/ Sodium 50 mls @ 100 mls/hr 07/23/20 07:00 Chloride IVPB 07/23/20 23:00 ONCE PRN Pre-Op Cefazolin Sodium 1 gm/ Sodium 250 mls @ 250 mls/hr 07/23/20 07:00 Chloride IRRIGATION 07/23/20 23:00 ONCE PRN PRE-OP Methadone HCl 5 mg 07/21/20 22:36 07/22/20 08:18 Methadone 5 Mg Tab PO 5 mg TID PRN Administration Analgesia Naloxone HCl 0.2 mg 07/21/20 20:21 Naloxone 0.4 Mg/Ml 1 Ml Vial IV Q2M PRN Opioid Reversal Sertraline HCl 100 mg 07/22/20 09:00 07/22/20 08:19 Sertraline 100 Mg Tab PO 100 mg DAILY MACHELLE Administration Tizanidine HCl 4 mg 07/21/20 22:34 07/22/20 08:19 Tizanidine 4 Mg Tab PO 4 mg TID PRN Administration Muscle Spasticity Trazodone HCl 150 mg 07/21/20 22:45 07/21/20 23:23 Trazodone Hcl 50 Mg Tab PO 150 mg HS MACHEL[facility] Administration Intake and Output 07/21/20 07/22/20 07/22/20 22:59 06:59 14:59 Intake Total 275 720 Balance 275 720 Intake: Intake, IV Titration 75 Amount Sodium Chloride 0.9% 1, 75 000 ml @ 20 mls/hr IV . Q24H [facility] Rx#:[id number] Oral 200 720 Other: Voiding Method Toilet # Voids 1 Weight 49.895 kg 52.8 kg 07/21/20 19:40 07/21/20 19:40
[2020-07-22] MEDS: NICOTINE 14MG/24HR PATCH TRANSDERM SCH (18:03)
[2020-07-22 20:35] VITALS: RESP 18
[2020-07-22] MEDS: traZODone HCL 50 MG TAB PO SCH (22:09)
[2020-07-23 04:56] LABS: Glucose,Whole Blood 100 mg/dL (75-99)
[2020-07-23] MEDS: SODIUM CHLORIDE 0.9% 1,000 ML IV SCH ×2 (05:53)
[2020-07-23] MEDS: METHADONE 5 MG TAB PO PRN ×3 (07:07→21:08)
[2020-07-23] MEDS: NICOTINE 14MG/24HR PATCH TRANSDERM SCH (09:02)
[2020-07-23] MEDS: SERTRALINE 100 MG TAB PO SCH (09:02)
[2020-07-23] MEDS ORDERED: fentaNYL (PF) 50 MCG/ML 2 ML AMP ONE (11:24)
[2020-07-23] MEDS ORDERED: HYDROmorphone (PF) 1 MG/ML ONE (11:24)
[2020-07-23] MEDS ORDERED: PROPOFOL 10 MG/ML 20 ML VIAL IV ONE (11:24)
[2020-07-23] MEDS ORDERED: MIDAZOLAM 2 MG/2 ML VIAL ONE (11:24)
[2020-07-23] MEDS ORDERED: IV FLUID CONTINUATION 1,000 ML IV ONE (11:24)
[2020-07-23] MEDS: IOPAMIDOL-370 50ML BTL INJ ONE ×2 (11:39→13:04)
[2020-07-23] MEDS: ceFAZolin 1 GM in SODIUM CHLORIDE 0.9% 250 ML IRRIGATION PRN ×2 (11:48→11:52)
[2020-07-23] MEDS ORDERED: LACTATED RINGERS 1,000 ML IV ONE (12:00)
[2020-07-23] MEDS: LIDOCAINE 1% INJ 10MG/ML (20 ML MDV) SQ ONE ×2 (12:13→12:25)
[2020-07-23] MEDS ORDERED: ACETAMINOPHEN TAB 325 MG TAB PO PRN (14:16)
[2020-07-23] MEDS ORDERED: HYDROcodone/APAP 5-325MG 1 EACH TAB PO PRN (14:16)
--- NOTE | 2020-07-23 14:33 | P.PRLE ---
RE: Tere White Dear Dr. Yeimi Carranza has a paroxysmal AV block on the event monitor, symptomatic. She underwent a biventricular pacemaker implantation to avoid RV pacing rate At this time the LV function is normal In the future, after 3 months I will evaluate her for cardiac sarcoidosis as a potential cause for her symptoms and paroxysmal AV block. Interestingly however, her father is my patient and he has chronic myocarditis but I could not confirm sarcoidosis as the cause. His sarcoid workup including PET scan was negative. He has paroxysmal atrial fibrillation and subsequently developed very frequent nonsustained ventricular tachycardia. He has normal coronary arteries Preserved LV systolic function but significant delayed enhancement in his ventricular myocardium. I will work her up in more detail to see if there is some commonality between their conditions Thank you for entrusting me with the care of the patient Warm regards Sincerely Danny Davis
--- NOTE | 2020-07-23 14:36 | P.PCN ---
Preoperative Diagnosis: Left upper extremity venogram 15 mL IV dye injected into the left arm Patent cephalic, left axillary and subclavian veins Plan Proceed with biventricular pacemaker implantation
[2020-07-23] MEDS ORDERED: ACETAMINOPHEN IV (For NPO) 1,000 MG in EMPTY BAG 1 BAG IVPB ONE (15:00)
[2020-07-23] MEDS: tiZANidine 4 MG TAB PO PRN ×2 (15:38→21:09)
[2020-07-23] MEDS: clonazePAM 0.5 MG TAB PO PRN ×2 (15:38→21:08)
--- NOTE | 2020-07-23 16:28 | CE ---
CARDIAC ELECTROPHYSIOLOGY REPORT HISTORY OF PRESENT ILLNESS: Patient is a 55-year-old female who presented with recurrent dizzy spells. Her 2D echo was normal. She underwent an event monitor which showed paroxysmal AV block, recurrent. She had pauses up to 13-14 seconds. The LV function is preserved on 2D echo. Interestingly, her father has a history of atrial fibrillation and very frequent long runs of fast nonsustained ventricular tachycardia that was beta pat responsive. While his 2D echo was normal, his cardiac MRI was severely abnormal with extensive areas of delayed enhancement. Coronary arteries are normal. We could not clearly establish diagnosis of sarcoidosis. Now his daughter presents with paroxysmal AV block with preserved LV systolic function. The patient is brought to the EP lab in a fasting state. Written informed consent was obtained prior to the procedure. The left shoulder area was prepped and draped as per protocol. 1% lidocaine was used for local anesthesia. A 4 cm incision was made parallel to the deltopectoral groove, about 1.5 cm medial to it. The incision was carried down to the level of the pectoralis muscle. A subfascial pocket was made. Hemostasis was assured. The left axillary vein was accessed at 3 separate points under fluoroscopy and via appropriately-sized introducer sheaths 3 leads were positioned. The right atrial lead was a 52 cm Medtronic model #5076, serial number [id number]. This was screwed in the right atrial appendage. P waves were 2.3 mV, pacing impedance 798 ohms, pacing threshold 0.5 V at 0.4 milliseconds, 10 V test negative. The RV lead shows it was an ICD lead in view of the consideration for possible chronic myocarditis as a cause of her paroxysmal AV block. A 58 cm Medtronic lead model #6935, serial number [id number] was screwed in the RV septum. R-waves were 3.5-5 mV, pacing impedance 722 ohms, pacing threshold 0.5 V at 0.4 milliseconds, 10 V test negative. The LV lead was positioned in the anterior vein of the coronary sinus. This is a 78 cm Medtronic screw-in lead model #4798 and serial #[id number]. The lead was successfully screwed in and stability was confirmed. Thresholds are excellent. Pacing impedance 1301 ohms, pacing threshold 0.5 V at 0.4 milliseconds. All 3 leads were secured to the underlying pectoralis fascia using 2 nonabsorbable sutures. Pocket was irrigated with antibiotic solution. The DF pin was capped and secured to the pectoralis muscle. A biventricular pacemaker was implanted for LV pacing since her risk of having a high RV pacing burden is significant. Medtronic [employer] ENGINEER pacemaker [id number] Shayna Quad. The leads and generator were then placed in the subfascial pocket. The device was secured to the pectoralis muscle. The wound was closed in 3 layers and dressed per protocol. RESULT: Successful biventricular pacemaker for paroxysmal AV block. PLAN: IV antibiotics and after 3 months, cardiac MRI will be performed to look for evidence for chronic myocarditis and evaluation for possible sarcoidosis. MMODL / IJN: [id number] /
--- NOTE | 2020-07-23 16:34 | XR ---
EXAMINATION TYPE: XR chest 1V portable DATE OF EXAM: 07/23/2020 CLINICAL HISTORY: Lead placement check. TECHNIQUE: Portable frontal view of the chest. COMPARISON: 07/21/2020 FINDINGS: Left-sided AICD with no evidence of lead discontinuity or kinking. Distal leads within the expected course of the right atrial appendage, right ventricle, and coronary sinus. The cardiomedias tinal silhouette is within normal limits for size. Pulmonary vasculature is normal. There is no focal air space opacity. No pleural effusion. No pneumothorax seen. No acute displaced osseous fracture. IMPRESSION: Left-sided AICD with no evidence of lead discontinuity or kinking. No acute cardiopulmonary process.
[2020-07-23] MEDS: traZODone HCL 50 MG TAB PO SCH (21:09)
--- NOTE | 2020-07-24 03:03 | P.CONS ---
History of Present Illness - Reason for Consult Consult date: 07/23/20 medical evaluation Requesting physician: Danny Davis - Chief Complaint dizziness, bradycardia - History of Present Illness 55 year old female with history of skin cancer, NHL patient coming in due to frequent episodes of dizziness. she has been diagnosed with bradycardia and occasional sinus pauses since october 2019, but at that time she declined having a pacemaker installed. over past 10 months these symptoms became more frequent and affecting her quality of life, she had cardiac event monitoring to confirm diagnosis . over past 1-2 weeks these symptoms of palpitations skipped beats and dizziness has became so much frequent , her doctors recommended that she comes in for evaluation and inserting a pacemaker. which she tolerated the procedure well, no observed immediate complications. she denies any history of DM, hypertension , or CAD. she currently denies any fever, chills, chest pain or trouble breathing, deneis any abd pain , nausea and vomiting Review of Systems Pertinent positives as noted in HPI. All other systems were reviewed and are negative Past Medical History Past Medical History: Cancer, CVA/TIA, Fibromyalgia, Osteoarthritis (OA) Additional Past Medical History / Comment(s): Pt recently admitted to [facility] on 11/21/18 with exacerbation of COPD (spouse states he and pt unaware she had this), Mobitz second-degree type I. 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 History of Any Multi-Drug Resistant Organisms: None Reported Past Surgical History: Section, Hysterectomy, Orthopedic Surgery, Tubal Ligation Additional Past Surgical History / Comment(s): MELANOMA SURGERY WITH WIDE EXCISION AND LYMPH NODES REMOVED LEFT THIGH (2011), CYST ON BACK., PAIN PROCEDURES., RIGHT CARPAL TUNNEL RELEASE, RIGHT THUMB JOINT REPLACEMENT, COLONOSCOPY, D&C. Past Anesthesia/Blood Transfusion Reactions: No Reported Reaction, Family History of Problems w/ Anesthesia Additional Past Anesthesia/Blood Transfusion Reaction / Comm: MOTHER AND SON = PONV Past Psychological History: Anxiety, Depression Additional Psychological History / Comment(s): PT resides with her spouse. They own a cane and walker but pt is not using any device. She no longer drives, her spouse drives. Smoking Status: Current every day smoker Past Alcohol Use History: None Reported Additional Past Alcohol Use History / Comment(s): SMOKES 1 PPD. SMOKING SINCE 16 YRS OLD. Past Drug Use History: Marijuana - Past Family History Mother Family Medical History: No Reported History Father Family Medical History: AFIB, Hyperlipidemia, Hypertension, Sleep Apnea/CPAP/BIPAP Additional Family Medical History / Comment(s): Gout Medications and Allergies Home Medications Medication Instructions Recorded Confirmed Type Methadone [Dolophine] 5 mg PO TID PRN 12/30/17 07/21/20 History clonazePAM [KlonoPIN] 0.5 mg PO TID PRN 12/30/17 07/21/20 History tiZANidine [Zanaflex] 4 - 8 mg PO TID PRN 12/30/17 07/21/20 History Sertraline [Zoloft] 100 mg PO DAILY 11/21/18 07/21/20 History Ibuprofen [Motrin Ib] 400 mg PO Q8H PRN 07/21/20 07/21/20 History traZODone HCL 150 mg PO HS 07/21/20 07/21/20 History Allergies Allergy/AdvReac Type Severity Reaction Status Date / Time No Known Allergies Allergy Verified 07/21/20 20:17 Physical Exam Vitals: Vital Signs Temp Pulse Resp BP Pulse Ox 07/23/20 23:25 50 L 18 87/51 93 L 07/23/20 20:00 97.8 F 51 L 18 100/63 92 L 07/23/20 18:01 55 L 18 110/59 94 L 07/23/20 17:01 97.5 F L 60 18 97/53 95 07/23/20 16:01 97.1 F L 61 18 104/55 93 L 07/23/20 15:31 61 18 115/53 96 07/23/20 15:01 55 L 18 115/62 94 L 07/23/20 14:46 60 18 118/59 96 07/23/20 14:31 97.2 F L 60 18 118/59 96 07/23/20 08:50 96.5 F L 62 18 93/55 95 07/23/20 04:00 63 18 100/63 93 L 07/23/20 02:00 55 L 18 07/22/20 23:55 55 L 18 106/66 96 Intake and Output 07/23/20 07/23/20 07/24/20 14:59 22:59 06:59 Intake Total 800 240 Balance 800 240 Intake: IV 800 Oral 240 Other: Voiding Method Toilet # Voids 1 # Bowel Movements 0 Constitutional: No acute distress, conversant, pleasant Eyes: Anicteric sclerae, moist conjunctiva, Pupils equal round reactive to light ENMT: NC/AT Oropharynx clear, no erythema, or exudates Neck: Supple, FROM, no masses, or JVD No carotid bruits No thyromegaly Lungs: Clear to auscultation Clear to percussion Normal respiratory effort, no accessory muscle use Cardiovascular: Heart regular in rate and rhythm, No murmurs, gallops, or rubs No peripheral edema Abdominal: Soft Nontender, no guarding, rebound or rigidity Abdomen moving with respiration Normoactive bowel sounds No hepatomegaly, No splenomegaly No palpable mass No abdominal wall hernia noted Skin: left anterior chest surgical wound with surgical dressing looks clean dry and intact. Normal temperature, tone, texture, turgor No induration No subcutaneous nodules No rash, lesions No ulcers Extremities: No digital cyanosis No clubbing Pedal pulses intact and symmetrical Radial pulses intact and symmetrical No calf tenderness Psychiatric: Alert and oriented to person, place and time Appropriate affect fair judgement Neuro Muscles Strength 5/5 in all 4 extremities Sensation to light touch grossly present throughout Cranial nerves II-XII grossly intact No focal sensory deficits Lymphatics: no palpable cervical or supraclavicular , or inguinal lymph nodes Results CBC & Chem 7: 07/21/20 19:40 07/21/20 19:40 Labs: Abnormal Lab Results - Last 24 Hours (Table) 07/23/20 Range/Units 04:54 POC Glucose (mg/dL) 100 H (75-99) mg/dL Assessment and Plan Assessment: paroxysmal AV myrtle, and symptomatic bradycardia s/p pacemaker management per cardiology pain control chronic conditions history of skin cancer history of NHL chronic pain syndrome labs reviewed thyroid function within normal limits Thank you for allowing us to participate in the care of this patient. . Do not hesitate to contact us with questions. Someone can be reached from the [facility] hospitalist group at all hours of the day at [phone].
[2020-07-24] MEDS: SODIUM CHLORIDE 0.9% 1,000 ML IV SCH ×2 (05:10→08:16)
[2020-07-24] MEDS: NICOTINE 14MG/24HR PATCH TRANSDERM SCH (08:15)
[2020-07-24] MEDS: SERTRALINE 100 MG TAB PO SCH (08:15)
[2020-07-24] MEDS: tiZANidine 4 MG TAB PO PRN (08:20)
[2020-07-24] MEDS: clonazePAM 0.5 MG TAB PO PRN (08:20)
[2020-07-24] MEDS: METHADONE 5 MG TAB PO PRN (08:20)
--- NOTE | 2020-07-24 10:21 | P.PN ---
Subjective Progress Note Date: 07/24/20 Principal diagnosis: s/p pacemaker placement Patient denies any acute complaints this morning. She states that cardiology told her that she can like to go home today after pacemaker interrogation. Patient is looking for to going home. She denies any chest pain or presyncopal episodes. Patient's heart rate is paced at 50. Objective - Vital Signs Vital signs: Vital Signs Temp 97.8 F 07/23/20 20:00 Pulse 50 L 07/24/20 04:00 Resp 18 07/24/20 04:00 BP 94/61 07/24/20 04:00 Pulse Ox 93 L 07/24/20 07:19 Intake & Output 07/23/20 07/24/20 07/24/20 18:59 06:59 18:59 Intake Total 1040 Balance 1040 Weight 53.4 kg Intake: IV 800 Oral 240 Other: Voiding Method Toilet # Voids 1 # Bowel Movements 0 - Exam General examination - Alert and Oriented 3 in NAD, cachectic appearing Heart - + S1S2 no murmurs Lungs - Clear to auscultation Abdomen soft NT ND +ve BS Extremities - No edema DERMATOLOGY SPECIALIST - Moving all 4 extremities spontaneously Psych - Calm and cooperative - Labs CBC & Chem 7: 07/21/20 19:40 07/21/20 19:40 Assessment and Plan Assessment: paroxysmal AV myrtle, and symptomatic bradycardia s/p pacemaker management per cardiology pain control chronic conditions history of skin cancer history of NHL chronic pain syndrome I reviewed patient labs which are unremarkable. Patient is stable for discharge from a medical standpoint. Thank you for allowing us to participate in the care of this patient. . Do not hesitate to contact us with questions. Someone can be reached from the [facility] hospitalist group at all hours of the day at [phone].
[2020-07-24 13:08] VITALS: BP 103/68; PULSE 52; TEMP 97.6
--- NOTE | 2020-07-24 13:46 | P.DS ---
Providers Date of admission: 07/24/20 10:47 Expected date of discharge: 07/24/20 Attending physician: Danny Davis Consults: 07/21/20 22:31 Consult Physician Routine Consulting Provider: Bud Christensen Consult Reason/Comments: medical coverage Do you want consulting provider notified?: Already Contacted Primary care physician: Joe Jalloh MD Hospital Course: This is a 55-year-old female who presented to the hospital with recurrent dizziness and presyncope. Patient was found to have AV block with significant pauses. She underwent biventricular pacemaker implantation with Dr. Davis on 07/23/2020. Device was interrogated postoperatively and working properly. Chest xray completed reveals left sided device with no evidence of lead discontinuity or kinking. No pneumothorax. Patient was deemed stable for discharge home today. She is to follow up on an outpatient basis with Dr. Davis. Please see EMR for further hospital course details. Discharge Diagnosis Paroxysmal AV block with significant pauses and associated dizziness and presyncope, s/p biventicular pacemaker Nurse practitioner note has been reviewed by physician. Signing provider agrees with the documented findings, assessment, and plan of care. Patient Condition at Discharge: Stable Plan - Discharge Summary Discharge Rx Participant: No New Discharge Prescriptions: Continue tiZANidine [Zanaflex] 4 - 8 mg PO TID PRN PRN Reason: Muscle Pain Methadone [Dolophine] 5 mg PO TID PRN PRN Reason: Pain clonazePAM [KlonoPIN] 0.5 mg PO TID PRN PRN Reason: Anxiety Sertraline [Zoloft] 100 mg PO DAILY traZODone HCL 150 mg PO HS Ibuprofen [Motrin Ib] 400 mg PO Q8H PRN PRN Reason: Headache Discharge Medication List Methadone [Dolophine] 5 mg PO TID PRN 12/30/17 [History] clonazePAM [KlonoPIN] 0.5 mg PO TID PRN 12/30/17 [History] tiZANidine [Zanaflex] 4 - 8 mg PO TID PRN 12/30/17 [History] Sertraline [Zoloft] 100 mg PO DAILY 11/21/18 [History] Ibuprofen [Motrin Ib] 400 mg PO Q8H PRN 07/21/20 [History] traZODone HCL 150 mg PO HS 07/21/20 [History] Follow up Appointment(s)/Referral(s): Danny Davis MD [STAFF PHYSICIAN] - 1 Week (Device clinic follow-up in [address] Davis in 3 months Office will call you appintment times ) Joe Jalloh MD [Primary Care Provider] - 07/26/20 2:30 am ( ) Patient Instructions/Handouts: Pacemaker (DC)
== END 2020-07-24 13:53 | disposition home or self-care (01) | DRG 244 ==
LOC: EC 19:10 → 3SCARD 20:22 → OBSVTOIN 07-24 10:47
PROVIDERS: ADMIT Internal Medicine Clinical Cardiac Electrophysiology; ATTEND Internal Medicine Clinical Cardiac Electrophysiology
PROC: 02HK3JZ Insertion of Pacemaker Lead into Right Ventricle, Percutaneous Approach (ICD-10-PCS; principal; 2020-07-23 11:30)
PROC: 0JH607Z Insertion of Cardiac Resynchronization Pacemaker Pulse Generator into Chest Subcutaneous Tissue and Fascia, Open Approach (ICD-10-PCS; principal; 2020-07-23 11:30)
PROC: 02H63JZ Insertion of Pacemaker Lead into Right Atrium, Percutaneous Approach (ICD-10-PCS; principal; 2020-07-23 11:30)
PROC: 02HL3JZ Insertion of Pacemaker Lead into Left Ventricle, Percutaneous Approach (ICD-10-PCS; principal; 2020-07-23 11:30)
DX: I44.2 Atrioventricular block, complete (principal); F17.210 Nicotine dependence, cigarettes, uncomplicated; F32.9 Major depressive disorder, single episode, unspecified; F41.9 Anxiety disorder, unspecified; G89.4 Chronic pain syndrome; M79.7 Fibromyalgia; M19.90 Unspecified osteoarthritis, unspecified site; R00.1 Bradycardia, unspecified; Z85.820 Personal history of malignant melanoma of skin; Z85.72 Personal history of non-Hodgkin lymphomas; Z92.21 Personal history of antineoplastic chemotherapy; Z79.899 Other long term (current) drug therapy; Z82.49 Family history of ischemic heart disease and other diseases of the circulatory system; Z86.73 Personal history of transient ischemic attack (TIA), and cerebral infarction without residual deficits; Z90.710 Acquired absence of both cervix and uterus; G47.30 Sleep apnea, unspecified; Z99.89 Dependence on other enabling machines and devices; Z83.6 Family history of other diseases of the respiratory system; Z98.51 Tubal ligation status; Z20.822 Contact with and (suspected) exposure to COVID-19
CPT/HCPCS: 33208; 33225; 36415; 71045; 80053; 83735; 84439; 84443; 84481; 84484; 85025; 85610; 85730; 87635; 93005; 94760; 99285

== ENCOUNTER 2020-11-17 03:30 | Emergency (ER) | payer MEDICARE ==
[2020-11-17 03:37] VITALS: TEMP 98.8
[2020-11-17] MEDS ORDERED: HYDROmorphone 1 MG/ML 1 ML SYRINGE IM STA ×2 (03:51→04:46)
[2020-11-17 05:11] LABS: Basophils % (A) 0 %; Eosinophils % (A) 0 %; HCT 41.8 % (34.0-46.0); HGB 14.2 gm/dL (11.4-16.0); Lymphocytes # (A) 1.2 k/uL (1.0-4.8); Lymphocytes % (A) 16 %; MCH 32.7 pg (25.0-35.0); MCV 96.3 fL (80.0-100.0); Mean Platelet Volume 9.7; Monocytes # (A) 0.4 k/uL (0-1.0); Monocytes % (A) 5 %; Neutrophils # (A) 5.7 k/uL (1.3-7.7); Neutrophils % (A) 77 %; Platelet Count 132 k/uL (150-450); RBC 4.35 m/uL (3.80-5.40); RDW 13.2 % (11.5-15.5); WBC 7.5 k/uL (3.8-10.6)
[2020-11-17 05:22] LABS: ALT 13 U/L (4-34); AST 26 U/L (14-36); African American GFR (CKD) >90 (>60 ml/min/1.73 sqM); Albumin 4.2 g/dL (3.5-5.0); Alkaline Phosphatase 72 U/L (38-126); Anion Gap 10 mmol/L; Blood Urea Nitrogen 13 mg/dL (7-17); Calcium 9.3 mg/dL (8.4-10.2); Carbon Dioxide 23 mmol/L (22-30); Chloride 105 mmol/L (98-107); Glucose 125 mg/dL (74-99); Non-African American GFR(CKD) >90 (>60 ml/min/1.73 sqM); Potassium 3.6 mmol/L (3.5-5.1); Sodium 138 mmol/L (137-145); Total Bilirubin 0.7 mg/dL (0.2-1.3); Total Protein 6.1 g/dL (6.3-8.2)
[2020-11-17] MEDS ORDERED: SODIUM CHLORIDE 0.9% 500 ML 750 ML IV STA (05:59)
[2020-11-17 06:23] VITALS: BP 104/64; PULSE 66; RESP 18
[2020-11-17] MEDS ORDERED: ONDANSETRON 4 MG/2 ML VIAL IVP STA (06:32)
[2020-11-17] MEDS ORDERED: HYDROmorphone 1 MG/ML 1 ML SYRINGE IVP STA ×2 (06:32→07:20)
[2020-11-17 07:15] LABS: Amorphous Sediment,Urine Few /hpf; Appearance,Urine Cloudy (Clear); Bilirubin,Urine Negative (Negative); Blood,Urine Negative (Negative); Color,Urine Yellow; Glucose,Urine (UA) Negative (Negative); Ketones,Urine 2+ (Negative); Leukocyte Esterase,Urine Negative (Negative); Nitrite,Urine Negative (Negative); PH, Urine 8.5 (5.0-8.0); Protein,Urine Negative (Negative); RBC,Urine 1 /hpf (0-5); Specific Gravity,Urine 1.013 (1.001-1.035); Squamous Epithelial Cell,Urine <1 /hpf (0-4); Urobilinogen,Urine <2.0 mg/dL (<2.0); WBC,Urine 1 /hpf (0-5)
--- NOTE | 2020-11-17 08:09 | ED ---
General Adult HPI - General Source: patient, EMS Mode of arrival: EMS Limitations: altered mental status - History of Present Illness -: hour(s) Location: abdomen Consistency: constant Improves with: none Worsens with: none Associated Symptoms: nausea/vomiting Treatments Prior to Arrival: none <Sampson Mesa - Last Filed: 11/17/20 08:04> <Baljinder Fortune - Last Filed: 11/17/20 08:30> - General Chief complaint: Anxiety Stated complaint: Anxiety Time Seen by Provider: 11/17/20 03:39 - History of Present Illness Initial comments: This patient is a 55-year-old woman who has history of regional pain syndrome, and states she is having an exacerbation of pain. She states she is hurting "everywhere." It is been getting worse over the course of tonight. The patient also has had onset of vomiting and diarrhea. She has not noted any hematemesis or coffee-ground material. no bloody or dark tarry stools. (Sampson Mesa) - Related Data Home Medications Medication Instructions Recorded Confirmed Methadone [Dolophine] 5 mg PO TID PRN 12/30/17 07/21/20 clonazePAM [KlonoPIN] 0.5 mg PO TID PRN 12/30/17 07/21/20 tiZANidine [Zanaflex] 4 - 8 mg PO TID PRN 12/30/17 07/21/20 Sertraline [Zoloft] 100 mg PO DAILY 11/21/18 07/21/20 Ibuprofen [Motrin Ib] 400 mg PO Q8H PRN 07/21/20 07/21/20 traZODone HCL 150 mg PO HS 07/21/20 07/21/20 Allergies Allergy/AdvReac Type Severity Reaction Status Date / Time No Known Allergies Allergy Verified 11/17/20 03:37 Review of Systems ROS Other: All systems not noted in ROS Statement are negative. Constitutional: Reports: chills. Denies: fever, weakness Respiratory: Denies: cough, dyspnea Cardiovascular: Denies: chest pain, palpitations, edema Gastrointestinal: Reports: as per HPI, abdominal pain, nausea, vomiting, diarrhea Genitourinary: Denies: dysuria, hematuria Musculoskeletal: Reports: myalgia. Denies: back pain Skin: Denies: rash Neurological: Denies: headache, weakness, numbness <BonitaSampson - Last Filed: 11/17/20 08:04> ROS Other: All systems not noted in ROS Statement are negative. <Baljinder Fortune New - Last Filed: 11/17/20 08:30> ROS Statement: Those systems with pertinent positive or pertinent negative responses have been documented in the HPI. Past Medical History Past Medical History: Cancer, CVA/TIA, Fibromyalgia, Osteoarthritis (OA) Additional Past Medical History / Comment(s): Pt recently admitted to [facility] on 11/21/18 with exacerbation of COPD (spouse states he and pt unaware she had this), Mobitz second-degree type I. 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 History of Any Multi-Drug Resistant Organisms: None Reported Past Surgical History: Section, Hysterectomy, Orthopedic Surgery, Tubal Ligation Additional Past Surgical History / Comment(s): MELANOMA SURGERY WITH WIDE EXCISION AND LYMPH NODES REMOVED LEFT THIGH (2011), CYST ON BACK., PAIN PROCE DURES., RIGHT CARPAL TUNNEL RELEASE, RIGHT THUMB JOINT REPLACEMENT, COLONOSCOPY, D&C. Past Anesthesia/Blood Transfusion Reactions: No Reported Reaction, Family History of Problems w/ Anesthesia Additional Past Anesthesia/Blood Transfusion Reaction / Comment(s): MOTHER AND SON = PONV Past Psychological History: Anxiety, Depression Smoking Status: Current every day smoker Past Alcohol Use History: None Reported Past Drug Use History: Marijuana - Past Family History Mother Family Medical History: No Reported History Father Family Medical History: AFIB, Hyperlipidemia, Hypertension, Sleep Apnea/CPAP/BIPAP Additional Family Medical History / Comment(s): Gout <BonitaSampson - Last Filed: 11/17/20 08:04> General Exam Limitations: altered mental status General appearance: alert, anxious Head exam: Present: atraumatic, normocephalic Eye exam: Present: normal appearance. Absent: scleral icterus, conjunctival injection ENT exam: Present: mucous membranes dry Neck exam: Present: normal inspection Respiratory exam: Present: normal lung sounds bilaterally. Absent: respiratory distress, wheezes, rales, rhonchi, stridor Cardiovascular Exam: Present: regular rate, normal rhythm, normal heart sounds. Absent: systolic murmur, diastolic murmur, rubs, gallop GI/Abdominal exam: Present: soft, tenderness (Diffuse tenderness). Absent: distended, guarding, rebound, rigid, mass, pulsatile mass, hernia Extremities exam: Present: normal inspection, normal capillary refill. Absent: pedal edema, calf tenderness Back exam: Present: normal inspection. Absent: CVA tenderness (R), CVA tenderness (L) Neurological exam: Present: alert Skin exam: Present: warm, dry, intact, normal color. Absent: rash <Sampson Mesa - Last Filed: 11/17/20 08:04> Course Vital Signs 11/17/20 11/17/20 03:34 05:37 Temperature 98.8 F Pulse Rate 74 66 Respiratory 25 H 18 Rate Blood Pressure 98/78 104/64 O2 Sat by Pulse 100 97 Oximetry Medical Decision Making - Lab Data Result diagrams: 11/17/20 04:40 11/17/20 04:40 <Sampson Mesa - Last Filed: 11/17/20 08:04> - Lab Data Result diagrams: 11/17/20 04:40 11/17/20 04:40 <Baljinder Fortune - Last Filed: 11/17/20 08:30> - Medical Decision Making Signed out to me by previous shift physician. Briefly, patient is a 55-year-old female who initially presents to the emergency department for symptoms of anxiety reaction pain all over. Patient has extensive history of opiate drug abuse. She is currently on methadone. Patient showing signs of patient was giv en multiple doses of Dilaudid. Parents and was to follow-up with patient and determine disposition. Patient evaluated the bedside at 8:30 AM. She is currently stable medical condition reports significant improvement of her pain symptoms. She is well-appearing at bedside showing no signs of acute distress. She is smiling and appears comfortable.. Patient is agreeable for discharge. Patient states that her pain specialist moved to [place] and she does not have a pain specialist follow-up with. Patient given outpatient referral to Dr. Reji Dominguez's pain clinic. (Baljinder Fortune) - Lab Data Lab Results 11/17/20 11/17/20 11/17/20 Range/Units 04:40 04:40 06:23 WBC 7.5 (3.8-10.6) k/uL RBC 4.35 (3.80-5.40) m/uL Hgb 14.2 (11.4-16.0) gm/dL Hct 41.8 (34.0-46.0) % MCV 96.3 (80.0-100.0) fL MCH 32.7 (25.0-35.0) pg MCHC 34.0 (31.0-37.0) g/dL RDW 13.2 (11.5-15.5) % Plt Count 132 L (150-450) k/uL MPV 9.7 Neutrophils % 77 % Lymphocytes % 16 % Monocytes % 5 % Eosinophils % 0 % Basophils % 0 % Neutrophils # 5.7 (1.3-7.7) k/uL Lymphocytes # 1.2 (1.0-4.8) k/uL Monocytes # 0.4 (0-1.0) k/uL Eosinophils # 0.0 (0-0.7) k/uL Basophils # 0.0 (0-0.2) k/uL Sodium 138 (137-145) mmol/L Potassium 3.6 (3.5-5.1) mmol/L Chloride 105 (98-107) mmol/L Carbon Dioxide 23 (22-30) mmol/L Anion Gap 10 mmol/L BUN 13 (7-17) mg/dL Creatinine 0.74 (0.52-1.04) mg/dL Est GFR (CKD-EPI)AfAm >90 (>60 ml/min/1.73 sqM) Est GFR (CKD-EPI)NonAf >90 (>60 ml/min/1.73 sqM) Glucose 125 H (74-99) mg/dL Calcium 9.3 (8.4-10.2) mg/dL Total Bilirubin 0.7 (0.2-1.3) mg/dL AST 26 (14-36) U/L ALT 13 (4-34) U/L Alkaline Phosphatase 72 (38-126) U/L Total Protein 6.1 L (6.3-8.2) g/dL Albumin 4.2 (3.5-5.0) g/dL Urine Color Yellow Urine Appearance Cloudy H (Clear) Urine pH 8.5 H (5.0-8.0) Ur Specific [place] 1.013 (1.001-1.035) Urine Protein Negative (Negative) Urine Glucose (UA) Negative (Negative) Urine Ketones 2+ H (Negative) Urine Blood Negative (Negative) Urine Nitrite Negative (Negative) Urine Bilirubin Negative (Negative) Urine Urobilinogen <2.0 (<2.0) mg/dL Ur Leukocyte Esterase Negative (Negative) Urine RBC 1 (0-5) /hpf Urine WBC 1 (0-5) /hpf Ur Squamous Epith Cells <1 (0-4) /hpf Amorphous Sediment Few H (None) /hpf Disposition <Sampson Mesa - Last Filed: 11/17/20 08:04> Is patient prescribed a controlled substance at d/c from ED?: No <Baljinder Fortune - Last Filed: 11/17/20 08:30> Clinical Impression: Acute anxiety Disposition: HOME SELF-CARE Instructions (If sedation given, give patient instructions): Generalized Anxiety Disorder (ED) Referrals: James Anthony MD [STAFF PHYSICIAN] - 1-2 days
== END 2020-11-17 09:15 | disposition home or self-care (01) ==
LOC: EC 03:30
DX: F41.9 Anxiety disorder, unspecified (principal); M79.10 Myalgia, unspecified site; F17.200 Nicotine dependence, unspecified, uncomplicated; J44.9 Chronic obstructive pulmonary disease, unspecified
CPT/HCPCS: 36415; 80053; 85025; 81001; 99283; 96374; 96375; 96361; 96372; J2405; J1170

== ENCOUNTER → 2020-12-20 | Outpatient (CLI) | payer MEDICARE | END | disposition home or self-care (01) | LOC: LABWHC1 07:16 | PROVIDERS: ATTEND Dermatology | DX: Z53.9 Procedure and treatment not carried out, unspecified reason (principal) ==

== ENCOUNTER → 2020-12-20 | Outpatient (CLI) | payer MEDICARE ==
[2020-12-20 11:00] LABS: Basophils # (A) 0.03 X 10*3/uL (0.00-0.10); Basophils % (A) 0.3 %; Eosinophils # (A) 0.06 X 10*3/uL (0.04-0.35); Eosinophils % (A) 0.6 %; HCT 44.9 % (37.2-46.3); HGB 14.4 g/dL (12.0-15.0); Lymphocytes % (A) 16.2 %; MCH 31.2 pg (27.0-32.0); MCHC 32.1 g/dL (32.0-37.0); MCV 97.2 fL (80.0-97.0); Mean Platelet Volume 11.4 fL (9.5-12.2); Monocytes # (A) 0.47 X 10*3/uL (0.20-1.00); Monocytes % (A) 4.5 %; Neutrophils # (A) 8.24 X 10*3/uL (1.80-7.70); Neutrophils % (A) 78.2 %; Platelet Count 141 X 10*3/uL (140-440); RBC 4.62 X 10*6/uL (4.10-5.20); RDW 13.4 % (11.5-14.5); WBC 10.52 X 10*3/uL (4.50-10.00)
[2020-12-20 11:22] LABS: INR 0.99 (0.90-1.11); Prothrombin Time 10.8 sec (9.9-11.9)
[2020-12-20 12:11] LABS: Rheumatoid Factor, Qnt <10 IU/mL (0-15)
[2020-12-20 12:26] LABS: ALT 11 U/L (8-44); AST 20 U/L (13-35); African American GFR (CKD) 82.8 (60.0-200.0); Albumin 4.7 g/dL (3.8-4.9); Albumin/Globulin Ratio 2.61 (1.60-3.17); Alkaline Phosphatase 66 U/L (41-126); BUN/Creat Ratio 9.44 Ratio (12.00-20.00); Blood Urea Nitrogen 8.5 mg/dL (9.0-27.0); Calcium 9.5 mg/dL (8.7-10.3); Carbon Dioxide 17.9 mmol/L (21.6-31.8); Chloride 104 mmol/L (96-109); Globulin 1.8 g/dL (1.6-3.3); Glucose 96 mg/dL (70-110); Magnesium 1.9 mg/dL (1.5-2.4); Non-African American GFR(CKD) 71.5 (60.0-200.0); Potassium 4.1 mmol/L (3.5-5.5); Sodium 141 mmol/L (135-145); Total Protein 6.5 g/dL (6.2-8.2)
[2020-12-20 13:45] LABS: C Reactive Protein <0.30 mg/dL (0.00-0.80)
[2020-12-20 13:47] LABS: HIV 2 AB Non-Reactive (Non-Reactive); HIV AB P24 Non-Reactive (Non-Reactive); HIV P24 AG Non-Reactive (Non-Reactive)
[2020-12-20 14:46] LABS: Erythrocyte Sedimentation Rate 1 mm/Hr (0-30)
== END | disposition home or self-care (01) ==
LOC: LABWHC1 07:13
PROVIDERS: ATTEND Family Medicine
DX: Z11.59 Encounter for screening for other viral diseases (principal); L65.9 Nonscarring hair loss, unspecified; R73.9 Hyperglycemia, unspecified; R63.4 Abnormal weight loss; H47.099 Other disorders of optic nerve, not elsewhere classified, unspecified eye; D69.59 Other secondary thrombocytopenia; M06.4 Inflammatory polyarthropathy; K11.7 Disturbances of salivary secretion
CPT/HCPCS: 36415; 80053; 82607; 82746; 83036; 83735; 84439; 84443; 85025; 85610; 85652; 86038; 86140; 86235; 86431; 86769; 87390

== ENCOUNTER 2021-07-02 06:58 | Day surgery (SDC) | payer MEDICARE ==
[2021-06-28 15:10] VITALS: BMI 16.7
[~2021-07-02 06:58] MED LIST changes: -BACITRACIN 50,000 UNIT, POLYMYXIN B 500,000 UNIT in SODIUM CHLORIDE 0.9% IRRIGATIO 1,00... IRRIGATION ONE; -DEXAMETHASONE SOD PHOSPHATE 10 MG/ML 1 ML VIAL IV ONE; +LACTATED RINGERS 1,000 ML IV SCH; -LIDOCAINE 1% 20 ML VIAL (10MG/ML) FOR IV START INTRADERMA PRN; -MIDAZOLAM 2 MG/2 ML VIAL IV PRN; -ONDANSETRON 4 MG/2 ML VIAL IVP ONE; -SCOPOLAMINE 1.5MG/72HR PATCH TRANSDERM ONE; -ceFAZolin IN SWFI 2 GM/20 ML SYRINGE IVP ONE
[2021-07-02 07:22] VITALS: TEMP 96.8
[2021-07-02] MEDS ORDERED: PROPOFOL 10 MG/ML 20 ML VIAL IV ONE (08:05)
--- NOTE | 2021-07-02 08:29 | P.PCN ---
Date of Procedure: 07/02/21 Procedure(s) Performed: Brief history: Patient is a pleasant 56-year-old white female scheduled for an elective upper endoscopy as well as colonoscopy as a part of evaluation of GERD/intermittent dysphagia to solids and chronic constipation of several years duration Procedure performed: Esophagogastroduodenoscopy with biopsy Colonoscopy with biopsy Preoperative diagnosis: GERD/intermittent dysphagia to solids Change in bowel habits/chronic constipation Anesthesia: MAC Procedure: After informed consent was obtained from the patient was brought into the endoscopy unit and IV sedation was administered by anesthesia under continuous monitoring. Initially upper endoscopy was done. The Olympus GF 160 video endoscope was inserted inserted into the mouth and esophagus intubated without any difficulty and was gradually advanced into the stomach and duodenum and carefully examined. The bulb and second part of the duodenum appeared normal. The scope was then withdrawn into the stomach adequately insufflated with air and upon careful examination the antrum and body had diffuse gastritis and b iopsies were done from this area. The, cardia and fundus appeared normal. The scope was then withdrawn into the esophagus. The GE junction was located at 40 cm to the incisors. It appeared regular with no erythema erosions or ulcerations. Rest of the esophagus appeared normal. There was no evidence of esophageal stricture. Biopsies were done from the mid and distal esophagus. Patient tolerated the procedure well. At this time the patient continued to remain sedation. Initial digital rectal examination was normal. Olympus CF 160 video colonoscope was then inserted into the rectum and gradually advanced to the cecum without any difficulty. Careful examination was performed as the scope was gradually being withdrawn. The prep was excellent. The cecum, ascending colon, transverse colon, descending colon, sigmoid colon and rectum appeared normal. In the proximal rectum there was a 3 mm polyp that was removed by cold biopsy. In the distal rectum there was mild patchy areas of erythema noted approximately 20 cm proximal to the dentate line. Multiple biopsies were done from this area. Retroflexion was performed in the rectum and no lesions were noted. Patient tolerated the procedure well. Impression: 1. Upper endoscopy revealed diffuse gastritis but no evidence of esophagitis or esophageal stricture 2. Colonoscopy revealed 3 mm distal rectal polyp status post biopsy and mild distal proctitis Recommendations: Findings of this examination were discussed with the patient as well as her family. She was advised to follow with the biopsy results. She'll be seen in office in 4 weeks.
[2021-07-02 08:36] VITALS: RESP 16
[2021-07-02 08:55] VITALS: BP 120/61; PULSE 55
== END 2021-07-02 09:11 | disposition home or self-care (01) ==
LOC: ORWHC2ENDO 06:58
PROVIDERS: ATTEND Internal Medicine Gastroenterology
DX: K29.50 Unspecified chronic gastritis without bleeding (principal); K31.A11 Gastric intestinal metaplasia without dysplasia, involving the antrum; K62.1 Rectal polyp; K21.9 Gastro-esophageal reflux disease without esophagitis; Z98.890 Other specified postprocedural states
CPT/HCPCS: 45380; 43239; 88305; J2704

== ENCOUNTER → 2022-01-21 | Outpatient (CLI) | payer MEDICARE ==
[2022-01-21 13:06] LABS: African American GFR (CKD) >90 (>60 ml/min/1.73 sqM); Blood Urea Nitrogen 11 mg/dL (7-17); Non-African American GFR(CKD) >90 (>60 ml/min/1.73 sqM)
--- NOTE | 2022-01-21 14:10 | CT ---
EXAMINATION TYPE: CT ChestAbdPelvis w con DATE OF EXAM: 01/21/2022 COMPARISON: Prior CT June 19, 2020 and older studies. Outside PET/CT February 19, 2021 HISTORY: Follow up for non-hodgkin's lymphoma. CT DLP: 448 mGycm. Automated Exposure Control for Dose Reduction was Utilized. CONTRAST: CT scan of the thorax, abdomen and pelvis is performed without oral and with IV Contrast, patient inj ected with 70ml mL of Isovue 300. FINDINGS: LUNGS: Dependent atelectasis in bilateral lower lungs redemonstrated otherwise lungs remain clear. N o suspicious new or enlarging greater than 5 mm nodules or masses. There is no pleural effusion or pn eumothorax seen. The tracheobronchial tree is patent. MEDIASTINUM: There are no new greater than 1 cm hilar or mediastinal lymph nodes. No cardiomegaly i s seen. Tiny anterior pericardial effusion is stable. New multi lead pacemaker/defibrillator. OTHER: Extremely dense fibroglandular tissue with occasional punctate calcification in bilateral bari sts is redemonstrated. LIVER/GB: No significant abnormality is appreciated. PANCREAS: Mild prominence distal body and tail redemonstrated. No surrounding fat stranding noted. SPLEEN: No significant abnormality is seen. ADRENALS: No significant abnormality is seen. KIDNEYS: I suspect 2-3 adjacent tiny upper pole left renal calculi measuring up to 3 mm in size on ax ial image 63. BOWEL: Slightly suboptimal without enteric contrast and patient having little intra-abdominal fat. No suspicious small or large bowel dilatation noted. GENITAL ORGANS: Uterus is surgically absent. Occasional scattered bilateral pelvic phleboliths are re demonstrated. Probable remnant ovary left pelvis axial image 108 redemonstrated. LYMPH NODES: No new greater than 1cm abdominal or pelvic lymph nodes are appreciated. Few prominent b ut subcentimeter lymph nodes throughout the left-sided retroperitoneum mid abdominal level OSSEOUS STRUCTURES: Facet arthropathy lower lumbar levels. Slight scoliotic curvature. OTHER: Mild atherosclerotic change of aorta extends into branch vessels. IMPRESSION: No obvious new greater than 1 cm adenopathy or additional new suspicious mass on this sebastian dy to suggest active lymphoma recurrence.
== END | disposition home or self-care (01) ==
LOC: RADCTMAIN 12:11
PROVIDERS: ATTEND Internal Medicine
DX: C85.90 Non-Hodgkin lymphoma, unspecified, unspecified site (principal); D86.9 Sarcoidosis, unspecified
CPT/HCPCS: 82565; 84520; 71260; 74177; 36415; Q9967

== ENCOUNTER → 2022-02-13 | Outpatient (CLI) | payer MEDICARE ==
[2022-02-13 13:28] VITALS: BP 132/90; PULSE 102; RESP 16; TEMP 98.4
--- NOTE | 2022-02-13 14:28 | P.PAINCN ---
History of Present Illness - Reason for Consult Consult date: 02/13/22 Lumbar back pain, bilateral lower extremity pain - Chief Complaint Lumbar back pain, bilateral lower extremity pain - History of Present Illness Ms. White is a 56 year old pleasant female patient came to [facility] pain management clinic for initial evaluation for lumbar back pain evaluation referred by Dr. Sarkar. Patient described pain started many years ago. As per patient she has generalized body pain but more worse in her lower extremity, and lumbar back area. Patient described pain as aching, sharp, throbbing, numbness, burning, tingling type of pain. Patient rated pain 10 out of 10 in severity. Which may very her pain level from 8-10 out of 10 in severity. Pain increases with activities, and standing, walking, sitting, bending forward, and lifting. Pain decreases with pain medications and interventional procedures. Overall patient activities decreased secondary to pain. Pain medications helping to some extent, but not lasting long enough. Because of the pain patient is feeling lack of sleep and interest and energy. Denied any bowel or bladder problems. Patient denies any adverse effects to medications. She is not using any walking aids for walking. Complaining depression secondary to pain but denied any suicidal/homicidal tendency at this time. Sleep pattern-altered secondary to pain. There are no signs of narcotic diversion/misuse/overuse and no new-onset weakness, bowel/bladder incontinence, saddle anesthesia, or no red flag symptoms. She had a history of cervical C4 -C6 ACDF. And right upper extremity CRPS diagnosed Conservative treatment tried: She [facility] Wgwu-hon-rjmaoai medications, and Pearblossom, Zanaflex Fzdl-exf-lolgvud lidocaine patch Ice, and heat Physical therapy exercises, exercises at home as tolerated TENS unit's-none Chiropractic therapy- never tried Review of Systems All systems: negative Constitutional: Denies chills, Denies fever Eyes: denies blurred vision, denies pain Ears, nose, mouth and throat: Denies headache, Denies sore throat Cardiovascular: Denies chest pain, Denies shortness of breath Respiratory: Denies cough Gastrointestinal: Denies abdominal pain, Denies diarrhea, Denies nausea, Denies vomiting Genitourinary: Denies dysuria, Denies hematuria Musculoskeletal: Reports arm numbness/tingling, Reports leg numbness/tingling, Reports limitation of motion, Reports low back pain, Reports muscle weakness, Reports myalgias Integumentary: Denies pruritus, Denies rash Neurological: Denies numbness, Denies weakness Psychiatric: Reports anxiety, Reports depression, Reports sleep disturbances Endocrine: Reports fatigue, Denies weight change Past Medical History Past Medical History: Cancer, COPD, CVA/TIA, Fibromyalgia, Osteoarthritis (OA) Additional Past Medical History / Comment(s): 70 lb weight loss since 2014, biggest drop in last year. Low BP. Mild COPD/Emphysema (spouse states he and pt unaware she had this), Mobitz second-degree type I. Sarcoma. TIA'S (LAST ONE OVER A YEAR AGO), COMPLEX REGIONAL PAIN SYNDROME, DIFFICULTY WALKING FAR, NON- HODGKINS LYMPHOMA (2014 WITH CHEMO). History of Any Multi-Drug Resistant Organisms: None Reported Past Surgical History: Section, Hysterectomy, Orthopedic Surgery, Pacemaker, Tubal Ligation Additional Past Surgical History / Comment(s): MELANOMA SURGERY WITH WIDE EXCISION AND LYMPH NODES REMOVED LEFT THIGH (2011), CYST ON BACK., PAIN PROCEDURES., RIGHT CARPAL TUNNEL RELEASE, RIGHT THUMB JOINT REPLACEMENT, COLONOSCOPY, D&C, neck fusion. Past Anesthesia/Blood Transfusion Reactions: No Reported Reaction Additional Past Anesthesia/Blood Transfusion Reaction / Comm: MOTHER AND SON PONV. Type of Cardiac Device: Permanent Pacemaker Device Placement Date:: 07/24/20 Past Psychological History: Anxiety, Depression Additional Psychological History / Comment(s): PT resides with her spouse. They own a cane and walker but pt is not using any device. She no longer drives, her spouse drives. Smoking Status: Current every day smoker Past Alcohol Use History: None Reported Additional Past Alcohol Use History / Comment(s): SMOKES 1/2 PPD, SINCE 16 YRS OLD. Past Drug Use History: Marijuana Additional Drug Use History / Comment(s): Marijuana use daily. Aware no use 24 hrs prior to procedure. - Past Family History Mother Family Medical History: No Reported History Father Family Medical History: AFIB, Hyperlipidemia, Hypertension, Sleep Apnea/CPAP/BIPAP Additional Family Medical History / Comment(s): Gout. Medications and Allergies Home Medications Medication Instructions Recorded Confirmed Type clonazePAM [KlonoPIN] 0.5 mg PO TID PRN 12/30/17 02/13/22 History tiZANidine [Zanaflex] 4 - 8 mg PO TID PRN 12/30/17 02/13/22 History Sertraline [Zoloft] 100 mg PO QAM 11/21/18 02/13/22 History traZODone HCL 150 mg PO HS 07/21/20 02/13/22 History Linaclotide [Linzess] 72 mcg PO DIRECTED 06/28/21 02/13/22 History Omeprazole 20 mg PO AC-BID 06/28/21 02/13/22 History HYDROcodone/APAP 10-325MG [Pearblossom 1 tab PO Q4-6H PRN 02/13/22 02/13/22 History 10-325] Allergies Allergy/AdvReac Type Severity Reaction Status Date / Time No Known Allergies Allergy Verified 02/13/22 13:28 Physical Exam General: Well-developed, well-nourished, no acute distress HEENT: Normocephalic, and atraumatic Neck: Supple, no neck swelling, healed anterior neck scar Psychiatric: Appropriate mood, and affect RANGE TECHNICIAN: No focal neurological deficits Musculoskeletal: Upper extremity: Normal strength, and decreased range of motion and due to pain. Sensation grossly intact. Right-sided wrist wrap. Lower extremity: Decreased strength, decreased range of motion. Decreased sensation over the left anterior thigh after melanoma excision. Lumbar spine: Multiple trigger points positive over entire spine, and paraspinal area. Paravertebral tenderness: positive Lumbar facet load test : positive Sacroiliac joint tenderness: Positive Thigh thrust test: Positive SI joint compression test: Positive Fabere test: Positive Strait leg raising test unable to perform secondary to pain Results Comments: CT of the lumber spine done on 01/15/2022 showed No evidence of fracture of the lumbar spine. Minimal degenerative disc disease at L4-L5, and L5-S1 level. Neural foramina are patent bilaterally. Non-obstructive bilateral renal calculi Assessment and Plan Assessment: Lumbar spondylosis without myelopathy Sacroiliac joint dysfunction Myofascial pain syndrome/fibromyalgia Chronic pain syndrome Lumbar radiculopathy History of ACDF History of right wrist CRPS History of melanoma over right thigh area status post excision History of non-Hodgkin's lymphoma. Plan: #1 Diagnoses, prognosis, and multiple treatment options including but not limited to physical therapy, interventional therapy, adjunct medication therapy, and surgical options were discussed with the patient. And all questions were answered to the patient's satisfaction. #2 treatment plan agreement : Patient was thoroughly discussed regarding the treatment options, alternatives, and importance of exercises as tolerated. Patient clearly understood. #3 Patient was counseled on importance of regular exercise. Including varun chi, aerobic exercises as tolerated. Which helps for chronic pain, and overall well- being. Patient also counseled regarding importance of weight control rolling chronic pain, and overall other health issues. By altering diet habits, minimizing sugar intake, and processed foods helps in minimizing Inflammation. Also discussed with the patient regarding intermittent fasting. Patient counseled regarding smoking associated with chronic pain, worsening inflammation, and smoking effects on liver, and medication metabolism. And encouraged to stop smoking. #4 investigations: MAPS- reviewed , urine drug test-not done #5 diagnostic tests: None at this time. #6 consultation : Continue physical therapy, psychology evaluation for chronic pain management-cognitive behavioral therapy # 7 interventional procedures: Lumbar L5-S1 epidural steroid injection. Procedure, complications, alternatives discussed with the patient. She had SI joint injection by Dr. Kelly which was helpful in the past. She had other multiple intervention procedures per patient waiting [facility] information [facility]. #8 medications #1 Pearblossom, Zanaflex, lidocaine patch 5% #2 she is using marijuana also as needed Medication side effects, complications, long-term consequences discussed with the patient. Patient recommended to contact the pain clinic if noticed any issues with given medications. Discussed with the patient regarding interaction between marijuana and narcotic medication patient clearly understood. Patient doesn't take any narcotic medication along with marijuana for at least 4-5 hours. #9 morphine milligrams equivalents dose ( MME) per day: 0 from the pain clinic. # 10 TENS unit's, and percussion massage device #11 disposition: scheduled to follow up with pain clinic in 4 weeks duration. Time with Patient: Less than 30 PQRS Measure Charge Sheet Measure #130: Documentation of Current Meds in Medical Chart: Patient's medications documented in chart Measure #226: Tobacco Use: Screen & Cessation Intervention: Pt screened for tobacco use AND intervention given Measure #111: Pneumonia Vaccination: Pneumococcal vaccine NOT administered or previously given Measure #47: Advance Care Plan: Advance care planning discussed & documented, pt chose/unable to give Measure #412: Opioid Treatment Agreement: No documentation of signed opioid treatment agreement Measure #408: Opioid Therapy Follow-up Evaluation: Patient had NO f/u eval minimum every 3 months during opioid therapy Measure #317: Preventitive Care & Scrn High Bld Press & F/U: Normal blood pressure, f/u not required Measure #128: Body Mass Index (BMI) Screening & Follow-up: BMI documented within normal parameters Measure #131: Pain Assessment & Follow-up: Pain positive & plan documented Measure #431: Unhealthy Alcohol Use Preventative Care & Scrn: Patient not identified as an unhealthy alcohol user - Pain Location Lower Back Non-Pharmacological Interventions: Home Exercise, Ice, Inactivity, Physical Therapy, Position/Reposition, Sitting, Stretching Pharmacological Interventions: PRN Medication, Topical Medication PQRS Narrative: Smoking Status Current every day smoker Home Medications: Ambulatory Orders clonazePAM [KlonoPIN] 0.5 mg PO TID PRN 12/30/17 tiZANidine [Zanaflex] 4 - 8 mg PO TID PRN 12/30/17 Sertraline [Zoloft] 100 mg PO QAM 11/21/18 traZODone HCL 150 mg PO HS 07/21/20 Linaclotide [Linzess] 72 mcg PO DIRECTED 06/28/21 Omeprazole 20 mg PO AC-BID 06/28/21 HYDROcodone/APAP 10-325MG [Pearblossom 10-325] 1 tab PO Q4-6H PRN 02/13/22
== END ==
LOC: PNWHC3 13:06
DX: C43.71 Malignant melanoma of right lower limb, including hip (principal); M47.26 Other spondylosis with radiculopathy, lumbar region; M46.1 Sacroiliitis, not elsewhere classified; M79.7 Fibromyalgia; Z98.1 Arthrodesis status; G90.511 Complex regional pain syndrome I of right upper limb; Z98.890 Other specified postprocedural states; Z85.72 Personal history of non-Hodgkin lymphomas; F17.200 Nicotine dependence, unspecified, uncomplicated; M19.90 Unspecified osteoarthritis, unspecified site; G45.9 Transient cerebral ischemic attack, unspecified; J44.9 Chronic obstructive pulmonary disease, unspecified
CPT/HCPCS: 99211

== ENCOUNTER 2022-05-27 06:12 | Day surgery (SDC) | payer MEDICARE ==
[2022-05-23 16:08] VITALS: BMI 17.0
[~2022-05-27 06:12] MED LIST changes: +LIDOCAINE 1% (10MG/ML) FOR IV START INTRADERMA PRN
[2022-05-27] MEDS ORDERED: LACTATED RINGERS 1,000 ML IV ONE (06:30)
[2022-05-27 06:51] VITALS: TEMP 98
[2022-05-27] MEDS ORDERED: methylPREDNISolone ACETATE 80 MG/ML 1 ML VIAL ONE (06:59)
[2022-05-27] MEDS ORDERED: MIDAZOLAM 2 MG/2 ML VIAL ONE (06:59)
[2022-05-27] MEDS ORDERED: IOPAMIDOL M200 10 ML VIAL ONE (06:59)
[2022-05-27] MEDS ORDERED: fentaNYL (PF) 50 MCG/ML 2 ML AMP ONE (06:59)
--- NOTE | 2022-05-27 07:16 | P.PCN ---
Date of Procedure: 05/27/22 Procedure(s) Performed: PREOPERATIVE DIAGNOSIS: 1-Lumbar radiculopathy . 2-lumbar degenerative disc disease. 3-lumbar spondylosis with lumbar facet arthropathy without myelopathy POSTOPERATIVE DIAGNOSIS: 1-lumbar radiculopathy. 2-lumbar degenerative disc disease. 3-lumbar spondylosis with facet arthropathy without myelopathy PROCEDURE 1. Transforaminal epidural steroid injection under fluoroscopic guidance at Bilateral L4-5 level. (Fluoroscopy images stored on file in the radiology Department ) 2. Lumbar epidurogram . ANESTHESIA: Local with 1% lidocaine 3 ml , moderate sedation with intravenous Versed 2 mg and fentanyle 100 micrograms. Sedation start time : 702 . Sedation. stop time : 712 . EBL: Minimal PROCEDURE INDICATION: The patient with low back pain and radiculopathy symptoms unresponsive to conservative treatment. PROCEDURE DESCRIPTION / TECHNIQUE: The patient was seen and identified in the preoperative area. Risks, benefits, complications, and alternatives were discussed with the patient. The patient agreed to proceed with the procedure and signed the consent. IV was started, and vital signs were stable. Patient was taken to the OR and time out was completed. The patient was placed in the prone position on procedure table and a pillow was placed under the abdomen to reduce lumbar lordosis. The lumbosacral area was prepped and draped in the usual sterile fashion. Critical pause was taken. Vital signs were closely monitored during the procedure. Conscious sedation was used during the procedure to decrease patient s anxiety. Using oblique fluoroscopy, the chin of the `Arty dog at right L4-5 level was identified, and the skin and deeper tissues just below was localized with 1% lidocaine. Subsequently, a 22-gauge 3.5-inch spinal needle was advanced under a tunneled view fluoroscopic guidance just underneath the chin of the `Arty dog at the right L4-5 Under lateral fluoroscopy, the needle was then advanced to the posterior border of the interforaminal space. After negative aspiration of CSF and blood and with no paresthesias, 1 mL Isovue 200 contrast dye was injected excellent epidurogram and outlining of the nerve root Subsequently, 3 mL of block solution containing 40 mg Depo-Medrol and 2 mL of 0.9% normal saline PF was injected. Needle was removed and the same procedure was repeated at the left L4-5 level . At the end of the procedure, skin was cleansed, and bandages were applied. COMPLICATIONS:none DISPOSITION / PLANS: The patient was placed in a supine position and transferred to the recovery area in a stable condition for observation. There was no evidence of lower extremity motor or sensory deficit after the procedure. Patient was discharged from the recovery room after meeting discharge criteria. Home discharge instructions were given to the patient by the staff. The patient was reexamined prior to discharge.
[2022-05-27] MEDS ORDERED: IV FLUID CONTINUATION 1,000 ML IV ONE (07:20)
[2022-05-27 07:24] VITALS: RESP 15
[2022-05-27 07:38] VITALS: BP 115/70; PULSE 62
--- NOTE | 2022-05-27 08:11 | FL ---
Intraoperative/procedural fluoroscopic services were provided for bilateral transforaminal epidural i njection. Total fluoroscopy time is 7 seconds with a total of 2 submitted images to PACS. Total DAP 0 .[phone]. Please see the operative note for further details.
== END 2022-05-27 07:54 | disposition home or self-care (01) ==
LOC: ORPAIN 06:12
PROVIDERS: ATTEND Specialist
DX: M51.16 Intervertebral disc disorders with radiculopathy, lumbar region (principal); M47.26 Other spondylosis with radiculopathy, lumbar region
CPT/HCPCS: 99152; 64483; J2250; J1040; J3010; Q9966

== ENCOUNTER 2022-06-08 18:50 | Emergency (ER) | payer MEDICARE ==
[2022-06-08 19:00] VITALS: TEMP 97.7
[2022-06-08 19:22] LABS: Basophils % (A) 0 %; Eosinophils # (A) 0.1 k/uL (0-0.7); Eosinophils % (A) 2 %; HCT 39.3 % (34.0-46.0); HGB 13.2 gm/dL (11.4-16.0); Lymphocytes % (A) 35 %; MCH 34.1 pg (25.0-35.0); MCHC 33.7 g/dL (31.0-37.0); MCV 101.4 fL (80.0-100.0); Mean Platelet Volume 9.1; Monocytes # (A) 0.2 k/uL (0-1.0); Monocytes % (A) 4 %; Neutrophils # (A) 3.3 k/uL (1.3-7.7); Neutrophils % (A) 57 %; Platelet Count 129 k/uL (150-450); RBC 3.87 m/uL (3.80-5.40); RDW 12.6 % (11.5-15.5); WBC 5.7 k/uL (3.8-10.6)
--- NOTE | 2022-06-08 19:24 | ED ---
Chest Pain HPI - General Chief Complaint: Chest Pain Stated Complaint: Chest pain Time Seen by Provider: 06/08/22 18:54 Source: patient, EMS, RN notes reviewed, old records reviewed Mode of arrival: EMS Limitations: no limitations - History of Present Illness Initial Comments: This is a 49-year-old female to the ER for evaluation today presents for sync opal event. Patient presents by EMS for syncope. Unresponsiveness. Patient had chest pain prior to syncopal event does have a pacemaker secondary to bradycardia. Patient has no prior history of syncope. Does have history of chest pain but no prior heart history. Patient presents today for evaluation both chest pain syncopal event states she has not been feeling well lately. Also complaining of headaches for about 3 weeks. Related to 3 months. History of cases well. No recent change in medications no travel history no fevers no other complaints MD Complaint: chest pain, other (Syncopal event prior to EMS arrival) -: hour(s) Onset: during rest Pain Location: substernal Pain Radiation: none Severity: mild Severity scale (1-10): 3 Quality: tightness Consistency: intermittent Improves With: nothing Worsens With: nothing Anginal Symptoms: nausea, dyspnea Other Symptoms: palpitations Treatments Prior to Arrival: none - Related Data Home Medications Medication Instructions Recorded Confirmed clonazePAM [KlonoPIN] 0.5 mg PO TID PRN 12/30/17 05/27/22 tiZANidine [Zanaflex] 4 - 8 mg PO TID PRN 12/30/17 05/27/22 Sertraline [Zoloft] 150 mg PO QAM 11/21/18 05/27/22 traZODone HCL 150 mg PO HS 07/21/20 05/27/22 HYDROcodone/APAP 10-325MG [[place] 1 tab PO Q4-6H PRN 02/13/22 05/27/22 10-325] Lidocaine 5% Patch [Lidoderm] 1 each TP Q12H 03/25/22 05/27/22 Doxycycline Hyclate 100 mg PO DAILY 05/23/22 05/27/22 Allergies Allergy/AdvReac Type Severity Reaction Status Date / Time No Known Allergies Allergy Verified 05/27/22 06:35 Review of Systems ROS Statement: Those systems with pertinent positive or pertinent negative responses have been documented in the HPI. ROS Other: All systems not noted in ROS Statement are negative. EKG Findings - EKG Comments: EKG Findings:: EKG is paced 60 OH 126 QRS 132 QTC 460 - EKG Results: EKG: interpreted by STEFF Past Medical History Past Medical History: Cancer, COPD, CVA/TIA, Fibromyalgia, Osteoarthritis (OA), Skin Disorder Additional Past Medical History / Comment(s): 70 lb weight loss since 2014, biggest drop in last year. Low BP. Mild COPD/Emphysema (spouse states he and pt unaware she had this), Mobitz second-degree type I. Sarcoma. 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 [place]'s Disease. History of Any Multi-Drug Resistant Organisms: None Reported Past Surgical History: Section, Hysterectomy, Orthopedic Surgery, Pacemaker, Tubal Ligation Additional Past Surgical History / Comment(s): MELANOMA SURGERY WITH WIDE EXCISION AND LYMPH NODES REMOVED LEFT THIGH (2011), CYST ON BACK, PAIN PROCEDURES, RIGHT CARPAL TUNNEL RELEASE, RIGHT THUMB JOINT REPLACEMENT, COLONOSCOPY, D&C, neck fusion, pain clinic procedure. Past Anesthesia/Blood Transfusion Reactions: No Reported Reaction Additional Past Anesthesia/Blood Transfusion Reaction / Comment(s): MOTHER AND SON PONV. Type of Cardiac Device: Permanent Pacemaker Device Placement Date:: 07/24/20 Past Psychological History: Anxiety, Depression Smoking Status: Current every day smoker Past Alcohol Use History: None Reported Past Drug Use History: Marijuana - Past Family History Mother Family Medical History: No Reported History Father Family Medical History: AFIB, Hyperlipidemia, Hypertension, Sleep Apnea/CPAP/BIPAP Additional Family Medical History / Comment(s): Gout. General Exam Limitations: no limitations General appearance: anxious Head exam: Present: atraumatic, normocephalic, normal inspection Eye exam: Present: normal appearance, PERRL, EOMI. Absent: scleral icterus, conjunctival injection, periorbital swelling ENT exam: Present: normal exam, mucous membranes moist Neck exam: Present: normal inspection. Absent: tenderness, meningismus, lymphadenopathy Respiratory exam: Present: normal lung sounds bilaterally. Absent: respiratory distress, wheezes, rales, rhonchi, stridor Cardiovascular Exam: Present: regular rate, normal rhythm, normal heart sounds. Absent: systolic murmur, diastolic murmur, rubs, gallop, clicks GI/Abdominal exam: Present: soft, normal bowel sounds. Absent: distended, tenderness, guarding, rebound, rigid Extremities exam: Present: normal inspection, full ROM, normal capillary refill. Absent: tenderness, pedal edema, joint swelling, calf tenderness Back exam: Present: normal inspection Neurological exam: Present: alert, oriented X3, CN II-XII intact Psychiatric exam: Present: normal affect, normal mood Skin exam: Present: warm, dry, intact, normal color. Absent: rash Course Vital Signs 06/08/22 06/08/22 06/08/22 18:55 19:30 20:00 Temperature 97.7 F Pulse Rate 69 60 63 Respiratory 18 17 Rate Blood Pressure 101/64 90/59 90/54 O2 Sat by Pulse 97 95 94 L Oximetry 06/08/22 06/08/22 06/08/22 20:15 20:30 20:45 Temperature Pulse Rate 61 60 56 L Respiratory Rate Blood Pressure 94/57 94/58 91/53 O2 Sat by Pulse 93 L 93 L 94 L Oximetry 06/08/22 06/08/22 21:00 21:15 Temperature Pulse Rate 65 Respiratory Rate Blood Pressure 91/55 O2 Sat by Pulse 96 Oximetry - Reevaluation(s) Reevaluation #1: 06/08/22 19:20 Medical records reviewed Reevaluation #2: 06/08/22 19:20 The patient does feel improved and chest pain is improved on arrival to the ER will she still states she feels off Reevaluation #3: 06/08/22 22:08 Patient informed results questions answered Spoke with patient and family at length regarding findings, they were concerned over heart attack his son at bedside states they have no evidence of that as patient is a paced rhythm with no troponin elevation. No current chest pain patient refusing further observation or admission and will be discharged home under her care decision making Reevaluation #4: 06/08/22 22:08 Was pt. sent in by a medical professional or institution? @ -no Did you speak to anyone other than the patient for history? @ -no Did you review nursing and triage notes? @ -agree Were old charts reviewed? @ -no Differential Diagnosis? @ -cp,syncope EKG interpreted by me (3pts min.)? @ -no X-rays interpreted by me (1pt min.)? @ -no CT interpreted by me (1pt min.)? @ -no U/S interpreted by me (1pt. min.)? @ -no What testing was considered but not performed? (CT, X-rays, U/S, labs)? Why? @ -no What meds were considered but not given? Why? @ -no Did you discuss the management of the patient with other professionals? @ -no Did you reconcile home meds? @ -no Was smoking cessation discussed for >3mins.? @ -no Was critical care preformed (if so, how long)? @ -no Were there social determinants of health that impacted care today? How? (Homelessness, low income, unemployed, alcoholism, drug addiction, transportation, low edu. Level, literacy, decrease access to med. care, correction, rehab)? @ -no Was there de-escalation of care discussed even if they declined? (Discuss DNR or withdrawal of care, Hospice)? @ -no What co-morbidities impacted this encounter? (DM, HTN, Smoking, COPD, CAD, Cancer, CVA, Hep., AIDS, mental health diagnosis, sleep apnea, morbid obesity)? @ -no Was patient admitted / discharged? @ -dc Undiagnosed new problem with uncertain prognosis? @ -no Drug Therapy requiring intensive monitoring for toxicity (Heparin, Nitro, Insulin, Cardizem)? @ -no Were any procedures done? @ -no Diagnosis/symptom? @ -symcp[e,cp Acute, or Chronic, or Acute on Chronic? @ -no Uncomplicated (without systemic symptoms) or Complicated (systemic symptoms)? @ -no Side effects of treatment? @ -no Exacerbation, Progression, or Severe Exacerbation] @ -no Poses a threat to life or bodily function? @ -yes Reevaluation #5: 06/08/22 19:20 Differential Chest Pain: Stable Angina, Unstable Angina, STEMI, NSTEMI Aortic Dissection, Pneumothorax, Musculoskeletal, Esophageal Spasm GERD, Cholecystitis, Pancreatitis, Zoster, this is not meant to be an all-inclusive list. Differential Syncope: Valvular disease, hypertrophic cardiomyopathy, pulmonary embolism, tamponade, tachycardia, bradycardia, PA, hypovolemia, hemorrhage, dissection, anemia, int racranial hemorrhage, seizure, hypoglycemia, carbon monoxide poisoning, this is not meant to be an all-inclusive list. Chest Pain MDM - MDM [address] with syncopal event today at home. Patient was witnessed by kind daughter tells syncopal event prior to that was complaining of chest pain. Patient has pacer implanted secondary to bradycardia but no history of syncope. Patient has no recurrent syncope here in the ER patient is advised to stay in the hospital regarding syncopal event that coincides of chest pain but although no cause of been found patient prefers discharge at this time. Patient will be discharged home if she is getting very agitated due to amount of time being spent in the hospital results. We do have a CTA of the chest which is negative for PE CT brain secondary to headaches and possible stroke history of TIAs which is also negative. Patient will be discharged Disposition Clinical Impression: Atypical chest pain, Chest pain, Altered mental status, Anxiety, Bradycardia, Syncope Disposition: HOME SELF-CARE Condition: Undetermined Instructions (If sedation given, give patient instructions): Chest Pain (ED) Is patient prescribed a controlled substance at d/c from ED?: No Referrals: Ingrid Maloney MD [Primary Care Provider] - 1-2 days Time of Disposition: 22:10
[2022-06-08 19:35] LABS: ALT 23 U/L (4-34); AST 26 U/L (14-36); African American GFR (CKD) >90 (>60 ml/min/1.73 sqM); Albumin 3.7 g/dL (3.5-5.0); Alkaline Phosphatase 61 U/L (38-126); Anion Gap 2 mmol/L; Blood Urea Nitrogen 19 mg/dL (7-17); Calcium 8.2 mg/dL (8.4-10.2); Carbon Dioxide 32 mmol/L (22-30); Chloride 106 mmol/L (98-107); Glucose 96 mg/dL (74-99); Lipase 61 U/L (23-300); Non-African American GFR(CKD) >90 (>60 ml/min/1.73 sqM); Partial Thromboplastin Time 22.8 sec (22.0-30.0); Potassium 4.1 mmol/L (3.5-5.1); Prothrombin Time 10.9 sec (9.0-12.0); Sodium 140 mmol/L (137-145); Total Bilirubin 0.2 mg/dL (0.2-1.3); Total Protein 5.6 g/dL (6.3-8.2)
--- NOTE | 2022-06-08 19:58 | XR ---
EXAMINATION TYPE: XR chest 1V portable DATE OF EXAM: 06/08/2022 7:23 PM COMPARISON: Chest radiographs from 07/23/2020 TECHNIQUE: XR chest 1V portable Frontal view of the chest. CLINICAL INDICATION:Female, 57 years old with history of chest pain; FINDINGS: Lungs/Pleura: There is flattening of the diaphragm with increased lucency of the lungs. No evidence o f pneumothorax, pleural effusion or focal consolidation. Pulmonary vascularity: Unremarkable. Heart/mediastinum: Cardiomediastinal silhouette is unremarkable. Three lead cardiac conduction device overlying the left hemithorax with lead tips projecting over the right ventricle, right atrium and c oronary sinus. Musculoskeletal: No acute osseous pathology. There is fixation hardware in the lower cervical spine. IMPRESSION: 1. No acute cardiopulmonary disease process. 2. COPD changes.
[2022-06-08 20:15] VITALS: RESP 17
--- NOTE | 2022-06-08 20:39 | CT ---
EXAMINATION TYPE: CT angio chest CT DLP: 220.7 mGycm, Automated exposure control for dose reduction was used. DATE OF EXAM: 06/08/2022 8:14 PM COMPARISON: Chest radiograph same day, CT chest 04/10/2011, 01/21/2022. CLINICAL INDICATION:Female, 57 years old with history of pe; Chest pain TECHNIQUE/CONTRAST: CTA scan of the thorax is performed with IV Contrast, patient injected with 100 mL of Isovue 370, pul monary embolism protocol. MIP images are created and reviewed these [facility] FINDINGS: Pulmonary Artery: There is no evidence for a filling defect within the pulmonary vasculature to sugge st acute pulmonary embolism. The pulmonary artery is of normal size. Lungs/Pleura: No evidence of focal consolidation, pleural effusion or pneumothorax. Peripheral atelec tasis most pronounced posteriorly. Stable right upper lobe pulmonary nodules measuring up tor 3 mm. Airway: Large airways are patent. Heart: Heart is within normal limits for size. Vasculature: No evidence of aortic aneurysm. Mediastinum: No gross evidence of adenopathy. Musculoskeletal: No acute osseous abnormalities Soft Tissues: Left chest wall cardiac conduction device with leads terminating in the right ventricle and right atrium and coronary sinus. Lower neck: No significant findings. Upper Abdomen: No significant findings. IMPRESSION: 1. No evidence of pulmonary embolism. 2. No acute process to explain the patient's pain. 3. Similar right upper lobe pulmonary nodules measuring less than 6 mm.
[2022-06-08 21:30] VITALS: BP 91/55; PULSE 65
--- NOTE | 2022-06-08 21:59 | CT ---
EXAMINATION TYPE: CT brain wo con CT DLP: 1148.4 mGycm, Automated exposure control for dose reduction was used. DATE OF EXAM: 06/08/2022 8:15 PM COMPARISON: 06/19/2020 CLINICAL INDICATION:Female, 57 years old with history of pe, Headache for several weeks TECHNIQUE: Brain: Axial CT images of the brain were obtained with coronal and sagittal reformats created and rev iewed. Contrast used: None. Oral contrast used: None. FINDINGS: Brain: Extra-axial spaces: No abnormal extra-axial fluid collections. Ventricular system: Within normal limits Cerebral parenchyma: No acute intraparenchymal hemorrhage or mass effect. The borjas-white junction is well differentiated. Cerebellum: Unremarkable. Mass effect: No evidence of midline shift. Intracranial vasculature: unremarkable Soft tissues: Normal. Calvarium/osseous structures: No depressed skull fracture. Paranasal sinuses and mastoid air cells: Mild scattered paranasal sinus disease. Visualized orbits: Orbital contents are intact. IMPRESSION: No acute intracranial process.
== END 2022-06-08 22:11 | disposition home or self-care (01) ==
LOC: EC 18:50
DX: F41.9 Anxiety disorder, unspecified (principal); R07.89 Other chest pain; R41.82 Altered mental status, unspecified; R00.1 Bradycardia, unspecified; R55 Syncope and collapse; F32.A Depression, unspecified; J43.9 Emphysema, unspecified; F17.200 Nicotine dependence, unspecified, uncomplicated; Z86.711 Personal history of pulmonary embolism; Z86.73 Personal history of transient ischemic attack (TIA), and cerebral infarction without residual deficits; Z95.0 Presence of cardiac pacemaker; Z79.899 Other long term (current) drug therapy
CPT/HCPCS: 36415; 93005; 85379; 83880; 80053; 83690; 83735; 84484; 85025; 85610; 85730; 71045; 70450; 71275; 99285; Q9967

== ENCOUNTER → 2022-06-19 | Outpatient (CLI) | payer MEDICARE ==
[2022-06-19 14:12] VITALS: BP 112/59; PULSE 99; RESP 16; TEMP 97.9
--- NOTE | 2022-06-19 14:19 | P.PAINPG ---
PQRS Measure Charge Sheet Comment: A 57 yr old female with a history of severe and chronic LBP x 11 yrs secondary to lumbar DDD and spondylosis with facet arthropathy without myelopathy presents today for evaluation s/p BL TFESI L4-L5 #1. Pt states she experienced 50 % pain relief x 3 wk s s/p procedure. Pain level is provoked at 7/10 in intensity, constant, localized in the lumbar spine, dull/ achy/ sharp in character w shooting towards sydni R side. Pain is provoked by weight bearing activity. Pain is alleviated with PT, massage therapy without relief, chiropractic treatments without relief, ice, medications, topicals, repositioning and rest. Interventional pain procedures completed include BL TFESI L4-L5 x1 Patient is currently on Tyl Arthritis, [place] Patient denies any side effects of the medication(s), denies excessive drowsiness or sleepiness, denies suicidal ideation and reports that the current pain medication is helping to control the pain and improve activities of daily living. Patient denies any motor or sensory deficits. Patient denies any fever or night sweats, denies any change in the bowel movements or urination. Physical Examination: -Constitutional: Cooperative. Not in acute distress . - Neurologic: Cranial nerve II to XII intact. No focal neurological deficits. - Psychatric: Alert & oriented x 3. Matching mood & appropriate affect. Judgment and insight intact. - Musculoskeletal: Cervical spine: Muscle bulk/ tone/ strength in the bilateral upper extremities normal Vertebral body tenderness to palpation over [place] test positive Distraction test positive Facet loading test positive TTP Thoracic spine Muscle bulk / tone/ strength in the bilateral paraspinal muscles normal Vertebral body tender to palpation over Facet loading test positive TTP Lumbar spine: Motor bulk/ tone/ strength lower extremities , thigh and legs : 5/5 Deep tendon reflexes : Normal Knee Jerk. Normal Ankle Jerk . Vertebral body tenderness to palpation over L5 Lumbar Facet Loading Test positive Straight Leg Raise: positive at 30 degrees right side/ left side Gaenslen's Test positive Sacral spine : Severe tenderness over the Sacroiliac joint: right side / left side Range of motion: Flexion of the lumbar spine <60 degrees Range of motion: Extension of the lumbar spine <20 degrees Gaenslen's Test positive right side / left side Jose Ramon test: positive right side / left side Thigh Thrust Test positive right side / left side Sacral Thrust Test positive right side / left side Assessment and plan: Chronic LBP secondary to lumbar DDD, spondylosis with facet arthropathy without myelopathy Recommendation of BL TFESI L5-S1 #2. May need a series of injections for optimal pain relief. Risks, benefits of procedure discussed and pt verbalized understanding. Admits to anticoagulant use or medical history of diabetes. Protocol for discontinuation/ continuation of medications maine procedure discussed. All questions answered. I have spent less than 30 minutes on patient care today. Dr Anthony was available by phone for the evaluation of this patient. The time was used to review the medical records including relevant urine studies and Prescription history (MAPs), review of the available imaging, evaluation and examination of the patient, coordination of care with the medical staff and if applicable referring physicians, as well as creation of the medical record PQRS Narrative: Smoking Status Current every day smoker Hx Alcohol Use (MH) No Home Medications: Ambulatory Orders clonazePAM [KlonoPIN] 0.5 mg PO TID 12/30/17 tiZANidine [Zanaflex] 4 mg PO TID PRN 12/30/17 Sertraline [Zoloft] 150 mg PO DAILY 11/21/18 traZODone HCL 150 mg PO HS 07/21/20 HYDROcodone/APAP 10-325MG [[place] 10-325] 1 tab PO QID 02/13/22 Acetaminophen [Tylenol Arthritis] 650 - 1,300 mg PO Q8H PRN 06/08/22 Alendronate Sodium [Fosamax] 70 mg PO TU 06/08/22 Aspirin/Acetaminophen/Caffeine [Excedrin Migraine Caplet] 1 - 2 tab PO DAILY PRN 06/08/22 Atorvastatin [Lipitor] 40 mg PO DAILY 06/08/22 Cetirizine HCl [Zyrtec] 10 mg PO DAILY PRN 06/08/22 Clobetasol Propionate 0.05% Ointment 1 applic TOPICAL BID PRN 06/08/22 hydrOXYzine HCL [Atarax] 10 mg PO HS PRN 06/08/22 Controlled Substance Measures - Controlled Substance Measures Is patient prescribed a controlled substance at discharge?: No
== END ==
LOC: PNWHC3 13:18
PROVIDERS: ATTEND Specialist
DX: M51.36 Other intervertebral disc degeneration, lumbar region (principal); M47.816 Spondylosis without myelopathy or radiculopathy, lumbar region; G89.29 Other chronic pain; F17.200 Nicotine dependence, unspecified, uncomplicated; Z79.82 Long term (current) use of aspirin
CPT/HCPCS: 99211

== ENCOUNTER → 2022-06-20 | Outpatient (CLI) | payer MEDICARE ==
--- NOTE | 2022-06-20 12:01 | CT ---
EXAMINATION TYPE: CT angio head neck DATE OF EXAM: 06/20/2022 COMPARISON: CT brain 06/08/2022 HISTORY: 57-year-old female R55, G44.1, headaches, syncope TECHNIQUE: Contiguous axial scanning of the head and neck performed with IV Contrast, patient injecte d with 65cc mL of Isovue 370. Coronal/sagittal reconstructions performed. 3-D reconstructions generat ed on a dedicated workstation. CT DLP: 224.5 mGycm Automated exposure control for dose reduction was used. FINDINGS: HEAD: Dominant left vertebral artery. Otherwise, both vertebral and basilar arteries are patent. The internal carotid arteries as well as the remainder of the anterior circulation is patent. There is a 2 mm saccular aneurysm projecting inferiorly near the level of the communicating segment o f the supraclinoid left ICA, axial image 53 series 6 and sagittal series 11 image 11. Some nodularity along the anterior left middle cranial fossa appears to represent venous contaminatio n with a tortuous cortical veins. NECK: Left anterior chest wall generator device. Conventional arterial branching anatomy. Dominant left vertebral artery. Both vertebral arteries are patent throughout the course. ACF hardware. Retropharyngeal course of the proximal internal carotid arteries. Otherwise, the common and internal carotid arteries are widely patent by NASCET criteria. IMPRESSION: HEAD: 1. 2 MM SACCULAR ANEURYSM PROJECTING INFERIORLY NEAR THE LEVEL OF THE COMMUNICATING SEGMENT SUPRACLIN OID LEFT ICA. CONSIDER NEUROSURGERY FOLLOW-UP. 2. NO LARGE VESSEL INTRACRANIAL ARTERIAL OCCLUSION OR SIGNIFICANT STENOSIS. NECK: 3. WIDELY PATENT VERTEBRAL AND CAROTID ARTERIES OF THE NECK. DOMINANT LEFT VERTEBRAL ARTERY.
== END | disposition home or self-care (01) ==
LOC: RADCTMAIN 09:32
PROVIDERS: ATTEND Internal Medicine
DX: G44.1 Vascular headache, not elsewhere classified (principal); I72.5 Aneurysm of other precerebral arteries; R55 Syncope and collapse
CPT/HCPCS: 70496; 70498; Q9967

== ENCOUNTER 2022-08-21 06:13 | Day surgery (SDC) | payer MEDICARE ==
[2022-08-19 10:07] VITALS: BMI 16.7
[2022-08-21] MEDS ORDERED: LACTATED RINGERS 1,000 ML IV SCH (06:34)
[2022-08-21 06:43] VITALS: TEMP 98.7
[2022-08-21] MEDS ORDERED: IOPAMIDOL M200 10 ML VIAL ONE (07:03)
[2022-08-21] MEDS ORDERED: methylPREDNISolone ACETATE 80 MG/ML 1 ML VIAL ONE (07:03)
--- NOTE | 2022-08-21 07:22 | P.PCN ---
Date of Procedure: 08/21/22 Procedure(s) Performed: PREOPERATIVE DIAGNOSIS: 1-Lumbar radiculopathy . 2-lumbar degenerative disc disease. 3-lumbar spondylosis with lumbar facet arthropathy without myelopathy POSTOPERATIVE DIAGNOSIS: 1-lumbar radiculopathy. 2-lumbar degenerative disc disease. 3-lumbar spondylosis with facet arthropathy without myelopathy PROCEDURE 1. Transforaminal epidural steroid injection under fluoroscopic guidance at Bilateral L5-S1 level. (Fluoroscopy images stored on file in the radiology Department ) 2. Lumbar epidurogram . ANESTHESIA: Local with 1% lidocaine 5 ml only EBL: Minimal PROCEDURE INDICATION: The patient with low back pain and radiculopathy symptoms unresponsive to conservative treatment. PROCEDURE DESCRIPTION / TECHNIQUE: The patient was seen and identified in the preoperative area. Risks, benefits, complications, and alternatives were discussed with the patient. The patient agreed to proceed with the procedure and signed the consent. IV was started, and vital signs were stable. Patient was taken to the OR and time out was completed. The patient was placed in the prone position on procedure table and a pillow was placed under the abdomen to reduce lumbar lordosis. The lumbosacral area was prepped and draped in the usual sterile fashion. Critical pause was taken. Vital signs were closely monitored during the procedure. Using oblique fluoroscopy, the chin of the ``Eric dog at right L5-S1 level was identified, and the skin and deeper tissues just below was localized with 1% lidocaine. Subsequently, a 22-gauge 3.5-inch spinal needle was advanced under a tunneled view fluoroscopic guidance just underneath the chin of the ``Eric dog at the right L4-5 Under lateral fluoroscopy, the needle was then advanced to the posterior border of the interforaminal space. After negative aspiration of CSF and blood and with no paresthesias, 1 mL Isovue 200 contrast dye was injected excellent epidurogram and outlining of the nerve root Subsequently, 3 mL of block solution containing 40 mg Depo-Medrol and 2 mL of 0.9% normal saline PF was injected. Needle was removed and the same procedure was repeated at the left L5-S1 level . At the end of the procedure, skin was cleansed, and bandages were applied. COMPLICATIONS:none DISPOSITION / PLANS: The patient was placed in a supine position and transferred to the recovery area in a stable condition for observation. There was no evidence of lower extremity motor or sensory deficit after the procedure. Patient was discharged from the recovery room after meeting discharge criteria. Home discharge instructions were given to the patient by the staff. The patient was reexamined prior to discharge.
[2022-08-21 07:30] VITALS: RESP 18
--- NOTE | 2022-08-21 07:32 | FL ---
Intraoperative/procedural fluoroscopic services were provided for bilateral transforaminal epidural i njection of the lumbar spine. Total fluoroscopy time is 8.8 seconds with a total of 3 submitted image s to PACS. Total DAP [id number] mGym2. Please see the operative note for further details.
[2022-08-21 07:40] VITALS: BP 114/65; PULSE 75
== END 2022-08-21 07:45 | disposition home or self-care (01) ==
LOC: ORPAIN 06:13
PROVIDERS: ATTEND Specialist
DX: M51.16 Intervertebral disc disorders with radiculopathy, lumbar region (principal); M47.26 Other spondylosis with radiculopathy, lumbar region
CPT/HCPCS: 64483; J1040; Q9966

== ENCOUNTER 2022-08-24 11:17 | Emergency (ER) | payer MEDICARE ==
[2022-08-24 11:27] VITALS: TEMP 97
[2022-08-24] MEDS ORDERED: HYDROmorphone 0.5 MG/0.5 ML SYRINGE IVP STA (11:54)
[2022-08-24] MEDS ORDERED: ONDANSETRON 4 MG/2 ML VIAL IVP STA (11:54)
[2022-08-24] MEDS ORDERED: METOCLOPRAMIDE 5 MG/ML 2 ML VIAL IVP STA (12:58)
[2022-08-24] MEDS ORDERED: HYDROmorphone 1 MG/ML 1 ML SYRINGE IVP STA (13:10)
[2022-08-24 14:05] LABS: Basophils % (A) 0 %; Eosinophils % (A) 0 %; HCT 37.8 % (34.0-46.0); HGB 12.2 gm/dL (11.4-16.0); Lymphocytes # (A) 0.8 k/uL (1.0-4.8); Lymphocytes % (A) 10 %; MCH 33.1 pg (25.0-35.0); MCHC 32.3 g/dL (31.0-37.0); MCV 102.4 fL (80.0-100.0); Macrocytosis Slight; Mean Platelet Volume 9.6; Monocytes # (A) 0.3 k/uL (0-1.0); Monocytes % (A) 4 %; Neutrophils % (A) 85 %; Platelet Count 126 k/uL (150-450); RBC 3.69 m/uL (3.80-5.40); RDW 12.5 % (11.5-15.5); WBC 8.2 k/uL (3.8-10.6)
[2022-08-24 14:22] LABS: ALT 27 U/L (4-34); AST 26 U/L (14-36); African American GFR (CKD) >90 (>60 ml/min/1.73 sqM); Albumin 3.4 g/dL (3.5-5.0); Alkaline Phosphatase 66 U/L (38-126); Anion Gap 4 mmol/L; Blood Urea Nitrogen 13 mg/dL (7-17); Calcium 7.6 mg/dL (8.4-10.2); Carbon Dioxide 24 mmol/L (22-30); Chloride 110 mmol/L (98-107); Glucose 116 mg/dL (74-99); Lipase 40 U/L (23-300); Non-African American GFR(CKD) >90 (>60 ml/min/1.73 sqM); Potassium 3.1 mmol/L (3.5-5.1); Sodium 138 mmol/L (137-145); Total Bilirubin 0.4 mg/dL (0.2-1.3); Total Protein 5.3 g/dL (6.3-8.2)
[2022-08-24] MEDS ORDERED: POTASSIUM CHLORIDE ER 20 MEQ TAB.ER PO STA (14:48)
--- NOTE | 2022-08-24 14:50 | ED ---
General Adult HPI - General Chief complaint: Back Pain/Injury Stated complaint: Nausea, vomiting Time Seen by Provider: 08/24/22 11:50 Source: patient, family, EMS, RN notes reviewed Mode of arrival: EMS Limitations: no limitations - History of Present Illness Initial comments: 49-year-old female presents to the emergency department chief complaint of back pain. Patient states that she has a history of chronic back pain and fibromyalgia and has had pain like this in the past. She recently had injections in her back which she states did not help. Patient denies loss of bowel or bladder function, urinary retention, saddle anesthesia, fever. - Related Data Home Medications Medication Instructions Recorded Confirmed clonazePAM [KlonoPIN] 0.5 mg PO TID 12/30/17 08/19/22 tiZANidine [Zanaflex] 4 mg PO TID PRN 12/30/17 08/19/22 Sertraline [Zoloft] 150 mg PO DAILY 11/21/18 08/19/22 traZODone HCL 150 mg PO HS 07/21/20 08/19/22 HYDROcodone/APAP 10-325MG [[place] 1 tab PO QID 02/13/22 08/19/22 10-325] Acetaminophen [Tylenol Arthritis] 650 - 1,300 mg PO Q8H PRN 06/08/22 08/19/22 Alendronate Sodium [Fosamax] 70 mg PO TU 06/08/22 08/19/22 Aspirin/Acetaminophen/Caffeine 1 - 2 tab PO DAILY PRN 06/08/22 08/19/22 [Excedrin Migraine Caplet] Atorvastatin [Lipitor] 40 mg PO DAILY 06/08/22 08/19/22 Cetirizine HCl [Zyrtec] 10 mg PO DAILY PRN 06/08/22 08/19/22 Clobetasol Propionate 0.05% 1 applic TOPICAL BID PRN 06/08/22 08/19/22 Ointment Allergies Allergy/AdvReac Type Severity Reaction Status Date / Time No Known Allergies Allergy Verified 08/19/22 10:07 Review of Systems ROS Statement: Those systems with pertinent positive or pertinent negative responses have been documented in the HPI. ROS Other: All systems not noted in ROS Statement are negative. Past Medical History Past Medical History: Cancer, COPD, CVA/TIA, Fibromyalgia, Osteoarthritis (OA), Skin Disorder Additional Past Medical History / Comment(s): "Small Aneurysm in head, saw a Neurosurgeon at [place], just watching it for now, to see him every 6 months". 70 lb weight loss since 2014, biggest drop in last year. Low BP. Mild COPD/Emphysema (pt unaware she had this), Mobitz second-degree type I. Sarcoma. 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 History of Any Multi-Drug Resistant Organisms: None Reported Past Surgical History: Section, Hysterectomy, Orthopedic Surgery, P acemaker, Tubal Ligation Additional Past Surgical History / Comment(s): MELANOMA SURGERY WITH WIDE EXCISION AND LYMPH NODES REMOVED LEFT THIGH (2011), CYST ON BACK, PAIN PROCE DURES, RIGHT CARPAL TUNNEL RELEASE, RIGHT THUMB JOINT REPLACEMENT, COLONOSCOPY, D&C, neck fusion, pain clinic procedure. Past Anesthesia/Blood Transfusion Reactions: No Reported Reaction Additional Past Anesthesia/Blood Transfusion Reaction / Comment(s): MOTHER AND SON PONV. Type of Cardiac Device: Permanent Pacemaker Device Placement Date:: 07/24/20 Past Psychological History: Anxiety, Depression Smoking Status: Current every day smoker Past Alcohol Use History: None Reported Past Drug Use History: Marijuana - Past Family History Mother Family Medical History: No Reported History Father Family Medical History: AFIB, Hyperlipidemia, Hypertension, Sleep Apnea/CPAP/BIPAP Additional Family Medical History / Comment(s): Gout. General Exam Limitations: no limitations General appearance: alert, in no apparent distress, anxious Head exam: Present: atraumatic, normocephalic, normal inspection Eye exam: Present: normal appearance, PERRL, EOMI. Absent: scleral icterus, conjunctival injection, periorbital swelling ENT exam: Present: normal exam, mucous membranes moist Neck exam: Present: normal inspection, full ROM. Absent: tenderness, meningismus, lymphadenopathy Respiratory exam: Present: normal lung sounds bilaterally. Absent: respiratory distress, wheezes, rales, rhonchi, stridor Cardiovascular Exam: Present: regular rate, normal rhythm, normal heart sounds. Absent: systolic murmur, diastolic murmur, rubs, gallop, clicks GI/Abdominal exam: Present: soft, normal bowel sounds. Absent: distended, tenderness, guarding, rebound, rigid Extremities exam: Present: normal inspection, full ROM, normal capillary refill. Absent: tenderness, pedal edema, joint swelling, calf tenderness Back exam: Present: normal inspection, tenderness (Spinal and spinal tenderness), other (Injection sites nonindurated, nonerythematous) Neurological exam: Present: alert, oriented X3, CN II-XII intact Psychiatric exam: Present: normal affect, normal mood Skin exam: Present: warm, dry, intact, normal color. Absent: rash Course Vital Signs 08/24/22 08/24/22 08/24/22 11:18 12:27 15:02 Temperature 97 F L Pulse Rate 77 60 91 Respiratory 18 22 19 Rate Blood Pressure 119/69 122/53 103/64 O2 Sat by Pulse 98 95 94 L Oximetry Medical Decision Making - Medical Decision Making Was pt. sent in by a medical professional or institution (, PA, STEAM FRAME OPERATOR, urgent care, hospital, or half-way...) When possible be specific @ -No Did you speak to anyone other than the patient for history (EMS, parent, family, police, friend...)? What history was obtained from this source @ -No Did you review nursing and triage notes (agree or disagree)? Why? @ -I reviewed and agree with nursing and triage notes Were old charts reviewed (outside hosp., previous admission, EMS record, old EKG, old radiological studies, urgent care reports/EKG's, half-way records)? Report findings @ -No old charts were reviewed Differential Diagnosis (chest pain, altered mental status, abdominal pain women, abdominal pain men, vaginal bleeding, weakness, fever, dyspnea, syncope, headache, dizziness, GI bleed, back pain, seizure, CVA, palpatations, mental health, musculoskeletal)? @ -Differential Musculoskeletal Muscular strain, contusion, ligament sprain, fracture, arthritis, septic arthritis, bursitis, cellulitis, muscle spasm, nerve compression, DVT, arterial occlusion, herpes zoster, electrolyte abnormality, tumor.... This is not meant to be in all inclusive list EKG interpreted by me (3pts min.). @ -None X-rays interpreted by me (1pt min.). @ -None done CT interpreted by me (1pt min.). @ -None done U/S interpreted by me (1pt. min.). @ -None done What testing was considered but not performed or refused? (CT, X-rays, U/S, labs)? Why? @ -Imaging was considered but patient has had recent CT scans in patient states that this pain is the same as pain that she has experienced in the recent past. What meds were considered but not given or refused? Why? @ -None Did you discuss the management of the patient with other professionals (professionals i.e. DrVee, PA, STEAM FRAME OPERATOR, lab, RT, psych nurse, social insurance adviser, auxiliary powerplant operator, teacher, protocol officer, case maker)? Give summary @ -No Was smoking cessation discussed for >3mins.? @ -No Was critical care preformed (if so, how long)? @ -No Were there social determinants of health that impacted care today? How? (Homelessness, low income, unemployed, alcoholism, drug addiction, transportation, low edu. Level, literacy, decrease access to med. care, correction, rehab)? @ -No Was there de-escalation of care discussed even if they declined (Discuss DNR or withdrawal of care, Hospice)? DNR status @ -No What co-morbidities impacted this encounter? (DM, HTN, Smoking, COPD, CAD, Cancer, CVA, ARF, Chemo, Hep., AIDS, mental health diagnosis, sleep apnea, mo rbid obesity)? @ -None Was patient admitted / discharged? Hospital course, mention meds given and route, prescriptions, significant lab abnormalities, going to OR and other pertinent info. @ -Discharged. Patient presented to emergency department chief complaint of back pain which is chronic. Patient reports recent injections in her back which showed no evidence for infection on exam. Patient is not having any urinary retention, loss of bowel or bladder function, saddle anesthesia, fever. Patient was given 2 mg of Dilaudid and Reglan. Which she states improved her symptoms. CBC, CMP obtained. Patient's potassium was 3.1. Patient was given oral potassium replacement. Upon discharge patient walked out of the emergency department. Patient stable at time of discharge. Case discussed my attending, Dr. Fortune who also evaluated the patient Undiagnosed new problem with uncertain prognosis? @ -No Drug Therapy requiring intensive monitoring for toxicity (Heparin, Nitro, Insulin, Cardizem)? @ -No Were any procedures done? @ -No Diagnosis/symptom? @ -Back pain Acute, or Chronic, or Acute on Chronic? @ -Chronic Uncomplicated (without systemic symptoms) or Complicated (systemic symptoms)? @ -uncomplicated Side effects of treatment? @ -No Exacerbation, Progression, or Severe Exacerbation? @ -No Poses a threat to life or bodily function? How? (Chest pain, USA, VT, pneumonia, PE, COPD, DKA, ARF, appy, cholecystitis, CVA, Diverticulitis, Homicidal, Suicidal, threat to staff... and all critical care pts) @ -No - Lab Data Result diagrams: 08/24/22 13:50 08/24/22 13:50 Lab Results 08/24/22 08/24/22 Range/Units 13:50 13:50 WBC 8.2 (3.8-10.6) k/uL RBC 3.69 L (3.80-5.40) m/uL Hgb 12.2 (11.4-16.0) gm/dL Hct 37.8 (34.0-46.0) % MCV 102.4 H (80.0-100.0) fL MCH 33.1 (25.0-35.0) pg MCHC 32.3 (31.0-37.0) g/dL RDW 12.5 (11.5-15.5) % Plt Count 126 L (150-450) k/uL MPV 9.6 Neutrophils % 85 % Lymphocytes % 10 % Monocytes % 4 % Eosinophils % 0 % Basophils % 0 % Neutrophils # 7.0 (1.3-7.7) k/uL Lymphocytes # 0.8 L (1.0-4.8) k/uL Monocytes # 0.3 (0-1.0) k/uL Eosinophils # 0.0 (0-0.7) k/uL Basophils # 0.0 (0-0.2) k/uL Macrocytosis Slight Sodium 138 (137-145) mmol/L Potassium 3.1 L (3.5-5.1) mmol/L Chloride 110 H (98-107) mmol/L Carbon Dioxide 24 (22-30) mmol/L Anion Gap 4 mmol/L BUN 13 (7-17) mg/dL Creatinine 0.50 L (0.52-1.04) mg/dL Est GFR (CKD-EPI)AfAm >90 (>60 ml/min/1.73 sqM) Est GFR (CKD-EPI)NonAf >90 (>60 ml/min/1.73 sqM) Glucose 116 H (74-99) mg/dL Calcium 7.6 L (8.4-10.2) mg/dL Total Bilirubin 0.4 (0.2-1.3) mg/dL AST 26 (14-36) U/L ALT 27 (4-34) U/L Alkaline Phosphatase 66 (38-126) U/L Total Protein 5.3 L (6.3-8.2) g/dL Albumin 3.4 L (3.5-5.0) g/dL Lipase 40 (23-300) U/L Disposition Clinical Impression: Back pain Disposition: HOME SELF-CARE Condition: Stable Instructions (If sedation given, give patient instructions): Acute Low Back Pain (ED) Additional Instructions: Please return to the emergency department for new or worsening symptoms. Is patient prescribed a controlled substance at d/c from ED?: No Referrals: Ingrid Maloney MD [Primary Care Provider] - 1-2 days Time of Disposition: 14:49
[2022-08-24 15:06] VITALS: BP 103/64; PULSE 91; RESP 19
== END 2022-08-24 15:09 | disposition home or self-care (01) ==
LOC: EC 11:17
DX: M54.9 Dorsalgia, unspecified (principal); J44.9 Chronic obstructive pulmonary disease, unspecified; M19.90 Unspecified osteoarthritis, unspecified site; Z86.73 Personal history of transient ischemic attack (TIA), and cerebral infarction without residual deficits; F41.9 Anxiety disorder, unspecified; F32.A Depression, unspecified; F17.200 Nicotine dependence, unspecified, uncomplicated; F12.90 Cannabis use, unspecified, uncomplicated; Z79.899 Other long term (current) drug therapy
CPT/HCPCS: 36415; 80053; 83690; 85025; 99284; 96374; 96375 ×2; 96376; J2765; J2405; J1170 ×2

== ENCOUNTER 2023-08-19 16:00 | Emergency (ER) | payer MEDICARE ==
[2023-08-19 16:07] VITALS: TEMP 97.2
[2023-08-19] MEDS: METOCLOPRAMIDE 5 MG/ML 2 ML VIAL IVP STA (16:54)
[2023-08-19] MEDS: CAFFEINE-SODIUM BENZOATE 500 MG in SODIUM CHLORIDE 0.9% 1,000 ML IVPB ONE (16:55)
[2023-08-19] MEDS: HYDROmorphone 1 MG/ML 1 ML SYRINGE IVP STA ×3 (16:56→23:51)
--- NOTE | 2023-08-19 17:06 | ED ---
General Adult HPI - General Source: patient, family, EMS, RN notes reviewed, old records reviewed Mode of arrival: EMS Limitations: no limitations <Nathan Keane - Last Filed: 08/20/23 12:08> <Corie Jane - Last Filed: 08/21/23 00:16> - General Chief complaint: Headache Stated complaint: Post-Op pain Time Seen by Provider: 08/19/23 16:36 - History of Present Illness Initial comments: 58-year-old female presenting for evaluation of headache. Patient is 2 days status post lumbar puncture and myelogram. This was performed at outside hospital. Patient has positional headache with associated nausea and vomiting. Patient does have history of similar episodes in the past that were not specifically related to lumbar puncture. She sees pain management for chronic pain. There is been no fever. She has had some photophobia as well. (Nathan Keane) - Related Data Home Medications Medication Instructions Recorded Confirmed clonazePAM [KlonoPIN] 0.5 mg PO DAILY 12/30/17 08/19/23 tiZANidine [Zanaflex] 4 mg PO TID PRN 12/30/17 08/19/23 Sertraline [Zoloft] 200 mg PO DAILY 11/21/18 08/19/23 traZODone HCL 150 mg PO HS 07/21/20 08/19/23 Atorvastatin [Lipitor] 40 mg PO HS 06/08/22 08/19/23 Hydrocortisone [Cortef] 5 mg PO BID 08/19/23 08/19/23 Omeprazole 20 mg PO BID 08/19/23 08/19/23 Ondansetron [Zofran] 8 mg PO TID 08/19/23 08/19/23 Rimegepant Sulfate [Nurtec Odt] 75 mg PO DIRECTED PRN 08/19/23 08/19/23 clonazePAM [KlonoPIN] 1 mg PO HS 08/19/23 08/19/23 Allergies Allergy/AdvReac Type Severity Reaction Status Date / Time No Known Allergies Allergy Verified 08/19/23 16:07 Review of Systems ROS Other: All systems not noted in ROS Statement are negative. <Nathan Keane - Last Filed: 08/20/23 12:08> ROS Other: All systems not noted in ROS Statement are negative. <Corie Jane A - Last Filed: 08/21/23 00:16> ROS Statement: Those systems with pertinent positive or pertinent negative responses have been documented in the HPI. Past Medical History Past Medical History: Cancer, COPD, CVA/TIA, Fibromyalgia, Osteoarthritis (OA), Skin Disorder Additional Past Medical History / Comment(s): "Small Aneurysm in head, saw a Neurosurgeon at [place], just watching it for now, to see him every 6 months". 70 lb weight loss since 2015, biggest drop in last year. Low BP. Mild COPD/Emph ysema (pt unaware she had this), Mobitz second-degree type I. Sarcoma. 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 History of Any Multi-Drug Resistant Organisms: None Reported Past Surgical History: Section, Hysterectomy, Orthopedic Surgery, Pacemaker, Tubal Ligation Additional Past Surgical History / Comment(s): MELANOMA SURGERY WITH WIDE EXCISION AND LYMPH NODES REMOVED LEFT THIGH (2011), CYST ON BACK, PAIN PROCEDURES, RIGHT CARPAL TUNNEL RELEASE, RIGHT THUMB JOINT REPLACEMENT, COLONOSCOPY, D&C, neck fusion, pain clinic procedure. Past Anesthesia/Blood Transfusion Reactions: No Reported Reaction Additional Past Anesthesia/Blood Transfusion Reaction / Comment(s): MOTHER AND SON PONV. Type of Cardiac Device: Permanent Pacemaker Device Placement Date:: 07/24/20 Past Psychological History: Anxiety, Depression Smoking Status: Current every day smoker Past Alcohol Use History: None Reported Past Drug Use History: Marijuana - Past Family History Mother Family Medical History: No Reported History Father Family Medical History: AFIB, Hyperlipidemia, Hypertension, Sleep Apnea/CPAP/BIPAP Additional Family Medical History / Comment(s): Gout. <Nathan Keane N - Last Filed: 08/20/23 12:08> General Exam Limitations: no limitations General appearance: alert, anxious Head exam: Present: atraumatic, normocephalic Eye exam: Present: normal appearance, PERRL ENT exam: Present: normal exam Neck exam: Present: normal inspection. Absent: tenderness, meningismus Respiratory exam: Present: normal lung sounds bilaterally. Absent: respiratory distress, wheezes Cardiovascular Exam: Present: regular rate, normal rhythm GI/Abdominal exam: Present: soft. Absent: distended, tenderness, guarding Extremities exam: Present: normal inspection, normal capillary refill Neurological exam: Present: alert, oriented X3, CN II-XII intact. Absent: motor sensory deficit Psychiatric exam: Present: anxious Skin exam: Present: warm, dry, intact. Absent: cyanosis, diaphoretic <Nathan Keane N - Last Filed: 08/20/23 12:08> Course Vital Signs 08/19/23 08/19/23 08/19/23 16:02 19:00 20:00 Temperature 97.2 F L Pulse Rate 68 61 67 Respiratory 26 H 18 18 Rate Blood Pressure 138/78 118/62 119/68 O2 Sat by Pulse 97 95 95 Oximetry 08/19/23 08/19/23 08/19/23 20:30 22:15 22:45 Temperature Pulse Rate 61 61 78 Respiratory 18 9 L 26 H Rate Blood Pressure 126/83 140/84 127/82 O2 Sat by Pulse 95 96 93 L Oximetry 08/19/23 08/20/23 23:00 00:02 Temperature Pulse Rate 60 73 Respiratory 10 L 18 Rate Blood Pressure 139/91 131/75 O2 Sat by Pulse 96 95 Oximetry Medical Decision Making - Lab Data Result diagrams: 08/19/23 18:11 08/19/23 18:11 <Nathan Keane - Last Filed: 08/20/23 12:08> - Lab Data Result diagrams: 08/19/23 18:11 08/19/23 18:11 <Corie Jane - Last Filed: 08/21/23 00:16> - Medical Decision Making Was pt. sent in by a medical professional or institution (, PA, RACK MAKER, urgent care, hospital, or skilled nursing...) When possible be specific @ -No Did you speak to anyone other than the patient for history (EMS, parent, family, police, friend...)? What history was obtained from this source @ -No Did you review nursing and triage notes (agree or disagree)? Why? @ -I reviewed and agree with nursing and triage notes Were old charts reviewed (outside hosp., previous admission, EMS record, old EKG, old radiological studies, urgent care reports/EKG's, skilled nursing records)? Report findings @ -No old charts were reviewed Differential headache EKG interpreted by me (3pts min.). @ -EKG: Paced rhythm rate of 62, ID interval 158, QRS duration 134, QTc 470 X-rays interpreted by me (1pt min.). @ -None done CT interpreted by me (1pt min.). @ -Brain CT without contrast negative for acute process U/S interpreted by me (1pt. min.). @ -None done What testing was considered but not performed or refused? (CT, X-rays, U/S, labs)? Why? @ -None What meds were considered but not given or refused? Why? @ -None Did you discuss the management of the patient with other professionals (professionals i.e. , PA, RACK MAKER, lab, RT, psych nurse, social sciences lecturer, director cpg, teacher, command center officer, outsole caser)? Give summary @ -No Was smoking cessation discussed for >3mins.? @ -No Was critical care preformed (if so, how long)? @ -No Were there social determinants of health that impacted care today? How? (Homelessness, low income, unemployed, alcoholism, drug addiction, trans portation, low edu. Level, literacy, decrease access to med. care, correction, rehab)? @ -No Was there de-escalation of care discussed even if they declined (Discuss DNR or withdrawal of care, Hospice)? DNR status @ -No What co-morbidities impacted this encounter? (DM, HTN, Smoking, COPD, CAD, Cancer, CVA, ARF, Chemo, Hep., AIDS, mental health diagnosis, sleep apnea, morbid obesity)? @ -Recent lumbar puncture and myelogram Was patient admitted / discharged? Hospital course, mention meds given and r oute, prescriptions, significant lab abnormalities, going to OR and other pertinent info. @ -58-year-old female presenting with severe positional headache after lumbar puncture. Patient initially given Dilaudid, IV fluids, IV caffeine and Reglan. Imaging unremarkable, laboratory testing is within normal limits. Patient required additional doses of medication given Dilaudid and Toradol. She is awaiting reevaluation for the possibility of persistent headache and need for blood patch. Signed out at shift change awaiting reevaluation to Dr. Jane ([facility]) Patient was signed out to me. She has had no improvement in her symptoms and therefore I did call anesthesia for possible blood patch. Dr. Angelo does present to the emergency department and completes the blood patch. Patient is monitored for an hour. I do go and evaluate the patient and she states she is completely pain-free at this time. Patient is able to sit up at the side of the bed. Patient is ambulated around the emergency department. She has steady gait and states that her headache continues to remain gone. Patient is stable for discharge at this time. Instructed no heavy lifting or bending for the next couple of days. Follow-up with her care team for further evaluation of her symptoms and return for anything new or worsening. Patient agreeable to plan was discharged in stable condition (Corie Jane) - Lab Data Lab Results 08/19/23 08/19/23 08/19/23 Range/Units 16:46 16:46 16:46 WBC (3.8-10.6) k/uL RBC RACK MAKER Hgb RACK MAKER Hct RACK MAKER MCV RACK MAKER MCH RACK MAKER MCHC RACK MAKER RDW RACK MAKER Plt Count RACK MAKER MPV RACK MAKER Neutrophils % RACK MAKER Lymphocytes % RACK MAKER Monocytes % RACK MAKER Eosinophils % RACK MAKER Basophils % RACK MAKER Neutrophils # RACK MAKER Lymphocytes # RACK MAKER Monocytes # RACK MAKER Eosinophils # RACK MAKER Basophils # RACK MAKER Manual Slide Review RACK MAKER Hypochromasia RACK MAKER Macrocytosis RACK MAKER PT 19.8 H (10.0-12.5) sec INR 2.0 H (<1.2) APTT 59.0 H (22.0-30.0) sec Sodium 139 (137-145) mmol/L Potassium 4.3 (3.5-5.1) mmol/L Chloride 110 H (98-107) mmol/L Carbon Dioxide 23 (22-30) mmol/L Anion Gap 6 mmol/L BUN 8 (7-17) mg/dL Creatinine 0.69 (0.52-1.04) mg/dL Est GFR (CKD-EPI)AfAm >90 (>60 ml/min/1.73 sqM) Est GFR (CKD-EPI)NonAf >90 (>60 ml/min/1.73 sqM) Glucose 130 H (74-99) mg/dL Calcium 9.6 (8.4-10.2) mg/dL Magnesium 1.7 (1.6-2.3) mg/dL Total Bilirubin 0.7 (0.2-1.3) mg/dL AST 26 (14-36) U/L ALT 16 (4-34) U/L Alkaline Phosphatase 76 (38-126) U/L Total Protein 6.4 (6.3-8.2) g/dL Albumin 4.3 (3.5-5.0) g/dL Crossmatch 08/19/23 08/19/23 08/19/23 Range/Units 18:11 18:11 18:11 WBC 10.9 H (3.8-10.6) k/uL RBC 4.38 Hgb 14.1 Hct 45.3 MCV 103.5 H MCH 32.1 MCHC 31.0 RDW 12.9 Plt Count 166 MPV 9.0 Neutrophils % 86 Lymphocytes % 9 Monocytes % 5 Eosinophils % 0 Basophils % 0 Neutrophils # 9.3 H Lymphocytes # 1.0 Monocytes # 0.5 Eosinophils # 0.0 Basophils # 0.0 Manual Slide Review Hypochromasia Macrocytosis Slight PT 11.2 (10.0-12.5) sec INR 1.0 (<1.2) APTT 24.5 (22.0-30.0) sec Sodium (137-145) mmol/L Potassium (3.5-5.1) mmol/L Chloride (98-107) mmol/L Carbon Dioxide (22-30) mmol/L Anion Gap mmol/L BUN (7-17) mg/dL Creatinine (0.52-1.04) mg/dL Est GFR (CKD-EPI)AfAm (>60 ml/min/1.73 sqM) Est GFR (CKD-EPI)NonAf (>60 ml/min/1.73 sqM) Glucose (74-99) mg/dL Calcium (8.4-10.2) mg/dL Magnesium (1.6-2.3) mg/dL Total Bilirubin (0.2-1.3) mg/dL AST (14-36) U/L ALT (4-34) U/L Alkaline Phosphatase (38-126) U/L Total Protein (6.3-8.2) g/dL Albumin (3.5-5.0) g/dL Crossmatch See Detail 08/19/23 Range/Units 18:11 WBC (3.8-10.6) k/uL RBC Hgb Hct MCV MCH MCHC RDW Plt Count MPV Neutrophils % Lymphocytes % Monocytes % Eosinophils % Basophils % Neutrophils # Lymphocytes # Monocytes # Eosinophils # Basophils # Manual Slide Review Hypochromasia Macrocytosis PT (10.0-12.5) sec INR (<1.2) APTT (22.0-30.0) sec Sodium 140 (137-145) mmol/L Potassium 3.7 (3.5-5.1) mmol/L Chloride 112 H (98-107) mmol/L Carbon Dioxide 23 (22-30) mmol/L Anion Gap 5 mmol/L BUN 8 (7-17) mg/dL Creatinine 0.60 (0.52-1.04) mg/dL Est GFR (CKD-EPI)AfAm >90 (>60 ml/min/1.73 sqM) Est GFR (CKD-EPI)NonAf >90 (>60 ml/min/1.73 sqM) Glucose 124 H (74-99) mg/dL Calcium 8.9 (8.4-10.2) mg/dL Magnesium (1.6-2.3) mg/dL Total Bilirubin 0.6 (0.2-1.3) mg/dL AST 22 (14-36) U/L ALT 16 (4-34) U/L Alkaline Phosphatase 81 (38-126) U/L Total Protein 6.0 L (6.3-8.2) g/dL Albumin 4.1 (3.5-5.0) g/dL Crossmatch Disposition <Nathan Keane - Last Filed: 08/20/23 12:08> Is patient prescribed a controlled substance at d/c from ED?: No Time of Disposition: 23:45 <Corie Jane - Last Filed: 08/21/23 00:16> Clinical Impression: Intractable pain Disposition: HOME SELF-CARE Condition: Stable Instructions (If sedation given, give patient instructions): Acute Headache (ED), Epidural Blood Patch (DC) Referrals: Ingrid Maloney MD [Primary Care Provider] - 1-2 days
[2023-08-19 17:41] LABS: Prothrombin Time 19.8 sec (10.0-12.5)
[2023-08-19 17:46] LABS: ALT 16 U/L (4-34); African American GFR (CKD) >90 (>60 ml/min/1.73 sqM); Albumin 4.3 g/dL (3.5-5.0); Anion Gap 6 mmol/L; Blood Urea Nitrogen 8 mg/dL (7-17); Calcium 9.6 mg/dL (8.4-10.2); Carbon Dioxide 23 mmol/L (22-30); Chloride 110 mmol/L (98-107); Glucose 130 mg/dL (74-99); Magnesium 1.7 mg/dL (1.6-2.3); Non-African American GFR(CKD) >90 (>60 ml/min/1.73 sqM); Sodium 139 mmol/L (137-145); Total Bilirubin 0.7 mg/dL (0.2-1.3)
[2023-08-19 18:27] LABS: Basophils % (A) 0 %; Eosinophils % (A) 0 %; HCT 45.3 % (34.0-46.0); Lymphocytes % (A) 9 %; MCH 32.1 pg (25.0-35.0); MCV 103.5 fL (80.0-100.0); Macrocytosis Slight; Monocytes # (A) 0.5 k/uL (0-1.0); Monocytes % (A) 5 %; Neutrophils # (A) 9.3 k/uL (1.3-7.7); Neutrophils % (A) 86 %; RBC 4.38 m/uL (3.80-5.40); RDW 12.9 % (11.5-15.5); WBC 10.9 k/uL (3.8-10.6)
--- NOTE | 2023-08-19 18:33 | CT ---
EXAMINATION TYPE: CT brain wo con DATE OF EXAM: 08/19/2023 COMPARISON: 06/08/2022 HISTORY: 58-year-old female headache, migraine TECHNIQUE: Examination was done in axial plane without intravenous contrast. Coronal and sagittal r econstructions performed. CT DLP: 1164.4 mGycm Automated exposure control for dose reduction was used. FINDINGS: There is no evidence of acute intracranial hemorrhage, acute ischemic changes, mass, mass-effect, or extra-axial fluid collection. There is no effacement of cerebral sulci or basal subarachnoid cister ns. There is no hydrocephalus. There is no midline shift. Roca-white matter distinction is preserv ed. Leftward nasal septal deviation. Paranasal sinuses and mastoid air cells well pneumatized. Orbits and globes are intact. IMPRESSION: No acute intracranial abnormality seen. If there is concern for any white matter changes associated w ith chronic migraines, MRI can be considered.
[2023-08-19 18:34] LABS: HGB 14.1 gm/dL (11.4-16.0)
[2023-08-19 18:35] LABS: Platelet Count 166 k/uL (150-450)
[2023-08-19 18:37] LABS: AST 26 U/L (14-36); Potassium 4.3 mmol/L (3.5-5.1)
[2023-08-19] MEDS: PANTOPRAZOLE 40 MG/10 ML VIAL IVP STA (18:37)
[2023-08-19 18:38] LABS: Alkaline Phosphatase 76 U/L (38-126); Total Protein 6.4 g/dL (6.3-8.2)
[2023-08-19 18:42] LABS: ALT 16 U/L (4-34); AST 22 U/L (14-36); African American GFR (CKD) >90 (>60 ml/min/1.73 sqM); Albumin 4.1 g/dL (3.5-5.0); Alkaline Phosphatase 81 U/L (38-126); Anion Gap 5 mmol/L; Blood Urea Nitrogen 8 mg/dL (7-17); Calcium 8.9 mg/dL (8.4-10.2); Carbon Dioxide 23 mmol/L (22-30); Chloride 112 mmol/L (98-107); Glucose 124 mg/dL (74-99); Non-African American GFR(CKD) >90 (>60 ml/min/1.73 sqM); Potassium 3.7 mmol/L (3.5-5.1); Sodium 140 mmol/L (137-145); Total Bilirubin 0.6 mg/dL (0.2-1.3)
[2023-08-19 18:51] LABS: Partial Thromboplastin Time 24.5 sec (22.0-30.0); Prothrombin Time 11.2 sec (10.0-12.5)
[2023-08-19] MEDS: ACETAMINOPHEN TAB 500 MG TAB PO STA (19:52)
[2023-08-19] MEDS: KETOROLAC 15 MG/ML 1 ML VIAL IVP STA (19:59)
--- NOTE | 2023-08-19 23:04 | P.PN ---
Progress Note - Text Progress Note Date: 08/19/23 58-year-old female with cephalgia. On Thursday patient had a myelogram done at [facility]. Headache started the day after infraorbital as well as top of head rated a pulling 8 out of 10. Worsened with being erect. Lessens with lying down. History of chronic pain. Other than neuropathy in the feet no other nerve issues in the legs per patient. Platelets adequate. CT head negative. No blood thinners. Based off history patient has a probable postdural puncture headache. Offered patient epidural blood patch and described risks and benefits. Patient wished to proceed. Patient was placed in the seated position off side of the bed. Sterile purulent cautions were used throughout. Back was prepped x 3 with Betadine. Sterile drape applied. Lido 1% with 2 cc was then used with a 25-gauge needle to instill local at the L3-4 interspace. 20-gauge epidural needle was then used w ith [id number] to air at 4 cm. Confirmed with saline. Easy flush. ER nurse then placed tourniquet on the left upper extremity. I then sterilely ChloraPrep to the arm and then using an 20-gauge Angiocath on the left forearm sterilely dominique 20 cc of the patient's own blood. That 20 cc of blood was then slowly instilled through the epidural needle while conversing with the patient. Pain started to 8 out of 10 and decreased to 0 out of 10 after 16 cc. Needle was then flushed and then pulled. Gauze with tape applied. Instructions given for nurse for patient to receive the rest of the liter bag and then after resting for an hour have someone help the first time then getting up to ensure stability in the legs. Instructed the patient to decrease activity for the next few days at home's as to not dislodge the clot. Patient tolerated procedure well
[2023-08-20 00:03] VITALS: BP 131/75; PULSE 73; RESP 18
== END 2023-08-20 00:03 | disposition home or self-care (01) ==
LOC: EC 16:00
DX: G89.29 Other chronic pain (principal); F17.200 Nicotine dependence, unspecified, uncomplicated; G97.1 Other reaction to spinal and lumbar puncture
CPT/HCPCS: 36415; 93005; 86900; 86901; 80053; 83735; 85025; 85610; 85730; 86850; 70450; 99285; 96374; 96375 ×3; 96376; J2765; J1170; J1885; C9113; 86920

== ENCOUNTER 2023-08-22 09:04 | Emergency (ER) | payer MEDICARE ==
--- NOTE | 2023-08-22 09:35 | ED ---
Allergic Reaction HPI - General Chief complaint: Allergic Reaction Stated complaint: Facial Swelling Time Seen by Provider: 08/22/23 09:32 Source: patient, family, RN notes reviewed, old records reviewed Mode of arrival: wheelchair Limitations: no limitations - History of Present Illness Initial Comments: 58-year-old female presented to the ER with a chief complaint of allergic reaction. and is aiding in HPI and past medical history. Patient has a past medical history significant of non-Hodgkin's lymphoma and has chronic pain. Patient was seen here on 08-19-2023 and had a blood patch placed due to recent myelogram and headache. She states shortly after discharge she noticed periorbital swelling. She states it has progressively worsened throughout the past 24 to 48 hours to involve her right neck and right breast. She does admit to mild shortness of breath but denies any difficulty breathing or swallowing. She states she took an [id number] Katerin approximately 24 hours ago without relief. She is reporting mild left-sided neck pain. Denies any fevers, chills, nausea, vomiting, chest pain, abdominal pain or peripheral edema. - Related Data Home Medications Medication Instructions Recorded Confirmed clonazePAM [KlonoPIN] 0.5 mg PO DAILY 12/30/17 08/19/23 tiZANidine [Zanaflex] 4 mg PO TID PRN 12/30/17 08/19/23 Sertraline [Zoloft] 200 mg PO DAILY 11/21/18 08/19/23 traZODone HCL 150 mg PO HS 07/21/20 08/19/23 Atorvastatin [Lipitor] 40 mg PO HS 06/08/22 08/19/23 Hydrocortisone [Cortef] 5 mg PO BID 08/19/23 08/19/23 Omeprazole 20 mg PO BID 08/19/23 08/19/23 Ondansetron [Zofran] 8 mg PO TID 08/19/23 08/19/23 Rimegepant Sulfate [Nurtec Odt] 75 mg PO DIRECTED PRN 08/19/23 08/19/23 clonazePAM [KlonoPIN] 1 mg PO HS 08/19/23 08/19/23 Previous Rx's Medication Instructions Recorded EPINEPHrine (Auto Inject) [Epipen] 0.3 mg IM ONCE PRN #1 each 08/22/23 Allergies Allergy/AdvReac Type Severity Reaction Status Date / Time No Known Allergies Allergy Verified 08/22/23 09:05 Review of Systems ROS Statement: Those systems with pertinent positive or pertinent negative responses have been documented in the HPI. ROS Other: All systems not noted in ROS Statement are negative. Past Medical History Past Medical History: Cancer, COPD, CVA/TIA, Fibromyalgia, Osteoarthritis (OA), Skin Disorder Additional Past Medical History / Comment(s): "Small Aneurysm in head, saw a Neurosurgeon at [facility], just watching it for now, to see him every 6 months". 70 lb weight loss since 2014, biggest drop in last year. Low BP. Mild COPD/Emphysema (pt unaware she had this), Mobitz second-degree type I. Sarcoma. 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 History of Any Multi-Drug Resistant Organisms: None Reported Past Surgical History: Section, Hysterectomy, Orthopedic Surgery, Pacemaker, Tubal Ligation Additional Past Surgical History / Comment(s): MELANOMA SURGERY WITH WIDE EX CISION AND LYMPH NODES REMOVED LEFT THIGH (2011), CYST ON BACK, PAIN PROCEDURES, RIGHT CARPAL TUNNEL RELEASE, RIGHT THUMB JOINT REPLACEMENT, COLONOSCOPY, D&C, neck fusion, pain clinic procedure. blood patch Past Anesthesia/Blood Transfusion Reactions: No Reported Reaction Additional Past Anesthesia/Blood Transfusion Reaction / Comment(s): MOTHER AND SON PONV. Type of Cardiac Device: Permanent Pacemaker Device Placement Date:: 07/24/20 Past Psychological History: Anxiety, Depression Smoking Status: Current every day smoker Past Alcohol Use History: None Reported Past Drug Use History: Marijuana - Past Family History Mother Family Medical History: No Reported History Father Family Medical History: AFIB, Hyperlipidemia, Hypertension, Sleep Apnea/CPAP/BIPAP Additional Family Medical History / Comment(s): Gout. General Exam Limitations: no limitations General appearance: alert, in no apparent distress Head exam: Present: atraumatic, normocephalic, normal inspection Eye exam: Present: normal appearance, PERRL, EOMI, periorbital swelling ENT exam: Present: normal exam, normal oropharynx, mucous membranes moist Neck exam: Present: normal inspection, tenderness (left sided). Absent: meningismus, lymphadenopathy Respiratory exam: Present: normal lung sounds bilaterally. Absent: respiratory distress, wheezes, rales, rhonchi, stridor Cardiovascular Exam: Present: regular rate, normal rhythm, normal heart sounds. Absent: systolic murmur, diastolic murmur, rubs, gallop, clicks Extremities exam: Present: normal inspection, full ROM, normal capillary refill. Absent: tenderness, pedal edema, joint swelling, calf tenderness Neurological exam: Present: alert, oriented X3, CN II-XII intact Skin exam: Present: warm, dry, intact, normal color. Absent: rash Course Vital Signs 08/22/23 08/22/23 08/22/23 09:05 10:08 11:41 Temperature 97.8 F 98 F Pulse Rate 102 H 67 68 Respiratory 24 16 16 Rate Blood Pressure 118/82 122/85 132/80 O2 Sat by Pulse 96 97 98 Oximetry Medical Decision Making - Medical Decision Making Was pt. sent in by a medical professional or institution (, PA, LOCK CORNER MACHINE OPERATOR, urgent care, hospital, or usp...) When possible be specific @ -No Did you speak to anyone other than the patient for history (EMS, parent, family, police, friend...)? What history was obtained from this source @ - aiding in HPI and PMHx. Did you review nursing and triage notes (agree or disagree)? Why? @ -I reviewed and agree with nursing and triage notes Were old charts reviewed (outside hosp., previous admission, EMS record, old EKG, old radiological studies, urgent care reports/EKG's, usp records)? Report findings @ -Yes, I reviewed ER visit from 08-19-2023. Patient seen for a headache and received a blood patch at that time with resolution of symptoms. Patient discharged in stable condition with outpatient follow-up. Differential Diagnosis (chest pain, altered mental status, abdominal pain women, abdominal pain men, vaginal bleeding, weakness, fever, dyspnea, syncope, headache, dizziness, GI bleed, back pain, seizure, CVA, palpatations, mental health, musculoskeletal)? @ -Allergic reaction, anaphylaxis, viral illness...this list is not meant to be all-inclusive EKG interpreted by me (3pts min.). @ -None X-rays interpreted by me (1pt min.). @ -None done CT interpreted by me (1pt min.). @ -None done U/S interpreted by me (1pt. min.). @ -None done What testing was considered but not performed or refused? (CT, X-rays, U/S, labs)? Why? @ -None What meds were considered but not given or refused? Why? @ -None Did you discuss the management of the patient with other professionals (professionals i.e. Dr., PA, LOCK CORNER MACHINE OPERATOR, lab, RT, psych nurse, social work associate, marketing communications coordinator, teacher, diplomatic officer, supportive employment case manager)? Give summary @ -No Was smoking cessation discussed for >3mins.? @ -I discussed smoking cessation for greater than 3 minutes. The risk of smoking were discussed with the patient including but not limited to risks of cancer, stroke, coronary artery disease and COPD. Also discussed with patient were multiple methods of quitting smoking. Lastly we discussed the financial cost of smoking. Was critical care preformed (if so, how long)? @ -No Were there social determinants of health that impacted care today? How? (Homelessness, low income, unemployed, alcoholism, drug addiction, transportation, low edu. Level, literacy, decrease access to med. care, snf, rehab)? @ -No Was there de-escalation of care discussed even if they declined (Discuss DNR or withdrawal of care, Hospice)? DNR status @ -No What co-morbidities impacted this encounter? (DM, HTN, Smoking, COPD, CAD, Cancer, CVA, ARF, Chemo, Hep., AIDS, mental health diagnosis, sleep apnea, morbid obesity)? @ -Smoking Was patient admitted / discharged? Hospital course, mention meds given and route, prescriptions, significant lab abnormalities, going to OR and other pertinent info. @ -Discharge. 58-year-old female presenting to the ER with a chief complaint of allergic reaction. History and physical exam completed. Vitals stable. Patient no signs of acute distress and nontoxic-appearing. Periorbital swelling present. Pupils equal round and reactive. Oropharynx open. No throat swelling or lower jaw swelling. Patient received IV Solu-Medrol, Benadryl, Pepcid and 1 L IV fluids in the. Laboratory studies obtained remarkable for leukocytosis WBC 11.3 with a left shift which is likely reactive from patient's smoking habits, otherwise unremarkable. Upon reevaluation, patient resting comfortably in exam room. Patient reporting mild improvement of discomfort. Periorbital edema decreased from initial evaluation. Patient stable for discharge at this time. Patient received IM Decadron prior to discharge. Advised patient to continue taking Benadryl for the next 48 hours. EpiPen prescribed for anaphylaxis. Strict return parameters discussed. Patient discharged in stable condition with follow-up to PCP. Patient verbally expressed understanding and agreement with care plan. Case discussed with ED attending, Dr. Jane. Undiagnosed new problem with uncertain prognosis? @ -No Drug Therapy requiring intensive monitoring for toxicity (Heparin, Nitro, Insulin, Cardizem)? @ -No Were any procedures done? @ -No Diagnosis/symptom? @ -Allergic reaction/nicotine dependence Acute, or Chronic, or Acute on Chronic? @ -Acute Uncomplicated (without systemic symptoms) or Complicated (systemic symptoms)? @ -Uncomplicated Side effects of treatment? @ -No Exacerbation, Progression, or Severe Exacerbation? @ -No Poses a threat to life or bodily function? How? (Chest pain, [place], [place], pneumonia, PE, COPD, DKA, ARF, appy, cholecystitis, CVA, Diverticulitis, Homicidal, Suicidal, threat to staff... and all critical care pts) @ -Low likelihood at this time - Lab Data Result diagrams: 08/22/23 10:03 08/22/23 10:03 Lab Results 08/22/23 08/22/23 Range/Units 10:03 10:03 WBC 11.3 H (3.8-10.6) k/uL RBC 3.94 (3.80-5.40) m/uL Hgb 13.0 (11.4-16.0) gm/dL Hct 40.7 (34.0-46.0) % MCV 103.3 H (80.0-100.0) fL MCH 33.1 (25.0-35.0) pg MCHC 32.1 (31.0-37.0) g/dL RDW 13.1 (11.5-15.5) % Plt Count 144 L (150-450) k/uL MPV 9.1 Neutrophils % 85 % Lymphocytes % 10 % Monocytes % 5 % Eosinophils % 0 % Basophils % 0 % Neutrophils # 9.5 H (1.3-7.7) k/uL Lymphocytes # 1.1 (1.0-4.8) k/uL Monocytes # 0.5 (0-1.0) k/uL Eosinophils # 0.0 (0-0.7) k/uL Basophils # 0.0 (0-0.2) k/uL Macrocytosis Slight Sodium 141 (137-145) mmol/L Potassium 3.9 (3.5-5.1) mmol/L Chloride 111 H (98-107) mmol/L Carbon Dioxide 25 (22-30) mmol/L Anion Gap 5 mmol/L BUN 10 (7-17) mg/dL Creatinine 0.75 (0.52-1.04) mg/dL Est GFR (CKD-EPI)AfAm >90 (>60 ml/min/1.73 sqM) Est GFR (CKD-EPI)NonAf 88 (>60 ml/min/1.73 sqM) Glucose 94 (74-99) mg/dL Calcium 9.0 (8.4-10.2) mg/dL Total Bilirubin 0.6 (0.2-1.3) mg/dL AST 18 (14-36) U/L ALT 13 (4-34) U/L Alkaline Phosphatase 74 (38-126) U/L Total Protein 5.7 L (6.3-8.2) g/dL Albumin 3.8 (3.5-5.0) g/dL Disposition Clinical Impression: Allergic reaction Disposition: HOME SELF-CARE Condition: Stable Instructions (If sedation given, give patient instructions): Anaphylaxis (ED) Additional Instructions: Follow up with PCP in next 1-2 days. Take benadryl every 6 hours for 48 hours. Return to the ER for any new or worsening symptoms. Prescriptions: EPINEPHrine (Auto Inject) [Epipen] 0.3 mg IM ONCE PRN #1 each PRN Reason: Anaphylaxis Is patient prescribed a controlled substance at d/c from ED?: No Referrals: Ingrid Maloney MD [Primary Care Provider] - 1-2 days Time of Disposition: 11:22
[2023-08-22] MEDS: SODIUM CHLORIDE 0.9% 1,000 ML IV STA (09:53)
[2023-08-22] MEDS: FAMOTIDINE 20 MG/2 ML VIAL IV STA (09:55)
[2023-08-22] MEDS: methylPREDNISolone SOD SUCCI 125 MG/2 ML VIAL IV STA (09:56)
[2023-08-22] MEDS: diphenhydrAMINE 50 MG/ML 1 ML VIAL IVP STA (09:56)
[2023-08-22 10:08] VITALS: RESP 16
[2023-08-22 10:12] LABS: Basophils % (A) 0 %; Eosinophils % (A) 0 %; HCT 40.7 % (34.0-46.0); Lymphocytes # (A) 1.1 k/uL (1.0-4.8); Lymphocytes % (A) 10 %; MCH 33.1 pg (25.0-35.0); MCHC 32.1 g/dL (31.0-37.0); MCV 103.3 fL (80.0-100.0); Macrocytosis Slight; Mean Platelet Volume 9.1; Monocytes # (A) 0.5 k/uL (0-1.0); Monocytes % (A) 5 %; Neutrophils # (A) 9.5 k/uL (1.3-7.7); Neutrophils % (A) 85 %; Platelet Count 144 k/uL (150-450); RBC 3.94 m/uL (3.80-5.40); RDW 13.1 % (11.5-15.5); WBC 11.3 k/uL (3.8-10.6)
[2023-08-22 10:27] LABS: ALT 13 U/L (4-34); AST 18 U/L (14-36); African American GFR (CKD) >90 (>60 ml/min/1.73 sqM); Albumin 3.8 g/dL (3.5-5.0); Alkaline Phosphatase 74 U/L (38-126); Anion Gap 5 mmol/L; Blood Urea Nitrogen 10 mg/dL (7-17); Carbon Dioxide 25 mmol/L (22-30); Chloride 111 mmol/L (98-107); Glucose 94 mg/dL (74-99); Non-African American GFR(CKD) 88 (>60 ml/min/1.73 sqM); Potassium 3.9 mmol/L (3.5-5.1); Sodium 141 mmol/L (137-145); Total Bilirubin 0.6 mg/dL (0.2-1.3); Total Protein 5.7 g/dL (6.3-8.2)
[2023-08-22] MEDS: DEXAMETHASONE SOD PHOSPHATE 4 MG/ML 1 ML VIAL IVP STA (11:29)
[2023-08-22 11:43] VITALS: BP 132/80; PULSE 68; TEMP 98
== END 2023-08-22 11:43 | disposition home or self-care (01) ==
LOC: EC 09:04
DX: T78.40XA Allergy, unspecified, initial encounter (principal); F17.200 Nicotine dependence, unspecified, uncomplicated
CPT/HCPCS: 36415; 80053; 85025; 99283; 96374; 96375 ×3; 96361; J1200; J1100; J3490; J2919

== ENCOUNTER → 2023-09-08 | Outpatient (CLI) | payer MEDICARE ==
--- NOTE | 2023-09-08 11:13 | XR ---
EXAMINATION TYPE: XR chest 2V DATE OF EXAM: 09/08/2023 11:07 AM COMPARISON: Chest radiographs from 06/08/2022 TECHNIQUE: XR chest 2V Frontal and lateral views of the chest. CLINICAL INDICATION:Female, 58 years old with history of T78.40XD ALLERGY, UNSPECIFIED, SUBSEQUENT EN COUNTE; FINDINGS: Lungs/Pleura: There is flattening of the diaphragm with increased lucency of the lungs. No evidence o f pneumothorax, pleural effusion or focal consolidation. Pulmonary vascularity: Unremarkable. Heart/mediastinum: Cardiomediastinal silhouette is unremarkable. Three lead cardiac conduction device overlying the left hemithorax with lead tips projecting over the right ventricle, right atrium and c oronary sinus. Musculoskeletal: No acute osseous pathology. Anterior cervical fusion hardware. IMPRESSION: 1. No acute cardiopulmonary disease/process. 2. COPD changes.
== END | disposition home or self-care (01) ==
LOC: RADXRMAIN 10:52
PROVIDERS: ATTEND Internal Medicine
DX: T78.40XD Allergy, unspecified, subsequent encounter (principal); J44.9 Chronic obstructive pulmonary disease, unspecified
CPT/HCPCS: 71046

== ENCOUNTER → 2023-11-16 | Outpatient (CLI) | payer MEDICARE ==
--- NOTE | 2023-11-16 09:48 | USB ---
Reason for Exam: Clinical finding. Risk Values: Araceli 5 year model risk: 0.9%. NCI Lifetime model risk: 5.0%. Technique: Method: Whole Breast Handheld. Findings: The whole breast of the right breast, the axilla of the right breast and the retroareolar of the right breast were scanned. No solid or cystic masses are identified.. Overall Assessment: Negative, BI-RAD 1 Management: Screening Mammogram of both breasts in 10 months. A clinical breast exam by your physician is recommended on an annual basis and results should be correlated with mammographic findings. This exam should not preclude additional follow-up of suspicious palpable abnormalities. Results were given to the patient verbally at the time of exam. [facility], , 11/16/2023 9:45 AM. Electronically signed and approved by: Elvin Moreno D.O. Radiologis
== END | disposition home or self-care (01) ==
LOC: RADUSWWP 09:15
PROVIDERS: ATTEND Surgery
DX: N61.0 Mastitis without abscess (principal)